=== PATIENT | female | born 2000 | race Caucasian/White ===

== ENCOUNTER 2023-07-17 10:33 | Outpatient (OUT) | payer OTHER, SELFPAY ==
--- NOTE | 2023-07-17 10:34 | US_ITS ---
The [address] [address] Patient Name: SHANTELLE PEREZ MRN: [id number] date: 2000 Sex: F Assigned Patient Location: US Current Patient Location: US Accession/Order Number: [id number] Exam Date: 07/17/2023 11:03 Report Date: 07/17/2023 15:33 At the request of: PASTORA WHITEHEAD Procedure: US OB transvaginal EXAMINATION: US OB transvaginal HISTORY: MISSED MENSES COMPARISON: No relevant comparison available. FINDINGS: GESTATIONAL SAC: Present and normal appearing. YOLK SAC: Present and normal appearing. POLE: Present and normal appearing. CARDIAC: Present. UTERUS: Normal size and appearance. OVARIES: Right: Normal. Left: Normal. CERVIX: 3.9 cm in length and closed. CUL-DE-SAC: Normal. OTHER: None. AGE BY LMP: Unknown LMP CAR BY LMP: AGE BY US CRL: 8 weeks 3 days CAR BY US CRL: 02/23/2024 US/US OB transvaginal IMPRESSION: 1. Single live intrauterine 8 weeks 3 days by today's ultrasound. Electronically authenticated by: RODOLFO REYNOSO Date: 07/17/2023 15:33
== END 2023-07-17 10:34 | disposition home or self-care (01) ==
PROVIDERS: Visit Provider Obstetrics & Gynecology
DX: Z34.91 Encounter for supervision of normal pregnancy, unspecified, first trimester (principal); N92.6 Irregular menstruation, unspecified
CPT/HCPCS: 76817

== ENCOUNTER 2023-08-13 10:57 | Outpatient (OUT) | payer OTHER, SELFPAY ==
[2023-08-13 11:35] LABS: Basophils Percent Auto 0.5 % (0.2-2.0); Eosinophils Absolute Auto 0.1 10^3/uL (0.0-0.7); Eosinophils Percent Auto 1.3 % (0.9-7.0); Hematocrit 37.8 % (36.0-48.0); Hemoglobin 13.2 g/dL (12.0-16.0); Immature Granulocytes Abs Auto 0.03 10^3/uL (0.00-0.03); Immature Granulocytes Pct Auto 0.4 % (0.0-0.5); Lymphocytes Absolute Auto 2.6 10^3/uL (1.2-3.8); Mean Corpuscular HGB Conc 34.9 g/dL (29.9-35.2); Mean Corpuscular Hemoglobin 31.9 pg (26.7-34.0); Mean Corpuscular Volume 91.3 fL (81.0-99.0); Monocytes Absolute Auto 0.5 10^3/uL (0.3-0.8); Monocytes Percent Auto 5.8 % (1.7-12.0); Platelet Count 185 10^3/uL (150-450); Red Blood Count 4.14 10^6/uL (4.20-5.40); Red Cell Distribution Width 12.6 % (11.0-15.0); White Blood Count 8.2 10^3/uL (4.0-11.0)
[2023-08-13 11:42] LABS: BOX Test Sent Out Y
[2023-08-13 12:07] LABS: Estimated Average Glucose 97 mg/dL
[2023-08-13 12:12] LABS: Thyroid Stimulating Hormone 0.569 uIU/mL (0.358-3.740)
[2023-08-14 06:09] LABS: HBsAg Screen Negative (Negative); HCV Ab Non Reactive (Non Reactive)
[2023-08-14 11:12] LABS: Rapid Plasma Reagin, Quant Non Reactive titer (NonRea<1:1)
[2023-08-15 06:09] LABS: Rubella Antibodies, IgG 1.37 index (Immune >0.99)
[2023-08-15 08:10] LABS: HIV Ab/p24 Ag Screen Non Reactive (Non Reactive)
== END 2023-08-13 10:58 | disposition home or self-care (01) ==
LOC: LAB 10:58
PROVIDERS: Visit Provider Obstetrics & Gynecology
DX: Z34.90 Encounter for supervision of normal pregnancy, unspecified, unspecified trimester (principal)
CPT/HCPCS: 36415; 83036; 84443; 85025; 86592; 86762; 86803; 86850; 86900; 86901; 87086; 87340; 87389

== ENCOUNTER 2023-10-03 21:35 | Emergency (ER) | payer OTHER, SELFPAY ==
[2023-10-03 21:39] VITALS: BP 114/64; PULSE 78; RESP 16; TEMP 36.7; O2SAT 100; BMI 20.5
--- NOTE | 2023-10-03 21:46 | PC.NURSE ---
Pt presents to ER for cramping during Pt states she is 19 weeks and has been having on and off cramping over the last week or more, but tonight the cramps have become more severe Pt states the baby has not been moving as much as usual heart tones obtained,153
--- NOTE | 2023-10-03 22:00 | ED.PREGNANC1 ---
HPI - General Chief complaint: OB/Uterine Contractions Stated complaint: issues - 19 weeks Time Seen by Provider: 10/03/23 21:51 Source: patient Mode of arrival: walk-in History of Present Illness HPI Narrative: Patient approx 19wks complains of 2-3 days of intermittent abdominal cramping, occasional headache and occasional dizziness. No fall or injury to the abdomen. No fever, chills, cough, vomiting, diarrhea or other illness. No urinary complaints or vaginal discharge. No vaginal bleeding. Normal bowel habits. Tonight around 7pm the patient developed lower abdominal cramping that persisted for about 2 hours. She took Tylenol and took a bath and the pain/cramping decreased but did not entirely go away. She told me that because of all of the symptoms - which were not present on her first - she was concerned. unknown LMP - US in Jul 2023 puts her at 19wks and 5 days Related Data Home Medications Medication Instructions Recorded Confirmed No Known Home Medications 10/03/23 10/03/23 Allergies Allergy/AdvReac Type Severity Reaction Status Date / Time No Known Drug Allergies Allergy Verified 10/03/23 21:43 Exam Narrative Exam Narrative: Nurses notes and vital signs reviewed and patient is not hypoxic. afebrile General: Well-appearing and in no apparent distress. Skin: Warm, dry, no pallor noted. No rash. Eye: Pupils are equal, round and EOMI. No scleral icterus. Cardiovascular: Regular Rate and Rhythm without murmur, gallop or rub. Respiratory: No accessory muscle use or respiratory distress. Lungs are clear to auscultation, no wheezing, rales or rhonchi Back: No CVA tenderness Musculoskeletal: normal ROM, no calf or popliteal tenderness, no lower extremity edema/swelling GI: Abdomen is soft, non-distended. Normal bowel sounds. Gravid uterus. No tenderness to palpation. No rebound, guarding, or rigidity noted. FHT 154bpm. Neurological: A&O x4. No cranial nerve dysfunction observed. No truncal ataxia. Moves all extremities. Sensation intact. Psychiatric: Cooperative and interactive. Normal mood and affect. Constitutional Vital Signs, click to edit/add: Last Vital Signs Temp 98.1 F 10/03/23 21:39 Pulse 78 10/03/23 21:39 Resp 16 11/25/23 21:39 BP 114/64 10/03/23 21:39 Pulse Ox 100 10/03/23 21:39 O2 Del Method Room Air 10/03/23 21:39 Course Vital Signs Vital signs: Vital Signs Temperature 98.1 F 10/03/23 21:39 Pulse Rate 78 10/03/23 21:39 Respiratory Rate 16 10/03/23 21:39 Blood Pressure 114/64 10/03/23 21:39 Pulse Oximetry 100 10/03/23 21:39 Oxygen Delivery Method Room Air 10/03/23 21:39 Temperature 98.1 F 10/03/23 21:39 Pulse Rate 78 10/03/23 21:39 Respiratory Rate 16 10/03/23 21:39 Blood Pressure 114/64 10/03/23 21:39 Pulse Oximetry 100 10/03/23 21:39 Oxygen Delivery Method Room Air 10/03/23 21:39 MDM - OB/Uterine Contractions MDM Narrative Medical decision making narrative: Unremarkable physican exam. Case discussed with Dr Parks - will give patient reassurance and have her go home with out-patient follow up as needed at the OB office. Discharge Plan Discharge Chief Complaint: OB/Uterine Contractions Clinical Impression: Abdominal pain during Patient Disposition: Home, Self-Care Time of Disposition Decision: 22:09 Prescriptions / Home Meds: No Action No Known Home Medications Instructions: Abdominal Pain in (ED) Stand Alone Forms: Portal Instructions Referrals: Kb Parks, [Physician] - As needed
== END 2023-10-03 22:44 | disposition home or self-care (01) ==
PROVIDERS: Emergency Provider Emergency Medicine
DX: O26.892 Other specified pregnancy related conditions, second trimester (principal); R10.9 Unspecified abdominal pain; Z3A.19 19 weeks gestation of pregnancy
CPT/HCPCS: 99281

== ENCOUNTER 2023-10-15 08:48 | Outpatient (OUT) | payer OTHER, SELFPAY ==
--- NOTE | 2023-10-15 08:49 | US_ITS ---
[address] [address] Patient Name: SHANTELLE PEREZ MRN: [id number] date: 2000 Sex: F Assigned Patient Location: US Current Patient Location: US Accession/Order Number: [id number] Exam Date: 10/15/2023 08:50 Report Date: 10/15/2023 10:28 At the request of: PASTORA WHITEHEAD Procedure: US OB anatomy EXAMINATION: US OB anatomy, US OB cervical length HISTORY: ANATOMY COMPARISON: 07/17/2023 TECHNIQUE: Transabdominal sonographic examination was performed for obstetrical and evaluation. FINDINGS: Number: 1 Heart Rate: 148.0 bpm H.B. /min Amniotic Fluid Volume: Subjectively normal position: Cephalic presentation, longitudinal lie Placental Location: ANTERIOR, the placental edge is 2.5 cm from the internal os. Grade 1 Cervix Length: 3.9 cm, closed Normal anatomy: Lateral ventricles, cerebellum, posterior fossa, nose, lips, orbits, four-chamber heart, RVOT, LVOT, diaphragm, stomach, kidneys, abdominal cord insertion, bladder, umbilical cord arteries, three-vessel cord, spine, extremities BIOMETRY: BPD: 5.4 cm 22 weeks 3 days, 89% HC: 20.0 cm 22 weeks 1 days, 77% AC: 17.4 cm 22 weeks 2 days, 75% FL: 3.8 cm 22 weeks 0 days, 65% EFW: 481.6 grams grams ; 1 lb. 1 oz., 87% FL/AC: 21.6 FL/BPD: 69.2 HC/AC: 1.2 GESTATIONAL AGE: Age by EDC: 21 weeks 2 days CAR by EDC: 02/23/2024 Age by current US: 22 weeks 2 days CAR by current US: 02/16/2024 US/US OB anatomy IMPRESSION: Normal anatomy scan Closed cervix measuring 3.9 cm in length *Reference: [employer] Practice Guideline for the performance of Obstetric Ultrasound Examinations, August 09, 2007. Electronically authenticated by: COMPA WILLIAM Date: 10/15/2023 10:28
--- NOTE | 2023-10-15 08:49 | US_ITS ---
[address] [address] Patient Name: SHANTELLE PEREZ MRN: [id number] date: 2000 Sex: F Assigned Patient Location: US Current Patient Location: US Accession/Order Number: [id number] Exam Date: 10/15/2023 08:50 Report Date: 10/15/2023 10:28 At the request of: PASTORA WHITEHEAD Procedure: US OB cervical length EXAMINATION: US OB anatomy, US OB cervical length HISTORY: ANATOMY COMPARISON: 07/17/2023 TECHNIQUE: Transabdominal sonographic examination was performed for obstetrical and evaluation. FINDINGS: Number: 1 Heart Rate: 148.0 bpm H.B. /min Amniotic Fluid Volume: Subjectively normal position: Cephalic presentation, longitudinal lie Placental Location: ANTERIOR, the placental edge is 2.5 cm from the internal os. Grade 1 Cervix Length: 3.9 cm, closed Normal anatomy: Lateral ventricles, cerebellum, posterior fossa, nose, lips, orbits, four-chamber heart, RVOT, LVOT, diaphragm, stomach, kidneys, abdominal cord insertion, bladder, umbilical cord arteries, three-vessel cord, spine, extremities BIOMETRY: BPD: 5.4 cm 22 weeks 3 days, 89% HC: 20.0 cm 22 weeks 1 days, 77% AC: 17.4 cm 22 weeks 2 days, 75% FL: 3.8 cm 22 weeks 0 days, 65% EFW: 481.6 grams grams ; 1 lb. 1 oz., 87% FL/AC: 21.6 FL/BPD: 69.2 HC/AC: 1.2 GESTATIONAL AGE: Age by EDC: 21 weeks 2 days CAR by EDC: 02/23/2024 Age by current US: 22 weeks 2 days CAR by current US: 02/16/2024 US/US OB cervical length IMPRESSION: Normal anatomy scan Closed cervix measuring 3.9 cm in length *Reference: [employer] Practice Guideline for the performance of Obstetric Ultrasound Examinations, August 09, 2007. Electronically authenticated by: COMPA WILLIAM Date: 10/15/2023 10:28
--- OUTSIDE RECORDS SUMMARY | 2023-10-28 02:47 | XMS_ITS | CCD ---
Author Name Unknown Address [address] [place] [address] Organization [facility] Care Team Providers Care Setter Up Name Role Phone SimonaLori Primary Care Physician [phone] Wendie Jackson Primary Care Physician [phone] VENTURA ., DR GUILLORY Admitting Unavailable VENTURA ., DR GUILLORY Attending Unavailable VENTURA ., DR GUILLORY Consulting Unavailable REQUEST, DR NONE LISTED Primary Care Unavaila ble VENTURA ., DR GUILLORY Attending Unavailable VENTURA ., DR GUILLORY Admitting Unavailable REQUEST, DR NONE LISTED Primary Care Unavaila ble VENTURA ., DR GUILLORY Consulting Unavailable VENTURA ., DR GUILLORY Attending Unavailable VENTURA ., DR GUILLORY Admitting Unavailable REQUEST, NONE LISTED Primary Care Unavaila ble VENTURA ., DR GUILLORY Consulting Unavailable VENTURA ., DR GUILLORY Consulting Unavailable VENTURA ., DR GUILLORY Attending Unavailable VENTURA ., DR GUILLORY Admitting Unavailable REQUEST, DR NONE LISTED Primary Care Unavaila ble VENTURA ., DR GUILLORY Consulting Unavailable VENTURA ., DR GUILLORY Admitting Unavailable VENTURA ., DR GUILLORY Attending Unavailable REQUEST, DR NONE LISTED Primary Care Unavaila ble RODOLFO REYNOSO Consulting Unavailable ANA MUSA Attending Unavailable ANA MUSA Admitting Unavailable ANA MUSA Consulting Unavailable REQUEST, NONE LISTED Primary Care Unavaila ble VENTURA ., DR GUILLORY Consulting Unavailable VENTURA ., DR GUILLORY Attending Unavailable VENTURA ., DR GUILLORY Admitting Unavailable REQUEST, DR NONE LISTED Primary Care Unavaila ble VENTURA ., DR GUILLORY Admitting Unavailable VENTURA ., DR GUILLORY Attending Unavailable VENTURA ., DR GUILLORY Consulting Unavailable REQUEST, DR NONE LISTED Primary Care Unavaila ble VENTURA ., DR GUILLORY Attending Unavailable VENTURA ., DR GUILLORY Admitting Unavailable REQUEST, DR NONE LISTED Primary Care Unavaila ble COMPA WILLIAM Consulting Unavailable VENTURA ., DR GUILLORY Consulting Unavailable VENTURA ., DR GUILLORY Consulting Unavailable VENTURA ., DR GUILLORY Attending Unavailable VENTURA ., DR GUILLORY Admitting Unavailable MISC, DR SIMMONS Primary Care Unavailable MISC, DR SIMMONS Primary Care Unavailable VENTURA ., DR GUILLORY Admitting Unavailable VENTURA ., DR GUILLORY Attending Unavailable MISC, DR SIMMONS Primary Care Unavailable HAY ., DR PEREZ Attending Unavailable HAY ., DR PEREZ Admitting Unavailable HAY ., DR PEREZ Consulting Unavailable RENE, RODOLFO Consulting Unavailable VENTURA ., DR GUILLORY Consulting Unavailable MISC, DR SIMMONS Primary Care Unavailable VENTURA ., DR GUILLORY Attending Unavailable VENTURA ., DR GUILLORY Admitting Unavailable VENTURA ., DR GUILLORY Procedure Practitioner Unavail able VENTURA ., DR GUILLORY Admitting Unavailable REQUEST, DR NONE LISTED Primary Care Unavaila ble VENTURA ., DR GUILLORY Attending Unavailable VENTURA ., DR GUILLORY Attending Unavailable VENTURA ., DR GUILLORY Admitting Unavailable REQUEST, DR NONE LISTED Primary Care Unavaila ble COMPA WILLIAM Consulting Unavailable VENTURA ., DR GUILLORY Consulting Unavailable VENTURA ., DR GUILLORY Consulting Unavailable VENTURA ., DR GUILLORY Attending Unavailable VENTURA ., DR GUILLORY Admitting Unavailable REQUEST, DR NONE LISTED Primary Care Unavaila ble ZIEBER, RODOLFO R Consulting Unavailable VENTURA ., DR GUILLORY Attending Unavailable VENTURA ., DR GUILLORY Admitting Unavailable REQUEST, DR NONE LISTED Primary Care Unavaila ble VENTURA ., DR GUILLORY Consulting Unavailable Higgins, Basem G. Admitting Unavailable Higgins, Basem G. Attending Unavailable Higgins, Basem G. Referring Unavailable Renetta, Wendie C Referring Unavailable Renetta, Wendie C Admitting Unavailable Renetta, Wendie C Attending Unavailable Renetta, Wendie C Admitting Unavailable Renetta, Wendie C Attending Unavailable Higgins, Basem G. Attending Unavailable Renetta, Wendie C Referring Unavailable Renetta, Wendie C Referring Unavailable Renetta, Wendie C Admitting Unavailable Renetta, Wendie C Attending Unavailable LORI HUYNH Attending Unavailable Allergies Allergy Classification Reported Allergen(s) Allergy Type Date of Onset Reaction(s) Facility (8 sources) Bee/Wasp/Ant venom; Translations: [Bee Stings] Allergy to substance Swelling - edema - symptom (finding) [facility] (8 sources) Seafood; Translations: [Seafood] Food allergy diarrhea [facility] (1 source) Shrimp product Drug allergy (disorder) 2 [facility] (1 source) wasp venom Drug allergy (disorder) 2 [facility] Medications Current Medications Medication Drug Class(es) Dates Sig (Normalized) Sig (Original) 168 hr ethinyl estradiol 0.58108 mg/hr / norelgestromin 0.44223 mg/hr transdermal system (7 sources) Progestin, Estrogen Start: 08-16-2020 Xulane 150 mcg-35 mcg/24 hr transdermal film, extended release 1 patch(es), Topical, qWeek, 3 EA, Refill(s) 11, [facility], 165, cm, 08/16/20 15:55:00 EDT, Height/Length Dosing, 66.3, kg, 08/16/20 15:55:00 EDT, Weight Dosing Start Date: 08/16/20 Status: Ordered hydrocortisone 25 mg/ml topical cream (7 sources) Corticosteroid Start: 09-19-2020 hydrocortisone Top 2.5% Crm 1 tahmina, Topical, TID, 20 gram, Refill(s) 0, [facility], 165, cm, 09/19/20 16:02:00 EST, Height/Length Dosing, 69.5, kg, 09/19/20 16:02:00 EST, Weight Dosing Start Date: 09/19/20 Status: Ordered Start: 09-19-2020 hydrocortisone Top 2.5% Crm 1 tahmina, Topical, TID, 20 gram, Refill(s) 0, [facility], 165, cm, 09/19/20 16:02:00 EST, Height/Length Dosing, 69.5, kg, 11/11/20 16:02:00 EST, Weight Dosing Start Date: 09/19/20 Status: Ordered Completed/Discontinued Medications Medication Drug Class(es) Dates Sig (Normalized) Sig (Original) Albuterol (Eqv-ProAir HFA) 90 mcg/inh inhalation aerosol (2 sources) Start: 12-31-2022 End: 06-29-2023 take 1 dose by inhalation every six hours Albuterol (Eqv-ProAir HFA) 90 mcg/inh inhalation aerosol 2 puff(s), Inhalation, q6hr Shortness of breath or wheezing for 30 day(s), 1 EA, Refill(s) 5, [id number], 167, cm, 12/31/22 11:21:00 EST, Height/Length Dosing, 59.1, kg, 12/31/22 11:21:00 EST, Weight Dosing Start Date: 12/31/22 Stop Date: 06/29/23 Status: Ordered Problems Active Problems Problem Classification Problem Date Documented Date Episodic/Chronic Headache; including migraine (7 sources) Migraine 09-29-2019 Chronic Inflammation; infection of eye (except that caused by tuberculosis or sexually transmitteddisease) (1 source) Viral conjunctivitis; Translations: [Viral conjunctivitis, unspecified] Onset: 03-25-2022 Episodic Menstrual disorders (4 sources) Irregular menstruation, unspecified; Translations: [IRREGULAR MENSTRUATION UNSPECIFIED] Onset: 03-24-2022 Chronic Nonspecific chest pain (14 sources) Anterior chest wall pain; Translations: [Chest wall pain] 01-04-2020 Episodic OB-related trauma to perineum and vulva (1 source) Second degree perineal laceration during delivery; Translations: [SECOND DEG PERINEAL LAC DUR DELIV] Onset: 11-17-2022 Episodic Other complications of ; puerperium affecting management of mother (1 source) Other complications of the puerperium, not elsewhere classified; Translations: [OTHER COMPLICATIONS PUERPERIUM NEC] Onset: 11-12-2022 Episodic Other lower respiratory disease (1 source) Dyspnea; Translations: [Shortness of breath] Onset: 12-31-2022 Episodic Other lower respiratory disease (4 sources) Shortness of breath; Translations: [SHORTNESS OF BREATH] Onset: 04-23-2022 Episodic Other lower respiratory disease (1 source) Dyspnea, unspecified; Translations: [DYSPNEA UNSPECIFIED] Onset: 11-12-2022 Episodic Other and delivery including normal (14 sources) Encounter for routine follow-up; Translations: [Encounter for full-term uncomplicated delivery] Onset: 03-28-2022 Episodic Residual codes; unclassified (1 source) 40 weeks gestation of ; Translations: [40 WEEKS GESTATION OF ] Onset: 11-17-2022 Episodic Substance-related disorders (7 sources) Smoker 11-19-2019 Chronic Comment on above: Added secondary to d ocumentation in Social History. Unclassified (1 source) CONTACT W/AND (SUSP) EXPOS COVID-19; Tra nslations: [CONTACT W/AND (SUSP) EXPOS COVID-19] Onset: 11-17-2022 Past or Other Problems Problem Classification Problem Date Documented Date Episodic/Chronic Immunizations and screening for infectious disease (2 sources) Encounter for screening for infections with a predominantly sexual mode of transmission; Translations: [Contact with and (suspected) exposure to infections with a predominantly sexual mode of transmission] Onset: 03-27-2022 Episodic Other complications of (4 sources) Maternal care for other known or suspected poor growth, third trimester, not applicable or unspecified; Translations: [MAT CARE OTH DE FTL GRTH 3RD TM UNS] Onset: 09-25-2022 Episodic Other complications of (4 sources) Decreased movements, third trimester, not applicable or unspecified; Translations: [DECR MOVEMENTS 3RD TRI NA/UNS] Onset: 08-30-2022 Episodic Other complications of (4 sources) Other specified related conditions, third trimester; Translations: [OTH SPEC PREG RELATED COND 3RD TRI] Onset: 08-28-2022 Episodic Other complications of (4 sources) Other specified related conditions, unspecified trimester; Translations: [OTH SPEC PREG RELATED COND UNS TRI] Onset: 04-21-2022 Episodic Other female genital disorders (4 sources) Other specified noninflammatory disorders of vagina; Translations: [OTH SPEC NONINFLAMMATORY D/O VAGINA] Onset: 07-17-2022 Episodic Other screening for suspected conditions (not mental disorders or infectious disease) (14 sources) Encounter for screening for diabetes mellitus; Translations: [Encounter for screening, unspecified] Onset: 03-27-2022 Episodic Residual codes; unclassified (1 source) 34 weeks gestation of ; Translations: [34 WEEKS GESTATION OF ] Onset: 09-27-2022 Episodic Residual codes; unclassified (1 source) 32 weeks gestation of ; Translations: [32 WEEKS GESTATION OF ] Onset: 09-15-2022 Episodic Residual codes; unclassified (1 source) 30 weeks gestation of ; Translations: [30 WEEKS GESTATION OF ] Onset: 09-03-2022 Episodic Residual codes; unclassified (1 source) Unspecified blood type, Rh negative; Translations: [UNSPECIFIED BLOOD TYPE RH NEGATIVE] Onset: 09-02-2022 Episodic Residual codes; unclassified (1 source) 28 weeks gestation of ; Translations: [28 WEEKS GESTATION OF ] Onset: 09-02-2022 Episodic Residual codes; unclassified (1 source) 20 weeks gestation of ; Translations: [20 WEEKS GESTATION OF ] Onset: 06-20-2022 Episodic Unclassified (7 sources) None (qualifier value) 05-14-2011 Results Test Name Value Interpretation Reference Range Facil [facility] Pulmonary Function Studieson 06-24-2023 Pulmonary Function Studies PULMONARY FUNCTION TEST: 06/16/2023 REFERRING PHYSICIAN: Wendie Jackson D.O., Gurpreet Higgins M.D. REASON FOR TESTING: This is a 22-year-old female, never smoked. Pulmonary function test is performed to evaluate for dyspnea. Spirometry shows normal FEV1 at 86% predicted, forced vital capacity is normal at 92% predicted, FEV1/forced vital capacity ratio is normal at 82%. After administration of bronchodilators, there is no response to bronchodilators. Lung volume testing shows normal total lung capacity at 91% predicted, residual volume is high normal at 110% predicted. RV/total lung capacity ratio is normal at 33%. The lung diffusion capacity is normal at 115% predicted. In comparison to prior testing on December 09, 2022, there is significant improvement in FEV1 from 64% predicted to 86% predicted. IMPRESSION: Spirometry is normal. There is no response to bronchodilators. Lung volume testing is normal. The lung diffusion capacity is normal. Spirometry has improved compared to prior testing. READ BY: Portillo Correa M.D. ls Dictated: 06/23/2023 [id number] Transcribed: 06/23/2023 cc:Wendie Jackson D.O. cc:Gurpreet Higgins M.D. Normal [facility] Comment on above: Result Comment: Elec tronically Signed By: Madeline LEE, Portillo Rojas\.br\Date and Time Signed: 06/24/23 13:19 EDT Consent for Treatmenton 08- Consent for Treatment [id number]#1.00CD:[address] [facility] Pulmonary Function Testson 0 06-16-2023 Pulmonary Function Tests [id number]#1.00CD:[address] [facility] Reminderson 06-02-2023 Reminders - From: Tess Guaman To: [facility] - Clinical; Sent: 12/31/2022 14:08:49 EST Show up: 02/28/2023 15:08:00 EDT Subject: 3 month f/u Due Date/Time: 03/30/2023 15:08:00 EDT Reminder/Recall 3 month f/u w/ Dr. Higgins From: Gumaro Currie ([facility] - Clinical) To: [facility] - Clinical; Sent: 06/02/2023 13:48:27 EDT Show up: 06/02/2023 13:48:00 EDT Subject: RE: 3 month f/u Scheduled follow up for 07/01, transferred her to central scheduling for PFT that was never done. Normal [facility] Coding Summary.on 01-13-2023 Coding Summary. [id number] [file] cmRl (more content not included)... Normal [facility] Consent for Treatmenton 12-11 Consent for Treatment [id number]#1.00CD:127 Normal [facility] Heart and Vascular Office/Cl inic Noteon 12-31-2022 Heart and Vascular Office/Clinic Note Chief Complaint New Pt SOB History of Present Illness Here for evaluation for shortness of breath. The patient reports that she been having shortness of breath since she became about a year ago. Her symptoms somewhat improved towards the end of only to come back after she had delivered 2 months ago. She reports that she has shortness of breath with exertion but denies cough, sputum production, wheezing, chest pain, lower extremity edema or significant weight changes. She had underwent a full PFT which was abnormal and hence referred for further evaluation. She had not had prior respiratory issues in the past and had not had history of asthma when she was growing up. Never smoked. No pets at home. Review of Systems PHQ Score Initial Depression Screen Score: 0 Constitutional: no fever, no chills, no sweats, no weakness Skin: no Jaundice, no rash, no lesions, no petechiae ENT: no ear pain, no sore throat, no congestion, no hoarseness Respiratory: as per HPI Cardiovascular: no chest pain, no palpitations, no edema Gastrointestinal: no nausea, no vomiting, no diarrhea, no GI bleeding Genitourinary: no dysuria, no hematuria, no discharge, no pain Musculoskeletal: no back pain, no trauma Neurologic: no headache, no dizziness, no numbness, no weakness Psychiatric: no sleeping problems, no irritability, no mood swings/depression. Heme/Lymph: no bleeding tendency, no bruising tendency, no petechiae, no swollen nodes Allergy/Immunologic: no seasonal allergies, no food allergies, no recurrent infections, no impaired immunity Additional ROS info: Except as noted in the above Review of Systems and in the History of Present Illness all other systems have been reviewed and are negative or noncontributory. Physical Exam Vitals & Measurements HR: 66(Peripheral) BP: 96/62 SpO2: 96% HT: 66 in HT: 167 cm WT: 59.1 kg WT: 130.02 lb BMI: 21.19 General: Awake, alert, in no acute distress Skin: warm, dry Head: no trauma, normocephalic Neck: Trachea midline, no adenopathy, no tenderness Eye: normal conjunctiva, sclera clear ENMT: TM's clear, oral mucosa moist, no pharyngeal erythema or exudate Cardiovascular: regular rate and rhythm, normal peripheral perfusion Respiratory: Good breath sounds to both lung aviles without wheezing or crackles. Gastrointestinal: soft, non distended, no tenderness, no guarding. Back: No tenderness, Normal ROM, Normal alignment. Extremities: no deformity, no trauma Neurological: oriented x 4, LOC appropriate for age, CN II-XII intact, motor strength equal & normal bilaterally, sensation equal & normal bilaterally, speech normal Psychiatric: cooperative, affect appropriate for age, normal judgement, normal psychiatric thoughts. 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 [1] (12/02/2022 13:28 EST CTA Chest) IMPRESSION: NO EVIDENCE OF PULMONARY EMBOLI OR ACTIVE CARDIOPULMONARY DISEASE. [2] Assessment/Plan 1. SOB (shortness of breath) (R06.02: Shortness of breath) With PFTs suggestive, of obstructive and restrictive lung disease pattern with a normal diffusion capacity. Upon reviewing the raw data of her PFTs, it appears that her PFTs are likely unreliable with poor quality flow volume loops. Per instrument repair technician the patient was carrying her baby while performing her PFT. I somewhat doubt underlying obstructive lung disease especially given the lack of significant asthma history and our smoking history. I will give a trial for albuterol to use as needed. Repeat a PFT in 3 months and reevaluate based on the results and her response to bronchodilator therapy. The patient will benefit from an echocardiogram to rule out gestational cardiomyopathy, however she reports that she had had an echocardiogram done at an outside facility and she will bring the report of her echocardiogram for me to review. Ordered: albuterol, 2 puff(s), Inhalation, q6hr Shortness of breath or wheezing for 30 day(s), 1 EA, Refill(s) 5, [id number], 167, cm, 12/31/22 11:21:00 EST, Height/Length Dosing, 59.1, kg, 12/31/22 11:21:00 EST, Weight Dosing Pulmonary Function Testing Follow-up With When Contact Information Ronaldo LEE, Gurpreet Levine, PUL, MIGDALIA Within 3 months [address] [facility] [place] [address]- Additional Instructions: Problem List/Past Medical History Ongoing Costochondral chest pain Left-sided chest wall pain Migraines Smoker Historical None Procedure/Surgical History Implantable subdermal contraceptive insertion done (05/10/2020), None. Medications Albuterol (Eqv-ProAir HFA) 90 mcg/inh inhalation aerosol, 2 puff(s), Inhalation, q6hr, PRN, 5 refills hydrocortisone Top 2.5% Crm, 1 tahmina, Topical, TID, Not taking Xulane 150 mcg-35 mcg/24 hr transdermal film, extended release, 1 patch(es), Topical, qWeek, 11 refills, Not taking Allergie (more content not included)... Normal [facility] Comment on above: Result Comment: Elec tronically Signed By: Ronaldo LEE, Gurpreet Levine\.br\Date and Time Signed: 12/31/22 12:07 EST Physician Orderon 12-31-2022 Physician Order [id number]#1.00CD:127 [facility] Referrals Officeon 3 Referrals Office [id number]#1.00CD:127 [facility] Pulmonary Function Studieson 12-19-2022 Pulmonary Function Studies PULMONARY FUNCTION TEST: 12/09/2022 REQUESTING PHYSICIAN: Wendie Jackson D.O. REASON FOR TESTING: Shortness of breath. Spirometry results are acceptable and reproducible. The FVC was 3.15 liters or 80% of predicted. The FEV1 was 2.2 liters or 64% of predicted with a ratio of 70%. There was no significant change with the administration of bronchodilators. Lung volumes showed a total lung capacity of 85% of predicted, residual volume of 108% of predicted with a ratio of 35%. Diffusion capacity of carbon monoxide was 100% of predicted and when adjusted to alveolar volume at 122% of predicted. 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 READ BY: Gurpreet Higgins M.D. ls Dictated: 12/14/2022 [id number] Transcribed: 12/15/2022 cc:Wendie Jackson D.O. [facility] Comment on above: Result Comment: Elec tronically Signed By: Ronaldo LEE, Gurpreet GSedrick\.br\Date and Time Signed: 12/19/22 09:37 EST Coding Summary.on 12-11-2022 Coding Summary. [id number] [file] cmRl (more content not included)... Normal [facility] Consent for Treatmenton 11-11 Consent for Treatment [id number]:127 [facility] Pulmonary Function Testson 0 12-09-2022 Pulmonary Function Tests [id number]:127 [facility] Physician Orderon 12-08-2022 Physician Order [id number]#1.00CD:127 [facility] Physician Order [id number]:127 [facility] Physician Order [id number]#1.00CD:127 [facility] Coding Summary.on 12-05-2022 Coding Summary. [id number] [file] cmRl (more content not included)... Normal [facility] CTA Cheston 12-02-2022 CTA Chest Exam Date/Time: 12/02/2022 13:28 EST Reason for Exam: R06.02 Report IMPRESSION: NO EVIDENCE OF PULMONARY EMBOLI OR ACTIVE CARDIOPULMONARY DISEASE. EXAM: CTA Chest DATE: 12/02/2022 CLINICAL HISTORY: R06.02. COMPARISON: None available TECHNIQUE: Spiral enhanced images were obtained of the chest after the infusion of approximately 75 mL of Isovue 370 contrast with pulmonary artery CTA protocol. Routine and volume rendered images were performed on a three-dimensional workstation. All CT scans at this facility use dose modulation, iterative reconstruction, and/or weight based dosing when appropriate to reduce radiation dose to as low as reasonably achievable. FINDINGS: No filling defects are identified within the pulmonary arterial vasculature to suggest pulmonary emboli. The thoracic aorta is normal in caliber without significant atherosclerotic plaquing. There is no dissection. The heart is not enlarged. There are no significant pulmonary infiltrates, lymphadenopathy, worrisome nodules, pleural or pericardial effusions. There are no fractures identified. The limited imaging of the included upper abdomen is noncontributory. FINAL REPORT Dictated: 12/02/2022 2:29 pm Noah Montano MD Signed (Electronic Signature): 12/02/2022 2:29 pm Signed by: Noah Montano MD Transcribed by: WOODROW Technologist: ISRAEL Technical Comments GFR (mL/min/1/73m2) . Contrast: Isovue 370 Contrast amount in ml's: [address] [facility] Consent for Treatmenton 11-10 Consent for Treatment [id number]#1.00CD:[address] [facility] Coding Summary.on 11-29-2022 Coding Summary. [id number] [file] cmRl (more content not included)... Normal [facility] Physician Orderon 11-25-2022 Physician Order [id number]#1.00CD:127 Normal [facility] CBC w/Indiceson 01-16-2023 Erythrocyte distribution wid th (RBC) [Ratio] 12.8 % Normal 10.9-14.2 [facility] Comment on above: Performed By: #### 2 [id number], [id number], [id number], [id number] ####[facility] [address] [place] [address] Hematocrit (Bld) [Volume fraction] 40.6 % Normal 34.0-46.0 [facility] Comment on above: Performed By: #### 2 [id number], [id number], [id number], [id number], [id number] ####[facility] [address] [place] [address] Hemoglobin (Bld) [Mass/Vol] 13.3 g/dL Normal 12.0-16. [address] [facility] Comment on above: Performed By: #### 2 [id number], [id number], [id number], [id number], [id number] ####[facility] [address] [place] [address] MCH (RBC) [Entitic mass] 31.1 pg Normal 27.0-34.[address] [facility] Comment on above: Performed By: #### 2 [id number], [id number], [id number], [id number], [id number] ####[facility] [address] [place] [address] MCHC (RBC) [Mass/Vol] 32.7 g/dL Normal 31.4-36.0 [facility] Comment on above: Performed By: #### 2 743764, 4189203, 38113989, 39549336, 7576756 ####[facility] [address] [place] [address] MCV (RBC) [Entitic vol] 94.9 fL Normal 80.0-100.[address] [facility] Comment on above: Performed By: #### 2 072987, 8741719, 85241507, 39796241, 8693154 ####[facility] [address] [place] [address] Platelet mean volume (Bld) [Entitic vol] 9.4 fL Normal 6.4-10.8 [facility] Comment on above: Performed By: #### 2 807606, 3649421, 41464978, 69700979, 0826634 ####[facility] [address] [place] [address] Platelets (Bld) [#/Vol] 255.0 E9/L Normal 150.0-500.[address] [facility] Comment on above: Performed By: #### 2 566037, 5701357, 69022168, 97484054, 4641908 ####[facility] [address] [place] [address] RBC (Bld) [#/Vol] 4.3 E12/L Normal 4.3-5.[address] [facility] Comment on above: Performed By: #### 2 196676, 2517128, 23598499, 75471176, 0401003 ####[facility] [address] [place] [address] WBC corrected for nucl RBC A uto (Bld) [#/Vol] 5.6 E9/L Normal 4.0-11.0 [facility] Comment on above: Performed By: #### 2 217294, 5698307, 70646451, 27196358, 9213941 ####[facility] [address] [place] [address] CHEMISTRYOrdered By: SYSTEM SYSTEM on 11-24-2022 Albumin [Mass/Vol] 3.9 g/dL Normal 3.3 - 5.0 gm/dL [facility] Albumin/Globulin [Mass ratio] 1.1 {ratio} Normal 1.1 - 2.2 [facility] ALP [Catalytic activity/Vol] 94 [iU]/d Normal 21 - 98 Int._Unit/L [facility] ALT No additional P-5'-P [Catalytic activity/Vol] 15 [iU]/d Normal 6 - 46 Int._Unit/L [facility] Anion gap [Moles/Vol] 12 mmol/L Normal 6 - 16 mEq/L [facility] AST [Catalytic activity/Vol] 19 [iU]/d Normal 5 - 43 Int._Unit/L [facility] Bilirubin [Mass/Vol] 0.4 mg/dL Normal 0.0 - 1.1 mg/dL [facility] Calcium [Mass/Vol] 8.9 mg/dL Normal 8.9 - 11.1 mg/dL [facility] Chloride [Moles/Vol] 104 mmol/L Normal 101 - 111 mmol/ L [facility] CO2 [Moles/Vol] 27 mmol/L Normal 21 - 31 mmol/L [facility] Creatinine [Mass/Vol] 0.8 mg/dL Normal 0.5 - 1.3 mg/d L [facility] GFR/1.73 sq M.predicted sohan g blacks MDRD (S/P/Bld) [Vol rate/Area] mL/min/1.73 m2 Normal >=59mL/min/1.73 m2 FT Chem S GFR/1.73 sq M.predicted sohan g non-blacks MDRD (S/P/Bld) [Vol rate/Area] mL/min/1.73 m2 Normal >=59mL/min/1.73 m2 [facility] Chem S Globulin (S) [Mass/Vol] 3.6 g/dL Normal 1.4 - 4.0 gm /dL [facility] Glucose [Mass/Vol] 77 mg/dL Normal 55 - 199 mg/dL [facility] Potassium [Moles/Vol] 3.7 mmol/L Normal 3.5 - 5.3 mmol /L [facility] Protein [Mass/Vol] 7.5 g/dL Normal 6.0 - 7.8 gm/dL [facility] Sodium [Moles/Vol] 139 mmol/L Normal 135 - 145 mmol/L [facility] TSH Qn 0.70 m[IU]/L Normal 0.34 - 5.60 mcIU/mL [facility] C Remisol Urea nitrogen [Mass/Vol] 12 mg/dL Normal 5 - 21 mg/d L [facility] Urea nitrogen/Creatinine [Ma ss ratio] 15 mg/mg Normal 10 - 20 [facility] CMPon 11-24-2022 Albumin [Mass/Vol] 3.9 g/dL Normal 3.3-5.[address] [facility] Comment on above: Performed By: #### 2 303006, 7079202, 51534289, 73821516, 7050687 ####[facility] [address] [place] [address] Albumin/Globulin (S) [Mass conc ratio] 1.1 Normal 1.1-2.[address] [facility] Comment on above: Performed By: #### 2 597714, 2047129, 86656004, 74651798, 7059568 ####[facility] [address] [place] [address] ALP [Catalytic activity/Vol] 94 Int._Unit/L Normal 21- [address] [facility] Comment on above: Performed By: #### 2 011437, 0234985, 77396870, 82171934, 9098321 ####[facility] [address] [place] [address] ALT No additional P-5'-P [Catalytic activity/Vol] 15 Int._Unit/L Normal 6-[address] [facility] Comment on above: Performed By: #### 2 589435, 1009052, 62150738, 50656362, 4058990 ####[facility] [address] [place] [address] Anion gap [Moles/Vol] 12 mmol/L Normal 6-16 [facility] Comment on above: Performed By: #### 2 606570, 9148567, 85343945, 94936203, 8452257 ####[facility] [address] [place] [address] AST [Catalytic activity/Vol] 19 Int._Unit/L Normal 5-[address] [facility] Comment on above: Performed By: #### 2 262573, 0460704, 25786728, 78664414, 6902924 ####[facility] [address] [place] [address] Bilirubin [Mass/Vol] 0.4 mg/dL Normal 0.0-1.1 [facility] Comment on above: Performed By: #### 2 428732, 4596967, 75554145, 46016788, 9725072 ####[facility] [address] [place] [address] Calcium [Mass/Vol] 8.9 mg/dL Normal 8.9-11.[address] [facility] Comment on above: Performed By: #### 2 290079, 9026133, 61735188, 84412141, 6697578 ####[facility] [address] [place] [address] Chloride [Moles/Vol] 104 mmol/L Normal 101-111 [facility] Comment on above: Performed By: #### 2 938604, 0163288, 08769566, 50843820, 4960808 ####[facility] [address] [place] [address] CO2 [Moles/Vol] 27 mmol/L Normal 21-31 [facility] Comment on above: Performed By: #### 2 303941, 1413101, 03426535, 41101219, 0316390 ####[facility] [address] [place] [address] Creatinine [Mass/Vol] 0.8 mg/dL Normal 0.5-1.3 [facility] Comment on above: Performed By: #### 2 664597, 7476602, 69429928, 03712719, 1145708 ####[facility] [address] [place] [address] Globulin (S) [Mass/Vol] 3.6 g/dL Normal 1.4-4.0 [place] Comment on above: Performed By: #### 2 452352, 2578408, 35912031, 08109538, 6789290 ####[facility] [address] [place] [address] Glucose [Mass/Vol] 77 mg/dL Normal 55-[address] [facility] Comment on above: Result Comment: If t his glucose result represents a fasting glucose, interpretation should refer to the following reference range: 55-99 mg/dL Performed By: #### 2 508793, 6323691, 19973744, 07784929, 3880485 ####[facility] [address] [place] [address] Potassium [Moles/Vol] 3.7 mmol/L Normal 3.5-5.3 [facility] Comment on above: Performed By: #### 2 733529, 1364859, 52806483, 75363196, 4496106 ####[facility] [address] [place] [address] Protein [Mass/Vol] 7.5 g/dL Normal 6.0-7.[address] [facility] Comment on above: Performed By: #### 2 218337, 8151230, 26192465, 41459555, 0625362 ####[facility] [address] [place] [address] Sodium [Moles/Vol] 139 mmol/L Normal 135-[address] [facility] Comment on above: Performed By: #### 2 548025, 3281787, 73270280, 36802501, 2982919 ####[facility] [address] [place] [address] Urea nitrogen [Mass/Vol] 12 mg/dL Normal 5-[address] [facility] Comment on above: Performed By: #### 2 481727, 3329964, 35939307, 33770735, 8470097 ####[facility] [address] [place] [address] Urea nitrogen/Creatinine [Ma ss ratio] 15 No Units Normal 10-20 [facility] Comment on above: Performed By: #### 2 881872, 6978054, 19845049, 79448942, 2289926 ####[facility] [address] [place] [address] COAGULATIONOrdered By: Giuseppe Robb on 11-24-2022 Fibrin D-dimer FEU (PPP) [Mass/Vol] 3906 ng/mL FEU Invalid Interpretation Code 215 - 500 ng/mL FEU [facility] Auto Coag Comment on above: Result Comment: Resu lts Called To DR JACKSON By GIUSEPPE ROBB And Read Back For Confirmation On 11/24/2022 16:26:28 EST Results Verified By Repeat Analysis Consent for Treatmenton 11-09 Consent for Treatment [id number]#[id number]:[address] [facility] D-Dimeron 11-24-2022 Fibrin D-dimer FEU (PPP) [Mass/Vol] 3906 [id number] Abnormal 215-[address] [facility] Comment on above: Result Comment: Resu lts Called To DR JACKSON By GIUSEPPE ROBB And Read Back For Confirmation On 11/24/2022 16:26:28 EST Results Verified By Repeat Analysis This assay is intended for use as an aid in the diagnosis of DVT or PE. These conditions cannot be excluded with certainty solely on the basis of a D-dimer concentration being within the reference range This D-Dimer assay may be used in conjunction with a non-high clinical pretest probability assessment to exclude deep-vein thrombosis(DVT). For exclusion of venous thrombosis or pulmonary embolism the analyte D-Dimer should not be used as an aid in patients with: Therapeutic dose anticoagulant therapy for >24 hours Fibrinolytic therapy within previous 7 days Trauma or surgery within previous 4 weeks Disseminated malignacies Aortic aneurysm Sepsis, severe infections, pneumonia, severe skin infections Liver cirrhosis Performed By: #### 2 692422, 8944294, 12487376, 87629054, 5017023 ####[address] [place] [address] HEMATOLOGYOrdered By: Chris Grant on 11-24-2022 Erythrocyte distribution wid th (RBC) [Ratio] 12.8 % Normal 10.9 - 14.2 % [facility] HemeAutoSS Hematocrit (Bld) [Volume fraction] 40.6 % Normal 34.0 - 46.0 % [facility] HemeAutoSS Hemoglobin (Bld) [Mass/Vol] 13.3 g/dL Normal 12.0 - 1 6.0 gm/dL [facility] HemeAutoSS MCH (RBC) [Entitic mass] 31.1 pg Normal 27.0 - 34.0 pg [facility] HemeAutoSS MCHC (RBC) [Mass/Vol] 32.7 g/dL Normal 31.4 - 36.0 gm /dL [facility] HemeAutoSS MCV (RBC) [Entitic vol] 94.9 fL Normal 80.0 - 100.0 fL [facility] HemeAutoSS Platelet mean volume (Bld) [Entitic vol] 9.4 fL Normal 6.4 - 10.8 fL [facility] HemeAutoSS Platelets (Bld) [#/Vol] 255.0 E9/L Normal 150.0 - 500. 0 E9/L [facility] HemeAutoSS RBC (Bld) [#/Vol] 4.3 E12/L Normal 4.3 - 5.9 E12/L [facility] HemeAutoSS WBC corrected for nucl RBC A uto (Bld) [#/Vol] 5.6 E9/L Normal 4.0 - 11.0 E9/L [facility] HemeAutoSS Physician Orderon 11-24-2022 Physician Order [id number]:[address] [facility] TSH With T4fr Reflexon 11-24 TSH Qn 0.70 m[IU]/L Normal 0.34-5.[address] [facility] Comment on above: Performed By: #### 2 733534, 3023097, 97933176, 69960498, 0690882 ####[facility] [address] [place] [address] eGFRon 11-24-2022 GFR/1.73 sq M.predicted sohan g blacks MDRD (S/P/Bld) [Vol rate/Area] mL/min/{1.73_m2} Normal >=59 [facility] Comment on above: Order Comment: Order added by Discern Expert. Result Comment: eGFR is race adjusted. AA=. Performed By: #### 2 947511, 2762189, 08927352, 98754600, 4711077 ####[facility] [address] [place] [address] GFR/1.73 sq M.predicted sohan g non-blacks MDRD (S/P/Bld) [Vol rate/Area] mL/min/{1.73_m2} Normal >=59 [facility] Comment on above: Order Comment: Order added by Discern Expert. Result Comment: Slotter Operator maribel kidney disease could be indicated at eGFR's of less than 60 mL/min/1.73m2. Kidney failure is indicated at less than 15 mL/min/1.73m2. Performed By: #### 2 434572, 6120553, 35989654, 52553858, 7369770 ####[facility] [address] [place] [address] XR CHEST 1 Von 11-11-2022 XR CHEST 1 V EXAM: XR CHEST 1 V HISTORY: SHORTNESS OF BREATH COMPARISON: None. FINDINGS: Single view of the chest was obtained. The cardiomediastinal silhouette is within normal limits. Lungs are clear without focal airspace consolidation. No pneumothorax or pleural effusion. Visualized portions of the upper abdomen are unremarkable. No acute osseous abnormalities. IMPRESSION: No acute cardiopulmonary disease. Electronically authenticated by: RODOLFO LÓPEZ Date: 2022-11-11 15:20 Normal [facility] CBC AUTO DIFFon 11-07-2022 BASO # 0.0 103/ul Normal 0.0-0.1 [facility] Comment on above: Performed By: #### C BC #### [facility] [address] [place] [address] Dr. Dianelys Brown Basophils/100 WBC (Bld) 0.4 % Normal 0.2-2.0 [facility] Comment on above: Performed By: #### C BC #### [facility] [address] [place] [address] Dr. Dianelys Brown EO # 0.1 103/ul Normal 0.0-0.7 [facility] Comment on above: Performed By: #### C BC #### [facility] [address] [place], [place] [address] Dr. Dianelys Brown Eosinophils/100 WBC (Bld) 1.3 % Normal 0.9-7.0 [facility] Comment on above: Performed By: #### C BC #### [facility] [address] [place], [place] [address] Dr. Dianelys Brown Erythrocyte distribution wid th (RBC) [Ratio] 13.2 % Normal 11.0-15.0 [facility] pitla Comment on above: Performed By: #### C BC #### [facility] [address] [place] [address] Dr. iDanelys Brown Hematocrit (Bld) [Volume fraction] 27.1 % Critically low 36.0-48.0 [facility] pitla Comment on above: Performed By: #### C BC #### [facility] [address] [place] [address] Dr. Dianelys Brown Hemoglobin (Bld) [Mass/Vol] 9.0 g/dL Critically low 12.0 -16.0 [facility] Comment on above: Performed By: #### C BC #### [facility] [address] [place] [address] Dr. Dianelys Brown IG # 0.05 10e3/ul Critically high 0.00-0.03 [facility] Comment on above: Performed By: #### C BC #### [facility] [address] [place] [address] Dr. Dianelys Brown IG % 0.5 % Normal 0.0-0.5 [facility] Comment on above: Performed By: #### C BC #### [facility] [address] [place] [address] Dr. Dianelys Brown LYMPH # 2.0 103/ul Normal 1.2-3.8 [facility] Comment on above: Performed By: #### C BC #### [facility] [address] [place] [address] Dr. Dianelys Brown Lymphocytes/100 WBC (Bld) 18.1 % Critically low 20.5-6 0.0 [facility] Comment on above: Performed By: #### C BC #### [facility] [address] [place] [address] Dr. Dianelys Brown MANUAL DIFF REQ NO Normal [facility] Comment on above: Performed By: #### C BC #### [facility] [address] [place] [address] Dr. Dianelys Brown MCH (RBC) [Entitic mass] 31.5 pg Normal 26.7-34.0 [facility] Comment on above: Performed By: #### C BC #### [facility] [address] [place] [address] Dr. Dianelys Brown MCHC (RBC) [Mass/Vol] 33.2 g/dL Normal 29.9-35.2 [facility] Comment on above: Performed By: #### C BC #### [facility] [address] [place] [address] Dr. Dianelys Brown MCV (RBC) [Entitic vol] 94.8 fL Normal 81.0-99.0 [facility] Comment on above: Performed By: #### C BC #### [facility] [address] [place] [address] Dr. Dianelys Brown MONO # 1.0 103/ul Critically high 0.3-0.8 [facility] Comment on above: Performed By: #### C BC #### [facility] [address] [place] [address] Dr. Dianelys Brown Monocytes/100 WBC (Bld) 9.1 % Normal 1.7-12.0 [facility] Comment on above: Performed By: #### C BC #### [facility] [address] [place] [address] Dr. Dianelys Brown NEUT # 7.6 103/ul Critically high 1.4-6.5 [facility] Comment on above: Performed By: #### C BC #### [facility] [address] [place] [address] Dr. Dianelys Brwon Neutrophils/100 WBC (Bld) 70.6 % Normal 43.0-75.0 [facility] Comment on above: Performed By: #### C BC #### [facility] [address] [place] [address] Dr. Dianelys Brown Platelet mean volume (Bld) [ Entitic vol] 11.8 fL Normal 9.5-13.5 [facility] Comment on above: Performed By: #### C BC #### [facility] [address] [place] [address] Dr. Dianelys Brown PLT 133 103/ul Critically low 150-450 [facility] Comment on above: Performed By: #### C BC #### [facility] [address] [place] [address] Dr. Dianelys Brown RBC 2.86 106/ul Critically low 4.20-5.40 [facility] Comment on above: Performed By: #### C BC #### [facility] [address] [place] [address] Dr. Dianelys Brown WBC 10.8 103/ul Normal 4.0-11.0 [facility] Comment on above: Performed By: #### C BC #### [facility] [address] [place] [address] Dr. Dianelys Brown CBC AUTO DIFFon 11-06-2022 BASO # 0.0 103/ul Normal 0.0-0.1 [facility] [place] [facility] Comment on above: Performed By: #### H BSANS #### [facility] [address] [place] [address] Dr. Dianelys Brown Basophils/100 WBC (Bld) 0.4 % Normal 0.2-2.0 [facility] Comment on above: Performed By: #### H BSANS #### [facility] [address] [place] [address] Dr. Dianelys Brown EO # 0.2 103/ul Normal 0.0-0.7 [facility] Comment on above: Performed By: #### H BSANS #### [facility] [address] [place] [address] Dr. Dianelys Brown Eosinophils/100 WBC (Bld) 1.6 % Normal 0.9-7.0 [facility] Comment on above: Performed By: #### H BSANS #### [facility] [address] [place] [address] Dr. Dianelys Brown Erythrocyte distribution wid th (RBC) [Ratio] 13.1 % Normal 11.0-15.0 [facility] Comment on above: Performed By: #### H BSANS #### [facility] [address] [place], [place] [address] Dr. Dianelys Brown Hematocrit (Bld) [Volume fraction] 33.5 % Critically low 36.0-48.0 [facility] Comment on above: Performed By: #### H BSANS #### [facility] [address] [place] [address] Dr. Dianelys Brown Hemoglobin (Bld) [Mass/Vol] 11.5 g/dL Critically low 12.0 -16.0 [facility] Comment on above: Performed By: #### H BSANS #### [facility] [address] [place] [address] Dr. Dianelys Brown IG # 0.05 10e3/ul Critically high 0.00-0.03 [facility] Comment on above: Performed By: #### H BSANS #### [facility] [address] [place] [address] Dr. Dianelys Brown IG % 0.5 % Normal 0.0-0.5 [facility] Comment on above: Performed By: #### H BSANS #### [facility] [address] [place] [address] Dr. Dianelys Brown LYMPH # 2.6 103/ul Normal 1.2-3.8 [facility] Comment on above: Performed By: #### H BSANS #### [facility] [address] [place] [address] Dr. Dianelys Brown Lymphocytes/100 WBC (Bld) 24.0 % Normal 20.5-60.0 [facility] Comment on above: Performed By: #### H BSANS #### [facility] [address] [place] [address] Dr. Dianelys Brown MANUAL DIFF REQ NO Normal [facility] Comment on above: Performed By: #### H BSANS #### [facility] [address] [place] [address] Dr. Dianelys Brown MCH (RBC) [Entitic mass] 32.0 pg Normal 26.7-34.0 [facility] Comment on above: Performed By: #### H BSANS #### [facility] [address] [address] [address] Dianelys Brown MCHC (RBC) [Mass/Vol] 34.3 g/dL Normal 29.9-35.2 [facility] Comment on above: Performed By: #### H BSANS #### [facility] [address] [place] [address] Dr. Dianelys Brown MCV (RBC) [Entitic vol] 93.3 fL Normal 81.0-99.0 [facility] Comment on above: Performed By: #### H BSANS #### [facility] [address] [place] [address] Dr. Dianelys Brown MONO # 0.9 103/ul Critically high 0.3-0.8 [facility] Comment on above: Performed By: #### H BSANS #### [facility] [address] [place] [address] Dr. Dianelys Brown Monocytes/100 WBC (Bld) 8.6 % Normal 1.7-12.0 [facility] Comment on above: Performed By: #### H BSANS #### [facility] [address] [place] [address] Dr. Dianelys Brown NEUT # 6.9 103/ul Critically high 1.4-6.5 [facility] Comment on above: Performed By: #### H BSANS #### [facility] [address] [place] [address] Dr. Dianelys Brown Neutrophils/100 WBC (Bld) 64.9 % Normal 43.0-75.0 [facility] Comment on above: Performed By: #### H BSANS #### [facility] [address] [place] [address] Dr. Dianelys Brown Platelet mean volume (Bld) [ Entitic vol] 12.5 fL Normal 9.5-13.5 [facility] Comment on above: Performed By: #### H BSANS #### [facility] [address] [place] [address] Dr. Dianelys Brown PLT 187 103/ul Normal 150-450 [facility] Comment on above: Performed By: #### H BSANS #### [facility] [address] [place], [place] [address] Dr. Dianelys Brown RBC 3.59 106/ul Critically low 4.20-5.40 [facility] Comment on above: Performed By: #### H BSANS #### [facility] [address] [place], [place] [address] Dr. Dianelys Brown WBC 10.7 103/ul Normal 4.0-11.0 [facility] Comment on above: Performed By: #### H BSANS #### [facility] [address] [address] [address] Dianelys Brown Covid-19 PCR (CVDTBH)on 10-10 SARS-CoV-2 (COVID-19) RNA NAIF+probe Ql (Unsp spec) Not detected Normal NOT DETECTED [facility] Comment on above: Result Comment: When diagnostic testing is negative, the possibility of a false negative should be considered in the context of a patient's recent exposures and the presence of clinical signs and symptoms consistent with SARS-CoV-2. This test is not yet approved or cleared by the [place] FDA. When there are no FDA-approved or cleared tests available, and other criteria are met, FDA can make tests available under an emergency access mechanism called an Emergency Use Authorization (EUA). The EUA for this test is supported by the [place] of Health and Human Service's declaration that circumstances exist to justify the emergency use of in vitro diagnostics for the detection and/or diagnosis of the virus that causes COVID-19. This EUA will remain in effect for the duration of the COVID-19 declaration justifying emergency of IVDs, unless it is terminated or revoked by the FDA (after which the test may no longer be used). Performed By: #### C VDTBH #### [facility] [id number] Dianelys Brown DRUG SCREEN RAPID (URINE)on 11-06-2022 AMP Negative Normal NEGATIVE [facility] Comment on above: Performed By: #### D RUGRPD #### [facility] [address] [address] [address] Dianelys Brown BAR Negative Normal NEGATIVE [facility] Comment on above: Performed By: #### D RUGRPD #### [facility] [address] [place] [address] Dr. Dianelys Brown BUP Negative Normal NEGATIVE [facility] Comment on above: Performed By: #### D RUGRPD #### [facility] [address] [place] [address] Dr. Dianelys Brown BZO Negative Normal NEGATIVE [facility] Comment on above: Performed By: #### D RUGRPD #### [facility] [address] [place] [address] Dr. Dianelys Brown GOGO Negative Normal NEGATIVE [facility] Comment on above: Performed By: #### D RUGRPD #### [facility] [address] [place] [address] Dr. Dianelys Brown CUT-OFFS SEE BELOW Normal [facility] Comment on above: Result Comment: AMP (Amphetamine): 500ng/mL, BAR (Barbituates): 200 ng/mL, BZO (Benzodiazepines): 150 ng/mL, BUP (Buprenorphine): 10 ng/mL, GOGO (Cocaine): 150 ng/mL, mAMP (Methamphetamine): 500 ng/mL, MTD (Methadone): 200 ng/mL, OPI (Opiates): 100 ng/mL, OXY (Oxycodone): 100 ng/mL, PCP (Phencyclidine): 25 ng/mL, PPX (Propoxyphene): 300 ng/mL, THC (Cannabinoids): 50 ng/mL, TCA (Trycyclic Antidepressants): 300 ng/mL Performed By: #### D RUGRPD #### [facility] [address] [place] [address] Dr. Dianelys Brown DRUG CUT HEADER DRUG CLASS TEST SYST EM CUT-OFF CONCENTRATIONS ARE FOLLOWS: Normal [facility] Comment on above: Performed By: #### D RUGRPD #### [facility] [address] [place] [address] Dr. Dianelys Brown mAMP Negative Normal NEGATIVE [facility] Comment on above: Performed By: #### D RUGRPD #### [facility] [address] [place] [address] Dr. Dianelys Brown MTD Negative Normal NEGATIVE [facility] Comment on above: Performed By: #### D RUGRPD #### [facility] [address] [place] [address] Dr. Dianelys Brown OPI Negative Normal NEGATIVE [facility] Comment on above: Performed By: #### D RUGRPD #### [facility] [address] [place] [address] Dr. Dianelys Brown OXY Negative Normal NEGATIVE [facility] Comment on above: Performed By: #### D RUGRPD #### [facility] [address] [place] [address] Dr. Dianelys Brown PCP Negative Normal NEGATIVE [facility] Comment on above: Performed By: #### D RUGRPD #### [facility] [address] [place] [address] Dr. Dianelys Brown PPX Negative Normal NEGATIVE [facility] Comment on above: Performed By: #### D RUGRPD #### [facility] [address] [place] [address] Dr. Dianelys Brown TCA Negative Normal NEGATIVE [facility] Comment on above: Performed By: #### D RUGRPD #### [facility] [address] [place] [address] Dr. Dianelys Brown THC Negative Normal NEGATIVE [facility] Comment on above: Performed By: #### D RUGRPD #### [facility] [address] [place] [address] Dr. Dianelys Brown TYPE AND SCREENon 11-06-2022 TYPE AND SCREEN Negative Normal [facility] Comment on above: Performed By: #### A 1C #### [facility] [address] [place] [address] Dr. Dianelys Brown GROUP B STREP CULTUREon 09-11 S. agalactiae Ag Ql (Unsp spec) Culture Observations: NEGATIVE FOR GROUP B STREPTOCOCCUS. Normal [facility] Comment on above: Performed By: #### G BSCX #### [facility] [address] [place] [address] Dr. Dianelys Brown PREG GROWTHon 09-26-2022 US PREG GROWTH EXAMINATION: US PREG GROWTH HISTORY: Small for gestational age fetus COMPARISON: Ultrasound growth 09/11/2022 FINDINGS: Heart Rate: 144.0 bpm Number: 1.0 Position: cEPHALIC Amniotic Fluid Volume: 15.3 cm Maximum Vertical Pocket: 4.6 cm BIOMETRY: BPD: 9.1 cm cm; 36 weeks 5 days; > 97% HC: 31.9 cmcm; 35 weeks 6 days; 62% AC: 31.2 cm cm; 35 weeks 1 days; 84% FL: 6.7 cm cm; 34 weeks 3 days; 50% EFW: 2609.9 grams; 78% FL/AC: 21.4 FL/BPD: 73.8 HC/AC: 1.0 GESTATIONAL AGE: Age by EDC: 34 weeks 0 days CAR by EDC: 11/06/2022 Age by US: 35 weeks 4 days CAR by US: 10/26/2022 IMPRESSION: 1. Single live intrauterine with growth detailed above. 2. BPD is > 97%. Electronically authenticated by: RODOLFO REYNOSO Date: 2022-09-26 06:[address] [facility] PREG GROWTHon 09-11-2022 US PREG GROWTH EXAMINATION: US PREG GROWTH HISTORY: Small for gestational age fetus COMPARISON: No relevant comparison available. FINDINGS: Heart Rate: 152.0 bpm Amniotic Fluid Volume: 13.5 cm Number: 1.0 Position: CEPHALIC Maximum Vertical Pocket: 4.7 cm cm 3.6 cm cm 2.8 cm cm 2.4 cm cm BIOMETRY: BPD: 8.4 cm cm; 33 weeks 6 days; 88% HC: 30.3 cmcm; 33 weeks 4 days, 56% AC: 28.0 cm cm; 32 weeks 0 days, 49% FL: 6.4 cm cm; 33 weeks 1 days; 68.9 % % EFW: 2022.8 grams, 4 lbs. 7 oz., 61% FL/AC: 23.0 FL/BPD: 76.4 HC/AC: 1.1 GESTATIONAL AGE: Age by EDC: 32 weeks 0 days CAR by EDC: 11/06/2022 Age by US: 33 weeks 1 day CAR by US: 10/29/2022 IMPRESSION: Normal interval growth Electronically authenticated by: COMPA WILLIAM Date: 2022-09-11 17:50 Normal [facility] TYPE AND SCREENon 08-28-2022 TYPE AND SCREEN Negative Normal [facility] Comment on above: Performed By: #### T NS #### [facility] [address] [place] [address] Dr. Dianelys Brown GLUCOSE - 1HRon 07-31-2022 Glucose [Mass/Vol] 124 mg/dL Critically high 74-106 [facility] Comment on above: Performed By: #### H BSANS #### [facility] [address] [place] [address] Dr. Dianelys Bronw HEMOGRAM AND PLATELon 2021 Hematocrit (Bld) [Volume fraction] 32.4 % Critically low 36.0-48.0 [facility] p[facility] Comment on above: Performed By: #### H BSANS #### [facility] [address] [place] [address] Dr. Dianelys Brown Hemoglobin (Bld) [Mass/Vol] 10.7 g/dL Critically low 12.0 -16.0 [facility] Comment on above: Performed By: #### H BSANS #### [facility] [address] [place] [address] Dr. Dianelys Brown MCH (RBC) [Entitic mass] 33.5 pg Normal 26.7-34.0 [facility] Comment on above: Performed By: #### H BSANS #### [facility] [address] [place] [address] Dr. Dianelys Brown MCHC (RBC) [Mass/Vol] 33.0 g/dL Normal 29.9-35.2 [facility] Comment on above: Performed By: #### H BSANS #### [facility] [address] [place] [address] Dr. Dianelys Brown MCV (RBC) [Entitic vol] 101.6 fL Critically high 81.0-99 .0 [facility] Comment on above: Performed By: #### H BSANS #### [facility] [address] [place] [address] Dr. Dianelys Brown PLT 164 103/ul Normal 150-450 [facility] Comment on above: Performed By: #### H BSANS #### [facility] [address] [place] [address] Dr. Dianelys Brown RBC 3.19 106/ul Critically low 4.20-5.40 [facility] Comment on above: Performed By: #### H BSANS #### [facility] [address] [place] [address] Dr. Dianelys Brown WBC 7.5 103/ul Normal 4.0-11.0 [facility] Comment on above: Performed By: #### H BSANS #### [facility] [address] [place] [address] Dr. Dianelys Brown CHLAMYDIA/GONOCOCCUS NAIF (SW AB/URINE/PAPon 07-22-2022 Chlamydia trachomatis, NAIF Negative Normal Negative [facility] Comment on above: Performed By: #### H BSANS #### [facility] [address] [place] [address] Dr. Dianelys Brown Neisseria gonorrhoeae, NAIF Negative Normal Negative [facility] Comment on above: Performed By: #### H BSANS #### [facility] [address] [place] [address] Dr. Dianelys Brown VAGINITIS/VAGINOSIS DNA PROB Bertrand 07-20-2022 Isabel species Negative Normal Negative [facility] Comment on above: Performed By: #### H BSANS #### [facility] [address] [place] [address] Dr. Dianelys Brown Gardnerella vaginalis Negative Normal Negative [facility] Comment on above: Performed By: #### H BSANS #### [facility] [address] [place] [address] Dr. Dianelys Brown Trichomonas vaginalis Negative Normal Negative [facility] Comment on above: Performed By: #### H BSANS #### [facility] [address] [place] [address] Dr. Dianelys Brown AFP MATERNAL FOR SPINA BIFID Aon 06-21-2022 AFP MoM 1.29 Normal [facility] Comment on above: Performed By: #### A 1C #### [facility] [address] [address] [address] Dianelys Brown AFP Value 88.7 ng/mL Normal [facility] Comment on above: Performed By: #### A 1C #### [facility] [address] [address] [address] Dianelys Brown AFP, Serum for Spina Bifida Report Normal [facility] Comment on above: Performed By: #### A 1C #### [facility] [address] [address] [address] Dianelys Brown Comment Comment Normal [facility] Comment on above: Result Comment: Gray Flores, Ph.D., [facility] Director . References: Available Upon Request. . Multiples Of Median Cutoffs For AFP Elevations Wick 2.5 Black 2.8 IDD 2.0 Twins 4.5 Abbreviation Definitions IDD - Insulin Dep Diabetes OSBR - Open Spina Bifida Risk . For further inquiries contact [facility] at [phone]. . This test was developed and its performance characteristics determined by [employer]. It has not been cleared or approved by the Food and Drug Administration. Performed By: #### A 1C #### [facility] [address] [place] [address] Dr. Dianelys Gallo Age Collection Date 20.0 weeks Normal [facility] Comment on above: Performed By: #### A 1C #### [facility] [address] [place] [address] Dr. Dianelys Brown Gestat, Age Based on As provided Normal [facility] Comment on above: Result Comment: Reca lculations are not recommended when gestational dating by LMP and ultrasound are within 10 days. Performed By: #### A 1C #### [facility] [address] [place] [address] Dr. Dianelys Brown Insulin Dep Diabetes No Normal [facility] Comment on above: Performed By: #### A 1C #### [facility] [address] [place] [address] Dr. Dianelys Brown Interpretation Comment Normal [facility] Comment on above: Result Comment: Inte rpretation: Screen Negative . This result is screen negative for OSB. The AFP MoM calculated is based on the gestational age provided. MS-AFP can identify up to 80% of open neural tube defects. Closed neural tube defects and some open defects may not be detected by this test. This test does not screen for Down Syndrome or Trisomy 18. If screening for Down Syndrome or Trisomy 18 is desired, contact [facility] [employer] [facility] to discuss available options. The [employer] recommends amniocentesis be offered to women age 35 and older. Performed By: #### A 1C #### [facility] [address] [place] [address] Dr. Dianelys Brown [age] CAR [age] Normal [facility] Comment on above: Performed By: #### A 1C #### [facility] [address] [place] [address] Dr. Dianelys Brown Multiple Gestation No Normal [facility] Comment on above: Performed By: #### A 1C #### [facility] [address] [place] [address] Dr. Dianelys Brown OSBR Risk 1 [place] 4947 Normal [facility] Comment on above: Performed By: #### A 1C #### [facility] [address] [place] [address] Dr. Dianelys Brown PDF . Normal [facility] Comment on above: Performed By: #### A 1C #### [facility] [address] [place] [address] Dr. Dianelys Brown Race Normal [facility] Comment on above: Performed By: #### A 1C #### [facility] [address] [place] [address] Dr. Dianelys Brown Test Results: Negative Normal [facility] Comment on above: Performed By: #### A 1C #### [facility] [address] [place] [address] Dr. Dianelys Brown US PREG ANATOMY SINGLEon US PREG ANATOMY SINGLE EXAMINATION: US PREG ANATOMY SINGLE HISTORY: anatomy study COMPARISON: No relevant comparison available. TECHNIQUE: Transabdominal sonographic examination was performed for obstetrical and evaluation. FINDINGS: Number: 1 Heart Rate: 161.0 bpm H.B. /min Amniotic Fluid Volume: Placental Location: Anterior, grade 0. Placental edge 5.7 cm from the cervical os Cervix Length: 3.8 cm, closed Normal structures: Cerebellum. Choroid plexus. Cisterna magna. Lateral cerebral ventricles. Orbits. Midline falx. Hard palate. 4-chamber heart. RVOT. LVOT. Stomach. Kidneys. Bladder. Umbilical cord insertion into abdomen. 3 vessel cord. Cervical spine. Thoracic spine. Lumbar spine. Sacral spine. Right upper extremity. Left upper extremity. Right lower extremity. Left lower extremity. Suboptimally seen: None. Abnormalities/Other: None BIOMETRY: BPD: 4.5 cm 19 weeks 5 days , 37% HC: 17.8 cm 20 weeks 2 days, 54% AC: 14.9 cm 20 weeks 1 days, 50% FL: 3.3 cm 20 weeks 2 days, 53% EFW:338.7 grams; 12 ounces, 57% FL/AC: 22.1 FL/BPD: 72.6 HC/AC: 1.2 GESTATIONAL AGE: Age by EDC: 20 weeks 0 days CAR by EDC: 11/06/2022 Age by current US: 20 weeks 1 days CAR by current US: 11/05/2022 IMPRESSION: Normal anatomy scan *Reference: [employer] Practice Guideline for the performance of Obstetric Ultrasound Examinations, August 09, 2007. Electronically authenticated by: COMPA WILLIAM Date: 2022-06-19 16:50 Normal [facility] ECHOCARDIO M/2D COMPLETEon 0 04-21-2022 ECHOCARDIO M/2D COMPLETE Patient: SHANTELLE DELGADO Exam Date: 04/21/2022 : 2000 Gender:F Ordering : DR PASTORA WHITEHEAD . Admission #: [id number] Family : Order #: [id number] CLICK HERE TO VIEW EXAM ECHOCARDIOGRAM REPORT PROCEDURE: CARDIO PULMONARY ECHOCARDIO M/2D COMP INDICATIONS: Shortness of breath COMPARISON: None. DESCRIPTION: COMPLETE ECHOCARDIOGRAM Real-time transthoracic echocardiography with 2D, M-mode, spectral and color flow Doppler performed. QUALITY: Technical quality was good. LEFT VENTRICLE: Normal chamber size. Normal left ventricular wall thickness. Global left ventricular systolic function is normal. LV EF: Calculated left ventricular ejection fraction is 57%. DIASTOLIC: Normal diastolic function. ATRIAL SEPTUM: LEFT ATRIUM: Normal chamber size. RIGHT ATRIUM: Normal chamber size. RIGHT VENTRICLE: Normal chamber size. Normal right ventricular systolic function. TRICUSPID VALVE: Normal mobility and thickness. No stenosis with trivial regurgitation. No evidence of pulmonary hypertension. RVSP 14mmHg MITRAL VALVE: Normal mobility and thickness. No mitral valve prolapse. No evidence of mitral valve stenosis. There is no mitral annular calcification. Trivial mitral regurgitation. AORTIC VALVE: Normal trileaflet appearance. Normal leaflet mobility. No evidence of aortic valve stenosis. No aortic regurgitation. AORTIC ROOT: Normal diameter and appearance. PULMONIC VALVE: Normal thickness and mobility. No stenosis. Trivial regurgitation. PERICARDIUM: No evidence of pericardial effusion. IVC: Collapses with inspirations. Normal size. PLEURA: CONCLUSION: 1. Normal ventricular systolic function. Calculated LVEF is 57%. 2. Normal diastolic function. 3. No significant valvular dysfunction. 4. Normal right-sided pressures. Adult Echocardiography Procedure Report Left Ventricle LVEDD (3.7 - 5.6 cm): 4.11 cm LVESD (2.2 - 4.0 cm): 2.82 cm LVIVS thickness (0.6 - 1.2 cm): 1.01 cm LVPW thickness (0.5 - 1.0 cm): 9.13 mm e': 12.10 cm/s E - e': 4.80 LVOT Area (cm2): 3.46 cm2 LVOT Diameter 2.10 cm Left Ventricular Ejection Fraction: 57 % Left Atrium LA Volume Index (2D A2C): 11.10 ml/m2 Left Atrium Systolic Dimension: 2.30 cm Left Atrium Systolic Area(A2C): 9.52 cm2 Left Atrium Systolic Area(A4C): 10.80 cm2 Left Atrium Systolic Volume(A2C): 88800 mm3 Left Atrium Systolic Volume(A4C): 46721 mm3 Mitral Valve MV E to A Ratio: 1.10 Deceleration [place]: 2650 mm/s2 Mitral Valve A-Wave Peak Velocity: 51.80 cm/s Mitral Valve E-Wave Peak Velocity: 57.80 cm/s Right Ventricle RV Internal Diastolic Dimension: 2.12 cm Aorta AO Root Diam: 2.50 cm Aortic Valve AoV Area (Peak Rodriguez): 3.06 cm2 Aortic Valve Cusp Separation: 1.90 cm Peak Velocity(Antegrade Flow): 84.20 cm/s Peak Gradient(Antegrade Flow): 3 mm[Hg] Tricuspid Valve Peak Velocity (Regurgitant Flow): 162.00 cm/s Pulmonic Valve Peak Velocity: 92.30 cm/s Peak Gradient: 3 mm[Hg] Right Atrium Dictated by: Dimple Henao M.D. on 04/22/2022 at 18:16 Approved by: Dimple Henao M.D. on 04/22/2022 at 18:18 Normal [facility] HEP B SURFACE ANTIGEN SCREEN on 03-27-2022 HBsAg Screen Negative Normal Negative [facility] Comment on above: Performed By: #### H BSANS #### [facility] [address] [place] [address] Dr. Dianelys Brown HEPATITIS C VIRUS AB W/ REFL EX QUANTon 03-27-2022 HCV AB <0.1 Normal 0.0-0.9 [facility] Comment on above: Performed By: #### A 1C #### [facility] [address] [address] [address] Dianelys Brown Interpretation: Comment Normal [facility] Comment on above: Result Comment: Nega tive Not infected with HCV, unless recent infection is suspected or other evidence exists to indicate HCV infection. Performed By: #### A 1C #### [facility] [address] [address] [address] Dianelys Brown HIV 1 AND 2 WITH REFLEXon HIV Screen 4th Generation wRfx Non-Reactive Normal Non Reactive [facility] Comment on above: Result Comment: HIV Negative HIV-1/HIV-2 antibodies and HIV-1 p24 antigen were NOT detected. There is no laboratory evidence of HIV infection. Performed By: #### H BSANS #### [facility] [address] [place] [address] Dr. Dianelys Brown RPR QUANTon 03-27-2022 Rapid Plasma Reagin, Quant Non-Reactive Normal NonRea< 1:1 [facility] Comment on above: Result Comment: Plea se Note: This test does not meet current guidelines for screening and diagnosis of syphilis. This test is intended for following treatment response in patients being treated for syphilis infection. To screen for syphilis infection, a reflex cascade that includes both RPR and a treponema-specific assay should be utilized, such as Treponema pallidum (Syphilis) Screening Dickens (348298) or Rapid Plasma Reagin (RPR) Test With Reflex to Quantitative RPR and Confirmatory Treponema pallidum Antibodies (754512). Performed By: #### R PRQ #### [facility] [address] [place] [address] Dr. Dianelys Brown RUBELLA AB IGGon 03-27-2022 Rubella Antibodies, IgG 1.47 index Normal Immune >0.99 [facility] Comment on above: Result Comment: Non- immune <0.90 Equivocal 0.90 - 0.99 Immune >0.99 Performed By: #### H BSANS #### [facility] [address] [place] [address] Dr. Dianelys Brown CBC AUTO DIFFon 03-26-2022 BASO # 0.1 103/ul Normal 0.0-0.1 [facility] Comment on above: Performed By: #### H BSANS #### [facility] [address] [place] [address] Dr. Dianelys Brown Basophils/100 WBC (Bld) 0.6 % Normal 0.2-2.0 [facility] Comment on above: Performed By: #### H BSANS #### [facility] [address] [place] [address] Dr. Dianelys Brown EO # 0.3 103/ul Normal 0.0-0.7 [facility] Comment on above: Performed By: #### H BSANS #### [facility] [address] [place] [address] Dr. Dianelys Brown Eosinophils/100 WBC (Bld) 2.8 % Normal 0.9-7.0 [facility] Comment on above: Performed By: #### H BSANS #### [facility] [address] [place] [address] Dr. Dianelys Brown Erythrocyte distribution wid th (RBC) [Ratio] 11.9 % Normal 11.0-15.0 [facility] Comment on above: Performed By: #### H BSANS #### [facility] [address] [place] [address] Dr. Dianelys Brown Hematocrit (Bld) [Volume fraction] 38.0 % Normal 3 6.0-48.0 [facility] Comment on above: Performed By: #### H BSANS #### [facility] [address] [place] [address] Dr. Dianelys Brown Hemoglobin (Bld) [Mass/Vol] 13.6 g/dL Normal 12.0-16. 0 [facility] Comment on above: Performed By: #### H BSANS #### [facility] [address] [place] [address] Dr. Dianelys Brown IG # 0.03 10e3/ul Normal 0.00-0.03 [facility] Comment on above: Performed By: #### H BSANS #### [facility] [address] [place] [address] Dr. Dianelys Brown IG % 0.3 % Normal 0.0-0.5 [facility] Comment on above: Performed By: #### H BSANS #### [facility] [address] [place] [address] Dr. Dianelys Brown LYMPH # 2.4 103/ul Normal 1.2-3.8 [facility] Comment on above: Performed By: #### H BSANS #### [facility] [address] [place] [address] Dr. Dianelys Brown Lymphocytes/100 WBC (Bld) 22.1 % Normal 20.5-60.0 [facility] Comment on above: Performed By: #### H BSANS #### [facility] [address] [place] [address] Dr. Dianelys Brown MANUAL DIFF REQ NO Normal [facility] Comment on above: Performed By: #### H BSANS #### [facility] [address] [place] [address] Dr. Dianelys Brown MCH (RBC) [Entitic mass] 32.2 pg Normal 26.7-34.0 [facility] Comment on above: Performed By: #### H BSANS #### [facility] [address] [place] [address] Dr. Dianelys Brown MCHC (RBC) [Mass/Vol] 35.8 g/dL Critically high 29.9-35.2 [facility] Comment on above: Performed By: #### H BSANS #### [facility] [address] [place] [address] Dr. Dianelys Brown MCV (RBC) [Entitic vol] 90.0 fL Normal 81.0-99.0 [facility] Comment on above: Performed By: #### H BSANS #### [facility] [address] [place] [address] Dr. Dianelys Brown MONO # 1.0 103/ul Critically high 0.3-0.8 [facility] Comment on above: Performed By: #### H BSANS #### [facility] [address] [place] [address] Dr. Dianelys Brown Monocytes/100 WBC (Bld) 8.8 % Normal 1.7-12.0 [facility] Comment on above: Performed By: #### H BSANS #### [facility] [address] [place] [address] Dr. Dianelys Brown NEUT # 7.1 103/ul Critically high 1.4-6.5 [facility] Comment on above: Performed By: #### H BSANS #### [facility] [address] [place] [address] Dr. Dianelys Brown Neutrophils/100 WBC (Bld) 65.4 % Normal 43.0-75.0 [facility] Comment on above: Performed By: #### H BSANS #### [facility] [address] [place] [address] Dr. Dianelys Brown Platelet mean volume (Bld) [ Entitic vol] 11.6 fL Normal 9.5-13.5 [facility] Comment on above: Performed By: #### H BSANS #### [facility] [address] [address] [address] Dianelys Brown PLT 171 103/ul Normal 150-450 [facility] Comment on above: Performed By: #### H BSANS #### [facility] [address] [address] [address] Dianelys Brown RBC 4.22 106/ul Normal 4.20-5.40 [facility] Comment on above: Performed By: #### H BSANS #### [facility] [address] [place] [address] Dr. Dianelys Brown WBC 10.9 103/ul Normal 4.0-11.0 [facility] Comment on above: Performed By: #### H BSANS #### [facility] [address] [place] [address] Dr. Dianelys Brown CULTURE URINEon 03-26-2022 CULTURE URINE Isolate 1 Escherichia coli >100,000 cfu/ml of ORGANISM 1 Escherichia coli ANTIBIOTIC M.I.C RX STATUS Ampicillin 16 I F Ampicillin/Sulbactam 4 S F Piperacillin/Tazobactam <=4 S F Cefazolin <=4 S F Ceftazidime <=1 S F Ceftriaxone <=1 S F Ertapenem <=0.5 S F Imipenem <=0.25 S F Amikacin <=2 S F Gentamicin <=1 S F Tobramycin <=1 S F Ciprofloxacin <=0.25 S F Levofloxacin <=0.12 S F Nitrofurantoin <=16 S F Trimethoprim/Sulfamethoxazole <=20 S F Normal [facility] Comment on above: Performed By: #### A 1C #### [facility] [address] [place] [address] Dr. Dianelys Brown FREE T4on 03-26-2022 Free T4 [Mass/Vol] 1.95 ng/dL Critically high 0.78-1.34 [facility] Comment on above: Performed By: #### H BSANS #### [facility] [address] [place] [address] Dr. Dianelys Brown GLYCOHEMOGLOBIN A1Con 2021 ADA RECOMMENDATION SEE BELOW Normal The [facility] Comment on above: Result Comment: ADA RECOMMENDED LIMIT 4.0 - 6.0 ADA THERAPEUTIC TARGET < 7.0 ACTION SUGGESTED > 7.0 Performed By: #### A 1C #### [facility] [address] [place] [address] Dr. Dianelys Brown Glucose [Mass/Vol] 103 mg/dL Normal The [facility] Comment on above: Performed By: #### A 1C #### [facility] [address] [address] [address] Dianelys Brown HbA1c (Bld) [Mass fraction] 5.2 % Normal 4.5-6.2 [facility] Comment on above: Performed By: #### A 1C #### [facility] [address] [place] [address] Dr. Dianelys Brown TSHon 03-26-2022 TSH 1.474 uIU/mL Normal 0.516-4.130 The [facility] Comment on above: Performed By: #### T SH #### [facility] [address] [place] [address] Dr. Dianelys Brown TSH RANGE SEE BELOW Normal The [facility] Comment on above: Result Comment: <0.3 4 UIU/ml HYPERTHYROID 0.34-5.60 UIU/ml EUTHYROID >5.60 UIU/ml HYPOTHYROID Performed By: #### T SH #### [facility] [address] [place] [address] Dr. Dianelys Brown TYPE AND SCREENon 03-26-2022 TYPE AND SCREEN Negative Normal The [facility] Comment on above: Performed By: #### T NS #### [facility] [address] [place] [address] Dr. Dianelys Brown US PREG TVon 03-24-2022 US PREG TV EXAMINATION: US PREG TV HISTORY: Missed period COMPARISON: No relevant comparison available. FINDINGS: GESTATIONAL SAC: Present and normal appearing. POLE: Present and normal appearing. YOLK SAC: Present. CARDIAC: Present. UTERUS: Normal size and appearance. OVARIES: Right: Normal. Left: Normal. CERVIX: 5.6 cm in length and closed. CUL-DE-SAC: Normal. OTHER: None. AGE BY LMP: 9 weeks, 0 days CAR BY LMP: 10/27/2022 AGE BY US CRL: 7 weeks, 4 days CAR BY US CRL: 11/06/2022 IMPRESSION: 1. Single live intrauterine . Electronically authenticated by: RODOLFO REYNOSO Date: 2022-03-24 09:53 Normal The [facility] Vital Signs Date Time Vital Sign Value Performing Clinician Faci lity 12-31-2022 11:19-0500 Blood Pressure Location [facility] Higgins [facility] 12-31-2022 11:19-0500 Diastolic blood pressure 62 mm[Hg] [facility] Higgins [facility] 12-31-2022 11:19-0500 Heart rate 66 /min [facility] Higgins [facility] 12-31-2022 11:19-0500 SaO2% (BldA) [Mass fraction] 96 % [facility] Higgins [facility] 12-31-2022 11:19-0500 Systolic blood pressure 96 mm[Hg] [facility] Higgins [facility] 06-21-2022 03:06-0400 Body weight 55.[address] PASTORA WHITEHEAD . [facility] Comment on above: Performed By: #### A 1C #### [facility] [address] [place] [address] Dr. Dianelys Brown 03-25-2022 10:58-0400 Body temperature 98.24 [degF] Jenelle GONZALEZ [facility] 03-25-2022 10:58-0400 Heart rate 72 /min Jenelle GONZALEZ [facility] 03-25-2022 10:58-0400 SaO2% (BldA) [Mass fraction] 99 % Jenelle GONZALEZ [facility] Encounters Encounter Date Encounter Type Care Provider Facility Start: 10-15-2023 End: 10-15-2023 ambulatory LORI HUYNH Not Available Start: 06-16-2023 End: 06-17-2023 ambulatory Gurpreet Higgins Facility:[facility] Start: 06-16-2023 End: 06-16-2023 Patient encounter procedure Gurpreet Higgins [facility] Start: 12-31-2022 End: 01-01-2023 ambulatory Gurpreet Higgins Facility:[facility] Start: 12-31-2022 End: 12-31-2022 Patient encounter procedure Gurpreet Higgins [facility] Start: 12-09-2022 End: 12-10-2022 ambulatory Wendie C Renetta Facility:[facility] Start: 12-09-2022 End: 12-09-2022 Patient encounter procedure Wendie C Renetta [facility] Start: 12-02-2022 End: 12-03-2022 ambulatory Wendie C Renetta Facility:[facility] Start: 12-02-2022 End: 12-02-2022 Patient encounter procedure Wendie C Renetta [facility] Start: 11-25-2022 End: 12-03-2022 Pre-admission assessment Wendie C Renetta [facility] Start: 11-24-2022 End: 11-25-2022 ambulatory Wendie C Renetta Facility:[facility] Start: 11-24-2022 End: 11-24-2022 Patient encounter procedure Wendie C Renetta [facility] Start: 11-11-2022 End: 11-11-[address] DOCTOR ENGLE Facility:[facility] Start: 11-11-2022 End: 11-11-[address] DOCTOR ENGLE Facility:[facility] Start: 11-06-2022 End: 11-08-2022 Evaluation and management of inpatient DR PASTORA WHITEHEAD . Facility:[facility] Start: 10-08-2022 End: 10-08-[address] PASTORA WHITEHEAD . Facility:[facility] Start: 09-25-2022 End: 09-26-[address] PASTORA WHITEHEAD . Facility:[facility] Start: 09-11-2022 End: 09-12-[address] PASTORA WHITEHEAD . Facility:[facility] Start: 08-30-2022 End: 08-30-2022 ambulatory ANA DIMPLE Facility:[facility] Start: 08-28-2022 End: 08-29-[address] PASTORA WHITEHEAD . Facility:[facility] Start: 07-31-2022 End: 08-01-[address] PASTORA WHITEHEAD . Facility:[facility] Start: 07-17-2022 End: 07-17-[address] PASTORA WHITEHEAD . Facility:[facility] Start: 06-19-2022 End: 06-20-[address] PASTORA WHITEHEAD . Facility:[facility] Start: 06-19-2022 End: 06-20-[address] PASTORA WHITEHEAD . Facility:[facility] Start: 05-23-[address] PASTORA WHITEHEAD . Facili ty:[facility] Start: 04-21-2022 End: 04-22-[address] PASTORA WHITEHEAD . Facility:[facility] Start: 03-26-2022 End: 03-27-[address] PASTORA WHITEHEAD . Facility:[facility] Start: 03-25-2022 End: 03-25-2022 Patient encounter procedure Jenelle GONZALEZ [facility] Start: 03-24-2022 End: 03-25-[address] PASTORA WHITEHEAD . Facility:[facility] Start: 03-24-2022 End: 03-25-[address] PASTORA WHITEHEAD . Facility: Procedures Date Procedure Procedure Detail Performing Clinician Start: 11-06-2022 Delivery of Products of Conception, External Approach DR PASTORA WHITEHEAD . Start: 11-06-2022 Drainage of Amniotic Fluid, Therapeutic from Products of Conception, Via Natural or Artificial Opening DR PASTORA WHITEHEAD . Start: 11-06-2022 Introduction of Othe r Hormone into Peripheral Vein, Percutaneous Approach DR PASTORA WHITEHEAD . Start: 11-06-2022 Repair Perineum Musc le, Open Approach DR PASTORA WHITEHEAD . Start: 05-10-2020 Insertion of subcuta neous contraceptive done Jenelle GONZALEZ None (qualifier value) Jamila GONZALEZ Payers Date Payer Category Payer Private Health Insurance 2002 Unknown [id number] 2.16.84 [id number] 2002 Unknown [id number] 2.16.84 0.1.428789.3.579.2.593 2002 Unknown [id number] 2.16.84 0.1.396182.3.579.2.593 2002 Unknown [id number] 2.16.84 0.1.879670.3.579.2.593 2002 Unknown [id number] 2.16.84 0.1.462663.3.579.2.593 2002 Unknown [id number] 2.16.84 0.1.125194.3.579.2.593 2002 Unknown [id number] 2.16.84 0.1.088503.3.579.2.593 2002 Unknown [id number] 2.16.84 0.1.274078.3.579.2.593 2002 Unknown [id number] 2.16.84 0.1.474691.3.579.2.593 2002 Unknown [id number] 2.16.84 0.1.409261.3.579.2.593 2002 Unknown [id number] 2.16.84 0.1.904987.3.579.2.593 2002 Unknown [id number] 2.16.84 0.1.319022.3.579.2.593 2002 Unknown [id number] 2.16.84 0.1.391221.3.579.2.593 2002 Unknown [id number] 2.16.84 0.1.784583.3.579.2.593 2002 Unknown [id number] 2.16.84 0.1.873424.3.579.2.593 2002 Unknown [id number] 2.16.84 0.1.567455.3.579.2.593 2002 Unknown [id number] 2.16.84 0.1.897516.3.579.2.593 2002 Unknown [id number] 2.16.8 40.1.462904.3.579.2.727 2002 Unknown [id number] 2.16.8 40.1.928462.3.579.2.727 2002 Unknown [id number] 2.16.8 40.1.729207.3.579.2.727 2002 Unknown [id number] 2.16.8 40.1.417385.3.579.2.727 2002 Unknown [id number] 2.16.8 40.1.436001.3.579.2.727 2002 Unknown [id number] 2.16.840 .1.575772.3.579.2.1259 1957 Medicaid [id number] 1957 Private Health Insurance [id number] 1957 Self-pay Social History Date Type Detail Facility Start: 03-25-2022 Tobacco smoking status Never s moked tobacco (finding) [facility] Assigned At Female [facility] Functional Status Date Assessment Result Facility 12-31-2022 Functional Status No [facility] Hospital Discharge instructions 12-23-2022 Note Date & Type Note Facility 12-23-2022 Hospital Discharg e instructions Follow Up Care 12/23/2022 11:03:27 With:Ronaldo LEE, Gurrpeet Levine, PUL, MIGDALIA Address: [address] [place] [address] [place] [address]- When:3 months [facility] Hospital Discharge instructions 03-25-2022 Note Date & Type Note Facility 03-25-2022 Hospital Discharg e instructions Patient Education 03/25/2022 11:42:31 Viral Conjunctivitis, Adult Viral Conjunctivitis, Adult Viral conjunctivitis is an inflammation of the clear membrane that covers the white part of your eye and the inner surface of your eyelid (conjunctiva). The inflammation is caused by a viral infection. The blood vessels in the conjunctiva become inflamed, causing the eye to become red or pink, and often itchy. Viral conjunctivitis can be easily passed from one person to another (is contagious). This condition is often called pink eye. What are the causes? This condition is caused by a virus. A virus is a type of contagious germ. It can be spread by touching objects that have been contaminated with the virus, such as doorknobs or towels. It can also be passed through droplets, such as from coughing or sneezing. What are the signs or symptoms? Symptoms of this condition include: Eye redness. Tearing or watery eyes. Itchy and irritated eyes. Burning feeling in the eyes. Clear drainage from the eye. Swollen eyelids. A gritty feeling in the eye. Light sensitivity. This condition often occurs with other symptoms, such as a fever, nausea, or a rash. How is this diagnosed? This condition is diagnosed with a medical history and physical exam. If you have discharge from your eye, the discharge may be tested to rule out other causes of conjunctivitis. How is this treated? Viral conjunctivitis does not respond to medicines that kill bacteria (antibiotics). Treatment for viral conjunctivitis is directed at stopping a bacterial infection from developing in addition to the viral infection. Treatment also aims to relieve your symptoms, such as itching. This may be done with antihistamine drops or other eye medicines. Rarely, steroid eye drops or antiviral medicines may be prescribed. Follow these instructions at home: Medicines Take or apply ymig-fuq-uagurvb and prescription medicines only as told by your health care provider. Be very careful to avoid touching the edge of the eyelid with the eye drop bottle or ointment tube when applying medicines to the affected eye. Being careful this way will stop you from spreading the infection to the other eye or to other people. Eye care Avoid touching or rubbing your eyes. Apply a warm, wet, clean washcloth to your eye for 10 20 minutes, 3 4 times per day or as told by your health care provider. If you wear contact lenses, do not wear them until the inflammation is gone and your health care provider says it is safe to wear them again. Ask your health care provider how to sterilize or replace your contact lenses before using them again. Wear glasses until you can resume wearing contacts. Avoid wearing eye makeup until the inflammation is gone. Throw away any old eye cosmetics that may be contaminated. Gently wipe away any drainage from your eye with a warm, wet washcloth or a cotton ball. General instructions Change or wash your pillowcase every day or as told by your health care provider. Do not share towels, pillowcases, washcloths, eye makeup, makeup brushes, contact lenses, or glasses. This may spread the infection. Wash your hands often with soap and water. Use paper towels to dry your hands. If soap and water are not available, use hand osteology teacher. Try to avoid contact with other people for one week or as told by your health care provider. Contact a health care provider if: Your symptoms do not improve with treatment or they get worse. You have increased pain. Your vision becomes blurry. You have a fever. You have facial pain, redness, or swelling. You have yellow or green drainage coming from your eye. You have new symptoms. This information is not intended to replace advice given to you by your health care provider. Make sure you discuss any questions you have with your health care provider. Document Released: 01/16/2004 Document Revised: 02/14/2020 Document Reviewed: 05/12/2017 [employer] Patient Education 2020 [employer] Follow Up Care 03/25/2022 10:27:35 With:Lori Jarvis DO Address:Unknown When: Unknown [facility] Evaluation + Plan note Note Date & Type Note Facility Evaluation + Plan note No data available for this section [facility] Evaluation + Plan note Note Date & Type Note Facility Evaluation + Plan note Future Appointments Appointment Date:07/01/2023 11:15:00 AM Scheduled Provider:Gurpreet Higgins MD Location:[facility].Pulmonary Clinic Appointment Type:Pulmonary Follow Up (FT) [facility] Hospital Discharge instructions Note Date & Type Note Facility Hospital Discharge instructions No data available for this section [facility] Progress note Note Date & Type Note Facility Progress note No data available for this section [facility] Summary Purpose Family History No Family History Records FoundNo Family History Records FoundNo Family History Records Found Advance Directives No Advanced Directives Records FoundNo Advanced Directives Records FoundNo Advanced Directives Records Found Additional Source Comments Patient Care team informatio n (unrecognized section and content) Personnel Name: Wendie Jackson DO Address: Address: [address] [place] [address] Personnel Name: Wendie Jackson DO Address: Address: [address] [place] [address] Personnel Name: Wendie Jackson DO Address: Address: [facility] [address] Personnel Name: Wendie Jackson DO Address: Address: [address] [place] [address] Personnel Name: Wendie Jackson DO Address: Address: [address] [place] [address] Personnel Name: Wendie Jackson DO Address: Address: [address] [place], [place] [address] [address]- INFORMATION SOURCE (unrecogn ized section and content) DATE CREATED AUTHOR 01/30/2023 [facility] DATE CREATED AUTHOR AUTHOR'S ORGANIZ ATION 06/26/2023 [facility] DATE CREATED AUTHOR AUTHOR'S ORGANIZ ATION 10/17/2023 [facility] FOR RECORDS PERTAINING TO PATIENTS WHO ARE OR HAVE BEEN ENROLLED IN A CHEMICAL DEPENDENCY/SUBSTANCEABUSE PROGRAM, SOME INFORMATION MAY BE OMITTED. This clinical summary was aggregated from multiple sources. Caution should be exercised in using it in the provision of clinical care. This summary normalizes information from multiple sources, and as a consequence, information in this document may materially change the coding, format and clinical context of patient data. In addition, data may be omitted in some cases. CLINICAL DECISIONS SHOULD BE BASED ON THE PRIMARY CLINICAL RECORDS. [facility]. provides no warranty or guarantee of the accuracy or completeness of information in this document.
== END 2023-10-15 08:49 | disposition home or self-care (01) ==
LOC: US 08:48
PROVIDERS: Visit Provider Obstetrics & Gynecology
DX: Z34.92 Encounter for supervision of normal pregnancy, unspecified, second trimester (principal)
CPT/HCPCS: 36415; 76805; 76817; 82105

== ENCOUNTER 2023-10-15 11:05 | Outpatient (OUT) | payer OTHER, SELFPAY ==
[2023-10-17 01:07] LABS: AFP Value 115.1 ng/mL (.); Gest. Age on Collection Date 21.3 weeks (.); Gestat. Age Based On Ultrasound (.); Insulin Dep Diabetes No (.); Maternal Age At EDD 21.1 yr (.); OSBR Risk 1 IN 2886 (.); Results Report (.)
== END 2023-10-15 11:06 | disposition home or self-care (01) ==
PROVIDERS: Visit Provider Obstetrics & Gynecology
DX: Z34.92 Encounter for supervision of normal pregnancy, unspecified, second trimester (principal)
CPT/HCPCS: 36415; 82105

== ENCOUNTER 2023-11-30 07:30 | Outpatient (RCR) | payer OTHER, SELFPAY ==
[2023-11-30 13:38] VITALS: BP 104/68; PULSE 59; RESP 16; TEMP 36.8; O2SAT 97
[2023-11-30] MEDS: RHO(D) IMMUNE GLOBULIN 1,500 UNIT SYRINGE 1500 UNIT IM (13:40)
--- NOTE | 2023-11-30 13:59 | PC.NURSE ---
Patient is here for [facility], she tolerated injection well and denies any s/s of reaction, vitals are stable, paperwork completed and pt discharged home ambulatory.
== END 2023-12-09 23:59 | disposition home or self-care (01) ==
LOC: INF 07:30
PROVIDERS: Visit Provider Obstetrics & Gynecology
DX: O26.893 Other specified pregnancy related conditions, third trimester (principal); Z67.91 Unspecified blood type, Rh negative; Z3A.00 Weeks of gestation of pregnancy not specified
CPT/HCPCS: 36415; 86850; 86900; 86901; 96372; J2790

== ENCOUNTER 2023-12-08 16:02 | Outpatient (OUT) | payer OTHER, SELFPAY ==
--- NOTE | 2023-12-08 16:07 | US_ITS ---
The [address] [address] Patient Name: SHANTELLE PEREZ MRN: [id number] date: 2000 Sex: F Assigned Patient Location: US Current Patient Location: Accession/Order Number: [id number] Exam Date: 12/08/2023 16:15 Report Date: 12/09/2023 06:30 At the request of: PASTORA WHITEHEAD Procedure: US OB growth EXAMINATION: US OB growth HISTORY: ecessive growth affecting management of COMPARISON: Ultrasound OB anatomy 10/15/2023 FINDINGS: Heart Rate: 147.5 bpm Number: 1.0 Position: CEPHALIC Amniotic Fluid Volume: 19.7 cm Maximum Vertical Pocket: 5.6 cm BIOMETRY: BPD: 8.1 cm cm; 32 weeks 4 days; >97% HC: 29.3 cmcm; 32 weeks 2 days ; 96% AC: 25.7 cm cm; 29 weeks 6 days; 69% FL: 5.5 cm cm; 28 weeks 6 days; 29% EFW: 1482.5 grams; 72% FL/AC: 21.2 FL/BPD: 67.1 HC/AC: 1.1 GESTATIONAL AGE: Age by EDC: 29 weeks 0 days CAR by EDC: 02/23/2024 Age by US: 30 weeks 6 days CAR by US: 02/10/2024 US/US OB growth IMPRESSION: 1. Single live intrauterine with growth detailed above. 2. Biparietal diameter is greater than 97th percentile. Electronically authenticated by: RODOLFO REYNOSO Date: 12/09/2023 06:30
--- OUTSIDE RECORDS SUMMARY | 2023-12-08 16:24 | XMS_ITS | CCD ---
Author Name Unknown Address [address] [facility] [facility] [address] [place] [address] Organization [facility] Care Team Providers Care Compliance Manager Name Role Phone Lori Jarvis Primary Care Physician Wendie Jackson Primary Care Physician [phone] V[address] ., DR GUILLORY Admitting Unavailable VENTURA [...] Unavailable HAY ., DR PEREZ Consulting Unavailable RODOLFO LÓPEZ Consulting Unavailable VENTURA ., DR GUILLORY Consulting [...] Care Unavaila ble RODOLFO REYNOSO Consulting Unavailable VENTURA ., DR GUILLORY Attending [...] Admitting Unavailable Renetta, Wendie C Attending Unavailable Unavailable Primary Care Provider UnavailPASTORA Solitario Referring Unavailable JAD WOODS Attending Unavailable PASTORA WHITEHEAD Referring Unavailable LORI HUYNH Attending Unavailable PASTORA WHITEHEAD Attending Unavailable LORI HUYNH Attending Unavailable Allergies Allergy Classification Reported Allergen(s) Allergy Type Date of Onset Reaction(s) Facility (8 sources) Bee/Wasp/Ant venom; Translations: [Bee Stings] Allergy to substance Swelling - edema - symptom (finding) [facility] (8 sources) Seafood; Translations: [Seafood] Food allergy diarrhea [facility] (1 source) Shrimp product Drug allergy (disorder) 2 [facility] (1 source) wasp venom Drug allergy (disorder) 2 [facility] (2 sources) Polyethylene Glycols; Translations: [POLYETHYLENE GLYCOL] Drug Allergy 3 Anaphylaxis [facility] (2 sources) Shellfish; Translations: [SHELLFISH DERIVED] Propensity to adverse reactions to drug 3 Anaphylaxis [facility] (2 sources) Venom-Wasp; Translations: [VENOM-WASP] Propensity to adverse reactions to drug 3 [facility] Medications Current Medications Medication Drug Class(es) Dates Sig (Normalized) Sig (Original) [id number] 200 actuat albuterol 0.09 mg/actuat metered dose inhaler (1 source) beta2-Adrenergic Agonist take 2 puff(s) by inhalation every six hours as needed for wheezing albuterol (PROVENTIL HFA;VENTOLIN HFA) 90 mcg/actuation inhaler Inhale 2 puffs every 6 (six) hours as needed for wheezing. 0 Active Budesonide / formoterol (1 source) Corticosteroid, beta2-Adrenergic Agonist take 2 puff(s) by inhalation in the morning budesonide-formoter oL (SYMBICORT) 80-4.5 mcg/actuation inhaler Inhale 2 puffs in the morning and 2 puffs before bedtime. 0 Active 168 hr ethinyl estradiol 0.85486 mg/hr / norelgestromin 0.73436 mg/hr transdermal system (7 sources) Progestin, Estrogen [...] Weight Dosing Start Date: 09/19/20 Status: Ordered Magnesium (1 source) magnesium 200 mg tablet Take by mouth. 0 Active no115/iron/folic ac id ( 19 ORAL) (1 source) no115/i eufemia/folic acid ( 19 ORAL) Take by mouth. 0 Active Completed/Discontinued Medications Medication Drug Class(es) Dates Sig (Normalized) Sig (Original) Albuterol (Eqv-ProAir HFA) 90 mcg/inh inhalation aerosol (2 sources) Start: 12-31-2022 End: 06-29-2023 take 1 dose by inhalation every six hours Albuterol (Eqv-ProAir HFA) 90 mcg/inh inhalation aerosol 2 puff(s), Inhalation, q6hr Shortness of breath or wheezing for 30 day(s), 1 EA, Refill(s) 5, [facility], 167, cm, 12/31/22 11:21:00 EST, Height/Length Dosing, 59.1, kg, 12/31/22 11:21:00 EST, Weight Dosing Start Date: 12/31/22 Stop Date: 06/29/23 Status: Ordered Problems Active Problems Problem Classification Problem Date Documented Date Episodic/Chronic Headache; including migraine (7 sources) Migraine 09-29-2019 Chronic Hemorrhage during ; abruptio placenta; placenta previa (2 sources) Low lying placenta; Translations: [Low lying placenta NOS or without hemorrhage, unspecified trimester] Onset: 11-11-2023 Episodic Inflammation; infection of eye (except that caused [...] for full-term uncomplicated delivery] Onset: 03-28-2022 Episodic Other screening for suspected conditions (not mental disorders or infectious disease) (19 sources) Encounter for screening for diabetes mellitus; Translations: [Encounter for screening, unspecified] Onset: 03-27-2022 Episodic Residual codes; unclassified (1 source) 40 weeks gestation of ; Translations: [40 WEEKS GESTATION OF ] Onset: 11-17-2022 Episodic Substance-related disorders (7 sources) Smoker 11-19-2019 Chronic Comment on above: Added secondary to d ocumentation in Social History. Unclassified (1 source) CONTACT W/AND (SUSP) EXPOS COVID-19; Translations: [CONTACT W/AND (SUSP) EXPOS COVID-19] Onset: 11-17-2022 [...] applicable or unspecified; Translations: [MAT CARE OTH W[place] FTL GRTH 3RD TM UNS] Onset: 09-25-2022 [...] SPEC NONINFLAMMATORY D/O VAGINA] Onset: 07-17-2022 Episodic Residual codes; unclassified (1 source) 34 [...] Results Test Name Value Interpretation Reference Range Facility Pulmonary Function Studieson 06-24-2023 Pulmonary Function Studies [...] prior testing. READ BY: Portillo Correa M.D. Dictated: 06/23/2023 [id number] Transcribed: 06/23/2023 cc:Wendie Jackson D.O. cc:Gurpreet Higgins M.D. [facility] Comment on above: Result Comment: Elec tronically Signed By: Madeline LEE, Portillo Rojas\.br\Date and Time Signed: 06/24/23 13:19 EDT Consent for Treatmenton 0 Consent for Treatment [id number]:127 Normal [facility] Pulmonary Function Testson 0 06-16-2023 Pulmonary Function Tests [id number] .00CD:127 Normal [facility] Reminderson 06-02-2023 Reminders - From: Tess Guaman [...] for PFT that was never done. Normal [facility] Coding Summary.on 01-13-2023 Coding Summary. CD:[id number] G h0bWw+PGhlYWQ+SV1MGAE jU55dpHWrnR7TW6aJQZ9L NTYQTEZNTG5ZOI2fmXS4L TcqS3AhvyPs WsjkpDJvBG26TSd2CHY6s EkjFKppzD1qhPHgR0a2Dh JmXR87gQ47FZabHRQbEaT 3LjZpbjsgbWFy Z9ypGxCtjRBlQnf+PHRhY mxlIHdpZHRoPScxMDAlJy NqxExtAW9zQj9wVUZxNYV vbGxhcHNlOiBj q2ljVYBzHItlRS6bkPxxG 5LjoKE3CUXqs4f6Hs65lD I+XCKlVQH2gRtaPQdqf48 6WxYry8qrFFP5 fSHzZIyuVNO5O45td8C9G FYlLSKfCYJ5mRM6kQ9pqX njjklrW7JluVXvJvG0YVC 4zRWucV2aeKqj qxkydJ8cTao+S23YTY7FO RDNBB9ZPhz0B7AqEtxpjZ I+YR47BFYbMI68qOEskNE rt1ofqXz9VvZj PPGdFAG8xFjtRAtig4CmM VXtS09xcUOoo1X3XUHpjB odsCPdQiAlxHO4gJ1yFOi huwhxk4fpiznm Fcfzu1rdbc47kU38S79lY TpgJKYqQRN9WPWcBCEwgQ psgi8cxJ9wXr9+NTlwl0g sw1zlfSb5UdZn KQCxpwIbyGraVSX3c6TuD y57V8NmgVtsd1JdJwz4jl 97yXUzi9Q9qKT5BGjnACD pcF1zZFusIvI4 CNJoFaFzhT99fYWcUAeiN k0dzIfgtKnrJB2qTCCvbg tpVZJybR4oBNYiqUUjbWc jAU8dLAAwfjog i412QsLiCZN9SKEqwGBeU 3UzjI8hJmOxJYXyWJUgB1 BykJUvGQuoN784ERfbRcN 6OVGkyaTjU3Sf SSWtmXrdAoY1j0L2Ob8Yu 3ZauiciRTM5SJadRJStPm N8WuNmKlK0H7UuCtm5WAO dpRccSM7dB9Dz UMKowwmypkrvdBR9UFLmM OVtrE99fFXgOEzjYw9sg3 N1d488XQHrYKSrhV62Gh0 udDogMTBwdCBU hQ6yxpuds5zuqzxlXiYhV RMfFJy9SXk7QAIysZyzPw FjDAG6OzT4YZN2zXZnzW9 etEzytcrxdE9h Oyc+X68ofZ3wNCK9TKU3h hrdCQZffaMcZY40SP42P8 RyPjwvdGFibGU+PGRpdiB rkHquPG2eTtBd u6fmu5NqNOsrU7SlPNSzJ RuzMca3EZPlKUI7tKU4qM 6qKSXuNHisg7O1lLC1W9S gybVicw7om8on PXJmTGdmP41haQYvu5S4I KVbaAY7QLWymBlcSdWmtU 93Oyc+NAUgoKhqd2RbJzq mg5feg4mixZo9 KmSqFDJusbJshKhhSPO0d 1DoYr31B94yFMrgOOLzWB DnSBZbQPWdmKemtf7nvA1 wIi8+PGNvbCB3 dIT0rU1hBGPyVjS0BAylQ 598DsRgeZNmTftnk8uga9 gjlMg2SgXvYDBbkmTohUs gUVK4z8UvXz44 H04hNHasFAFdTDUaHFEaI ZPxiZhqgg4mqI0dEu0+PC 7yf9nody37vJ16oEP+PHR yBCU1rPfiLMxd PYQieR5xQSnhPxA9NWFqX cLvyS78dENaFAybKm1gaC mcmMuhBW3tEAWkurwwq00 5GpKud4neQNJx dMYoSTvyECB4Y99ba2I0Q XQsZTIoNHQ0zMB9jN4rrI lnbjogbGVmdDsgdmVydGl hYIgqRIqlS146 IHRvcDsnPlBhdGllbnQgT kUdLOo8U7CiPwz8HRHfqF agQM6wzNOlBIxsKw9blFy qtGsgLW3nIPAv fmzeg719SgHzi2aeNAWos NVlGCtuXMT1W80cl0Q3BX NhWDCpFSR4wNU9fE3apEx nbjogbGVmdDsg qiWdfVnbJXfoFFndZ568X HRvcDsnPkJpcnRoIERhdG Z8LX81CO41lTCso0G9gQF 9X5VcNMMtpkek qjvphAP2ZQNgEKOtsM95B f5kvLnrAe6yVBJhJJR4EG IvlASyL1MeqP1oGkMtYZA uOPMlV3SqxQLd ZAgtW376EAotOpF5ZOMze zWvP6ZxTPVcfMdhPbH5g6 Q5Tl6CP6I7WT71IO59yIJ bz4L8kIF5C1Ds QXKqrstacsiszBY4HWVsM KLsqV66Jy9nmJepJl3tVT TnYCN4YVIwgGFmK5ZjbH1 yOiAjMDAwMDAw Z1QfsXDlDWjiZ092EKgnP lY0VKKuooXtM0UpBQErqN xyDgC4l4H2Jh9TSPh7ZA6 8VQ56lAFbw1D4 mPD8V0GcVBLzzouyrhxiv CQ2SWGfNUTxoN04Ub9fiH bhQp2uUBUlAFB0ZARljFB vL2PpuO5wMyTl DXWpOQVcH9CdyVDwWBdiI 706VHirEpH8CRKjlcVrM8 QjVAXbzMgrJaA7d6B4Yo7 HSBBrIT07EGH2 mYM5GN16TX04D3WfGndej GFibGU+PHRhYmxlIHdpZH RoPScxMDAlJyBzdHlsZT0 oWu2sQVWtFQWr cBkdxGXnGsIec7eeHWZfB NxpXJ8qvYuwH0CapFI4NS Cxl5d0Is44E71wJ3GslLC +RGFzjDX0rDQ4 vR9vOrHhOrC0BParD647P oJotRJqLgsjv5byh0ehnY w0TrY4GNZnkrYfvYbjBMZ 3w9QdEg81R55r IHdpZHRoPSIxNSUiIHZhb Gvxya3bqB0zOx6+PGNvbC G8oUC6yW5gBeMoGmL0CDc kX403LcIwfZJx Cfesc3cxv9sfoEq6WnPoX RDucgHheCceHHZ9j7SmMa 96H4PamYvzt3EeHkb8ln3 0bQZgi3U9tVH5 M6CcZHOzifzarCNleAraI K6tSHZffwacBGNjrD9vTP QbQ7o0YaZwXxL4XPyuJ3W msyF7VXAogHWu DPiuEXZ1B23gq1G3WEHuM JKvAWU7uDO7fZ8oaFljsa ogbGVmdDsgdmVydGljYWw sFMpoP454GHIa nFgmTWAehD2zGYXktZDyy DkfNU2kJNEvkmsaCunHOR 5GKv7SZzplXvETPPFXVMF SQLTZGXz0D3Vj Qap7LUXxpVknSU1qmZLiO YguUn0cdDyltUvjCT1nDB DqiwywAWRejV5zBHHixLG scXmmNW3oMWPp sdiyi232TyUvPPI3UVNhh WGbW7HnkM3fPsWwLMJmII UjR4OtwKVuGYypI810NSq mGbI7IINzpbGd K6BgWCMwfWlpAnW3n9A7I r4mMs7gNO5qRBNtOF25CF 88yZLgo6Q1bXB3F5RbBMC pbmctcmlnaHQ6 RDUlRCDkuJ82pNDiVNouT l7qg9B0n096GNTrIOFouA 58Kn4rcPbrNZKmbBYVdN2 tdepjb7vhpqbs YwBfPYNhXRc4IDf1SRKlt MvqXxPyOYP4CnR3BPX3fT YbrY8ipUqmposgqU0sQcs +MjAgWWVhcnM8 O4CxTev3OSEqrBsmSP4qa SMwFLjwXr2boFzctGtpGC 5pOQDdakdnTOVfkW3qLWI vpGAzyOwvYU2v XMEcglmys233YlGdSJB3M SXmjDLqS7JkoO1lAuJxJF RrIDQiN7XxuQIbNJzmA05 4RBfpUdV7DLLm rsNgL9LsHCRefOtfPtG7o 9A0Uj8BJN2vqJD0S4NbUi o3KLNxsKjjBA1jlIEwLAk tAt1nrHlwbNhz EA9eXTLgkxsxORCobV0aN WWwuCMqfOuvFZ7fVEKxqf fta585YmDcXSV0SBRsbLZ jJ5CxeN0zAoJk YCLuMWQsL1NdnMCyHPusA 426EWocFgJ4BPOpumNdT3 OlCKQcyJwdFaU1y8V1Yw3 EiTPqBGXoZC23 VN63NG84V2SjKkghnXGfu +PHRhYmxlIHdpZHRoPS mcJWMsTzLycJgcRV0hOd7 yZGVyLWNvbGxh jCRxUjGau2znTHDxQVxiU V0baDqlL6GxhKW0JFAsv0 p2Xo59M65tB5MgsNX+PGN ebKQ6hGE5wO4f FrOwQwV9XFccT867JdTxz KQeBykdt3ujp0siuZq7Nr WtFVBsyhKnfZvbXWZ2s8S iSt55Y09yHGhg ZHRoPSIyMCUiIHZhbGlnb f2tiO4pMc9+PHLzdXS7wS H0fM3kSqAwTzG0SUcsB05 9InRvcCIvPjwv H67mX3GmzOY+EAFvRsj3V KRgkDdmBN7qtMHjLOckKf 6jBVK8IkItHoWfGSvkQ0J hZGRpbmctcmln qZK2IMWwLKCdzI27Yx0or JgjIv6aZUBnNWC2QCLngJ NqK1IvvV1jXpKbAXAiJOD vH4KviDZjVBtr W080MJieVrP3ONDsgyCqD 1BpWHQhdZapSaP3a5B5Af 1LeKudzRJxHO0hNzVrUQm 8F6IiVyo8ZFAj nKxhCJ8nnSEeJEigRh0fa PjfrTorGV7lNVYfnwoax6 39EiYcn3xeJQTqhHHnEBu jNMV2I27kd1K8 PHIfQXDxRPW1rMZ2cH2gg GlnbjogbGVmdDsgdmVydG xiOBmdNXbcS754NOUupGr xDmNCKdm0W1Gk Wzb6PRZizGtdAS7zlWBuK MieBw6gxOinfXbqEX9vTH Astugni769KaGkh9goOYL wcHQgVGltZXM7 K38md5M9XZDnDUFcFTJ0p YM8fT7tbJnocsmpiQHtjN uteiKzaKsvGXsjHYrbA90 4FOFlqIpmVc8A Tqw1V3YdWxt4ZPUfnOfbY U9cnYReCClpFn7twLzebB qzRN9dULGezdpjl820YnE nb7huTNMewIIk HWdxJVO6J94qm8M2DGMkH MUtMKV8fWX3xV1kuUnivz ogbGVmdDsgdmVydGljYWw wMUfcB154XZJv cDsnPlBheWVyOjwvdGQ+P G21rc59F3DjBcxhFwj4EQ MlHWA0nQX6gV5mIOPwVFj an8J2aOK7L1Of cmRl (more content not included)... Normal [facility] Consent for Treatmenton 12-11 Consent for Treatment [id number]:127 Normal [facility]/Cl inic Noteon 12-31-2022 [...] with poor quality flow volume loops. Per fuel cell technician the patient was carrying her baby [...] day(s), 1 EA, Refill(s) 5, [facility], 167, cm, 12/31/22 11:21:00 EST, Height/Length Dosing, 59.1, kg, 12/31/22 11:21:00 EST, Weight Dosing Pulmonary Function Testing Follow-up With When Contact Information Ronaldo LEE, Gurpreet Levine, PUL, MIGDALIA Within [address] [place] [address]- Additional Instructions: Problem List/Past Medical [...] Not taking Allergie (more content not included)... [facility] Comment on above: Result Comment: Elec tronically Signed By: Gurpreet Higgins MD\.br\Date and Time Signed: 12/31/22 12:07 EST Physician Orderon 12-31-2022 Physician Order [id number]:127 [facility] Referrals Officeon Referrals Office [id number] 1.00CD:127 [facility] Pulmonary Function Studieson 12-19-2022 Pulmonary Function Studies [...] with a normal diffusion capacity. READ BY: Law Natarajan Dictated: 12/14/2022 [id number] Transcribed: 12/15/2022 cc:Wendie Jackson D.O. [facility] Comment on above: Result Comment: Elec tronically Signed By: Gurpreet Higgins MD\.br\Date and Time Signed: 12/19/22 09:37 EST Coding Summary.on 12-11-2022 Coding Summary. [id number] G h0bWw+PGhlYWQ+NC4OXLL iA29uiSXlxP9HR6eMNM5H UFMJOXZLFD9WJB9tmQD2C JjwR7IqguSd JljxuCTtHA86AGj5FOO6w MbuZSjchC5krITpK6n2Pl IaBC45jI94JFspIXIdAnZ 3LjZpbjsgbWFy Y4xcLxUeoKXfKcg+PHRhY mxlIHdpZHRoPScxMDAlJy XjtFxqFE4uKn4bYHAsDBN vbGxhcHNlOiBj q7bsXLCqGKebJE7pcHnpR 5YrhQV4RPSqs8c5Cq10oU I+BGHcWKD3mJmlUCcml09 6IvFjk4qjTTQ9 qJTdNOqiTWB4Z01au4D3V XIdPKDiVCR9wSF3mE8iwM seokbzQ2JgpGWnUaH0SBF 4iWAmfZ7swQqj uwejeI7mMmi+X92DML5OK JIWIO3KFok6G8MiQfgomY I+FN34PGYjJR39mAPenRO ht9jahRf5TpWw JWDjMLU4wFfdYKcsp1GnV TTjN81udVPsv1Q8CQVuwC bixKJtQrStsAQ6dI8wJBd gfnqnu0oxcshl Rkftf1lcbr47vP41S43kT IpqRUSqFWU4OQJrFCNgqY hydm9syU4hRg2+ZDlql5b ta9joaKk9GhAx BOFzbfLbeRxvBIT1u7EqZ o42E9VrnSgci3CgQpn6bp 56xSJbb7K4mUQ5EEvcEIA muF1uYTzoDfA7 PWVjLhGzbE38nYHdHLafQ m5zgTchbXdkJF9qKEHfzm ktHACyiM6kMQNftDXdaCj gQO7mRNVvraps x840NtTcBOQ2UGIekJDjZ 6QgsL8qInNjWGNmAFDbA2 GciYKuSQwmE968QEygZfQ 0KLBywkLrG1Oe KPTwrSliXtK3b7S0Ib0Nq 6XsuaimXJC1RVdzUTBpMa XqOaXzOuK2Y6IvDqs2JBU izXmvZM5wW1Bz BIRlowmurowsmWZ8UKNbL RXuvJ19iUKtPZxoTs5bk2 B9w438CVIvPHNplS99Mn9 udDogMTBwdCBU wD0lblgjx5kdqbpoKhHxP SLpFKj8FIx9QSFvvCbjNi VvILO8SrF5FIZ8oYNxrE4 wsErtvmjwiS3w Oyc+I35vmL2oKKH0OCA4q ugxBBBczjNsHZ23II90S2 RyPjwvdGFibGU+PGRpdiB agYisDZ8zAcQc x2bnu1SxKLlgI0QgZQPaD TtiOrj2YLKqVTD4oAK8wO 7wVHXrGUvpb1W0oWQ2E4H hyhYgda2nm7kq DZEeYKiqY90qjIRjr2L1M NCbiIL2VKVmtXtdPmDyhF 93Oyc+BUFytWenr8CgCwl da7puk2cipDe7 JqFaKGCnrbRvdQoaPIG9l 3BaPq14L04tZHjhJZPwYY PpFVHpXEAduMgfnm5beB7 wIi8+PGNvbCB3 gRS7vL8yCESqVsX4PXghH 540LsMqxODoYrzfv7hwz8 enpJo6FzRmRROzdeFxfZi kRPG0c3SaBn40 O67uTPtbWSVtDDInUBGlO GKjnWxvhz9ynY1bQq3+PC 6fq8njfj78rN89dMF+PHR xBPI5bJttPAud HCDmeV1zJZqhMeF8UGOaE rPfcC99lUBhGWbyMm3gcC qhmMiwBO6oWFTblyzit98 1DrSak7rvZQYr gPZxTKymLUB5S32bq2Z6D ZVvZWVhAWS5rLA2oO5hiK lnbjogbGVmdDsgdmVydGl uTByjQVmqP079 IHRvcDsnPlBhdGllbnQgT zAoTSv1D4OeUjp2IIXhxB idPG8jpLNbZYxwUy1ieZc lfAlmKE1hQDCx fthxb600GnBob3mfAJZmj NSuUGxvFZB8I02my9A7HE NfGIDnQSW8bBY6fC6zgXb nbjogbGVmdDsg zhMqoKdfBQbsCAqoG154O HRvcDsnPkJpcnRoIERhdG S0UA88LR20hABpm3T6bBM 6L1CkAIAnpaaj bhbeaZW7GNUkMJGpsS14J y9cnBqhEj6pHQLdHNL9SW RsuWBaO6HoaD1wIfCfNNG pOERzG3PxpUJj KVzoB974RTvwCcE6GMKnr bQyA0WkCQYxdRxrKrU9l4 I8Wp2ZU9N3QT57CQ74mBW mr2U5tII5Q4Xa PEWbhqpfyjpwpNH9ISVkT QQjaC98Vq6tmTaoTh5aMP EbIHK7MMNfiBDdE4EfwQ1 yOiAjMDAwMDAw Q8QssZPuHPcpS803XCcgI yC0ELZkisUlF3VtVDCnaO cgXyQ5a4O2Qo8VIMg7AE3 3HR03lUQfp2R1 oZA0O7NxBETkhmhnytcdi PX5LRLbQWTglI41Xb4qdT voFh9vJAEgXGG7OICoyXT iC1GqgD2yIfEm NERhCIIfF4QfgAXqNDqjP 526YOmoRkO6RHYyvpYjO6 MwHQYwkTwyWiB0l7K4Rr5 HXTGxIJ00HGC7 uFZ7ZK26HI83Q1HkDmzbk GFibGU+PHRhYmxlIHdpZH RoPScxMDAlJyBzdHlsZT0 dKv7vYOGlLXHz zQvouDSmReEch6isKWVeZ EvmEB9ebLkiR6AeeHA5RU Okq3d4Ny83A98fE1NvfFX +JWJarYJ3wGD3 yS5qYuVfWvB4ACtoZ774T rVqcJLiFinxy2waq9cuvC k9QsG1DTYozoFmqRprQTX 4y6ZoRu76K45c IHdpZHRoPSIxNSUiIHZhb Pwcai4roX9oZd3+PGNvbC R2bAH5gZ8xDqAzHvD0ULp jZ394FhWvqCXx Yhmyp9seg1iicOi5QiAcK SGucsVvdKaoUMD0u0HkDn 98Q0HlePgsa0MfSjr1xj8 5kEFgo4K6lER6 F2UkFSEdhptgtRWqgPswL E1bETEqsegdICYmfM4aEQ QhN6u5IzFfXrT9BGmlT2B zqdK1HEYigSCk JHmcITE3K58oy1J1ZKVcR STuMSY1tOT4hG0jpWajbh ogbGVmdDsgdmVydGljYWw pAWcnZ748FVFd dRwzXWRqfK6eBWRorXHoi FhmLG4bIUKaemzhBkyJSE 8DNw4DCwfkPzBWOYSYNFR KUZBRHFm8O0Nq Pck2AFEadBueBM6xmANjH XmnWl5paTzvpYbgAO3zIT OufrffKEAwbC1zSIPvfFX ypWdjRF3uTVDo cbely611YfYsSRF7HKJsj JSoN3MoyX0tYjReJMFmMW JpS5OcsDTgASpzO123HOq sHuX6LEYxklNx J9RfVCAjaWyoKyR2s9M3L i9nRj1wSM7tWXScAU89DG 36mUPgr6X5pUZ3D0GeWTQ pbmctcmlnaHQ6 BPXhGJZlaY11uTFyLZqdL y7qm5Q7y319BELoBDHwwC 96Qf4gvWoaMTWekQINkL9 jbskse8zgithy HhYoUZGfFHo9FTc7BQAvf EcyMcIsDUC6GhD2XUK5pZ FcpG1auZjuofxmiR6uZyt +MTkgWWVhcnM8 S4OeJgl1IGSrmPmfCW8gp LUxVCdhYe5fxAbkkXejEZ 1sUYBxpxywBKRppQ0mXAU erDGibNqaZU9y JCHytooos895CzBgRIG3B CLxkHKaX9NmqD5kVtVgNN MdXEDsN6QuaSJkXNkyG19 8WVhoKzE8JNKg ovIkB8FrEHGjsSqaFnA9f 4J0Rl8IWK2baAE9A6OjVb l5KSEfhKfhDU5soUJdFSg jJc1cyIkwiNjc VA8jRVBsjxfcNFAdnA3uO TDgiENegHlkFP5sHUBrvu qje044FaRyLDY2XODtpGU gO3QvuW9eNrYu YYXuYYRvY8JppEVgVUajU 309XJaeUnR3UOMdjlTeL9 SrQMSnnTprMsO3e9M3Vw1 TvJAkFLJnBK33 GH70FD79P7WtMczdwXUep +PHRhYmxlIHdpZHRoPS ynDCNlWbCkhNabMF9tFl6 yZGVyLWNvbGxh iQMgFeUiz8mfZCZjDEdkL X4ofLrcD1FjjSB8XJHjt3 h9Po46M24rS2StqPU+PGN pjNC4wKM5nT2g LoGiFfN9CFgwO239DfPov HIoOhufc5muo5cvrJe2De KzANBynrQwtKceLQP8g6S cSx39L20mEQsu ZHRoPSIyMCUiIHZhbGlnb i8acX0hEl2+PWGfjZD9rT I9uI5vMvQzIbC2GCxeZ31 9InRvcCIvPjwv F65uU6HzmDA+YSBsTjb5I SPmeFtkCF7hnJGmWFfmGb 9gEFB3BeInPaOtTTniB9J hZGRpbmctcmln qSW5GKAmKLGhxD53Ew8jz RxlDr8zQMXcUWD7TZYsnJ XbD0JyzU2rJyZmYOBmWAK iE2TeeTLgBFxe V353TEfdBkT1KIAyapNnE 4ZbYSFkyVbeOzX2e0G0Ym 4PdKizcAQfYH9dXfJnFPy 7Q3VmEdr3FWXr tVcmXO8olGYlRLawXv4in PszePcjBS1pDNSjvuprd6 03LyGbx3leJOLbbUGcIEl tOQO9N61cr3M1 AVQxZEPaEMN7jXW5qN2ow GlnbjogbGVmdDsgdmVydG nfVNkvYQwpS993AMIulPb qOcHJAsw8B0Gc Vhg9SMSbxQmtHI0ftVBnN HliOh8vpOpwnDotAJ3rRG Ybfjskb696IhAst7jdXJL wcHQgVGltZXM7 G37fg1P5REErZLJkUZN9b JB3wX3hnKpnddxdvYSmnA nztfZhkHamYBkhZBsnV89 5ZSBfsQehCf1P Elh7Q9EzAoz3XITrmAxlL B4bpWQmTBilSd1xyEtkiD kyOH1uDHInscbdk510NiI ah4npQBMvpUGg ZQfvGZX2Z52kf2N8CHGdQ MXsXUB6sMV0wS4icPblzv ogbGVmdDsgdmVydGljYWw mMSpcI122OCAe cDsnPlBheWVyOjwvdGQ+P O91fd98K7IhPdhcTrf1GD AiXOI9iEZ2rF9mVQExQVr yk6B5gVL7R9Qm cmRl (more content not included)... [facility] Consent for Treatmenton 11-11 Consent for Treatment [id number]#1 .00CD:127 [facility] Pulmonary Function Testson 0 12-09-2022 Pulmonary Function Tests [id number]# 1.00CD:127 [facility] Physician Orderon 12-08-2022 Physician Order [id number] 0 [id number]# 1.00CD:127 [facility] Physician Order [id number] 0 [id number]#1 .00CD:127 [facility] Physician Order [id number] 0 [id number]#1 .00CD:127 [facility] Coding Summary.on 12-05-2022 Coding Summary. CD:[id number] G h0bWw+PGhlYWQ+HZ4PDAE dQ91zpXOilI9AL2oPRS4T MOEKALGEWN4MCK8wnUT0P TlhY1TcwcCn VkayvBWtIM34TWn2OUF8q QwgQDvtwM5rxGZxY6e1Er KtRM99vA64OYjiLNPkRiS 3LjZpbjsgbWFy E5moDeBomIMnKfq+PHRhY mxlIHdpZHRoPScxMDAlJy DsgYklMI1qBi3rAUBvEPO vbGxhcHNlOiBj y2mgXXHoKWzbDJ6snTmxU 7ErxWS4NMGcn9d4Re68lS I+OLWcRMD1gBzxKFpvi86 1OxAbk0xbZSY6 qRPdCGokAYQ1D50eb0E5Z OAnXDApCHD8gVG8pR9muS jmpqyrA0KddEVbMlK7YOW 3pVByyA5itVaz ffkoyR3hYve+O76ZMN2YZ OUZVB4WYcr8G6ZgKkmavJ I+RL50BAJkER81vMCazMJ ap6lboSj1SfNv MVJuQYF4aAqpTDlri2FvJ ANeP44trSAvc4C8YVByhL aedBGnMlOcyZN4bD6jJHr jkgwsf9jtlmip Imzmi7ikyl62dT60N18hI MtzEHEcLFF6HVKlCGIzjL dhoi0fdB5iOu1+MUpbo3t xy0rzbEg7FkHb DUFdvgHbyIcwDWX5v9BcW j39H8VnvIccw7BfWiw8pf 90lYSdl3J2gJP4IMheHXL dzA3yTTjiMzO3 BMUfNwCwtS56oAKmIQvgY v2uzDhqqUugYK8jLHZkiv rqHHYxvG0tSOGoyOFwbOu uMC6rUYInbuoe l959BnQsQWK4JHSviXZpQ 8MtsJ9lVaVvBWOjCIEnA6 FtyBBlEIdnJ082LEjzAtH 9VDMuuzSlL5Aw NHMnmAroFlD5z7O2De5Jy 0QnhwmlPFW2XYggUZNzOl W9AmCjIjR6M6MbZwj3PMM hiNabBC0mQ1Qn CQQoeminoendhEK8USSuH NKxxX10kRVhXMefMh0mn2 M4k586WXGyUWRdbK48Yn2 udDogMTBwdCBU zB3bjztwa8uxcrknWwUnU RDoJQx9UTy7XSXrpAviYt TsOVP2KxO2RDB7eEByhE0 byJbddcjwqP8b Oyc+G13xzA8bTAG7TLS2m dbdQQAythJnZH98JV52F7 RyPjwvdGFibGU+PGRpdiB gqPkfOF3oRwTt o3scb9OmWXxbJ4ZiKIHxJ ZgyEos3HXEoXII3tSV0vL 4lIZEcIHmes2N9cTB8F3E tbhIpik3rt0ke UQPeFVlhL88hmAVkc6H9S UHcrUK9NLMjdOywYuAxkO 93Oyc+XWLlcJkif4GlUmi yp4dce9uxlEb1 BmHnUCRxxvDatCvzPIE8g 6VaIp80L42mKEgnHWHwZT OzXPAcACYerGhaku1huX1 wIi8+PGNvbCB3 dCD1lM5cWLOzGxU5HEqkF 197NwPupNWeHcndp3nqo7 wotSt9MzSzDVAmicZkjZa oNFI1p2KyTo06 X73iRGuiIDEkGIXxHEAgG GRmxFpvfm2rbT7lGe6+PC 8xm6afqt92vM24gPA+PHR pUWX0rZjwRNel KNRxvN5uHVptPmI3PDZxO hTypS87yDBnUAmgMa9lsK jidCqmEW4bWANoazhyf23 8DwLta6qeLBNs aTBcDMpnKWH6P56is3T6G XKlFEBqKDU6fSK9mY3oqK lnbjogbGVmdDsgdmVydGl xSKgmIAxjO374 IHRvcDsnPlBhdGllbnQgT gCtUPf8Z3RfNaa0EDXepU onZY7cxNMaDEtyVp1emIg nrAkjAW4qIWMg lizsg600UdWpv9tpEVKac PLeDApvSEX8D64sw0H2KE LiYSBbJUP0vPV1cI1jdNo nbjogbGVmdDsg qxSqiGoxBImvVVmcW097B HRvcDsnPkJpcnRoIERhdG B3DX64OC89nBUgx3C8xIF 1E5FrXUSogdju tpmntDO4TKBpYUJdcW26I v2adShcYr6cGDVzWNN1PU RzoNChF2TgdV7iYcIrQBJ zEEWeY2WtxWIg QMjuB918MPopVnS2CIHej bXwC8NmJOSdyNjtRhK1u1 A6Vb1OA8X2VP45NJ56gLB et6H4hRX5U8Tm FEOaonxbmoomsPY6ITVsW XUrcD28Sg7qyQyxAj4fKI EgHPV2XNUvzZCuI2BbbA8 yOiAjMDAwMDAw Z9FfhWKzFSdgL960EUzkS dT4UCIoctBgH0YdVHButW gfEmW0g4H7Pb1JXIk1GZ7 1WU61yYEad8L6 kRT5E7KmADMdzibsqenax XF8SZHgMMDttV99Gu3foV hwQv0xLUWvTRK5UAThcIQ tE5SzuA8bIcTt OPMaCYSjC5AttJQpYWujT 535UOwbXwU7UDGdgmTmR6 XbCCHefQkhZcG6g5L1Iz3 HMMCcIN59FUA1 tLV7UJ55EI62R4XhCnvfw GFibGU+PHRhYmxlIHdpZH RoPScxMDAlJyBzdHlsZT0 aLe6aJWKaOIIk dRqgpEUqXuRav6zyMHUgT EosMH1vlZwaR1JmyZC1JP Rtb1l7Hu13I97gS0FvzDH +SBIsmFR4sIL6 xS1oAmXwWwX6HIuwF180C qIzmTOfRldik2yxm2eqlL j1BfJ3NWVdguXnlGymIYB 6f3HzTe35R20w IHdpZHRoPSIxNSUiIHZhb Hhims0ouP5mEp4+PGNvbC V2fNW5cX2sJdVoInB0WAh yJ699HtUqzLOm Uzdoz1wkg7trvSu0SvAhU IPfxvVlyJcxPZP8v3QwCh 31A6EcoUzve0WxOnj5pm9 8gYPld8Q6yQP1 O8HwTMAmgcvvnHVboDqrM C5sDSIomvjuBMMcuH9nKT GzV6j9ZsAxKcI7BXnoC2L jcfC1ZNLktBBp RHevXRW7X14bl1I9GDUzF IJfQEP1wOZ5bN5upCdhby ogbGVmdDsgdmVydGljYWw hTNovF454XTYc hYozDHPvrO0fIKRldESyx JbxRV6rCZKoidhvQnqARU 7NOn3MDdbdLrAHSWGCYPF OINSMAOg0H0Cu Vvx2COLplLaaTM8yqMRsO NghSm1axCcbfIqrEP8yVO BgpfgbRPKfpL2wUKZxsCM maTipDU4wAERw bljir398GhMgWDY6YSReg YAtK6GyrE1lKgYgADFrEK EqD1LckWGzPEtcG638UJe aIdR2ZTBiqeXt U1SeRIVxqJsyRfI3r2X6P c3sKy8pDR9fORPdGU85WE 41cJVru2A1rYV9Z6EdVCY pbmctcmlnaHQ6 TLWmJBBxaA33ySRdUYnkF v5gg4K6s155CBAxDCRvtR 55Ng4gwXyhAHSkmIZMrK6 agkrat2pxjujm RrXrGARbXUu4QPo0VLQkj AnzCfVcWVF2GhC8DTL0cT UliF4foYcmjyhamD9uMwn +MTkgWWVhcnM8 E2MvHgi0BRRalRaxXQ8lj VDyJDdkWz4ttYlqlZzkFF 7oJTOhsvaxBTOvjA7lITO xjTDiwYcqPS8z CWBrucbjm399FaWoXFT9K EFgvRFoV3RimF5tXvNjHX CrIZBpA0DbqTKtFOwkP92 5LUsuCvK2PBYu svSnP2ZxTPUzzPmnSnF4y 0W0Cu1IXS1mdSB2L7JxLn g2YEAaaVqjKR5mxYIdNKx kZx8kqTcczWpg LC9eGVLfsiehDLHzvW6yV UMnwZJxwQisIT6iEIXwbr qmd519GfLsUXF1UBIrjFE rQ3YymG5iXlHo CXGcLPJwE6PsmQSkVSiyR 775RKwvFcJ8TOVjowPsG3 EpDIPezPhsLqD4v5Z9Dl4 WjJTdFUTwGF85 ZQ23TH33L7DpCgloxGWdf +PHRhYmxlIHdpZHRoPS erTDRyTkDunFpqPM8iFj9 yZGVyLWNvbGxh qOZcLpKze7qkFREsTOhvA P8xaXbxE0SnaBP9MZJkq1 a1Ro35I98qV4UknSM+PGN aeGB6vHY6yL5f CsMrPvH6GCtiW806CwQvs PVfEgfbf9jjx7spdMl0Eg GkEVDrhwRbdGkeXUE1c9I rZi10G91xBPsv ZHRoPSIyMCUiIHZhbGlnb n1acF5lLj7+NDBvxEO8iW H1zT9oZvZrXmA4OFbvG29 9InRvcCIvPjwv N85eC9NyaSA+SGAaHzz6E NOouFfzFD3yoPQxNEclId 4iGYP7OaNfQrHvYAblX9S hZGRpbmctcmln cZQ6FLAxGDLcaI93Qr3av KrwUd8qRYFcGDS8ULEzvK CnS1JmlL4nEkMgCJGxXPR oK0RpcWVcMZer Y824ZHjsPfF2VTXhdpUqJ 0WtOPTehOvgFnN8s3C3Ir 4VeJqhoIZiRT6rSgKmPLw 7B9EnTek4WNDl rStxSV5juOXrMAykGj1yo JqeuLvqWL0yJFZtyfxhg6 03IuHzk7ncXDXujHAkPXe eCUQ4B83ir8K7 BQHcMJKiBZW7wJL1zS3zn GlnbjogbGVmdDsgdmVydG yyEHtxEAvwQ828WYKagBu fWgNMUhx4J6Ww Ceb7VFRecCuwTC6dfKXkW CcnRe1keYwvjNlvXW0yJO Okaiuqf732QcTrd7tvMRA wcHQgVGltZXM7 M66ir0F6IZUwUSWkSDU8u KA0mP7rpDuucdphhWSooK etkrVkeFxmENjeKOhuH16 5MRDfuHpfRx3N Jsx8U2LjSmh7HWWdfUabG N3inBJbOVhlKo3miZlcfI xxIE5dVNYlkrqqq223YeY zq6pzFNUnsOMo RVbyVFN1K92fd9P3LUAiH OTlTYC4dBP6oR7ckSigpn ogbGVmdDsgdmVydGljYWw dAAhrU056BDFe cDsnPlBheWVyOjwvdGQ+P G60gp68S4MfPukgRfx7ZP DjUTL0qMR8rI3lZPGnFWb ve2U3mPV8V4Bm cmRl (more content not included)... Normal [facility] CTA Cheston 12-02-2022 CTA Chest Exam Date/Time: [...] 370 Contrast amount in ml's: 75 Normal [facility] Consent for Treatmenton 11-10 Consent for Treatment [id number] 301 [id number]#1 .00CD:127 Normal [facility] Coding Summary.on 11-29-2022 Coding Summary. CD:201911KG:[id number] G h0bWw+PGhlYWQ+FZ6YFEJ qL18baBUsjY7DC8gNIY6A BABGLGVJAB7HYY3olZM2Q ArbS0CfobIi JtmpaZGaVD11EJb4ZXX3x FkjNCfjuR4otVKbH8h2Rw JfDT12kR84OMtoYHPvBcU 3LjZpbjsgbWFy N0onYaLcsOLrFex+PHRhY mxlIHdpZHRoPScxMDAlJy SoiTkjRI7xTp6cYEApPFA vbGxhcHNlOiBj r8teVQPeDPhkEM4grXjqH 0BgyPU4CXTni2x4Ye98zG I+TJBbXDH9lGjrIGjox63 2LkBjp7fjQWX7 jOTmZEtfGLF5S14dz7E0U PXpGQDoDHT5dOH3tC0eeO alrlcmA5QhbUJfInD1GNU 3wDRboI7uaUsx odyerY7yAqi+D00RZJ0JJ NZDUU8CBai9L4NkNiukzZ I+YQ96VBGkSU14dXBvdDW pb5btrTe9YzAk KXOaWPG5oPhpHGbbn8LdM HQmV45bkSQhh5E7KKUgrA jtdMWtCvUeeBY7iB8cKFr gskppw1vwtcwm Ipuif5rstp30lL69J94iY SffLTQmJVL7RMWyIUZaoP dfkj2ydL3gQt3+FPnew3c sp4xvzKx1KpXa DEHqshEikTftNAV1t0GgY b25S0MckHovr5RsSqx1nb 99fRSan9A2aBZ3OUurRDM czN7sAVruBnD6 YJPuJfTkgN05cKRyYFsjF k2zpEgjvXihLN4fRZKyqb kbUTPwzF2qTQMeaXOedQe sIC8yDOPdgcoq v564FqOmICT4ISWexTDjL 9XouG5xVwZuNXIgHDPuW4 GqhLHfUEocR198IKdtMvO 1XHBskdGmC7Hu BIUnkRyrXzP1b9Z9Hp7Hh 8VpikvgWZX5KXasTYJdQl LpZdFkUoP7I1OyTya4DTQ xfLlaEG0wJ3Hs YZEcexhhvohdlJG6JTSvI TBiiS81cOAtALrmZv2fw5 C0x605ZTVcSRCkdM22Uv1 udDogMTBwdCBU gG2awegrn5dmkaljAkOsJ ULwECr6BLe2MRZkqFwyHx RcWOY0DfA5HUP0lXYzhI3 jvXnflnqxkR8g Oyc+A58biL3pEGP1EKR2z lkyURZvfzRqHK60RR63G7 RyPjwvdGFibGU+PGRpdiB drKptER2pGpTl k6quh0SdVTjcY3DbGMPtS BesXtb8HNWoQYL9rBL7oI 5aWTIcEOfav4O7bDS0L3M dsuYqth8bh9ye QUOlHAdsQ14cxKVep9P8T FRujPN1YSRehAmlTiDwtH 93Oyc+IPEttXhzb1GaBgi xz4agm1dwkTi4 ThCpFJOwltWwnBapMQW3y 3GqZo17U72oIZylKVRyJV QqUUZaLJMuwVpncp2dcP2 wIi8+PGNvbCB3 dXW3pB9jWSYmGrA8IPcwY 784LtOcsDMyUwxuf8zvm7 vccNi8WaKvTXKcogSvlIu gDFV0h6IxVx31 Q15jWYfpDVCnAXTpFOGlP RIxuRbxlz6ffK3zNs2+PC 3iu9vkpd49aF94fYX+PHR bNAY3jJbuXKtz JSDjkZ5kNImfVbE5JLWeK bYgkK29jVPaHMfwBb2inG cstGrvBS1lLRSwecojs62 4IpKvb3heQRSm pHYhMJtdZWD9N56rb2E7Y IXeUFBmSGX7gSE3gT6qtE lnbjogbGVmdDsgdmVydGl hQLtpXFdqP166 IHRvcDsnPlBhdGllbnQgT hCdJMi5J3XiPwz2LGCixG piGP7owRBqJXukFn8weUp ngDhgKS7aTDPo somqa019JqBoh4ufWASyb PNrWZbuQZZ6F16by9B5TJ YwCNJmZKD1pDB8oZ1sqJx nbjogbGVmdDsg iuFgsRwpMVojBKlwI763T HRvcDsnPkJpcnRoIERhdG C3IK39SQ52qJDzl9M9rQK 3I2SsYTDmccto zfgrpUB6PCQxDMDddM06D e4tsPfhXz0tIVRjSVW6UK IxsCVwH6ZflR7oXaLlXAE oLLKgM4VntVGr FGigT562UQmhRoQ9CUHdi vHtJ3LwFMXnfOldGiE5d2 L1Uu3CP5A9HK36GL32oUZ ji3U9aUN4V5Hu HLQsowjkidbevHF6WEHcV AHnaH72Fg5puVpxNz4rST GgMKM4TCHirOEzB3RvpD9 yOiAjMDAwMDAw Y0CbdCIgWSajK613NEygH kP4VUHfnyCiQ3WjWOAsxR oyNfI4q3F7Go3KJYs1CL3 8TY71tODhj7R9 yOY9V2CkTAZmyvejlnuvd AQ0EVUsQMUcnR10Qh6pnQ ipOg0oMQJmZMC7GUBqvKR yR3PrfQ9gScPb TDPrAJCfU8IgpPXqZIpzK 383MLkjPlI0YBByqrLxD4 GpARHbqLyfAgP9l0E2Xs6 UXJLpBN32JMW8 cKW4DG61QI69E8SgSberc GFibGU+PHRhYmxlIHdpZH RoPScxMDAlJyBzdHlsZT0 nWx1mCAWxCBLp pImqnHOyUdJtg9xuHFVbA JcdMT6wxPnjF5KfcBM3BY Lmr1p7Fi19X70oC9YtgOL +JFPzgDV8xYM2 vY3cFvOyHdA4GVrkQ861C yByrQVzZdycp0xaw6yyxA v8XiI2FHQmsvRxaPfdCMU 2v7VjBv69H89q IHdpZHRoPSIxNSUiIHZhb Iouev3ntY8tRp7+PGNvbC F7gHW5cU4rZuAjXxH2KDm nH196LlZaoJMs Qecsj7riz0qmiCd4AsAtG VAptvZuqOflTKA3e6SjCp 61H7SkeRrsv1PdKln1hu9 4bNLki6H9rLX1 W2RfNEYwvkgynBKlsOnuO U6gHMKaoewmESQuuJ0uRD YsB6b5LrAoCmY9DRtaM4O jpjC8JFHfbATn IHnhCZP2K16ww4M9XVXvS SHkXHQ9lQI5dU4asHesar ogbGVmdDsgdmVydGljYWw rUBrbO928WEZy cYzoPBHrjA7oWIEhqLHvf BuwQD2gYGDcoslkHerPFX 2PKl5KBjwvAyLKJGOSJOC NOFWWGIz3L4Ah Rox7SVYqmVdgOS1iaOOdN McgSu2euDbnnGxuYT2gJT WddpqrJHJlzH0vYLLeeRJ tuEkfTD4zEABi rqdzm292NgMdQKS0QWCoz GJiQ8UjqG4yJfAkCHPbEN CcQ6NqbCKiYKkuB889YMc fTcO9XOZgeiIw Q2BdQEThoTghTkS2x9C8O r0sIu4eST0lSTYeUB69AV 36iKJsj8V2rOW3Y9UaRLO pbmctcmlnaHQ6 NEQdVRLciR54wSWrSSjdQ m6kh9W7k808KEDmYHPkkG 31Lk9pfWlhLXYawQTTwQ0 kacmkn6jugqaa SsYrTQQrCNu5SEe7ZBJuz JlgWjIfSBC5UvK7OBK2gJ JrlA6xeOhmmslehT0gDfv +MTkgWWVhcnM8 D9YkXtj6LXMomNpiDY5bh LWxGOpbQw9npMljzZejTK 6aVYBgglsgYTAicH4tOBZ ixZUnpAciEL7z PLCjaznra503XvCdSSE3F VZwvQHyM3AmyD4sIaNfWX RsGBHeA9ZifLXvWBzvA95 4QGuwZmY7ESRt szZxO7DnFZQwtTnfEhN1b 8L7Gj6HXY0kpWN6K4BnWg i8BVDxhQvxDQ0jrCWnUWq eMw1kdZxnqRhw FO1sDJWqltyyKKIosY5nM LHpcTCslNwlMX1hUNGjvx mnx833DuEoCXR0GHZfiLD cC5SkmG1aWlWl JOXrXKRaD5DkcXUmNGntY 498FFpuZlU7YBLythZvK8 VnCVYeoLqqJmO7y1O4Vl2 CbSUvMSPuSW43 WY93XR72W7BdMalzfPIxo +PHRhYmxlIHdpZHRoPS vkNWIvXfObuXosRF4uBd1 yZGVyLWNvbGxh uTVwQfXqh5ccCCVbZXsfM C3neVfeH4KnhDZ6LLVrp5 l9Qz75X84fB1HxvAI+PGN lhGT6oCL1uW0f GbWjFzA1EXugT255ApXnx NTnOtmrb7ogo9uhfUf7Rq PaVGFmfiUaoMnwJJA4g2Q hWx83P78yMHuc ZHRoPSIyMCUiIHZhbGlnb k0qfW2iEo7+RUWqwPT0qD I6nT2bBoLuViY0LShlZ62 9InRvcCIvPjwv A66oS7BpaNG+YQWyFpn1R ORlpRtmVC2soDEwZFpwQw 4pDKV4WeLuXuGaLLnnZ9P hZGRpbmctcmln sZE4BCMaQQWfzV33Te1kl GxxDu3qONFaSMY0JYFuuX IpW4KvjP9dZjOvRXZoBFX hC3TsaGGbZVsq H907DKdyQyD9FGVdrrToS 7MzXUDieRkuAeD5h4H1Jn 9FdYlemHQwIH5fCjGmSKi 2O3RqEns0XMYu uKyeCN1hcAVeBGixRh1ee CaryJozKD8dHTXkxyyfz5 60YxRsm2kgBMGyuXFhJSz sJGB5L72ty2J0 JEHfZNHrZAZ5kGU2rQ2hz GlnbjogbGVmdDsgdmVydG ygTMjqUYwhP558MKEmfHq jFvOIZcq7R1Cp Gnw9DOKbrNctLM0jxOPmH ZkxGr7jnKmrxJpkCD3mFO Sixjjsq903VgMcn1jwSTX wcHQgVGltZXM7 Y03zx9Q5MHTtWIQqEFN1n JI4mN9yeIjdpsdsoRRtgG pbjfRncUrcDDioJHdbZ31 0PDTnrOrwLx4T Iyz8J8PgPwo9VCLubQgeS M4akNAmZUhuUx2asSdxcH mrKM1nJVHpahojd419KsO nm2bfBFFabCUe XEzlMWT0T39vi3D2ZWJlR JJhGSQ9gDG9pN7xdXzpvg ogbGVmdDsgdmVydGljYWw wJExwW977BIMr cDsnPlBheWVyOjwvdGQ+P M09ut68H8MgWlvfXps6RM CeGNV6gPB8rD7tMGXbBCz zt9V7gEJ2Z8Iu cmRl (more content not included)... Normal [facility] Physician Orderon 11-25-2022 Physician Order [id number]#1 .00CD:127 Normal [facility] CBC w/Indiceson 11-24-2022 Erythrocyte distribution width (RBC) [Ratio] 12.8 % Normal 10.9-14.2 [facility] Comment on above: Performed By: #### 2 567589, 8166755, 11392998, 90043468, 6995957 ####[facility] [address] [address] Hematocrit (Bld) [Volume fraction] 40.6 % Normal 34.0-46.0 [facility] Comment on above: Performed By: #### 2 194486, 9707156, 57222582, 61659617, 8307107 ####[address] [address] Hemoglobin (Bld) [Mass/Vol] 13.3 g/dL Normal 12.0-16.0 [facility] Comment on above: Performed By: #### 2 356444, 5102817, 13768975, 74164432, 1292656 ####[address] [address] MCH (RBC) [Entitic mass] 31.1 pg Normal 27.0-34.0 [facility] Comment on above: Performed By: #### 2 627561, 3767381, 00578834, 63159745, 3701776 ####[place] [address]057 MCHC (RBC) [Mass/Vol] 32.7 g/dL Normal 31.4-36.0 [facility] Comment on above: Performed By: #### 2 921642, 8292159, 80948583, 34824948, 2964086 ####[address] [address] MCV (RBC) [Entitic vol] 94.9 fL Normal 80.0-100.0 [facility] Comment on above: Performed By: #### 2 934506, 9466883, 00529768, 90042585, 3971120 ####[address] [address] Platelet mean volume (Bld) [Entitic vol] 9.4 fL Normal 6.4-10.8 [facility] Comment on above: Performed By: #### 2 670463, 1931602, 89311071, 50684114, 9731587 ####[address] [address] Platelets (Bld) [#/Vol] 255.0 E9/L Normal 150.0-500.0 [facility] Comment on above: Performed By: #### 2 568925, 4835593, 07199455, 53749520, 8543924 ####[facility] [address] [place] [address] RBC (Bld) [#/Vol] 4.3 E12/L Normal 4.3-5.9 [facility] Comment on above: Performed By: #### 2 185043, 2051424, 99829310, 34845106, 1248503 ####[facility] [address] [place] [address] WBC corrected for nucl RBC Auto (Bld) [#/Vol] 5.6 E9/L Normal 4.0-11.0 [place] Comment on above: Performed By: #### 2 047028, 2397900, 58738350, 01304397, 4502105 ####[facility] [address] [place] [address] CHEMISTRYOrdered By: SYSTEM SYSTEM on 11-24-2022 Albumin [Mass/Vol] 3.9 g/dL Normal 3.3 - 5.0 gm/dL [facility] Albumin/Globulin [Mass ratio] 1.1 {ratio} Normal [...] Bilirubin [Mass/Vol] 0.4 mg/dL Normal 0.0 - 1 .1 mg/dL [facility] Calcium [Mass/Vol] 8.9 mg/dL Normal 8.9 - 11. 1 mg/dL [facility] Chloride [Moles/Vol] 104 mmol/L Normal 101 - 1 11 mmol/L [facility] CO2 [Moles/Vol] 27 mmol/L Normal 21 - 31 mmol/L [facility] Creatinine [Mass/Vol] 0.8 mg/dL Normal 0.5 - 1.3 mg/dL [facility] GFR/1.73 sq M.predicted among blacks MDRD (S/P/Bld) [Vol rate/Area] mL/min/1.73 m2 Normal >=59mL/min/1 .73 m2 [facility] Chem S GFR/1.73 sq M.predicted among non-blacks MDRD (S/P/Bld) [Vol rate/Area] mL/min/1.73 m2 Normal >=59mL/min/1 .73 m2 [facility] S Globulin (S) [Mass/Vol] 3.6 g/dL Normal 1.4 - 4.0 gm/dL [facility] Glucose [Mass/Vol] 77 mg/dL Normal 55 - 199 mg/dL [facility] Potassium [Moles/Vol] 3.7 mmol/L Normal 3.5 - 5.3 mmol/L [facility] Protein [Mass/Vol] 7.5 g/dL Normal 6.0 - 7.8 gm/dL [facility] Sodium [Moles/Vol] 139 mmol/L Normal 135 - 145 mmol/L [facility] TSH Qn 0.70 m[IU]/L Normal 0.34 - 5.60 mcIU/mL [facility] Urea nitrogen [Mass/Vol] 12 mg/dL Normal 5 - 21 mg/dL [facility] Urea nitrogen/Creatinine [Mass ratio] 15 mg/mg Normal 10 - 20 [facility] CMPon 11-24-2022 Albumin [Mass/Vol] 3.9 g/dL Normal 3.3-5.0 [facility] Comment on above: Performed By: #### 2 581250, 2045019, 97920725, 78378019, 7970037 ####[facility] [address] [place] [address] Albumin/Globulin (S) [Mass conc ratio] 1.1 Normal 1.1-2.2 [facility] Comment on above: Performed By: #### 2 546015, 3623224, 35990683, 89013022, 7501773 ####[facility] [address] [place] [address] ALP [Catalytic activity/Vol] 94 Int._Unit/L Normal 21-98 [facility] Comment on above: Performed By: #### 2 275589, 2489210, 36954264, 67925492, 0108697 ####[facility] [address] [place] [address] ALT No additional P-5'-P [Catalytic activity/Vol] 15 Int._Unit/L Normal 6-46 [facility] Comment on above: Performed By: #### 2 312314, 5928328, 41176979, 02142724, 2945420 ####[facility] [address] [place] [address] Anion gap [Moles/Vol] 12 mmol/L Normal 6-16 [facility] Comment on above: Performed By: #### 2 646753, 3175953, 60619482, 01000455, 3316903 ####[facility] [address] [place] [address] AST [Catalytic activity/Vol] 19 Int._Unit/L Normal 5-43 [facility] Comment on above: Performed By: #### 2 643051, 1207700, 65256407, 70720482, 9147687 ####[facility] [address] [place] [address] Bilirubin [Mass/Vol] 0.4 mg/dL Normal 0.0-1.[address] [facility] Comment on above: Performed By: #### 2 496502, 4470189, 99994653, 60517415, 8371261 ####[facility] [address] [place] [address] Calcium [Mass/Vol] 8.9 mg/dL Normal 8.9-11.1 [facility] Comment on above: Performed By: #### 2 804947, 5902143, 04124984, 06353631, 9246732 ####[facility] [address] [place] [address] Chloride [Moles/Vol] 104 mmol/L Normal 101-111 [facility] Comment on above: Performed By: #### 2 146612, 3693251, 37437455, 32408976, 3181288 ####[facility] [address] [place] [address] CO2 [Moles/Vol] 27 mmol/L Normal 21-31 [place] Comment on above: Performed By: #### 2 914611, 3928863, 43459670, 79483556, 7103759 ####[facility] [address] [place] [address] Creatinine [Mass/Vol] 0.8 mg/dL Normal 0.5-1.3 [facility] Comment on above: Performed By: #### 2 150815, 1758752, 60519848, 83127580, 3689964 ####[facility] [address] [place] [address] Globulin (S) [Mass/Vol] 3.6 g/dL Normal 1.4-4.0 [facility] Comment on above: Performed By: #### 2 296953, 9598820, 79448049, 81832209, 7593420 ####[facility] [address] [place] [address] Glucose [Mass/Vol] 77 mg/dL Normal 55-199 [facility] Comment on above: Result Comment: If t his glucose result represents a fasting glucose, interpretation should refer to the following reference range: 55-99 mg/dL Performed By: #### 2 887222, 1121558, 76728430, 12103711, 0928981 ####[facility] [address] [place] [address] Potassium [Moles/Vol] 3.7 mmol/L Normal 3.5-5.3 [facility] Comment on above: Performed By: #### 2 173144, 6533450, 92852566, 91047139, 3636886 ####[facility] [address] [place] [address] Protein [Mass/Vol] 7.5 g/dL Normal 6.0-7.8 [facility] Comment on above: Performed By: #### 2 480492, 6995126, 97296175, 44031851, 8908770 ####[facility] [address] [place] [address] Sodium [Moles/Vol] 139 mmol/L Normal 135-145 [facility] Comment on above: Performed By: #### 2 374752, 3804310, 02635274, 13242418, 5736399 ####[facility] [address] [place] [address] Urea nitrogen [Mass/Vol] 12 mg/dL Normal 5-21 [facility] Comment on above: Performed By: #### 2 331125, 2154426, 95640117, 61857043, 6652682 ####[facility] [address] [place] [address] Urea nitrogen/Creatinine [Mass ratio] 15 No Units Normal 10-20 [facility] Comment on above: Performed By: #### 2 758476, 0845398, 21533692, 25761013, 0572542 ####[facility] [address] [place] [address] COAGULATIONOrdered By: Giuseppe Robb on 11-24-2022 Fibrin D-dimer FEU (PPP) [Mass/Vol] 3906 ng/mL FEU Invalid Interpretation Code 215 - 500 ng/mL FEU [facility] Comment on above: Result Comment: Resu lts Called To DR JACKSON By GIUSEPPE ROBB And Read Back For Confirmation On 11/24/2022 16:26:28 EST Results Verified By Repeat Analysis Consent for Treatmenton 11-09 Consent for Treatment [id number]#1 .00CD:127 Normal [facility] D-Dimeron 11-24-2022 Fibrin D-dimer FEU (PPP) [Mass/Vol] 3906 CD:[id number] Abnormal 215-500 [facility] Comment on above: Result Comment: Resu lts [...] infections Liver cirrhosis Performed By: #### 2 592579, 3589901, 60121129, 67529261, 1768615 ####[facility] [address] [place] [address] HEMATOLOGYOrdered By: Chris Grant on 11-24-2022 Erythrocyte distribution width (RBC) [Ratio] 12.8 % Normal 10.9 - 14.2 % [facility] HemeAutoSS Hematocrit (Bld) [Volume fraction] 40.6 % Normal 34.0 - 46.0 % [facility] HemeAutoSS Hemoglobin (Bld) [Mass/Vol] 13.3 g/dL Normal 12.0 - 16.0 gm/dL [facility] HemeAutoSS MCH (RBC) [Entitic mass] 31.1 pg Normal 27.0 - 34.0 pg [facility] HemeAutoSS MCHC (RBC) [Mass/Vol] 32.7 g/dL Normal 31.4 - 36.0 gm/dL [facility] HemeAutoSS MCV (RBC) [Entitic vol] 94.9 fL Normal 80.0 - 100.0 fL [facility] HemeAutoSS Platelet mean volume (Bld) [Entitic vol] 9.4 fL Normal 6.4 - 10.8 fL [facility] HemeAutoSS Platelets (Bld) [#/Vol] 255.0 E9/L Normal 150.0 - 500.0 E9/L [facility] HemeAutoSS RBC (Bld) [#/Vol] 4.3 E12/L Normal 4.3 - 5.9 E12/L [facility] WBC corrected for nucl RBC Auto (Bld) [#/Vol] 5.6 E9/L Normal 4.0 - 11.0 E9/L [facility] Physician Orderon 11-24-2022 Physician Order [id number]# 1.00CD:127 Normal [facility] TSH With T4fr Reflexon 11-24 TSH Qn 0.70 m[IU]/L Normal 0.34-5.60 [facility] Comment on above: Performed By: #### 2 782330, 9906454, 99145655, 57006652, 9836747 ####[facility] [address] [place] [address] eGFRon 11-24-2022 GFR/1.73 sq M.predicted among blacks MDRD (S/P/Bld) [Vol rate/Area] mL/min/{1.73_m2} Normal >=59 [facility] Comment on above: Order Comment: Order added by Discern Expert. Result Comment: eGFR is race adjusted. AA=. Performed By: #### 2 919067, 1383408, 76373758, 11226905, 5561491 ####[facility] [address] [place] [address] GFR/1.73 sq M.predicted among non-blacks MDRD (S/P/Bld) [Vol rate/Area] mL/min/{1.73_m2} Normal >=59 [facility] Comment on above: Order Comment: Order added by Discern Expert. Result Comment: [employer] maribel kidney disease could be indicated at eGFR's of less than 60 mL/min/1.73m2. Kidney failure is indicated at less than 15 mL/min/1.73m2. Performed By: #### 2 384175, 8568691, 71247464, 27769517, 4916823 ####[facility] [address] [place] [address] XR CHEST 1 Von 11-11-2022 XR CHEST [...] RODOLFO LÓPEZ Date: 2022-11-11 15:20 Normal [facility] CBC AUTO DIFFon 11-07-2022 BASO # 0.0 103/ul Normal 0.0-0.1 [facility] Comment on above: Performed By: #### C BC #### [facility] [address] [place] [address] Dr. Dianelys Brown Basophils/100 WBC (Bld) 0.4 % Normal 0.2-2.0 [facility] Comment on above: Performed By: #### C BC #### [facility] [address] [place] [address] Dr. Dianelys Brown EO # 0.1 103/ul Normal 0.0-0.7 [facility] Comment on above: Performed By: #### C BC #### [facility] [address] [place] [address] Dr. Dianelys Brown Eosinophils/100 WBC (Bld) 1.3 % Normal 0.9-7.0 [facility] Comment on above: Performed By: #### C BC #### [facility] [address] [place] [address] Dr. Dianelys Brown Erythrocyte distribution width (RBC) [Ratio] 13.2 % Normal 11.0-15.0 [facility] Comment on above: Performed By: #### C BC #### [facility] [address] [place] [address] Dr. Dianelys Brown Hematocrit (Bld) [Volume fraction] 27.1 % Critically low 36.0-48.0 [facility] Comment on above: Performed By: #### C BC #### [facility] [address] [place] [address] Dr. Dianelys Brown Hemoglobin (Bld) [Mass/Vol] 9.0 g/dL Critically low 12.0-16.0 [facility] Comment on above: Performed By: #### C BC #### [facility] [address] [place] [address] Dr. Dianelys Brown IG # 0.05 10e3/ul Critically high 0.00-0.03 [facility] Comment on above: Performed By: #### C BC #### [facility] [address] [place] [address] Dr. Dianelys Brown IG % 0.5 % Normal 0.0-0.5 [facility] Comment on above: Performed By: #### C BC #### [facility] [address] [place] [address] Dr. Dianelys Brown LYMPH # 2.0 103/ul Normal 1.2-3.8 [facility] Comment on above: Performed By: #### C BC #### [facility] [address] [place] [address] Dr. Dianelys Brown Lymphocytes/100 WBC (Bld) 18.1 % Critically low 20.5-60.0 [facility] Comment on above: Performed By: #### C BC #### [facility] [address] [place] [address] Dr. Dianelys Brown MANUAL DIFF REQ NO Normal [facility] Comment on above: Performed By: #### C BC #### [facility] [address] [place] [address] Dr. Dianelys Brown MCH (RBC) [Entitic mass] 31.5 pg Normal 26.7-34.0 [facility] Comment on above: Performed By: #### C BC #### [facility] [address] [place] [address] Dr. Dianelys Brown MCHC (RBC) [Mass/Vol] 33.2 g/dL Normal 29.9-35.2 [facility] Comment on above: Performed By: #### C BC #### [facility] [address] [place] [address] Dr. Dianelys Brown MCV (RBC) [Entitic vol] 94.8 fL Normal 81.0-99.0 [facility] Comment on above: Performed By: #### C BC #### [facility] [address] [place] [address] Dr. Dianelys Brown MONO # 1.0 103/ul Critically high 0.3-0.8 [facility] Comment on above: Performed By: #### C BC #### [facility] [address] [place] [address] Dr. Dianelys Brown Monocytes/100 WBC (Bld) 9.1 % Normal 1.7-12.0 [facility] Comment on above: Performed By: #### C BC #### [facility] [address] [place] [address] Dr. Dianelys Brown NEUT # 7.6 103/ul Critically high 1.4-6.5 [facility] Comment on above: Performed By: #### C BC #### [facility] [address] [place] [address] Dr. Dianelys Brown Neutrophils/100 WBC (Bld) 70.6 % Normal 43.0-75.0 [facility] Comment on above: Performed By: #### C BC #### [facility] [address] [place] [address] Dr. Dianelys Brown Platelet mean volume (Bld) [Entitic vol] 11.8 fL Normal 9.5-13.5 [facility] Comment on above: Performed By: #### C BC #### [facility] [address] [place] [address] Dr. Dianelys Brown PLT 133 103/ul Critically low 150-450 [facility] Comment on above: Performed By: #### C BC #### [facility] [address] [place], [place] [id number] Dr. Dianelys Brown RBC 2.86 106/ul Critically low 4.20-5.40 [facility] Comment on above: Performed By: #### C BC #### [facility] [address] [place] [address] Dr. Dianelys Brown WBC 10.8 103/ul Normal 4.0-11.0 [facility] Comment on above: Performed By: #### C BC #### [facility] [address] [place] [address] Dr. Dianelys Brown CBC AUTO DIFFon 11-06-2022 BASO # 0.0 103/ul Normal 0.0-0.1 [facility] Comment on above: Performed By: #### H BSANS #### [facility] [address] [place] [address] Dr. Dianelys Brown Basophils/100 WBC (Bld) 0.4 % Normal 0.2-2.0 [facility] Comment on above: Performed By: #### H BSANS #### [facility] [address] [place] [address] Dr. Dianelys Brown EO # 0.2 103/ul Normal 0.0-0.7 [facility] Comment on above: Performed By: #### H BSANS #### [facility] [address] [place] [address] Dr. Dianelys Brown Eosinophils/100 WBC (Bld) 1.6 % Normal 0.9-7.0 [facility] Comment on above: Performed By: #### H BSANS #### [facility] [address] [place] [address] Dr. Dianelys Brown Erythrocyte distribution width (RBC) [Ratio] 13.1 % Normal 11.0-15.0 [facility] Comment on above: Performed By: #### H BSANS #### [facility] [address] [place] [address] Dr. Dianelys Brown Hematocrit (Bld) [Volume fraction] 33.5 % Critically low 36.0-48.0 [facility] Comment on above: Performed By: #### H BSANS #### [facility] [address] [place] [address] Dr. Dianelys Brown Hemoglobin (Bld) [Mass/Vol] 11.5 g/dL Critically low 12.0-16.0 [facility] Comment on above: Performed By: #### H BSANS #### [facility] [address] [place] [address] Dr. Dianelys Brown IG # 0.05 10e3/ul Critically high 0.00-0.03 [facility] Comment on above: Performed By: #### H BSANS #### [facility] [address] [place] [address] Dr. Dianelys Brown IG % 0.5 % Normal 0.0-0.5 [facility] Comment on above: Performed By: #### H BSANS #### [facility] [address] [place] [address] Dr. Dianelys Brown LYMPH # 2.6 103/ul Normal 1.2-3.8 [facility] Comment on above: Performed By: #### H BSANS #### [facility] [address] [place] [address] Dr. Dianelys Brown Lymphocytes/100 WBC (Bld) 24.0 % Normal 20.5-60.0 [facility] Comment on above: Performed By: #### H BSANS #### [facility] [address] [place] [address] Dr. Dianelys Brown MANUAL DIFF REQ NO Normal [facility] Comment on above: Performed By: #### H BSANS #### [facility] [address] [place] [address] Dr. Dianelys Brown MCH (RBC) [Entitic mass] 32.0 pg Normal 26.7-34.0 [facility] Comment on above: Performed By: #### H BSANS #### [facility] [address] [place] [address] Dr. Dianelys Brown MCHC (RBC) [Mass/Vol] 34.3 g/dL Normal 29.9-35.2 [facility] Comment on above: Performed By: #### H BSANS #### [facility] [address] [place] [address] Dr. Dianelys Brown MCV (RBC) [Entitic vol] 93.3 fL Normal 81.0-99.0 [facility] Comment on above: Performed By: #### H BSANS #### [facility] [address] [place] [address] Dr. Dianelys Brown MONO # 0.9 103/ul Critically high 0.3-0.8 [facility] Comment on above: Performed By: #### H BSANS #### [facility] [address] [address] [address] Dianelys Brown Monocytes/100 WBC (Bld) 8.6 % Normal 1.7-12.0 [facility] Comment on above: Performed By: #### H BSANS #### [facility] [address] [address] [address] Dianelys Brown NEUT # 6.9 103/ul Critically high 1.4-6.5 [facility] Comment on above: Performed By: #### H BSANS #### [facility] [address] [place] [address] Dr. Dianelys Brown Neutrophils/100 WBC (Bld) 64.9 % Normal 43.0-75.0 [facility] Comment on above: Performed By: #### H BSANS #### [facility] [address] [place] [address] Dr. Dianelys Brown Platelet mean volume (Bld) [Entitic vol] 12.5 fL Normal 9.5-13.5 [facility] Comment on above: Performed By: #### H BSANS #### [facility] [address] [place] [address] Dr. Dianelys Brown PLT 187 103/ul Normal 150-450 [facility] Comment on above: Performed By: #### H BSANS #### [facility] [address] [address] [address] Dianelys Brown RBC 3.59 106/ul Critically low 4.20-5.40 [facility] Comment on above: Performed By: #### H BSANS #### [facility] [address] [place] [address] Dr. Dianelys Brown WBC 10.7 103/ul Normal 4.0-11.0 [facility] Comment on above: Performed By: #### H BSANS #### [facility] [address] [place] [address] Dr. Dianelys Brown Covid-19 PCR (CVDTBH)on 10-10 SARS-CoV-2 (COVID-19) RNA NAIF+probe Ql (Unsp spec) Not detected Normal NOT DETECTED [facility] Comment on above: Result Comment: When diagnostic [...] for this test is supported by the [place] of Health and Human Service's declaration that [...] used). Performed By: #### C VDTBH #### [facility] [address] [place] [address] Dr. Dianelys Brown DRUG SCREEN RAPID (URINE)on 11-06-2022 AMP Negative Normal NEGATIVE [facility] Comment on above: Performed By: #### D RUGRPD #### [facility] [address] [place] [address] Dr. Dianelys Brown BAR Negative Normal NEGATIVE [facility] Comment on above: Performed By: #### D RUGRPD #### [facility] [address] [place] [address] Dr. Dianelys Brown BUP Negative Normal NEGATIVE [facility] Comment on above: Performed By: #### D RUGRPD #### [facility] [address] [place] [address] Dr. Dianelys Brown BZO Negative Normal NEGATIVE [facility] Comment on above: Performed By: #### D RUGRPD #### [facility] [address] [place] [address] Dr. Dianelys Brown GOGO Negative Normal NEGATIVE [facility] Comment on above: Performed By: #### D RUGRPD #### [facility] [address] [place] [address] Dr. Dianelys Brown CUT-OFFS SEE BELOW Normal [facility] Comment on above: Result Comment: AMP (Amphetamine): 500ng/mL, BAR (Barbituates): 200 ng/mL, BZO (Benzodiazepines): 150 ng/mL, BUP (Buprenorphine): 10 ng/mL, GOGO (Cocaine): 150 ng/mL, mAMP (Methamphetamine): 500 ng/mL, MTD (Methadone): 200 ng/mL, OPI (Opiates): 100 ng/mL, OXY (Oxycodone): 100 ng/mL, PCP (Phencyclidine): 25 ng/mL, PPX (Propoxyphene): 300 ng/mL, THC (Cannabinoids): 50 ng/mL, TCA (Trycyclic Antidepressants): 300 ng/mL Performed By: #### D RUGRPD #### [facility] [address] [place] [address] Dr. Dianelys Brown DRUG CUT HEADER DRUG CLASS TEST SYSTEM CUT-OFF CONCENTRATIONS ARE FOLLOWS: Normal [facility] Comment on above: Performed By: #### D RUGRPD #### [facility] [address] [place] [address] Dr. Dianelys Brown mAMP Negative Normal NEGATIVE [facility] Comment on above: Performed By: #### D RUGRPD #### [facility] [address] [place] [address] Dr. Dianelys Brown MTD Negative Normal NEGATIVE [facility] Comment on above: Performed By: #### D RUGRPD #### [facility] [address] [place] [address] Dr. Dianelys Brown OPI Negative Normal NEGATIVE [facility] Comment on above: Performed By: #### D RUGRPD #### [facility] [address] [place] [address] Dr. Dianelys Brown OXY Negative Normal NEGATIVE [facility] Comment on above: Performed By: #### D RUGRPD #### [facility] [address] [place] [address] Dr. Dianelys Brown PCP Negative Normal NEGATIVE [facility] Comment on above: Performed By: #### D RUGRPD #### [facility] [address] [address] [address] Dianelys Brown PPX Negative Normal NEGATIVE [facility] Comment on above: Performed By: #### D RUGRPD #### [facility] [address] [address] [address] Dianelys Brown TCA Negative Normal NEGATIVE [facility] Comment on above: Performed By: #### D RUGRPD #### [facility] [address] [place] [address] Dr. Dianelys Brown THC Negative Normal NEGATIVE [facility] Comment on above: Performed By: #### D RUGRPD #### [facility] [address] [place] [address] Dr. Dianelys Brown TYPE AND SCREENon 11-06-2022 TYPE AND SCREEN Negative Normal [facility] Comment on above: Performed By: #### A 1C #### [facility] [address] [place] [address] Dr. Dianelys Brown GROUP B STREP CULTUREon 09-11 S. agalactiae Ag Ql (Unsp spec) Culture Observations: NEGATIVE FOR GROUP B STREPTOCOCCUS. Normal [facility] Comment on above: Performed By: #### G BSCX #### [facility] [address] [place] [address] Dr. Dianelys Brown US PREG GROWTHon 09-26-2022 US PREG GROWTH EXAMINATION: [...] by: RODOLFO REYNOSO Date: 2022-09-26 06:11 Normal [facility] US PREG GROWTHon 09-11-2022 US PREG GROWTH EXAMINATION: [...] weeks 1 days; 68.9 % % EFW: 2.8 grams, 4 lbs. 7 oz., 61% FL/AC: 23.0 FL/BPD: 76.4 HC/AC: 1.1 GESTATIONAL AGE: Age by EDC: 32 weeks 0 days CAR by EDC: 11/06/2022 Age by US: 33 weeks 1 day CAR by US: 10/29/2022 IMPRESSION: Normal interval growth Electronically authenticated by: COMPA WILLIAM Date: 2022-09-11 17:50 Normal [facility] TYPE AND SCREENon 08-28-2022 TYPE AND SCREEN Negative Normal [facility] Comment on above: Performed By: #### T NS #### [facility] [address] [address] [address] Dianelys Brown GLUCOSE - 1HRon 07-31-2022 Glucose [Mass/Vol] 124 mg/dL Critically high 74-106 [facility] Comment on above: Performed By: #### H BSANS #### [facility] [address] [address] [address] Dianelys Brown HEMOGRAM AND PLATELon 2021 Hematocrit (Bld) [Volume fraction] 32.4 % Critically low 36.0-48.0 [facility] Comment on above: Performed By: #### H BSANS #### [facility] [address] [place] [address] Dr. Dianelys Brown Hemoglobin (Bld) [Mass/Vol] 10.7 g/dL Critically low 12.0-16.0 [facility] Comment on above: Performed By: #### H BSANS #### [facility] [address] [place] [address] Dr. Dianelys Brown MCH (RBC) [Entitic mass] 33.5 pg Normal 26.7-34.0 [facility] Comment on above: Performed By: #### H BSANS #### [facility] [address] [place] [address] Dr. Dianelys Brown MCHC (RBC) [Mass/Vol] 33.0 g/dL Normal 29.9-35.2 [facility] Comment on above: Performed By: #### H BSANS #### [facility] [address] [place] [address] Dr. Dianelys Brown MCV (RBC) [Entitic vol] 101.6 fL Critically high 81.0-99.0 [facility] Comment on above: Performed By: #### H BSANS #### [facility] [address] [place] [address] Dr. Dianelys Brown PLT 164 103/ul Normal 150-450 [facility] Comment on above: Performed By: #### H BSANS #### [facility] [address] [place] [address] Dr. Dianelys Brown RBC 3.19 106/ul Critically low 4.20-5.40 [facility] Comment on above: Performed By: #### H BSANS #### [facility] [address] [place] [address] Dr. Dianelys Brown WBC 7.5 103/ul Normal 4.0-11.0 [facility] Comment on above: Performed By: #### H BSANS #### [facility] [address] [place] [address] Dr. Dianelys Brown CHLAMYDIA/GONOCOCCUS NAIF (SW AB/URINE/PAPon 07-22-2022 Chlamydia trachomatis, NAIF Negative Normal Negative [facility] Comment on above: Performed By: #### H BSANS #### [facility] [address] [address] [address] Dianelys Brown Neisseria gonorrhoeae, NAIF Negative Normal Negative [facility] Comment on above: Performed By: #### H BSANS #### [facility] [address] [address] [address] Diaenlys Brown VAGINITIS/VAGINOSIS DNA PROB Bertrand 07-20-2022 Isabel species Negative Normal Negative [facility] Comment on above: Performed By: #### H BSANS #### [facility] [address] [place] [address] Dr. Dianelys Brown Gardnerella vaginalis Negative Normal Negative [facility] Comment on above: Performed By: #### H BSANS #### [facility] [address] [place] [address] Dr. Dianelys Brown Trichomonas vaginalis Negative Normal Negative [facility] Comment on above: Performed By: #### H BSANS #### [facility] [address] [address] [address] Dianelys Brown AFP MATERNAL FOR SPINA BIFID Aon 06-21-2022 AFP MoM 1.29 Normal [facility] Comment on above: Performed By: #### A 1C #### [facility] [address] [address] [address] Dianelys Brown AFP Value 88.7 ng/mL Normal [facility] Comment on above: Performed By: #### A 1C #### [facility] [address] [address] [address] Dianelys Brown AFP, Serum for Spina Bifida Report Normal [facility] Comment on above: Performed By: #### A 1C #### [facility] [address] [place] [address] Dr. Dianelys Brown Comment Comment Normal [facility] Comment on above: Result Comment: Gray Flores, Ph.D., [facility] Director . References: Available Upon Request. . Multiples Of Median Cutoffs For AFP Elevations Wick 2.5 Black 2.8 IDD 2.0 Twins 4.5 Abbreviation Definitions IDD - Insulin Dep Diabetes OSBR - Open Spina Bifida Risk . For further inquiries contact [employer] [facility] at [phone]. . This test was developed and its performance characteristics determined by [employer]. It has not been cleared or approved by the Food and Drug Administration. Performed By: #### A 1C #### [facility] [address] [place] [address] Dr. Dianelys Gallo Age Collection Date 20.0 weeks Normal [facility] Comment on above: Performed By: #### A 1C #### [facility] [address] [place] [address] Dr. Dianelys Brown Gestat, Age Based on As provided Normal [facility] Comment on above: Result Comment: Reca lculations are not recommended when gestational dating by LMP and ultrasound are within 10 days. Performed By: #### A 1C #### [facility] [address] [place] [address] Dr. Dianelys Brown Insulin Dep Diabetes No Normal [facility] Comment on above: Performed By: #### A 1C #### [facility] [address] [place] [address] Dr. Dianelys Brown Interpretation Comment Normal [facility] Comment on above: Result Comment: Inte rpretation: [...] Customer Services to discuss available options. The [employer] recommends amniocentesis be offered to women age 35 and older. Performed By: #### A 1C #### [facility] [address] [place] [address] Dr. Dianelys Brown [age] CAR [age] Normal [facility] Comment on above: Performed By: #### A 1C #### [facility] [address] [address] [address] Dianelys Brown Multiple Gestation No Normal [facility] Comment on above: Performed By: #### A 1C #### [facility] [address] [address] [address] Dianelys Brown OSBR Risk 1 IN 4947 Normal [facility] Comment on above: Performed By: #### A 1C #### [facility] [address] [address] [address] Dianelys Brown PDF . Normal [facility] Comment on above: Performed By: #### A 1C #### [facility] [address] [address] [address] Dianelys Brown Race Normal [facility] Comment on above: Performed By: #### A 1C #### [facility] [address] [place] [address] Dr. Dianelys Brown Test Results: Negative [facility] Comment on above: Performed By: #### A 1C #### [facility] [address] [place] [address] Dr. Dianelys Brown US PREG ANATOMY SINGLEon US PREG ANATOMY SINGLE EXAMINATION: US P REG ANATOMY SINGLE HISTORY: anatomy study COMPARISON: No [...] by: COMPA WILLIAM Date: 2022-06-19 16:50 Normal [facility] ECHOCARDIO M/2D COMPLETEon 0 04-21-2022 ECHOCARDIO M/2D COMPLETE Patient: STACEY ANG Exam Date: 04/21/2022 : 2000 Gender:F Ordering : DR PASTORA WHITEHEAD . Admission #: [id number] Family : Order #: [id number] CLICK HERE TO VIEW EXAM ECHOCARDIOGRAM REPORT [...] Area(A4C): 10.80 cm2 Left Atrium Systolic Volume(A2C): 41026 mm3 Left Atrium Systolic Volume(A4C): 43650 mm3 Mitral Valve MV E to A Ratio: 1.10 Deceleration [place]: 2650 mm/s2 Mitral Valve A-Wave Peak Velocity: [...] Gradient: 3 mm[Hg] Right Atrium Dictated by: Shaq Henao M.D. on 04/22/2022 at 18:16 Approved by: Shaq Henao M.D. on 04/22/2022 at 18:18 Normal [facility] HEP B SURFACE ANTIGEN SCREEN on 03-27-2022 HBsAg Screen Negative Normal Negative [facility] Comment on above: Performed By: #### H BSA #### [facility] [address] [place] [address] Dr. Dianelys Brown HEPATITIS C VIRUS AB W/ REFL EX QUANTon 03-27-2022 HCV AB <0.1 Normal 0.0-0.9 [facility] Comment on above: Performed By: #### A 1C #### [facility] [address] [place] [address] Dr. Dianelys Brown Interpretation: Comment Normal [facility] Comment on above: Result Comment: Nega tive Not infected with HCV, unless recent infection is suspected or other evidence exists to indicate HCV infection. Performed By: #### A 1C #### [facility] [address] [place] [address] Dr. Dianelys Brown HIV 1 AND 2 WITH REFLEXon HIV Screen 4th Generation wRfx Non-Reactive Normal Non Reactive [facility] Comment on above: Result Comment: HIV Negative HIV-1/HIV-2 antibodies and HIV-1 p24 antigen were NOT detected. There is no laboratory evidence of HIV infection. Performed By: #### H BSANS #### [facility] [address] [place] [address] Dr. Dianelys Brown RPR QUANTon 03-27-2022 Rapid Plasma Reagin, Quant Non-Reactive Normal NonRea<1:1 [facility] Comment on above: Result Comment: Plea se Note: This test does not meet current guidelines for screening and diagnosis of syphilis. This test is intended for following treatment response in patients being treated for syphilis infection. To screen for syphilis infection, a reflex cascade that includes both RPR and a treponema-specific assay should be utilized, such as Treponema pallidum (Syphilis) Screening [place] (109653) or Rapid Plasma Reagin (RPR) Test With Reflex to Quantitative RPR and Confirmatory Treponema pallidum Antibodies (803294). Performed By: #### R PRQ #### [facility] [address] [place] [address] Dr. Dianelys Brown RUBELLA AB IGGon 03-27-2022 Rubella Antibodies, IgG 1.47 index Normal Immune >0.99 [facility] Comment on above: Result Comment: Non- immune <0.90 Equivocal 0.90 - 0.99 Immune >0.99 Performed By: #### H BSANS #### [facility] [address] [place] [address] Dr. Dianelys Brown CBC AUTO DIFFon 03-26-2022 BASO # 0.1 103/ul Normal 0.0-0.1 [facility] Comment on above: Performed By: #### H BSANS #### [facility] [address] [address] [address] Dianelys Brown Basophils/100 WBC (Bld) 0.6 % Normal 0.2-2.0 [facility] Comment on above: Performed By: #### H BSANS #### [facility] [address] [address] [address] Dianelys Brown EO # 0.3 103/ul Normal 0.0-0.7 [facility] Comment on above: Performed By: #### H BSANS #### [facility] [address] [place] [address] Dr. Dianelys Brown Eosinophils/100 WBC (Bld) 2.8 % Normal 0.9-7.0 [facility] Comment on above: Performed By: #### H BSANS #### [facility] [address] [place] [address] Dr. Dianelys Brown Erythrocyte distribution width (RBC) [Ratio] 11.9 % Normal 11.0-15.0 [facility] Comment on above: Performed By: #### H BSANS #### [facility] [address] [place] [address] Dr. Dianelys Brown Hematocrit (Bld) [Volume fraction] 38.0 % Normal 36.0-48.0 [facility] Comment on above: Performed By: #### H BSANS #### [facility] [address] [address] [address] Dianelys Brown Hemoglobin (Bld) [Mass/Vol] 13.6 g/dL Normal 12.0-16.0 [facility] Comment on above: Performed By: #### H BSANS #### [facility] [address] [address] [address] Dianelys Brown IG # 0.03 10e3/ul Normal 0.00-0.03 [facility] Comment on above: Performed By: #### H BSANS #### [facility] [address] [address] [address] Dianelys Brown IG % 0.3 % Normal 0.0-0.5 [facility] Comment on above: Performed By: #### H BSANS #### [facility] [address] [address] [address] Dianelys Brown LYMPH # 2.4 103/ul Normal 1.2-3.8 [facility] Comment on above: Performed By: #### H BSANS #### [facility] [address] [place] [address] Dr. Dianelys Brown Lymphocytes/100 WBC (Bld) 22.1 % Normal 20.5-60.0 [facility] Comment on above: Performed By: #### H BSANS #### [facility] [address] [place] [address] Dr. Dianelys Brown MANUAL DIFF REQ NO Normal [facility] Comment on above: Performed By: #### H BSANS #### [facility] [address] [place] [address] Dr. Dianelys Brown MCH (RBC) [Entitic mass] 32.2 pg Normal 26.7-34.0 [facility] Comment on above: Performed By: #### H BSANS #### [facility] [address] [place] [address] Dr. Dianelys Brown MCHC (RBC) [Mass/Vol] 35.8 g/dL Critically high 29.9-35.2 [facility] Comment on above: Performed By: #### H BSANS #### [facility] [address] [place] [address] Dr. Dianelys Brown MCV (RBC) [Entitic vol] 90.0 fL Normal 81.0-99.0 [facility] Comment on above: Performed By: #### H BSANS #### [facility] [address] [place] [address] Dr. Dianelys Brown MONO # 1.0 103/ul Critically high 0.3-0.8 [facility] Comment on above: Performed By: #### H BSANS #### [facility] [address] [address] [address] Dianelys Brown Monocytes/100 WBC (Bld) 8.8 % Normal 1.7-12.0 [facility] Comment on above: Performed By: #### H BSANS #### [facility] [address] [address] [address] Dianelys Brown NEUT # 7.1 103/ul Critically high 1.4-6.5 [facility] Comment on above: Performed By: #### H BSANS #### [facility] [address] [address] [address] Dianelys Brown Neutrophils/100 WBC (Bld) 65.4 % Normal 43.0-75.0 [facility] Comment on above: Performed By: #### H BSANS #### [facility] [address] [place] [address] Dr. Dianelys Brown Platelet mean volume (Bld) [Entitic vol] 11.6 fL Normal 9.5-13.5 [facility] Comment on above: Performed By: #### H BSANS #### [facility] [address] [address] [address] Dianelys Brown PLT 171 103/ul Normal 150-450 [facility] Comment on above: Performed By: #### H BSANS #### [facility] [address] [place] [address] Dr. Dianelys Brown RBC 4.22 106/ul Normal 4.20-5.40 [facility] Comment on above: Performed By: #### H BSANS #### [facility] [address] [place] [address] Dr. Dianelys Brown WBC 10.9 103/ul Normal 4.0-11.0 [facility] Comment on above: Performed By: #### H BSANS #### [facility] [address] [place] [address] Dr. Dianelys Brown CULTURE URINEon 03-26-2022 CULTURE URINE Isolate 1 Escherichia coli >100,000 cfu/ml of ORGANISM 1 Escherichia coli ANTIBIOTIC M.I.C RX STATUS Ampicillin 16 I F Ampicillin/Sulbactam 4 S F Piperacillin/Tazobact am <=4 S F Cefazolin <=4 S F Ceftazidime <=1 S F Ceftriaxone <=1 S F Ertapenem <=0.5 S F Imipenem <=0.25 S F Amikacin <=2 S F Gentamicin <=1 S F Tobramycin <=1 S F Ciprofloxacin <=0.25 S F Levofloxacin <=0.12 S F Nitrofurantoin <=16 S F Trimethoprim/Sulfamet hoxazole <=20 S F Normal [facility] Comment on above: Performed By: #### A 1C #### [facility] [address] [place] [address] Dr. Dianelys Brown FREE T4on 03-26-2022 Free T4 [Mass/Vol] 1.95 ng/dL Critically high 0.78-1.34 [facility] Comment on above: Performed By: #### H BSANS #### [facility] [address] [place] [address] Dr. Dianelys Brown GLYCOHEMOGLOBIN A1Con 2021 ADA RECOMMENDATION SEE BELOW Normal [facility] Comment on above: Result Comment: ADA RECOMMENDED LIMIT 4.0 - 6.0 ADA THERAPEUTIC TARGET < 7.0 ACTION SUGGESTED > 7.0 Performed By: #### A 1C #### [facility] [address] [place] [address] Dr. Dianelys Brown Glucose [Mass/Vol] 103 mg/dL Normal [facility] Comment on above: Performed By: #### A 1C #### [facility] [address] [place] [address] Dr. Dianelys Brown HbA1c (Bld) [Mass fraction] 5.2 % Normal 4.5-6.2 [facility] Comment on above: Performed By: #### A 1C #### [facility] [address] [place] [address] Dr. Dianelys Brown TSHon 03-26-2022 TSH 1.474 uIU/mL Normal 0.516-4.130 [facility] Comment on above: Performed By: #### T SH #### [facility] [address] [place] [address] Dr. Dianelys Brown TSH RANGE SEE BELOW Normal [facility] Comment on above: Result Comment: <0.3 4 UIU/ml HYPERTHYROID 0.34-5.60 UIU/ml EUTHYROID >5.60 UIU/ml HYPOTHYROID Performed By: #### T SH #### [facility] [address] [address] [address] Dianelys Brown TYPE AND SCREENon 03-26-2022 TYPE AND SCREEN Negative Normal [facility] Comment on above: Performed By: #### T NS #### [facility] [address] [address] [address] Dianelys Brown US PREG TVon 03-24-2022 [...] RODOLFO REYNOSO Date: 2022-03-24 09:53 Normal [facility] Vital Signs Date Time Vital Sign Value Performing Clinician Facility 11-11-2023 08:13-0500 Body weight 65.41 kg Jad Woods MD Work Phone: [facility] 11-11-2023 08:13-0500 Diastolic blood pressure 62 mm[Hg] Jad Woods MD Work Phone: [facility] 11-11-2023 08:13-0500 Heart rate 90 /min Jad Woods MD Work Phone: [facility] 11-11-2023 08:13-0500 Systolic blood pressure 97 mm[Hg] Jad Woods MD Work Phone: [phone] [place] [address] 12-31-2022 11:19-0500 Blood Pressure Location Gurpreet Higgins [facility] 12-31-2022 11:19-0500 Diastolic blood pressure 62 mm[Hg] Gurpreet Higgins [facility] 12-31-2022 11:19-0500 [facility] 66 [facility] 12-31-2022 11:19-0500 SaO2% (BldA) [Mass fraction] 96 % [facility] 12-31-2022 11:19-0500 Systolic blood pressure 96 mm[Hg] [facility] 06-21-2022 03:06-0400 Body weight 55.[address] PASTORA WHITEHEAD . [facility] Comment on above: Performed By: #### A1C #### [facility] [address] [place] [address] Dr. Dianelys Brown 03-25-2022 10:58-0400 Body temperature 98.24 [degF] Jenelle GONZALEZ [facility] 03-25-2022 10:58-0400 Heart rate 72 /min Jenelle GONZALEZ [facility] 03-25-2022 10:58-0400 SaO2% (BldA) [Mass fraction] 99 % Jenelle GONZALEZ [facility] Encounters Encounter Date Encounter Type Care Provider Facility Start: 11-30-2023 End: 11-30-2023 ambulatory PASTORA WHITEHEAD Not Available Start: 11-12-2023 End: 11-12-2023 ambulatory LORI HUYNH Not Available Start: 11-11-2023 End: 11-12-2023 ambulatory PASTORA WHITEHEAD [facility] Start: 11-11-2023 End: 11-11-2023 Office outpatient new 45 minutes Jad Woods MD Work Phone: [facility] Comment on above: Encounter for suspec niyah anomaly ruled out (Primary Dx) Start: 10-15-2023 End: 10-15-2023 ambulatory LORI HUYNH Not Available Start: 06-16-2023 End: 06-17-2023 ambulatory Gurpreet Higgins [facility] Start: 06-16-2023 End: 06-16-2023 Patient encounter procedure Gurpreet Castillod [facility] Start: 12-31-2022 End: 01-01-2023 ambulatory Gurpreet Castillod Facility[facility] Start: 12-31-2022 End: 12-31-2022 Patient encounter procedure Gurpreet Higgins [facility] Start: 12-09-2022 End: 12-10-2022 ambulatory Wendie C Renetta Facility:[facility] Start: 12-09-2022 End: 12-09-2022 Patient encounter procedure Wendie C Renetta [facility] Start: 12-02-2022 End: 12-03-2022 ambulatory Wendie C Renetta Facility[facility] Start: 12-02-2022 End: 12-02-2022 Patient encounter procedure Wendie C Renetta [facility] Start: 11-25-2022 End: 12-03-2022 Pre-admission assessment Wendie C Renetta [facility] Start: 11-24-2022 End: 11-25-2022 ambulatory Wendie Jackson Facility:[facility] Start: 11-24-2022 End: 11-24-2022 Patient encounter procedure Wendie Jackson [facility] Start: 11-11-2022 End: 11-11-[address] DOCTOR RUIZ Facility:[facility] Start: 11-11-2022 End: 11-11-[address] DOCTOR ENGLE Facility:[facility] Start: 11-06-2022 End: 11-08-2022 Evaluation and management of inpatient DR PASTORA WHITEHEAD . Facility:[facility] Start: 10-08-2022 End: 10-08-[address] PASTORA WHITEHEAD . Facility:[facility] Start: 09-25-2022 End: 09-26-[address] PASTORA WHITEHEAD . Facility:[facility] Start: 09-11-2022 End: 09-12-[address] PASTORA WHITEHEAD . Facility:[facility] Start: 08-30-2022 End: 08-30-2022 ambulatory ANA MUSA Facility:[facility] Start: 08-28-2022 End: 08-29-[address] [...] End: 03-25-2022 Patient encounter procedure Jenelle GONZALEZ [facility] Start: 03-24-2022 End: 03-25-[address] PASTORA WHITEHEAD . Facility: Start: 03-24-2022 End: 03-25-[address] PASTORA [...] Jenelle GONZALEZ None (qualifier value) Jamila GONZALEZ Plan of Treatment Date Care Activity Detail Author Start: 11-08-2032 DTaP,Tdap and Td Vaccines (8 - Td or Tdap) DTaP,Tdap and Td Vaccines (8 - Td or Tdap) [facility] Start: 07-10-2023 Influenza vaccination Influenza Vacc ine [facility] Start: 2020 Adult BMI Screening Adult BMI Screen ing [facility] Start: 2014 Depression Screening Depression Scre ening [facility] Start: 2014 Tobacco Screening Tobacco Screening [facility] Start: 2002 Screening for Chlamy dony trachomatis Chlamydia Screening [facility] Payers Date Payer Category Payer Medicaid [employer] HMO [id number] 2023-Present [phone] [address] [place] [address] [id number] 2019 Private Health Insurance 2002 Unknown [id number] 2.16.840.1.285957.3.579.2. 593 2002 Unknown [id number] 2.16.840.1.709114.3.579.2. 593 2002 Unknown [id number] 2.16.840.1.483808.3.579.2. 593 2002 Unknown [id number] 2.16.840.1.948352.3.579.2. 593 2002 Unknown [id number] 2.16.840.1.102696.3.579.2. 593 2002 Unknown [id number] 2.16.840.1.198194.3.579.2. 593 2002 Unknown [id number] 2.16.840.1.766633.3.579.2. 593 2002 Unknown [id number] 2.840.1.739170.3.579.2. 593 2002 Unknown [id number] 2.16840.1.147512.3.579.2. 593 2002 Unknown [id number] 2.16840.1.106240.3.579.2. 593 2002 Unknown [id number] 2.16840.1.003899.3.579.2. 593 2002 Unknown [id number] 2.840.1.412043.3.579.2. 593 2002 Unknown [id number] 2.16.840.1.544696.3.579.2. 593 2002 Unknown [id number] 2.16.840.1.252860.3.579.2. 593 2002 Unknown [id number] 2.16.840.1.509600.3.579.2. 593 2002 Unknown [id number] 2.16840.1.536017.3.579.2. 593 2002 Unknown [id number] 2.16.840.1.384754.3.579.2. 593 2002 Unknown [id number] 2.16.840.1.677351.3.579.2. 727 2002 Unknown [id number] 2.16.840.1.079165.3.579.2. 727 2002 Unknown [id number] 2.16.840.1.927409.3.579.2. 727 2002 Unknown [id number] 2.16.840.1.808970.3.579.2. 727 2002 Unknown [id number] 2.16.840.1.473448.3.579.2. 727 2002 Unknown [id number] 2.16.840.1.864928.3.579.2. 1286 2002 Unknown [id number] 2.16.840.1.102284.3.579.2. 1286 2002 Unknown [id number] 2.16.840.1.513206.3.579.2. 1259 2002 Unknown [id number] 2.16.840.1.992895.3.579.2. 1259 2002 Unknown [id number] 2.16.840.1.654780.3.579.2. 1259 1959 Medicaid [id number] 1959 Private Health Insurance [id number] 1959 Self-pay Social History Date Type Detail Facility Start: 03-25-2022 End: 10-28-2023 Tobacco smoking status Never smoked tobacco (finding) [facility] Tobacco smoking status Never [facility] Start: 11-11-2023 Sex Assigned At Female F [facility] Start: 10-28-2023 Tobacco use and exposure Smokeless tobacco non-user [facility] Start: 11-11-2023 Alcohol intake Lifetime non-d kaila (finding) [facility] Start: 11-11-2023 [facility] Start: 06-02-2023 [facility] Start: 2002 Sex Assigned At [facility] file [facility] Functional Status Date Assessment Result Facility 12-31-2022 Functional Status No [facility] History of Present illness Narrative 11-11-2023 Gricelda Gaspar RN - 11/11/2023 9:00 AM Julian Woods MD - 11/11/2023 9:00 AM EST Note Date & Type Note Facility 11-11-2023 History of Present illness Narrative Headache/epigastric pain/blurry vision/swelling? No Cramping/contractions? No Abnormal vaginal discharge? No Spotting/vaginal bleeding? No Loss of fluid like your water may have broken? No Cats in the home? No Do you change the litter box? No Flu vaccine? No Genetic testing done this here or other office? Yes Have you been seen here at [facility] in a previous ? No Recent ER visits or hospitalizations? Patient reports she presented to [facility] approx. two weeks ago for cramping Bring blood sugar log or meter with you today? (Please bring them with you for every visit at [facility]) N/A Traveled outside the country in the past 6 month No Any concerns that you would like me to mention to the provider today? No REASON FOR CONSULTATION: Low-lying placenta resolved. HISTORY OF PRESENT ILLNESS: Stacey Ang is a pleasant 22 y.o. G 2 P1 001. at 25w1d due on Estimated Date of Delivery: 02/23/24 . Patient was seen today due to the following 1. Suspected low-lying placenta resolved. Anterior placenta seen away from the internal os. No evidence of low-lying placenta. Normal targeted anatomy was seen on today's ultrasound. Currently the patient has no complaints. The patient denies nausea, vomiting, abdominal pain, vaginal bleeding, SOB or chest pain. Patient's PMH/PSH,SH,PSYCH Hx, MEDs, ALLERGIES, and ROS were all reviewed and updated in the appropriate sections. Patient Active Problem List Diagnosis Encounter for suspected anomaly ruled out Past Medical History: Diagnosis Date Heart palpitations PAST OBSTETRICAL HISTORY: OB History 2 Para 1 Term 1 AB Living 1 SAB IAB Ectopic Multiple Live Births 1 SURGICAL HISTORY: No past surgical history on file. ALLERGIES: Allergies Allergen Reactions Polyethylene Glycol Anaphylaxis Shellfish Derived Anaphylaxis Venomil Wasp Venom [Venom-Wasp] CURRENT MEDICATIONS: Current Outpatient Medications: magnesium 200 mg tablet, Take by mouth., Disp: , Rfl: no115/iron/folic acid ( 19 ORAL), Take by mouth., Disp: , Rfl: albuterol (PROVENTIL HFA;VENTOLIN HFA) 90 mcg/actuation inhaler, Inhale 2 puffs every 6 (six) hours as needed for wheezing. (Patient not taking: Reported on 11/11/2023), Disp: , Rfl: budesonide-formoteroL (SYMBICORT) 80-4.5 mcg/actuation inhaler, Inhale 2 puffs in the morning and 2 puffs before bedtime. (Patient not taking: Reported on 11/11/2023), Disp: , Rfl: FAMILY/GENETIC HISTORY: No family history of VTE, cardiac defects and mental retardation . SOCIAL HISTORY:Patient denies tobacco use, alcohol use, or drug use. RECENT HOSPITALIZATION: none I did review all the labs results available in addition to labs which were ordered by the primary care physician, and the other consultants, we search on [employer] and all the available care everywhere epic I did review all the imaging studies of the patient available on EMR, ordered by the primary care physician and the other nursing education consultant HABITS: Patient activity no restrictions, diet no restrictions REVIEW OF SYSTEM: Head and Neck: Negative for any dizziness and headaches. Cardiovascular and Respiratory System: Denies any chest pain, shortness of breath, and coughing. Abdominal and System: Denies any abdominal pain, nausea, vomiting, vaginal bleeding, and vaginal discharge Social Determinants of Health Financial Resource Strain: n Food Insecurity: n Transportation Needs: n Physical Activity: y Social Connections: y Intimate Partner Violence: n Housing Stability: y PHYSICAL EXAMINATION: BP 97/62 Pulse 90 Wt 65.4 kg (144 lb 3.2 oz) LMP (LMP Unknown) . Gravid abdomen, Respirations not labored. Well oriented time place person, normal gait RECOMMENDATION: 1. Anterior placenta seen away from the cervix. No evidence of low-lying placenta. 2. Normal targeted anatomy was seen on today's ultrasound. 3. Follow-up growth ultrasound in the late 3rd trimester at her OB office. 4. Term spontaneous vaginal delivery at her local hospital is anticipated with C section reserve for routine obstetrical indications. DISPOSITION: At this point the patient is in complete care of her grade and center marker. Patient does not have any future appointment scheduled with us Thank you for allowing me to participate in Stacey Ang . If there any questions please do not hesitate to contact us. Sincerely, JAD WOODS MD documented in this encounter [facility] Hospital Discharge instructions 12-23-2022 Note Date & Type Note Facility 12-23-2022 Hospital Discharg e instructions Follow Up Care 12/23/2022 11:03:27 With:Ronaldo LEE, Gurpreet Levine, PUL, MIGDALIA Address: [address] [place] [address] [place] [address]- When:3 months [facility] Hospital Discharge instructions 03-25-2022 Note Date & [...] instructions at home: Medicines Take or apply [id number] and prescription medicines only as told by [...] and water are not available, use hand assisted living administrator. Try to avoid contact with other people [...] 01/16/2004 Document Revised: 02/14/2020 Document Reviewed: 05/12/2017 [employer] Patient Education 2020 Tri[employer] In. Follow Up Care 03/25/2022 10:27:35 With:Lori Jarvis DO Address:Unknown When: Unknown [facility] Evaluation + Plan note Note Date & Type Note Facility Evaluation + Plan note No data available for this section [facility] Evaluation + Plan note Note Date & Type Note Facility Evaluation + Plan note Future Appointments Appointment Date:07/01/2023 11:15:00 AM Scheduled Provider:Ronaldo LEE, Gurpreet Levine Location:[facility] Appointment Type:Pulmonary Follow Up ([facility]) [facility] Evaluation note Note Date & Type Note Facility Evaluation note Diagnosis Encounter for suspected anomaly ruled out- Primary documented in this encounter [facility] Hospital Discharge instructions Note Date & Type Note Facility Hospital Discharge instructions No data available for this section [facility] Instructions Note Date & Type Note Facility Instructions Not on filedocumented in this en counter [facility] Progress note Note Date & Type Note Facility Progress note No data available for this section [facility] Summary Purpose Family History No Family History Records FoundNo Family History Records FoundNo Family History Records FoundNo Family History Records Found Advance Directives No Advanced Directives Records FoundNo Advanced Directives Records FoundNo Advanced Directives Records FoundNo Advanced Directives Records Found Additional Source Comments Patient Care team informatio n (unrecognized section and content) Personnel Name: Wendie Jackson DO Address: Address: [address] [place] [address], [address] [address] Personnel Name: Wendie Jackson DO Address: Address: [place] Painter, [address] Personnel Name: Wendie Jackson DO Address: Address: [place] [address]ter, [address] Personnel Name: Wendie Jackson DO Address: Address: [place] [address]ter, [address] Personnel Name: Wendie Jackson DO Address: Address: [place] Painter, [address] Personnel Name: Wendie Jackson DO Address: Address: [place] Painter, [address] INFORMATION SOURCE (unrecogn ized section and content) DATE CREATED AUTHOR 01/30/2023 [facility] DATE CREATED AUTHOR AUTHOR'S ORGANIZ ATION 06/26/2023 [facility] DATE CREATED AUTHOR AUTHOR'S ORGANIZ ATION 11/15/2023 [facility] DATE CREATED AUTHOR AUTHOR'S ORGANIZ ATION 12/01/2023 [facility] EPIC Reason for Visit (unrecogniz ed section and content) Reason Comments Low Lying Placenta FOR RECORDS PERTAINING TO PATIENTS WHO ARE [...] BE BASED ON THE PRIMARY CLINICAL RECORDS. [facility]. provides no warranty or guarantee of the accuracy or completeness of information in this document.
== END 2023-12-08 16:03 | disposition home or self-care (01) ==
LOC: US 16:03
PROVIDERS: Visit Provider Obstetrics & Gynecology
DX: O36.63X1 Maternal care for excessive fetal growth, third trimester, fetus 1 (principal); Z3A.29 29 weeks gestation of pregnancy
CPT/HCPCS: 76816

== ENCOUNTER 2023-12-12 09:05 | Outpatient (OUT) | payer OTHER, SELFPAY ==
--- OUTSIDE RECORDS SUMMARY | 2023-12-12 09:06 | XMS_ITS | CCD ---
Author Name Unknown Address [address] [place] [address] Organization [facility] Care Team Providers Care Director Of Video Analytics Name Role Phone Lori Jarvis Primary Care Physician Wendie Jackson Primary Care Physician VENTURA ., DR GUILLORY Admitting Unavailable VENTURA [...] substance Swelling - edema - symptom (finding) [facility] (8 sources) Seafood; Translations: [Seafood] Food allergy diarrhea [facility] (1 source) Shrimp product Drug allergy (disorder) 2 [facility] (1 source) wasp venom Drug allergy (disorder) 2 [facility] (2 sources) Polyethylene Glycols; Translations: [POLYETHYLENE GLYCOL] Drug Allergy 3 Anaphylaxis [facility] (2 sources) Shellfish; Translations: [SHELLFISH DERIVED] Propensity to adverse reactions to drug 3 Anaphylaxis [facility] (2 sources) Venom-Wasp; Translations: [VENOM-WASP] Propensity to adverse reactions to drug 3 [facility] Medications Current Medications Medication Drug Class(es) Dates Sig (Normalized) Sig (Original) [id number] 200 actuat albuterol 0.09 mg/actuat metered dose [...] bedtime. 0 Active 168 hr ethinyl estradiol 0.59985 mg/hr / norelgestromin 0.37236 mg/hr transdermal system (7 sources) Progestin, Estrogen [...] day(s), 1 EA, Refill(s) 5, [facility], 167, cm, 12/31/22 11:21:00 EST, Height/Length Dosing, [...] applicable or unspecified; Translations: [MAT CARE OTH [place] FTL GRTH 3RD TM UNS] Onset: 09-25-2022 [...] READ BY: Portillo Correa M.D. Dictated: 06/23/2023 [id number] Transcribed: 06/23/2023 cc:Wendie Jackson D.O. cc:Gurpreet Higgins M.D. [facility] Comment on above: Result Comment: Elec tronically Signed By: Madeline LEE, Portillo Rojas\.br\Date and Time Signed: 06/24/23 13:19 EDT Consent for Treatmenton 0 Consent for Treatment [id number] .00CD:127 Normal [facility] Pulmonary Function Testson 0 06-16-2023 Pulmonary Function Tests [id number]:127 Normal [facility] Reminderson 06-02-2023 Reminders - From: Tess Guaman [...] for PFT that was never done. Normal [facility] Coding Summary.on 01-13-2023 Coding Summary. CD:[id number] G h0bWw+PGhlYWQ+DD5MSDF rZ52jrAGlvQ7FL1pZNF2M XJXCAQKNVV0DOH5jtGB5Q OqbE0JldnGv MlyumRDmTX33QGx7TRL9i ZgoOXqbqF5cxGUbE0t9Wt CdFL40tK69ZWydNIXfClJ 3LjZpbjsgbWFy N3ntBiSpiQDzFlt+PHRhY mxlIHdpZHRoPScxMDAlJy VxzElzGR1pPo2cBRJjBMI vbGxhcHNlOiBj f2tgBNJlNGtdBQ3rcJcsE 1OiuZN4QHMai3e4Ry61jB I+XAPbBVQ6gOuvRBgha12 8XeWiv4htDRZ7 sMHhOPimQIN2T94sa6N9Y ULeEPScPMD1sEB4sB7asC vatizbN0JqbMToFkQ4ZGP 3dZGxrM8lrIrg hksoqJ1uMix+M62LFG6SM GCQCM1MSxy1V9FdHjmzgY I+ME02KROmMS38jNRyvHH ep8lsdZw2XuGg RHJxIHX2xCreTHzir2VxJ WApD96ibZYfd4C4FEYdoM fviHRmZwCzmZY6yW5xTZh vhypsg9gwreow Bynvn2rrfi03iW49D38vM ZbvCGVtWBT1OOHfDEUzpV xeqi4tiS1aFe4+PXypx4s gv2sxzSb7OdKy KBZyywLgcHzuTZP3s4YiJ e91Y0VgkVzcq4GrWlv0ln 67iTRfn9S7aZC8CFnxIHY ydO8lNCeyEjQ9 XOCkIoJuxI62cXXzUEegY o3ffHflnMxsRH4qNKOeyp jmZEFffE5hFHRmpSWyuKy lII2hPZSpaenw b628TzJoJSS8FFMfnLRbK 0CjzV0yDsFeZHScVJCeK5 JtdQQsFEgkJ666PIuzOmN 3RMErhhKsK2Tp MWLflQxjRaC5f6L1Lp4Oq 6SnvxfuURU6CJzsYMUsNp V8DjUdFzZ3A8DuFvs3HIY uoChbUJ6xL4Lh WZJwhftwpfurkRH1XUHiU OKvxB92yOUxDMwcOm6rq2 J8e426MREbUCPzuL09Jn8 udDogMTBwdCBU yC5qdltvk2bzlujgZfFvB MBsVCz9ADn8MRCcgOiqUh OzBFR5XkZ2QIB7jXMjvV8 oyQzvvhdubA6h Oyc+U87rgX6bCJR8XAL0m eicJQKlxmJrQY33OY80C2 RyPjwvdGFibGU+PGRpdiB ezIuuHM5nBuDg y4rvd5UqZHqeM6AaQENyO JznUrn3LUThFZD5mNC0dY 6aGQLaJGqiz2X7iWR5W4X sdtGqdw2zy8nb RUVuGGdhG84cgWBeu1D8Q ZWklUK9LQDotAowTnFpzS 93Oyc+QPTvbVhhn0QhNgc zq8guu4zicHn9 LlPhLOUvaxZrqXaqSBA9b 4WdBe76C09wQJiqKXSyOG EySTPxRSQqrMvdqd5jzN8 wIi8+PGNvbCB3 lOF7hT4lMDBmQjF0AOcfP 987IjVemQHyJdfih6byd3 zqoIb0IxGfWSRtypAoeUl pQNM4o4SyRb11 K88fYJceSIIzJTVxXNTcZ GHrhLewtl7kvT0gIn4+PC 0te0pffi24dL73jGM+PHR iOWL0yAquYZdq ZBPmsS3mNOdjVuC3NSSgV rPasV25iXKkYYtaKb7kgF sxoWyaSE4hVLCzhthrv59 6KvWhf3awBSLc nOWaIBctILH6M47nb2A0B VFnBVKsZST6vSZ2tZ3sxD lnbjogbGVmdDsgdmVydGl vSBcnVNkhY576 IHRvcDsnPlBhdGllbnQgT eAmKTj8G3WxBfy0BMZcrA rwGX1lgNOnTTwqCe8hxCz uwMflPJ9jPDPm vkcof553GvGpg3ooLFWiy HKbYVhyCRE5F17zc9S0CG NbRIKuKMW0wVU8zD0beBe nbjogbGVmdDsg vaZnpIjlMFpmWOebI343G HRvcDsnPkJpcnRoIERhdG Z6BZ04KE94jAFgn2L0lQV 0U0BpXGQnzurh wejdsCZ1XQOeLWNeyC38C e3seWwsJr7jUGGcBYL5VO MicBMgU4NscX9pNnWcURD sJRHpS8PexUDo ZQhlR867EYzjBeO0FYUrq wQwK4RtTPAxcBstPmI3k7 F5Gg6US0C2TI07UW87mFC sd2O7mYP3J5Cf XNUmktwgcbjbiXC4GQSpL DEfnV18Sz3wvLpdSh5wXW IjBAH7WLCwpGTeW9IlhS2 yOiAjMDAwMDAw R1TylERbBNiiB839OVqjN yN9TATmcfMsI3UzAQVrrU enKeS6s2P6Ss9FORj2XR1 8KI93pALnp7P1 vRW3Q0OfPDRuzwggjmdcn AE9MHKuMRNzqP94Ju5pnH yiMd0nLOPeWEN8VPRalKD fT3KmiS6nMpIj IWZuWMCfV3ZapMPdSIssF 947CYikBfV7YKNcocYuP7 KaOYCmwPjqYeB9u5Z2Lk0 KLWTbYI14ABL4 zRA5JN63YJ56T2ZeXskdp GFibGU+PHRhYmxlIHdpZH RoPScxMDAlJyBzdHlsZT0 cEy7uTEXlGNXd qGsbjDUuCmDcw4yvBIUiI ThoQY9koFmoL5StoZR3ZX Hzi9v1Kj95R00yN7ZggBS +ORUneBC7yCD5 uL0xDxAyRaY3TOgzG559E eFkxLOaIubzs7xgt3xgnA x9NzJ9NWApnaIpjDxqDFI 9y0ZiYl41I27r IHdpZHRoPSIxNSUiIHZhb Uwjkg9dkO5eNx9+PGNvbC R8qAO1wE6vEkRwCpP1QZb lB805ZmMukDHf Rygqy2lgu5etvHe7OgYrL XRutyFayFhfIKX7v7EmDx 15N4TjvEfzm8OpRgi6fk0 0fJYbe9Z6bTM0 Y5TkBBMgqetrrBQfdIthZ I0aOXMvqlfkCFQojY0lOU BjD5t7HtBtHzN6QBrmI4W tblK1AFZlvDVa XIlfEPY5L21xw1K2DILfV QPoDFV5qOS2vR9xtJcrmr ogbGVmdDsgdmVydGljYWw aYHfqE895KXNn aOgkLVKhhQ4zSTLirWRhe AtgPQ1lTJSxcshoMtcHUA 2GPw6BZlhbReSGYHENWEB IVLZWAZh9S4Gj Ytu2CTMvmBouPA1jmZYnT DliGj3cgFbhnZvzWZ5eZC EyzhvbJGHcqO5yDXYdbNW cnAyfJW8wLIHi bvcfk990VsSaYZD2KFIoc QLmE6JovA4dXfMoUBXeDL HwS1FadNEyRPvoU464DYe eBhF6SGBvrqAh U0FgSGExlRxjNxA7q3M2M e0mIy8iHC3fVIAuUD71HU 44qHAow6I0qVE8G1RsJRG pbmctcmlnaHQ6 XHFbQONkhI64fIMjCNyjT p4qs2L5y390JHObHBEjlC 35Kw8ceIxqHETivUGEoI9 jrfikw6cqkotl ZxMyRYAnHCj7WKz0YMFom JvzQpMbLZQ8KxI3OYO4gJ FclL8weEkxskrvaD1wCji +MjAgWWVhcnM8 Q4LgEhj9TAMkbRuaOW3en YMtPZulCy7gkLmwuLxwSJ 8xRFZazasbSURknB0sVPJ qsQNhaWqjND1t LHQixwsmr285XaYsXVC6D PEfgFCqR5ZmxA4wHrKwAM PjEOPcF2WqsXHcLZyqA57 8DVhnUkB0RYGw lkIyZ5MnNZWkbCctYsO1f 4P0Jh3QQQ3mvLP4M9VrZq v2JLTfnDvoJE4zqRGpPVb fQx9duTkxwSgc WT1bJMLspodhHVDvyK8vK BNatTKqfEdfZK3rOXWxen bgf463CbVlFWL0AHFndXO nL4MrpH3aBrYc IWOcAKNfM1OvnOOnLDruP 797RBvvKlX0JIVhhuGeS4 CoSDZgrChpEvL4a0M6Va7 TmVOeSMNcET78 JW53CS03C8HiDrnlyGBct +PHRhYmxlIHdpZHRoPS bqAPIdPxXopKuyXU2tEc0 yZGVyLWNvbGxh dZTgJyRfs8gdVBFtWYguD O5utOgoA3OqoVK7MNEde1 j8Kj62P22nL9YxpOL+PGN qbTB2nCJ3vB2d EvHyEzL8FChnO167QxTnq EWdOygqe4yuv3cecLu5Je KeEATfteDmaFekIQK7k0G aBf43F07uIEjq ZHRoPSIyMCUiIHZhbGlnb m0vxA0zPf8+ZFEkmWE6iK I4vX4yUyFvOdH4TFbxP69 9InRvcCIvPjwv N84vU6PabGY+KPQlLuo8M ASupYhtCW7eyRAbOWzfKm 3bRMS2ArPxOsZtKLrwG6I hZGRpbmctcmln xJQ3AXZuDAJgyJ35Wy6oy OscWa6gRCTeWMN4TYKleH LtI9FlbI9oKzDwIYPpGGY bB1BpjYHcXUhd G694OGjvQhP4KJFkscWhG 1DjVYBflQsfDvP2t9Y6Qw 8NpBbbiHQiIX1aTbMqAUb 9R2XtUne3YUVq pPinCG6dgKGwAAqpWc9eb LpxfAwyKJ3kCQNmipjly3 14DsLnn9mnQUGrgEElJHl bSDL7L32uz9K8 OLLnBSEeLEI4oLQ4zC9hd GlnbjogbGVmdDsgdmVydG hpDZwdELeeD355FLSiiPt eBeYIGcg6E7Iq Eoh3QHSmjXthZD5nyCQsG NliMz8usXevxGwrVL1gIE Dvedbmx433JmKmb2heOQD wcHQgVGltZXM7 E02rs9G9STFiRRUhOLE7c PR5dW2jjWendcerePUqkJ pxmnXtfWtwQLrnPTfaC49 9QOOdbTgpCb2Y Tpu5B9GrZwb0IPJwmZvkY G2xpDIzCCrkWb5adYaocQ bdRH3iIZKngvvjo350PtL uk1fgZEPsnKLm UIfpWKN4Z17pd1J0BCZjO NNyWDS4kSA2bU1rsIpoci ogbGVmdDsgdmVydGljYWw fDLamU908SFYg cDsnPlBheWVyOjwvdGQ+P A31po96I2TbGxyaFzf1WB BdAMD3oRD5yT8gGKRjUNz xh1Y1sEE6I1Jv cmRl (more content not included)... Normal [facility] Consent for Treatmenton 12-11 Consent for Treatment [id number] .00CD:127 Normal [facility] Heart and Vascular Office/Cl inic Noteon 12-31-2022 [...] with poor quality flow volume loops. Per video surveillance technician the patient was carrying her baby [...] day(s), 1 EA, Refill(s) 5, [facility], 167, cm, 12/31/22 11:21:00 EST, Height/Length Dosing, 59.1, kg, 12/31/22 11:21:00 EST, Weight Dosing Pulmonary Function Testing Follow-up With When Contact Information Ronaldo LEE, Gurpreet Levine, PUL, MIGDALIA Within [address] [place] [address]- Additional Instructions: Problem List/Past Medical [...] Not taking Allergie (more content not included)... [facility] Comment on above: Result Comment: Elec tronically Signed By: Gurpreet Higgins MD\.br\Date and Time Signed: 12/31/22 12:07 EST Physician Orderon 12-31-2022 Physician Order [id number] .00CD:127 [facility] Referrals Officeon Referrals Office [id number] 1.00CD:127 [facility] Pulmonary Function Studieson 12-19-2022 Pulmonary Function Studies [...] capacity. READ BY: Law Natarajan Dictated: 12/14/2022 [id number] Transcribed: 12/15/2022 cc:Wendie Jackson D.O. [facility] Comment on above: Result Comment: Elec tronically Signed By: Gurpreet Higgins MD\.br\Date and Time Signed: 12/19/22 09:37 EST Coding Summary.on 12-11-2022 Coding Summary. CD:[id number] G h0bWw+PGhlYWQ+CM2WJNY oN16ngBWrtE7SN7lQGY6E ZDDSYZSFQV4TMF8xsXU1P KepR9ItfvDi ZbxpmTOoJT51CSh0LVK5k WwxEPgcfT7deWVcP8l6Vk BkFF45lF68CKfrICXqDhQ 3LjZpbjsgbWFy A7wsHqVlaMTdFpy+PHRhY mxlIHdpZHRoPScxMDAlJy VonWthQX2mVn1zNAYpTCF vbGxhcHNlOiBj t2hfJNHmXDvlHZ1juLzdC 3RilNW8BQUpg1k6Qv18pT I+SSCoSFG2aFwwGRzfi73 3MmJja2bjNOI4 tFRvFNjoWDW0V16mh3U9F BVvKCSgHKB8uCV0yF1ncM upcrwmW9PcpHNlXmO8ZOC 5sRFiiF0sqVik dpnqtB6qAxo+R15YDA4NC XVHTA5ZVst2T5XcGpkorT I+JH96CXXlVD93jMGtzTE rv8yuiXt0KrWy LBMpVOL2qKtkBRcxd5ZmJ AExA31jxYUhr7O4FHKnvN ydrBWdLfOsyHL0gT9kCYm oyltta3fonzts Hmtqi7pmeg31oX31I83yN LlsGGJxJHH4YAFfMIOzwM tolu6abB8rGw4+CGweq7l ci9vpaTw9YlEg HIWyxfMviKxmJPA4y9VlX e82M6NmmKzxg7ThTdw7mo 42cBJkq5E3eZB9VClsLVF orE4pGPxpLyI5 HLQtZxReiE37sQYuYGjrR h5qcUtncDtjUJ5sMLXesb cfRIQlvZ0wGFKfjZQjbUt hXC0dXSIdhokg l430VsAdBEP2EUGrnMLxR 9WteE6gTbOxJCKpJSIvS0 EaqSQeNIfqQ057KVqwEqC 6DKKehmWtZ3Zh BLVpcBmjXrQ5g7O8Yf8Ty 9QpnpykJJT8KNkrRUXgRx RxFbVxJzH5G0MyXvf9IPH hvYkoNE4jH8Kf YWMrilijovrohVY5LTEmR IQgkL36pWPbVXvvOa7lj0 S5r535FJUfKNSniQ28Db3 udDogMTBwdCBU oH9rzfocf4dcvmfyPjSxI DJsRUb7APz3YUHucDyqZu PdOCX1SiY1ZAQ4vHKvbP5 vjMcsgfswlP2y Oyc+O79svN9fPGS8QYQ6z upoBXXebdGfDV30MW10W6 RyPjwvdGFibGU+PGRpdiB vhKbsGH3dXpEi o3lze2JtPBhsK0RqVGZvE IqbBim4FCMfTMP0wUE3qO 1cYIYmGRacp3T3pOA1J3M llnEplf9lb4mi MOHvJQxgT32sgZMbi0Q5Z BRthOZ3AAOzvNbeXgAacA 93Oyc+PTKddOwbo5FjMxq nl4ago7yjrXx3 XyQjRPQsdbAqkGerBQD2d 0WrIo43J16lOApjLCUuTU AqSFCcAWYiaQywhv7moA5 wIi8+PGNvbCB3 aAL4vB6hPYDnKxW2EIpcI 740KhPquKSeZmeki5oiy1 ulsAt2LzNqSNBecxLmoFi dPHN5x9MwLt03 Z87jGQlbSDItXFLhYRUrN AXqnHdxof2zyB3cBo5+PC 9yf8aqze65xA93vUU+PHR dVAY8sBvqFOlr MWDfmR6rREzqNtS5OOGlS tTnfI44iKCbQQvpTt4iwB zhwDmnWY0hBODjwlfme00 7NnGqg7vjNUDl aLWcEVxeFAG1E46ns5O5M FGyTSEvKEI3lCY0tT1dbE lnbjogbGVmdDsgdmVydGl yQYurDUgsY937 IHRvcDsnPlBhdGllbnQgT hTxDZa0S2IeRao3EBJyrM hrIQ3xwTRvNCkjZc3skHu onWkvTC5pGYPp jipwz820HeXag9rfXWVfa UHpLNotNOK1K45he6I3ZA YjAKBtSAX7dTN6zA7ccMh nbjogbGVmdDsg exGucVhoSLvoXZivU415P HRvcDsnPkJpcnRoIERhdG Q5KF90EH72cUFoq4S4cBC 0J8QlKHVpevkh eurybYG6YNEkFIWmcR40R h2lfOzpEx5wPHDoBZV3DD PtbEOoS9LeiS5sJrSuOQF cDPLhL7EqfISf OCcrR597HHdmWsC2OVAyo yDwB8NvIUElsGffBvO1e6 G7Qd7AX0Y7XQ99EH74hWM bx6X7fXF3W0Jn TXQcxwfkhpjeeCR3OKSxI MBjgQ19Fz1phThiIq8oEE ZrQBH7TAPmcZHiF9VfqP7 yOiAjMDAwMDAw V6RqhDXbDCwtA879YKtpU kS5YMNgkhDbC5FeMRVweR jeYaB9b9P3Tc6LUMd9ML1 4QW52rVGwj8K4 sFE0W4JvVVFgyieaxtmzs LX0ZRAtNERfeI99Fh3bzK zhVg5wBWSyMRR4OMVmoBB pK2AzoF0xLhZg RDFgIFChA6NsnEWfCFjkC 984FYwaEmV5GDIittYbM9 GeULCeiQzoVwT5f7X7Wa6 HKUIqNY11VQL8 gDV2ZA41FI56X7KmPsxpj GFibGU+PHRhYmxlIHdpZH RoPScxMDAlJyBzdHlsZT0 zPv6eTIUyAGDn vWfyxBEtYzFsb4tvCEMuB MazFE2wzOtaI5UhzWB1AA Mqf7a8Pm27R14nC2BrjRR +IZHrtWJ9kMP3 bL7uHdHnEyK4FCggV039D gNtyPPlUrjlb3gst1hbeC n6LcT9IMRmbqOhoRibMOA 1k2OwLu37W03u IHdpZHRoPSIxNSUiIHZhb Oecpj4shQ4fKu7+PGNvbC N2uSO2qG5wAdXtCyZ1MTb cX235OuVhyGQx Iobqc1zax9tpzCl1IlNzB NIitjAxxPvuAFZ0q6EmZo 78N3KohAqib6TgRhk8td6 7tWMeq1Y5zLM9 C4FbHGPkdkuujERbhMcmU A7yRRUxelwqSCNolT1yLO HdA7c1AhOuJyF0KZiyH2Y puxX2NBGsrGDz MLviHGY1C51tm7W0ZZGhK FRxTZZ4gJZ3iW9leMnjlb ogbGVmdDsgdmVydGljYWw aRYilC189BBOa tKtgQGNiwF0yWPWwgUGhf LrvWM9wOISvcwlcDmyADI 3NPh8BJqonWlJURVFIOOQ KBZXDXAd8S3Kv Bwc8OQXvtLcfIC4rzCMgG VgyHb7jdAkxkEtkDN3rCK PkjfzqLOCwpI8rAQNgxYI bnBfzMV9zZXMp tqrjt971PvBvECH8SJXmd EFhV3AokZ9hMuQeKZYcRL TqV0PzwXDkIXqkF971LPx vWhC4XCTbwjWo N2HvQFCwoDylBlU6p0E2T o7jDt5sWM0fRUVeEU16DG 60vUOfc8T0iII3F2FxUYI pbmctcmlnaHQ6 CZHnILUyrV59uVTqHHeaF i1os1Y5u415XRCcBWIhcI 64Io6ntMrzTTCmvNBWzK6 qgxycl2lbfxde WiTkXWSlLLe2EEt9JEHvi TnwZxRgPPZ6OiT3CLE6xI XcmB3kvGucpmfrpQ8dNun +MTkgWWVhcnM8 Z5MbQzb5HHRlqHfcQR2ov DXaDSciPv3buUvstYghMP 2cSUVffkfbDZFjvB0kLPA naOUmsIkjQR2u HYKxcxioy479XgBsEKM4I CZhiYKzX4LelY1kDvHrAO XxUQBsS5IrcXAbXGbyT61 8RFlwEwT0CBMo euEuC0BwQPBewJxtQvC0k 4L7Yv1WFX3ciBI2X5XmBm p3BOZgoTbgKC9jpVNxXCf dZr2ivOjekXdt BH5bQOXiinkoKDJyrZ6mR KZahYBgdMycCC0iGNZllc xsm036PaIyAWS6EINgxMI kJ6NmvK6rLeUq JACnVNGjH5RgsABhHSacN 805HUoyZyZ5AWBvfpVmY0 UjZJFeoCkuLxM7p5M7Vw3 RpXIyHFKxDK60 NQ19XC72C6ZvGqtmrGPsk +PHRhYmxlIHdpZHRoPS jdPACuSsBujMimQK5gWk3 yZGVyLWNvbGxh cAMmMjPuq9ayIIAjMLhbO V8itNuiX2ZctVA1JOIco8 t7Uw20E23iQ0UjvSN+PGN nfBX5fFT2aO2l YaGiPhP9YMglF957WpAvc SGoHotds3ace2ypuSw4Ju ScVQXpqoZcmHokWTD3d1G pMz68S62pFYig ZHRoPSIyMCUiIHZhbGlnb m1rcT4kYp5+KNJvvGZ7hU K5sI5gDyTzMiZ2XJhuU45 9InRvcCIvPjwv V89iI9DkxSI+AYZkXlg7D ODfjLftPR6pnPUjISxfRo 5bSAF7QdDnKtCkKDfpL2Z hZGRpbmctcmln vNV1SPQhPIGgnT53Vp8bz VtyDq5aVRXtBYH7XAAnsP YsM5MouN7eBxBmUEXaGZS nA8BkpLRvPKrq W402HWifMzD2LUZousJvP 8IxIYPupUwlWkU2o4X4Sa 3QrQusdUVeIM0jXqJhGJd 8O0CtJmy7OPWj uDqsPG0ggJUjHSrvFx4cl VydwIkbAC9wFBSzhhlpi1 20EdIjp0owHXExxZEyGEt mVHC9U94ji5F5 DOSdMVAnDHZ2uOV0pR4ww GlnbjogbGVmdDsgdmVydG zzALwvMMhdR722LSFzvBx zDiZFNkv3A0Bo Lje9SSBmtNnsIP8kaUBsQ TgaOk8etCymjUvmZA8cVB Mbgmvnt053JhTtc6vvWSA wcHQgVGltZXM7 V96fj9W9SJCoQOOcTSE0o DR7hK9toZthbcyvsODkhZ igefObmDnrJUnlRIleA36 2SCPmjWudRg0H Bcq5H1XjCpq0DQWspUwyX S1geJNkSLqnJq5hqNcioB agOD1fYPTbmytpx931VrE hj4hbVYLwxGYn STknOKZ8V97qb2D5OOXlJ VMiNIK1xCS7xB3jwCepcr ogbGVmdDsgdmVydGljYWw iBRrvH719HFIg cDsnPlBheWVyOjwvdGQ+P K22cq46Z5KeXmupNkg6UJ LnROG9uBH0uK0gTPEcJPp xh5K0sSH4S7Ho cmRl (more content not included)... [facility] Consent for Treatmenton 11-11 Consent for Treatment [id number]#1 .00CD:127 [facility] Pulmonary Function Testson 0 12-09-2022 Pulmonary Function Tests [id number]# 1.00CD:127 [facility] Physician Orderon 12-08-2022 Physician Order [id number]# 1.00CD:127 [facility] Physician Order [id number]#1 .00CD:127 [facility] Physician Order [id number]#1 .00CD:127 [facility] Coding Summary.on 12-05-2022 Coding Summary. CD:[id number]:[id number] G h0bWw+PGhlYWQ+QS0MKEX tG37iqWTtjP2KB4jDWW2I RGKJQCBFGV6QSA7rcWR5H EwrE6KuuySz GegebJYiFH29GCt7QZB6r VsmUXjxkY1ovSWoI6j2Sk WmFL85qY79BYiiJUDyUlR 3LjZpbjsgbWFy Z8zzRuGwiAAjYvf+PHRhY mxlIHdpZHRoPScxMDAlJy RllHxvUL8gBh8vHAYmCRB vbGxhcHNlOiBj n8meLVIlJHxqBO5gqOmzI 7DwmVR9UMAqz8g0Ns41aA I+JURdJXT1pBawMHwyj22 8MsTfu3tvXHX6 dPJoDFtvSIT3E41hx2F7H MTkUJPqRZB7yLU0kX3nuS tmfuveX9IdtZAfNxN6KXY 5hDThaJ7oeIdd ohbmwQ6jIjj+I81RGB7UB IVMRQ3NYnz4J2JyNbjnfA I+MR48NJZrRH84mKSppUB hr4abiCw5LbSj ZWAbLJI3iRavJVvcd3MqJ TYkF05ljEHwf8S4GFUviM zplMPlTmQjdFI3fM4rNRa qptnza5qhcrez Qkemq3dptb22pL13R82zI OspGAXzMWR5OIRcQSQsfC ktqu1tlS2yCu0+RBkhh9l ti1osyZi1OcJm DURoazCwfHsxEUY5p9FqZ c44Z5SqmUite6AwDbf4vy 85uERtw3S5dXC1MQbkKVA xtA3uOKupSmY1 KJEoVaOvtC32kNCuDYleF c2bhUcfmEulJD5oLOLthn nzPDYxhG5zQIYcbREohSc yHT2iJUBqxiny j884KlIeBBX7SZYudSLfF 6IttD4cImUbJYJeZEAvM3 AgsKGnCUiiI014UPqgOcK 5XVNwafElD5Xy GSPptRplTrB3v4D3Am2Vr 7NfdbgnYXL4IJwjQAYnRv Z8DrRwNoE1O8FjAoj4UFF nrLxfPU2nN8Ao MRQltjdzkpxysMT7IRKyP IQgwW86vXOnOZbuKt5sv4 O3x488OZHyRWItaP16Rz2 udDogMTBwdCBU qT9pxjbyn7klmrfoSaOoP BGkAVx0GZc2BACopHnoOa ZuISH7PyR6RAK9lIVlcE1 qcEzibttdaU3n Oyc+H32bmU1tHYS6FRQ2d oohCPYqvnVmGP52CH68F8 RyPjwvdGFibGU+PGRpdiB dsSdaRE8eByIa e7ook2PsBXzvT2GiVYYoX QqtXxn3RYIkKLI4xIL7sD 8pNHFyFJcwy3E1lMW5H5D xicVjzn1mg7yd XHApYBebV93dpEEdg6S6L ZPemFN3FXZrfYkaBvFqxA 93Oyc+VJJkrZxjr3LlXpa ed7haw3nnmUb6 BkJfUSWbleCgbCurDSZ1d 7XcAq24F93zOLpaFBUdUM DsXAFjTPOnaLdcad3ejA7 wIi8+PGNvbCB3 gZA9kC6mREKcBfV4WLiiS 525QfZvsFVnSyvpz8brp5 tgcIt2LgNmGBVrpsRwrKo yNMG9n1CaEy87 D72cIGjaLNNgHQXuBHRzG DVweCumud0qxF5kYi9+PC 4si8yenv68lL27bHK+PHR qFBH0hPubNPjy CHOhbT2xHCrkUvJ0XSUzZ sSjkD50jPTiDToqLb4cfT vthSkpDB2iLCKiibwal20 0EvZqg4oyVLWi zEVyFNoaOAI3S28zi7P9J DAeNNNxHSI7oPU4bE4avT lnbjogbGVmdDsgdmVydGl iRFuoUFkyL622 IHRvcDsnPlBhdGllbnQgT eMkOCl7F6ZwNxu0ZIPpaG pqXI3voDSiNIocEc5cvTa onOktXQ3mMAFf cgnnm557NmZqn3djWLUej PRuJAmhUXZ6F91yk2I5EX YqGRYlGAZ4rJW2zC9svOi nbjogbGVmdDsg nuHutCsqBXomLHyoB015K HRvcDsnPkJpcnRoIERhdG A9OV76YU95bBIdc5R2oIG 3P0ZlGWRnjvut zffktJJ7DBMkESCefI42I u9vsOalNk9xLNYrVMC2DB WxmUThX0VviO5rPiRxVNN oLGHqP2ZgiXFh MWbiO316VYlsPxU3NEIoo pSoH5ZyDVHslKzjJyN9t3 D4Um2WG4K0PC77DJ35wZF yw7W2jCK1S0Me OWZoaaeabmansVU6FBGbS XEyrU92Ek4rtSfkUx7aGS LaIWJ0LCNuzAIiV3BbsP4 yOiAjMDAwMDAw A5NdoUFrECrdI907EUplH fV3RKDfzvCsK5YiREDhyJ riKbL0i2T4Nq1IYMo9QK8 4TG04yALqz3I3 gIE4Y0VuYOYgothanqied VT6UUObPFEnqY96Sf6bhS iwBu6xGACbXSU7RURpfVZ bW4GifQ0aSiAz XKLgGWUvT9ZpsDWsDVqkN 148LWkoZoF0EFUeekEeB1 AiGHOtxKwyPbM8k8Y2Hy5 QWCTkFW16SSS8 bXO7YS88QD42A7RfMfqsk GFibGU+PHRhYmxlIHdpZH RoPScxMDAlJyBzdHlsZT0 jUu1cUJIjKOWw tBimrYIbEjWvp0phYQKrT TltHS2yfRcbT7FmqPU3YR Jjn3n3Bj00V86iF1UteES +AACqxYO1oAG6 yC3yBcAqRoF7TJcuS262G pSrgXVrPisul8haj0jyiI m9JqY0PLScncBsjDprJLM 8f9JuAy64Y76n IHdpZHRoPSIxNSUiIHZhb Edjsr9xwV4mJe6+PGNvbC E7gBO5vD0eIvCyUiS1KSe fC938VlYhuBTw Bhbjk8bcu4btuIh0YbEfU FUtfiSlnVseWBC4i3LpJh 76E6AspUzaz8KuKde6ks0 0eGVfn0Z6pKD1 U8CbWRObhevxkNAxaWhtR I5pCTAjamsyUCExrI5lLP LoL7x8CqVmIzI8FHeiU1U lcuU6GHVfdBPe XUyfJBO7Y91yg3B3PROwY CTjKQU0aTH4yE3jlTkbdj ogbGVmdDsgdmVydGljYWw tXLlbI257AGZe xRsoBYKlyQ6zTBBzgRFpf FysJY1vOQYcktslDbxZGA 5PDh1CDvhjHwLYKIPBIJA DHKXBZXg9L7Vt Uyb6AEEjyUmxHG9cnOJjG YapQj9uhIvuvBebNF9hNR OsccnrYEUssS2jOCLmkGR eeVblHX1zQKEt rgvld717IiCaYRP8SPPkz YBrH3SnjZ1cOmJkSLEvBN FyA4LnyVCyTEacF228ZGy iCtR1ZWPjvrBy P0MrCEDyeGecKfC6b3W8D v4rWb3gKQ6tBGAzLI99SO 39cXKcp7P1lMW4P8SuMRK pbmctcmlnaHQ6 IHFiBAUnrW25cNZyYWrvN x0yy9P8g770UZRkYRAoaB 54Fk1izJnlEWFvnMCWoH9 uwccix2pembar FpUdYORaRQm9WKn0WLJvs IjbChAxPWL8YcK9VUY1cS YwvZ4vvUddryxisO8aTsv +MTkgWWVhcnM8 I1BcChe1EBZddXsfAZ2kq QZeQGazEg3xlDgwcAajVO 1kSQIzuswwTDJfeN3bMOT kpLHoeXtiDZ1s GKForyvwz626DeOfNJY9M GTotPToY5VbdS4iVgMqFJ XtFTZlF6KgwGYpABlqM30 0MEdgLhG0XIKb trKlX0QbRMWcpRxeQbM3i 5N8Ha8RNO0baZE9U1EpJw r5MORcxVcaER3ypEBzTGl eHb4duFrvyQly YJ4zMRSjaqbhGTIyuV4fG OResRCdcEgaRV4gUGSvkk kcv835PmFvTZT1QXTztEY mJ1UkkX1kKxRm ROHhSNTdZ7WquSBoNNnyB 870LQufXkZ3XYGlqfOfC8 WbKUZkvJjhNiO0l1R6Ji1 EjPIcXCBgRR17 HN46CZ49I3FwVkbptODai +PHRhYmxlIHdpZHRoPS ziZMPzMiHdzVvxKS9oQr1 yZGVyLWNvbGxh pQJqIpHju7dqQVWbNEvjJ S7srSkyH2XaeAQ8WDFuf0 z0Du96D38pU1EjrLP+PGN xuSE6vLK2cK5l WtWuBkY3IEouJ678AqXeb TExNilfh7ade0junQk8Ww FkPXFefmMszHnyGKR7l6Y qPj05A17iPWdx ZHRoPSIyMCUiIHZhbGlnb b9ttS7yRp5+KHMlfUL2gX E6bZ4wQxIwEeJ9XRpfR22 9InRvcCIvPjwv H78hP0EyjCD+WIIdZpc0P XZstMkmNO5qdQVjJKyxGe 0ePYG5RzFiTtMjJDszE4R hZGRpbmctcmln nKA0LJJqXFQpbO10Mh0fy EzgNx3ySMHqAKL1SARxrC QjU9ZkqY5xNgToSUGlGDC fK9RseVZfUFyk F473TAscNsD5CZJxpeTcH 4TbOHBdqEdaSeS0v6P6Vc 5MrAftyGVsGA9dLeVpUEw 7T8WgHol3ROWs tGbvWL3srNRrIQhpQh2yx ZdpaYqfPJ8zZRJfazrwb5 30ZoGnr5esJDBihMYdJIh tHOK5G52lk1L9 EZNjLZScIDH4aFX1vG9at GlnbjogbGVmdDsgdmVydG whMTnfIWtmJ328PTPhtCs cXcCTBby6R5Zr Wmh8OWKunUwvPT6dvLVxI IceHy3qyAyrtSxmUQ5vIZ Ijvkvqs211ZiUyv1yuJYO wcHQgVGltZXM7 G35bx4N2TCPuOOSxWWV7j NA7tZ3coNzimdeulYUxzK uupzZgaQtqDMbvTEgnI53 1RVQdcNgmPr3U Cdk3X2NzNne8SOIznKyiD J1fsJHjTIkvYb7oyJynbB klJP7lQXFiuevtj851JzN pr8ngRAQvdRRl YTytTLF6Y61hp3Z4RTQcN PHcBPM9rHX4tD1khPlliq ogbGVmdDsgdmVydGljYWw zKLniC036HXAp cDsnPlBheWVyOjwvdGQ+P N38bd67E5TgVqsgWox7JV MgKEV6wHG3wH4bCJGpALh xf8N1rSU6Y6Hw cmRl (more content not included)... Normal [facility] CTA Cheston 12-02-2022 CTA Chest Exam Date/Time: [...] 370 Contrast amount in ml's: 75 Normal [facility] Consent for Treatmenton 11-10 Consent for Treatment [id number] 301 [id number]#1 .00CD:127 Normal [facility] Coding Summary.on 11-29-2022 Coding Summary. CD:[id number]:[id number] G h0bWw+PGhlYWQ+FT6OTNP lQ88erXWecJ2WX5nYCE7V NGWMDLVNKR7VIX8rsJL9J XluQ5EeywDh GehalSHtHL70ZJs9RAB4w TojGYuzmJ2vrWFmV7e1Uq XnZN11nS58FJmeTMFdFhB 3LjZpbjsgbWFy P9hiQcYdpJSwOem+PHRhY mxlIHdpZHRoPScxMDAlJy KtxCxgOI7eJb4nIWShBPO vbGxhcHNlOiBj w3osYHXnFUgoEH1qeBgmY 5IouIH8XTLqh2g1Xc36bM I+EHBcRJD4zUcnRGjpw47 3TjXtt8rhXBA6 gTYwLDigKYW1Z35sg1Z9I JZeCHJrPBA6fBW3wC8tdX rwvjdaV9PraAGoHjN2GPB 2yHPwfY6bmDla ikvxwY6nKjm+A63OJV5QB QPOVS8OMmt8B0PiXtfzeS I+HL44TMUiAU00jRGelBG rk5vfzCs2PsCb ZBDjNNY1tVpdKZlqz8MnW NYzG37dvHZwr0Z8HQHzwA fhiDSdUiUcqUI9dX9dVGn yexdel7mvamiq Eqzat1zyvu81kN98C99tG MyrOUVrQIL6VJGaXJLvmZ cauf7xiX8bTh7+BAixy6g lp1jwaHz4JqNi KMAwisSjiZepSHL6z2ZzB u26Y6QnrDtpn4BeBtb9qg 24pBXen2N2aPD5BJifGDL ncA9aUGyaTvV7 ZVEjGuLmmY65jMItEJjsM k9reAgjkCfqFC8qLNXtqv giROIoiM2qXKHkuBSnaEm tBQ4lPUFldpit o006KiOtIMF0FFWwcQTvO 2ZslF8lGpHyJYKtPYLrO2 HvgKAcGXkgI376KTreAlT 8EKWljtTcJ4Hi ZOPjkLxgBuR9n7M7Fb5Lg 2KowqvnPZS4SMhbBCSvIa RpPuFyMkW0V2ToVhq4ECE mrPzuBR7jQ8Xj CYUlpogksmlmmHS4DYOfA QHzoO22hAIsXJveJk1oc0 K4o267EOZlBSTmjJ86Um3 udDogMTBwdCBU pC0mtroer4dgoiinYaOnE ONvAVy3MJh9YODvsNsqZe OpYUD3XlR3LXY6zZCzuO2 hlDfrkrsvsX7q Oyc+N12ooO3hOTJ5TQX5e dhtYVOnrnPsQI69JN27T2 RyPjwvdGFibGU+PGRpdiB waCqtMF6eSfVy x3lqz0OqIYafB6AwPHJpM QvzTtq5MOKxUSB8jIV1dB 8yTMYjUOujr0K3zFC5W6G xyvRzwk4vs1pm JQFwMRvnN18wqDHhk9Q4S NYmrKQ7ZPOznDkcGaWdxZ 93Oyc+BJIsaZqcl5QtWwv nj9gnj3dsgQz2 KqUaHXTxhrSkwRwqKNJ3c 0RvVo28P43tQCazQPOkBF KhQUJlRSTvlWbpve8mjA7 wIi8+PGNvbCB3 rQG3wY6nPDPrJtJ3PWumG 116JhXtiBLrKhdox3qrq8 cywZh5UaYqKIGgakIvzGf sXZG9t6RtUs56 B91qLZnbWFFpMDGuTVIlB PJhuKdflw2okM2mGn4+PC 4ek1ncbo70rA05rDX+PHR cIQA5cRqiSVpo IKArmQ4dDUojHvW0BIZqM sJpsF08mDHmNUvdPy5rkH noeBamXX1iJGAfwwtcf42 5JbFkq8cgAKYg bKTsSEdoFAR3Q12bx0A6N CWeZQDoCLL2eXW6uR3dcQ lnbjogbGVmdDsgdmVydGl uFQsiNOnxB903 IHRvcDsnPlBhdGllbnQgT xHnYNx6G1YwLsa1NDOoiV tjVV2grRVjVGokAk3zgOh zlKpoFY2kFTOw vgoum396TfUfl5yyQXWch ZPgWWnhKRU2O22lf8U6RM UhUIVwTYD2tBB6mM1nyWz nbjogbGVmdDsg rbHxbJzwOQcmVJdrO492I HRvcDsnPkJpcnRoIERhdG S9VB31US05mVHgj8N1fBE 2J0KqXXTizhxp ijncvIC5VVWuDJGleV27E v3tvLynWk9sNMDuJEB9WK LrpTKlU8EgvX0sEfMsZEQ cENReG8QgpFBd RJucJ885VDcaDyS9RJZll lWhI4YyVEPgoFzbYoN9h2 R1Gz4EX8T1XW14LG11xAP ia2I8lYD1U9Ic LGNdlpklvdgehJC0VVEtA QJkaL88Ie3vdHzbDs4zFF YzJHJ4WDYttNIcA4GqwC9 yOiAjMDAwMDAw Q2UsaEYiCXwwG210KZkwQ qM0DAEbifQpN0EgZEQimT hpQiB1o3J4Nj2JWLe0KZ1 1YN15nVYqv0Y4 uHU9O6SuYCUogikvxgmcd ZG4AKSvVTPnyB28Dk1haT fcDc0xMJIgNZY9MADuvPS mA0SqlB4mZbUp XWCrILKlD1WvlLPwFWmkI 196HXqgGnY2DQIuuiOrB8 ZnKVCtbXlkFgN1i6M8Nl3 FGRIxPL46ZIN5 hGI9SM17DE37J9JfSejig GFibGU+PHRhYmxlIHdpZH RoPScxMDAlJyBzdHlsZT0 jZo5lWUYcPRMe vNzetLDuCnUeh2unJQKyE PjmLU0vdMvyV2NhuBW9BS Xpw8r3Nw13F23cG8OywVB +ZGFkeNU2cJM2 nW8kHbCgWyR8XPgdU512S yXxpOVpIoeyh5ync9oetL b5NvJ8DJWrghEvgQorBCI 5f2BgKo75F14i IHdpZHRoPSIxNSUiIHZhb Vzfxp9ebT3aTv3+PGNvbC G2gUT9sC9wFgTvRqN5RRu uK814YiHnjZJx Dfodr3awd5fbtSa1KtKcV JYhulLruSvcNCM7t2VbFp 97B2WjpPidn7TzErx0wz1 5zOYzu6K9yIP1 M2FnUGFqqicsqKAwtObiO U6oDJMcendaJISryV9cLX HnP9w6DqThEqB3AEvaH8M zlnO6LASmdISm QOagEDX4W81gu3H9LEQnN YPmXYS2gJZ9iC1rgUdglj ogbGVmdDsgdmVydGljYWw fWEpoN351IJPz dTwmKWGxcV2uKCExiUAix YicUV9gMRIrhbpsPyqRVL 5ELx7NSgphNoRJGIBBXFL JXUBPEHf9D1Go Yrd3LGXabTniLW4pxCDsE QryAm0jqAtjpSinGX5tIY LdmuoxPRZgmT2pEWBrgZO vsGpwNC3yTOPw oyurs749EyIeHDU2BRPzr GOdY9McaS8fOrBsPFZmCO GbB9RzrJSsJBhlE330PMa yQwG9GJLhwuTx M5CoIMAyvCklZqC8f0H8R y6kHt9xYC7iYTQnYI59CG 31gZPln0N9pFA0I8FzABS pbmctcmlnaHQ6 DBLaXSFlsE60oNIjPQnyA j7cr2I2z459MVWjHKNplY 51Hp5otYmoNOGksGOGoG9 lofeqi9havpqp HrAjJQYlGAd2AQy2QOIue HlfOtCqTRF9DeM1PVZ3vH YavH7znRnutvavdA6kJah +MTkgWWVhcnM8 R0BzSja7QOQqzGuoJJ1cn CRgSIqeBj2wqPifnFpnSQ 2bGBUwbnfyGLTeeU9mKYV xaYBpgUusXW2t CSNrgdjty777CqOhHGR4V RLywMPaE3KklI2wWwDuQG SdNOIgK8PlkDZeHVauP57 0HNajTjR8YNZl rzWcI8HiKQOugHtzGwS3e 9M0No4OYG6wcTC5M3OhYy o1UWQeqNkkYA0zjSNbYRr zKa2nvGgicFwh OK9fCMPuepynBQRsoW7cY GEndBZkhYtgUI8kUXNmrn hge668VpAsJTB7VZRpvYX sK9YlxN9uHaTi FIQjURMrO2NhxDOxXJbkJ 542LDwuGoE7FJLdgqBcE5 QlVSEiaWseDhE5y7T6So7 TlDTgMPPkIZ49 BR43ZL35L6TiKedfhIIcf +PHRhYmxlIHdpZHRoPS kpQPOuXuGexAcvGZ6zBh2 yZGVyLWNvbGxh kOYyVgVxt5syGHKyOQxtI R8uaPqaC2WrvPX7IRYbn7 f0Gb85G78lB7HfhLC+PGN xeQV5rVM7kX1s XkTfTmG3DNjsK539OtIqd ORaPqlgo7uhg6fkbHg2Ja XjTKYkfrPqmBpmPVN7q5M cTz32P02kXYkw ZHRoPSIyMCUiIHZhbGlnb v4giD3oSe2+VJTuoOH0rH V0dN3bStGpGxU4TEpqI37 9InRvcCIvPjwv J88qV0VueIS+WFViLhx1C SXqkPpuAA6cuWIcMGpyRf 3eOSD6PxHxKmDuBRxeC6Q hZGRpbmctcmln pUQ0JFHjWYZuqX88Qc3fw QgmFi4wZXViINM7RTBfsH FmA9WgvL2zNhClJJCpXOI dW6OkaDTfHJsh B947LRpaBoF5AKTivyMxX 2KrCXMamExhTyU1j3B0Hu 7OgGzdnNTzCT5nSdQdUHu 5E4PuLbt7ZBBe oBvxXL1uvYOcFMxhNx9gp YfttFddET1wOYKzjykgl0 12FeFtv4luAKXckNZkPNs rOAK0I19rb9X9 QOGkWWMaWSM3zVI7mY9sj GlnbjogbGVmdDsgdmVydG xpJFwwXLazH270BSJmiJl fXgTAIeg7L9Gt Ibw2JBIimWojWW2vzBSgT DrmVn0rwLfbyVndSX6uDX Ihoskjf116EjHtq8qnDCZ wcHQgVGltZXM7 I42hz9I7TXVcSVAcBZI9q YR0rQ8jqBslqfyydLBoqJ rtazFjuTbeLUkrWWeeH14 6JTGocHvyWw6M Dob8A9LqGju3RTZneLvgW M8ifZFlKBxqXw1shPnbrE khSS8pEGZibcqqa379QsA wn7nrCQLtuMFq OFgcRZO9S00lu1F4TCGiL QYhVMA5uCX3pS2kwUzkye ogbGVmdDsgdmVydGljYWw aPLkmJ409PUXr cDsnPlBheWVyOjwvdGQ+P N85vs51V6KlGzlpCbl1IA OjSEW5rCJ9gJ4zDWNlSCw hc9C3aLA1D9Os cmRl (more content not included)... Normal [facility] Physician Orderon 11-25-2022 Physician Order [id number]#1 .00CD:127 Normal [facility] CBC w/Indiceson 11-24-2022 Erythrocyte distribution width (RBC) [Ratio] 12.8 % Normal 10.9-14.2 [facility] Comment on above: Performed By: #### 2 067631, 1605985, 39323754, 30205585, 6357894 ####[facility] [address] [address] Hematocrit (Bld) [Volume fraction] 40.6 % Normal 34.0-46.0 [facility] Comment on above: Performed By: #### 2 443412, 9703480, 77567606, 56807190, 9509369 ####[address] [address] Hemoglobin (Bld) [Mass/Vol] 13.3 g/dL Normal 12.0-16.0 [facility] Comment on above: Performed By: #### 2 904005, 3769178, 08276627, 43879001, 2465609 ####[address] [address] MCH (RBC) [Entitic mass] 31.1 pg Normal 27.0-34.0 [facility] Comment on above: Performed By: #### 2 294785, 3115379, 38541099, 73916911, 3850244 ####[place] [address] MCHC (RBC) [Mass/Vol] 32.7 g/dL Normal 31.4-36.0 [facility] Comment on above: Performed By: #### 2 669648, 5841769, 29310729, 20321022, 0927090 ####[address] [address] MCV (RBC) [Entitic vol] 94.9 fL Normal 80.0-100.0 [facility] Comment on above: Performed By: #### 2 543951, 5248510, 96991847, 29882104, 8637817 ####[address] [address] Platelet mean volume (Bld) [Entitic vol] 9.4 fL Normal 6.4-10.8 [facility] Comment on above: Performed By: #### 2 354242, 1191772, 91272315, 65846122, 1978276 ####[address] [address] Platelets (Bld) [#/Vol] 255.0 E9/L Normal 150.0-500.0 [facility] Comment on above: Performed By: #### 2 942543, 6318837, 40591297, 86032128, 7792043 ####[facility] [address] [place] [address] RBC (Bld) [#/Vol] 4.3 E12/L Normal 4.3-5.9 [facility] Comment on above: Performed By: #### 2 486452, 9009922, 54080786, 64285994, 4069183 ####[facility] [address] [place] [address] WBC corrected for nucl RBC Auto (Bld) [#/Vol] 5.6 E9/L Normal 4.0-11.0 [facility] Comment on above: Performed By: #### 2 793778, 6094914, 22003596, 03370874, 0190460 ####[facility] [address] [place] [address] CHEMISTRYOrdered By: SYSTEM SYSTEM on 11-24-2022 Albumin [...] 11-24-2022 Albumin [Mass/Vol] 3.9 g/dL Normal 3.3-5.0 [facility] Comment on above: Performed By: #### 2 600371, 4786493, 75963896, 75472519, 9284580 ####[facility] [address] [place] [address] Albumin/Globulin (S) [Mass conc ratio] 1.1 Normal 1.1-2.2 [facility] Comment on above: Performed By: #### 2 619491, 8099800, 58168485, 59946282, 7103430 ####[facility] [address] [place] [address] ALP [Catalytic activity/Vol] 94 Int._Unit/L Normal 21-98 [facility] Comment on above: Performed By: #### 2 734556, 2861305, 49344334, 25692994, 1464965 ####[facility] [address] [place] [address] ALT No additional P-5'-P [Catalytic activity/Vol] 15 Int._Unit/L Normal 6-46 [facility] Comment on above: Performed By: #### 2 663437, 5699218, 71814863, 19081899, 1613288 ####[facility] [address] [place] [address] Anion gap [Moles/Vol] 12 mmol/L Normal 6-16 [facility] Comment on above: Performed By: #### 2 147239, 9259537, 59179761, 17230329, 7336982 ####[facility] [address] [place] [address] AST [Catalytic activity/Vol] 19 Int._Unit/L Normal 5-43 [facility] Comment on above: Performed By: #### 2 423785, 8639370, 43171442, 43019580, 2605311 ####[facility] [address] [place] [address] Bilirubin [Mass/Vol] 0.4 mg/dL Normal 0.0-1.1 [facility] Comment on above: Performed By: #### 2 595522, 3466929, 92554823, 65182527, 8579050 ####[facility] [address] [place] [address] Calcium [Mass/Vol] 8.9 mg/dL Normal 8.9-11.1 [facility] Comment on above: Performed By: #### 2 861369, 5329585, 57749793, 09387859, 5489131 ####[facility] [address] [place] [address] Chloride [Moles/Vol] 104 mmol/L Normal 101-111 [facility] Comment on above: Performed By: #### 2 726844, 2488137, 48387064, 80811632, 7180588 ####[facility] [address] [place] [address] CO2 [Moles/Vol] 27 mmol/L Normal 21-31 [facility] Comment on above: Performed By: #### 2 740397, 0838760, 74689535, 31370259, 7693060 ####[facility] [address] [place] [address] Creatinine [Mass/Vol] 0.8 mg/dL Normal 0.5-1.3 [facility] Comment on above: Performed By: #### 2 654201, 1580858, 66573539, 75500745, 1191692 ####[facility] [address] [place] [address] Globulin (S) [Mass/Vol] 3.6 g/dL Normal 1.4-4.0 [facility] Comment on above: Performed By: #### 2 312708, 4148426, 09415924, 73896767, 7081582 ####[facility] [address] [place] [address] Glucose [Mass/Vol] 77 mg/dL Normal 55-199 [facility] Comment on above: Result Comment: If t his glucose result represents a fasting glucose, interpretation should refer to the following reference range: 55-99 mg/dL Performed By: #### 2 548465, 4808746, 71820974, 86674380, 9521075 ####[facility] [address] [place] [address] Potassium [Moles/Vol] 3.7 mmol/L Normal 3.5-5.3 [facility] Comment on above: Performed By: #### 2 899034, 9501243, 49515515, 80613841, 1223351 ####[facility] [address] [place] [address] Protein [Mass/Vol] 7.5 g/dL Normal 6.0-7.8 [facility] Comment on above: Performed By: #### 2 492515, 7936780, 55806888, 44929015, 9734437 ####[facility] [address] [place] [address] Sodium [Moles/Vol] 139 mmol/L Normal 135-145 [facility] Comment on above: Performed By: #### 2 509381, 6687291, 46027366, 43175590, 6684016 ####[facility] [address] [place] [address] Urea nitrogen [Mass/Vol] 12 mg/dL Normal 5-21 [facility] Comment on above: Performed By: #### 2 174645, 6658648, 71489648, 90412769, 8533246 ####[facility] [address] [place] [address] Urea nitrogen/Creatinine [Mass ratio] 15 No Units Normal 10-20 [facility] Comment on above: Performed By: #### 2 348388, 4804272, 78458346, 11510653, 2139527 ####[facility] [address] [place] [address] COAGULATIONOrdered By: Giuseppe Robb on 11-24-2022 Fibrin D-dimer FEU (PPP) [Mass/Vol] 3906 ng/mL FEU Invalid Interpretation Code 215 - 500 ng/mL FEU [facility] Comment on above: Result Comment: Resu lts Called To DR JACKSON By GIUSEPPE ROBB And Read Back For Confirmation On 11/24/2022 16:26:28 EST Results Verified By Repeat Analysis Consent for Treatmenton 11-09 Consent for Treatment [id number] .00CD:127 Normal [facility] D-Dimeron 11-24-2022 Fibrin D-dimer FEU (PPP) [Mass/Vol] 3906 [id number] Abnormal 215-500 [facility] Comment on above: Result Comment: Resu lts [...] infections Liver cirrhosis Performed By: #### 2 418812, 1182829, 53594201, 79734458, 1340144 ####[facility] [address] [place] [address] HEMATOLOGYOrdered By: Chris Grant on 11-24-2022 Erythrocyte [...] Normal 4.3 - 5.9 E12/L [facility] HemeAutoSS WBC corrected for nucl RBC Auto (Bld) [#/Vol] 5.6 E9/L Normal 4.0 - 11.0 E9/L [facility] HemeAutoSS Physician Orderon 11-24-2022 Physician Order [id number] 1.00CD:127 Normal [facility] TSH With T4fr Reflexon 11-24 TSH Qn 0.70 m[IU]/L Normal 0.34-5.60 [facility] Comment on above: Performed By: #### 2 653382, 1100694, 62571914, 80921267, 1851529 ####[facility] [address] [place] [address] eGFRon 11-24-2022 GFR/1.73 sq M.predicted among blacks MDRD (S/P/Bld) [Vol rate/Area] mL/min/{1.73_m2} Normal >=59 [facility] Comment on above: Order Comment: Order added by Discern Expert. Result Comment: eGFR is race adjusted. AA=. Performed By: #### 2 583155, 9960497, 55519184, 05252258, 2776747 ####[facility] [address] [place] [address] GFR/1.73 sq M.predicted among non-blacks MDRD (S/P/Bld) [Vol rate/Area] mL/min/{1.73_m2} Normal >=59 [facility] Comment on above: Order Comment: Order added by Discern Expert. Result Comment: Tub Puller maribel kidney disease could be indicated at eGFR's of less than 60 mL/min/1.73m2. Kidney failure is indicated at less than 15 mL/min/1.73m2. Performed By: #### 2 136009, 3304288, 81456094, 06111799, 8302640 ####[facility] [address] [place] [address] XR CHEST 1 Von 11-11-2022 XR CHEST [...] RODOLFO LÓPEZ Date: 2022-11-11 15:20 Normal [facility] CBC AUTO DIFFon 11-07-2022 BASO # 0.0 103/ul Normal 0.0-0.1 [facility] Comment on above: Performed By: #### C BC #### [facility] [address] [place] [address] Dr. Dianelys Brown Basophils/100 WBC (Bld) 0.4 % Normal 0.2-2.0 [facility] Comment on above: Performed By: #### C BC #### [facility] [address] [place] [address] Dr. Dianelys Brown EO # 0.1 103/ul Normal 0.0-0.7 [facility] Comment on above: Performed By: #### C BC #### [facility] [address] [place] [address] Dr. Dianelys Brown Eosinophils/100 WBC (Bld) 1.3 % Normal 0.9-7.0 [facility] Comment on above: Performed By: #### C BC #### [facility] [address] [place] [address] Dr. Dianelys Brown Erythrocyte distribution width (RBC) [Ratio] 13.2 % Normal 11.0-15.0 [facility] Comment on above: Performed By: #### C BC #### [facility] [address] [place] [address] Dr. Dianelys Brown Hematocrit (Bld) [Volume fraction] 27.1 % Critically low 36.0-48.0 [facility] Comment on above: Performed By: #### C BC #### [facility] [address] [place] [address] Dr. Dianelys Brown Hemoglobin (Bld) [Mass/Vol] 9.0 g/dL Critically low 12.0-16.0 [facility] Comment on above: Performed By: #### C BC #### [facility] [address] [place] [address] Dr. Dianelys Brown IG # 0.05 10e3/ul Critically high 0.00-0.03 [facility] Comment on above: Performed By: #### C BC #### [facility] [address] [place] [address] Dr. Dianelys Brown IG % 0.5 % Normal 0.0-0.5 [facility] Comment on above: Performed By: #### C BC #### [facility] [address] [place] [address] Dr. Dianelys Brown LYMPH # 2.0 103/ul Normal 1.2-3.8 [facility] Comment on above: Performed By: #### C BC #### [facility] [address] [place] [address] Dr. Dianelys Brown Lymphocytes/100 WBC (Bld) 18.1 % Critically low 20.5-60.0 [facility] Comment on above: Performed By: #### C BC #### [facility] [address] [place] [address] Dr. Dianelys Brown MANUAL DIFF REQ NO Normal [facility] Comment on above: Performed By: #### C BC #### [facility] [address] [place] [address] Dr. Dianelys Brown MCH (RBC) [Entitic mass] 31.5 pg Normal 26.7-34.0 [facility] Comment on above: Performed By: #### C BC #### [facility] [address] [place] [address] Dr. Dianelys Brown MCHC (RBC) [Mass/Vol] 33.2 g/dL Normal 29.9-35.2 [facility] Comment on above: Performed By: #### C BC #### [facility] [address] [place] [address] Dr. Dianelys Brown MCV (RBC) [Entitic vol] 94.8 fL Normal 81.0-99.0 [facility] Comment on above: Performed By: #### C BC #### [facility] [address] [place] [address] Dr. Dianelys Brown MONO # 1.0 103/ul Critically high 0.3-0.8 [facility] Comment on above: Performed By: #### C BC #### [facility] [address] [place] [address] Dr. Dianelys Brown Monocytes/100 WBC (Bld) 9.1 % Normal 1.7-12.0 [facility] Comment on above: Performed By: #### C BC #### [facility] [address] [place] [address] Dr. Dianelys Brown NEUT # 7.6 103/ul Critically high 1.4-6.5 [facility] Comment on above: Performed By: #### C BC #### [facility] [address] [place] [address] Dr. Dianelys Brown Neutrophils/100 WBC (Bld) 70.6 % Normal 43.0-75.0 [facility] Comment on above: Performed By: #### C BC #### [facility] [address] [place] [address] Dr. Dianelys Brown Platelet mean volume (Bld) [Entitic vol] 11.8 fL Normal 9.5-13.5 [facility] Comment on above: Performed By: #### C BC #### [facility] [address] [place] [address] Dr. Dianelys Brown PLT 133 103/ul Critically low 150-450 [facility] Comment on above: Performed By: #### C BC #### [facility] [address] [place], [place] [address] Dr. Dianelys Brown RBC 2.86 106/ul Critically low 4.20-5.40 [facility] Comment on above: Performed By: #### C BC #### [facility] [address] [place] [address] Dr. Dianelys Brown WBC 10.8 103/ul Normal 4.0-11.0 [facility] Comment on above: Performed By: #### C BC #### [facility] [address] [place] [address] Dr. Dianelys Brown CBC AUTO DIFFon 11-06-2022 BASO # 0.0 103/ul Normal 0.0-0.1 [facility] Comment on above: Performed By: #### H BSANS #### [facility] [address] [place] [address] Dr. Dianelys Brown Basophils/100 WBC (Bld) 0.4 % Normal 0.2-2.0 [facility] Comment on above: Performed By: #### H BSANS #### [facility] [address] [place] [address] Dr. Dianelys Brown EO # 0.2 103/ul Normal 0.0-0.7 [facility] Comment on above: Performed By: #### H BSANS #### [facility] [address] [place] [address] Dr. Dianelys Brown Eosinophils/100 WBC (Bld) 1.6 % Normal 0.9-7.0 [facility] Comment on above: Performed By: #### H BSANS #### [facility] [address] [place] [address] Dr. Dianelys Brown Erythrocyte distribution width (RBC) [Ratio] 13.1 % Normal 11.0-15.0 [facility] Comment on above: Performed By: #### H BSANS #### [facility] [address] [place] [address] Dr. Dianelys Brown Hematocrit (Bld) [Volume fraction] 33.5 % Critically low 36.0-48.0 [facility] Comment on above: Performed By: #### H BSANS #### [facility] [address] [place] [address] Dr. Dianelys Brown Hemoglobin (Bld) [Mass/Vol] 11.5 g/dL Critically low 12.0-16.0 [facility] Comment on above: Performed By: #### H BSANS #### [facility] [address] [place] [address] Dr. Dianelys Brown IG # 0.05 10e3/ul Critically high 0.00-0.03 [facility] Comment on above: Performed By: #### H BSANS #### [facility] [address] [place] [address] Dr. Dianelys Brown IG % 0.5 % Normal 0.0-0.5 [facility] Comment on above: Performed By: #### H BSANS #### [facility] [address] [place] [address] Dr. Dianelys Brown LYMPH # 2.6 103/ul Normal 1.2-3.8 [facility] Comment on above: Performed By: #### H BSANS #### [facility] [address] [place] [address] Dr. Dianelys Brown Lymphocytes/100 WBC (Bld) 24.0 % Normal 20.5-60.0 [facility] Comment on above: Performed By: #### H BSANS #### [facility] [address] [place] [address] Dr. Dianelys Brown MANUAL DIFF REQ NO Normal [facility] Comment on above: Performed By: #### H BSANS #### [facility] [address] [place] [address] Dr. Dianelys Brown MCH (RBC) [Entitic mass] 32.0 pg Normal 26.7-34.0 [facility] Comment on above: Performed By: #### H BSANS #### [facility] [address] [place] [address] Dr. Dianelys Brown MCHC (RBC) [Mass/Vol] 34.3 g/dL Normal 29.9-35.2 [facility] Comment on above: Performed By: #### H BSANS #### [facility] [address] [place] [address] Dr. Dianelys Brown MCV (RBC) [Entitic vol] 93.3 fL Normal 81.0-99.0 [facility] Comment on above: Performed By: #### H BSANS #### [facility] [address] [place] [address] Dr. Dianelys Brown MONO # 0.9 103/ul Critically high 0.3-0.8 [facility] Comment on above: Performed By: #### H BSANS #### [facility] [address] [address] [address] Dianelys Brown Monocytes/100 WBC (Bld) 8.6 % Normal 1.7-12.0 [facility] Comment on above: Performed By: #### H BSANS #### [facility] [address] [address] [address] Dianelys Brown NEUT # 6.9 103/ul Critically high 1.4-6.5 [facility] Comment on above: Performed By: #### H BSANS #### [facility] [address] [place] [address] Dr. Dianelys Brown Neutrophils/100 WBC (Bld) 64.9 % Normal 43.0-75.0 [facility] Comment on above: Performed By: #### H BSANS #### [facility] [address] [place] [address] Dr. Dianelys Brown Platelet mean volume (Bld) [Entitic vol] 12.5 fL Normal 9.5-13.5 [facility] Comment on above: Performed By: #### H BSANS #### [facility] [address] [place] [address] Dr. Dianelys Brown PLT 187 103/ul Normal 150-450 [facility] Comment on above: Performed By: #### H BSANS #### [facility] [address] [address] [address] Dianelys Brown RBC 3.59 106/ul Critically low 4.20-5.40 [facility] Comment on above: Performed By: #### H BSANS #### [facility] [address] [place] [address] Dr. Dianelys Brown WBC 10.7 103/ul Normal 4.0-11.0 [facility] Comment on above: Performed By: #### H BSANS #### [facility] [address] [place] [address] Dr. Dianelys Brown Covid-19 PCR (CVDTBH)on 10-10 SARS-CoV-2 (COVID-19) RNA NAIF+probe Ql (Unsp spec) Not detected Normal NOT DETECTED [facility] Comment on above: Result Comment: When diagnostic [...] for this test is supported by the [place] of Health and Human Service's declaration that [...] used). Performed By: #### C VDTBH #### [facility] [address] [place] [address] Dr. Dianelys Brown DRUG SCREEN RAPID (URINE)on 11-06-2022 AMP Negative Normal NEGATIVE [facility] Comment on above: Performed By: #### D RUGRPD #### [facility] [address] [place] [address] Dr. Dianeyls Brown BAR Negative Normal NEGATIVE [facility] Comment on above: Performed By: #### D RUGRPD #### [facility] [address] [place] [address] Dr. Dianelys Brown BUP Negative Normal NEGATIVE [facility] Comment on above: Performed By: #### D RUGRPD #### [facility] [address] [place] [address] Dr. Dianelys Brown BZO Negative Normal NEGATIVE [facility] Comment on above: Performed By: #### D RUGRPD #### [facility] [address] [place] [address] Dr. Dianelys Brown GOGO Negative Normal NEGATIVE [facility] Comment on above: Performed By: #### D RUGRPD #### [facility] [address] [place] [address] Dr. Dianelys Brown CUT-OFFS SEE BELOW Normal [facility] Comment on above: Result Comment: AMP (Amphetamine): 500ng/mL, BAR (Barbituates): 200 ng/mL, BZO (Benzodiazepines): 150 ng/mL, BUP (Buprenorphine): 10 ng/mL, GOGO (Cocaine): 150 ng/mL, mAMP (Methamphetamine): 500 ng/mL, MTD (Methadone): 200 ng/mL, OPI (Opiates): 100 ng/mL, OXY (Oxycodone): 100 ng/mL, PCP (Phencyclidine): 25 ng/mL, PPX (Propoxyphene): 300 ng/mL, THC (Cannabinoids): 50 ng/mL, TCA (Trycyclic Antidepressants): 300 ng/mL Performed By: #### D RUGRPD #### [facility] [address] [place] [address] Dr. Dianelys Brown DRUG CUT HEADER DRUG CLASS TEST SYSTEM CUT-OFF CONCENTRATIONS ARE FOLLOWS: Normal [facility] Comment on above: Performed By: #### D RUGRPD #### [facility] [address] [place] [address] Dr. Dianelys Brown mAMP Negative Normal NEGATIVE [facility] Comment on above: Performed By: #### D RUGRPD #### [facility] [address] [place] [address] Dr. Dianelys Brown MTD Negative Normal NEGATIVE [facility] Comment on above: Performed By: #### D RUGRPD #### [facility] [address] [place] [address] Dr. Dianelys Brown OPI Negative Normal NEGATIVE [facility] Comment on above: Performed By: #### D RUGRPD #### [facility] [address] [place] [address] Dr. Dianelys Brown OXY Negative Normal NEGATIVE [facility] Comment on above: Performed By: #### D RUGRPD #### [facility] [address] [place] [address] Dr. Dianelys Brown PCP Negative Normal NEGATIVE [facility] Comment on above: Performed By: #### D RUGRPD #### [facility] [address] [address] [address] Dianelys Brown PPX Negative Normal NEGATIVE [facility] Comment on above: Performed By: #### D RUGRPD #### [facility] [address] [address] [address] Dianelys Brown TCA Negative Normal NEGATIVE [facility] Comment on above: Performed By: #### D RUGRPD #### [facility] [address] [place] [address] Dr. Dianelys Brown THC Negative Normal NEGATIVE [facility] Comment on above: Performed By: #### D RUGRPD #### [facility] [address] [place] [address] Dr. Dianelys Brown TYPE AND SCREENon 11-06-2022 TYPE AND SCREEN Negative Normal [facility] Comment on above: Performed By: #### A 1C #### [facility] [address] [place] [address] Dr. Dianelys Brown GROUP B STREP CULTUREon 09-11 S. agalactiae Ag Ql (Unsp spec) Culture Observations: NEGATIVE FOR GROUP B STREPTOCOCCUS. Normal [facility] Comment on above: Performed By: #### G BSCX #### [facility] [address] [place] [address] Dr. Dianelys Brown US PREG GROWTHon 09-26-2022 [...] RODOLFO REYNOSO Date: 2022-09-26 06:11 Normal [facility] US PREG GROWTHon 09-11-2022 US PREG GROWTH [...] COMPA WILLIAM Date: 2022-09-11 17:50 Normal [facility] TYPE AND SCREENon 08-28-2022 TYPE AND SCREEN Negative Normal [facility] Comment on above: Performed By: #### T NS #### [facility] [address] [address] [address] Dianelys Brown GLUCOSE - 1HRon 07-31-2022 Glucose [Mass/Vol] 124 mg/dL Critically high 74-106 T [facility] Comment on above: Performed By: #### H BSANS #### [facility] [address] [address] [address] Dianelys Brown HEMOGRAM AND PLATELon 2021 Hematocrit (Bld) [Volume fraction] 32.4 % Critically low 36.0-48.0 [facility] Comment on above: Performed By: #### H BSANS #### [facility] [address] [place] [address] Dr. Dianelys Brown Hemoglobin (Bld) [Mass/Vol] 10.7 g/dL Critically low 12.0-16.0 [facility] Comment on above: Performed By: #### H BSANS #### [facility] [address] [place] [address] Dr. Dianelys Brown MCH (RBC) [Entitic mass] 33.5 pg Normal 26.7-34.0 [facility] Comment on above: Performed By: #### H BSANS #### [facility] [address] [place] [address] Dr. Dianelys Brown MCHC (RBC) [Mass/Vol] 33.0 g/dL Normal 29.9-35.2 [facility] Comment on above: Performed By: #### H BSANS #### [facility] [address] [place] [address] Dr. Dianelys Brown MCV (RBC) [Entitic vol] 101.6 fL Critically high 81.0-99.0 [facility] Comment on above: Performed By: #### H BSANS #### [facility] [address] [place] [address] Dr. Dianelys Brown PLT 164 103/ul Normal 150-450 [facility] Comment on above: Performed By: #### H BSANS #### [facility] [address] [place] [address] Dr. Dianelys Brown RBC 3.19 106/ul Critically low 4.20-5.40 [facility] Comment on above: Performed By: #### H BSANS #### [facility] [address] [place] [address] Dr. Dianelys Brown WBC 7.5 103/ul Normal 4.0-11.0 [facility] Comment on above: Performed By: #### H BSANS #### [facility] [address] [place] [address] Dr. Dianelys Brown CHLAMYDIA/GONOCOCCUS NAIF (SW AB/URINE/PAPon 07-22-2022 Chlamydia trachomatis, NAIF Negative Normal Negative [facility] Comment on above: Performed By: #### H BSANS #### [facility] [address] [address] [address] Dianelys Brown Neisseria gonorrhoeae, NAIF Negative Normal Negative [facility] Comment on above: Performed By: #### H BSANS #### [facility] [address] [address] [address] Dianelys Brown VAGINITIS/VAGINOSIS DNA PROB Bertrand 07-20-2022 Isabel species Negative Normal Negative [facility] Comment on above: Performed By: #### H BSANS #### [facility] [address] [place] [address] Dr. Dianelys Brown Gardnerella vaginalis Negative Normal Negative [facility] Comment on above: Performed By: #### H BSANS #### [facility] [address] [place] [address] Dr. Dianelys Brown Trichomonas vaginalis Negative Normal Negative [facility] Comment on above: Performed By: #### H BSANS #### [facility] [address] [address] [address] Dianelys Brown AFP MATERNAL FOR SPINA BIFID Aon 06-21-2022 AFP MoM 1.29 Normal [facility] Comment on above: Performed By: #### A 1C #### [facility] [address] [address] [address] Dianelys Brown AFP Value 88.7 ng/mL Normal [facility] Comment on above: Performed By: #### A 1C #### [facility] [address] [address] [address] Dianelys Brown AFP, Serum for Spina Bifida Report Normal [facility] Comment on above: Performed By: #### A 1C #### [facility] [address] [place] [address] Dr. Dianelys Brown Comment Comment Normal [facility] Comment on above: Result Comment: Gray Flores, Ph.D., [facility] Director . References: Available Upon Request. . Multiples Of Median Cutoffs For AFP Elevations Wick 2.5 Black 2.8 IDD 2.0 Twins 4.5 Abbreviation Definitions IDD - Insulin Dep Diabetes OSBR - Open Spina Bifida Risk . For further inquiries contact [facility] at [phone]. . This test was developed and its performance characteristics determined by [employer]. It has not been cleared or approved by the Food and Drug Administration. Performed By: #### A 1C #### [facility] [address] [place] [address] Dr. Dianelys Gallo Age Collection Date 20.0 weeks Normal [facility] Comment on above: Performed By: #### A 1C #### [facility] [address] [place] [address] Dr. Dianelys Brown Gestat, Age Based on As provided Normal [facility] Comment on above: Result Comment: Reca lculations are not recommended when gestational dating by LMP and ultrasound are within 10 days. Performed By: #### A 1C #### [facility] [address] [place] [address] Dr. Dianelys Brown Insulin Dep Diabetes No Normal [facility] Comment on above: Performed By: #### A 1C #### [facility] [address] [place] [address] Dr. Dianelys Brown Interpretation Comment Normal [facility] Comment on above: Result Comment: Inte rpretation: [...] Customer Services to discuss available options. The [employer] recommends amniocentesis be offered to women age 35 and older. Performed By: #### A 1C #### [facility] [address] [place] [address] Dr. Dianelys Brown [age] Normal [facility] Comment on above: Performed By: #### A 1C #### [facility] [address] [address] [address] Dianelys Brown Multiple Gestation No Normal [facility] Comment on above: Performed By: #### A 1C #### [facility] [address] [address] [address] Dianelys Brown OSBR Risk 1 [place] 4947 Normal [facility] Comment on above: Performed By: #### A 1C #### [facility] [address] [address] [address] Dianelys Brown PDF . Normal [facility] Comment on above: Performed By: #### A 1C #### [facility] [address] [address] [address] Dianelys Brown Race Normal [facility] Comment on above: Performed By: #### A 1C #### [facility] [address] [place] [address] Dr. Dianelys Brown Test Results: Negative [facility] Comment on above: Performed By: #### A 1C #### [facility] [address] [place] [address] Dr. Dianelys Brown US PREG ANATOMY SINGLEon [...] by: COMPA WILLIAM Date: 2022-06-19 16:50 Normal [facility] ECHOCARDIO M/2D COMPLETEon 0 04-21-2022 ECHOCARDIO M/2D COMPLETE Patient: STACEY ANG Exam Date: 04/21/2022 : 2000 Gender:F Ordering : DR PASTORA WHITEHEAD . Admission #: [id number] Family : Order #: [id number] CLICK HERE TO VIEW EXAM ECHOCARDIOGRAM REPORT [...] Area(A4C): 10.80 cm2 Left Atrium Systolic Volume(A2C): 98465 mm3 Left Atrium Systolic Volume(A4C): 20318 mm3 Mitral Valve MV E to A Ratio: 1.10 Deceleration [place]: 2650 mm/s2 Mitral Valve A-Wave Peak Velocity: [...] M.D. on 04/22/2022 at 18:18 Normal [facility] HEP B SURFACE ANTIGEN SCREEN on 03-27-2022 HBsAg Screen Negative Normal Negative [facility] Comment on above: Performed By: #### H BSA #### [facility] [address] [place] [address] Dr. Dianelys Brown HEPATITIS C VIRUS AB W/ REFL EX QUANTon 03-27-2022 HCV AB <0.1 Normal 0.0-0.9 [facility] Comment on above: Performed By: #### A 1C #### [facility] [address] [place] [address] Dr. Dianelys Brown Interpretation: Comment Normal [facility] Comment on above: Result Comment: Nega tive Not infected with HCV, unless recent infection is suspected or other evidence exists to indicate HCV infection. Performed By: #### A 1C #### [facility] [address] [place] [address] Dr. Dianelys Brown HIV 1 AND 2 WITH REFLEXon HIV Screen 4th Generation wRfx Non-Reactive Normal Non Reactive [facility] Comment on above: Result Comment: HIV Negative HIV-1/HIV-2 antibodies and HIV-1 p24 antigen were NOT detected. There is no laboratory evidence of HIV infection. Performed By: #### H BSANS #### [facility] [address] [place] [address] Dr. Dianelys Brown RPR QUANTon 03-27-2022 Rapid Plasma Reagin, Quant Non-Reactive Normal NonRea<1:1 [facility] Comment on above: Result Comment: Plea se Note: This test does not meet current guidelines for screening and diagnosis of syphilis. This test is intended for following treatment response in patients being treated for syphilis infection. To screen for syphilis infection, a reflex cascade that includes both RPR and a treponema-specific assay should be utilized, such as Treponema pallidum (Syphilis) Screening [place] (018885) or Rapid Plasma Reagin (RPR) Test With Reflex to Quantitative RPR and Confirmatory Treponema pallidum Antibodies (490257). Performed By: #### R PRQ #### [facility] [address] [place] [address] Dr. Dianelys Brown RUBELLA AB IGGon 03-27-2022 Rubella Antibodies, IgG 1.47 index Normal Immune >0.99 [facility] Comment on above: Result Comment: Non- immune <0.90 Equivocal 0.90 - 0.99 Immune >0.99 Performed By: #### H BSANS #### [facility] [address] [place] [address] Dr. Dianelys Brown CBC AUTO DIFFon 03-26-2022 BASO # 0.1 103/ul Normal 0.0-0.1 [facility] Comment on above: Performed By: #### H BSANS #### [facility] [address] [address] [address] Dianelys Brown Basophils/100 WBC (Bld) 0.6 % Normal 0.2-2.0 [facility] Comment on above: Performed By: #### H BSANS #### [facility] [address] [address] [address] Dianelys Brown EO # 0.3 103/ul Normal 0.0-0.7 [facility] Comment on above: Performed By: #### H BSANS #### [facility] [address] [place] [address] Dr. Dianelys Brown Eosinophils/100 WBC (Bld) 2.8 % Normal 0.9-7.0 [facility] Comment on above: Performed By: #### H BSANS #### [facility] [address] [place] [address] Dr. Dianelys Brown Erythrocyte distribution width (RBC) [Ratio] 11.9 % Normal 11.0-15.0 [facility] Comment on above: Performed By: #### H BSANS #### [facility] [address] [place] [address] Dr. Dianelys Brown Hematocrit (Bld) [Volume fraction] 38.0 % Normal 36.0-48.0 [facility] Comment on above: Performed By: #### H BSANS #### [facility] [address] [address] [address] Dianelys Brown Hemoglobin (Bld) [Mass/Vol] 13.6 g/dL Normal 12.0-16.0 [facility] Comment on above: Performed By: #### H BSANS #### [facility] [address] [address] [address] Dianelys Brown IG # 0.03 10e3/ul Normal 0.00-0.03 [facility] Comment on above: Performed By: #### H BSANS #### [facility] [address] [address] [address] Dianelys Brown IG % 0.3 % Normal 0.0-0.5 [facility] Comment on above: Performed By: #### H BSANS #### [facility] [address] [address] [address] Dianelys Brown LYMPH # 2.4 103/ul Normal 1.2-3.8 [facility] Comment on above: Performed By: #### H BSANS #### [facility] [address] [place] [address] Dr. Dianelys Brown Lymphocytes/100 WBC (Bld) 22.1 % Normal 20.5-60.0 [facility] Comment on above: Performed By: #### H BSANS #### [facility] [address] [place] [address] Dr. Dianelys Brown MANUAL DIFF REQ NO Normal [facility] Comment on above: Performed By: #### H BSANS #### [facility] [address] [place] [address] Dr. Dianelys Brown MCH (RBC) [Entitic mass] 32.2 pg Normal 26.7-34.0 [facility] Comment on above: Performed By: #### H BSANS #### [facility] [address] [place] [address] Dr. Dianelys Brown MCHC (RBC) [Mass/Vol] 35.8 g/dL Critically high 29.9-35.2 [facility] Comment on above: Performed By: #### H BSANS #### [facility] [address] [place] [address] Dr. Dianelys Brown MCV (RBC) [Entitic vol] 90.0 fL Normal 81.0-99.0 [facility] Comment on above: Performed By: #### H BSANS #### [facility] [address] [place] [address] Dr. Dianelys Brown MONO # 1.0 103/ul Critically high 0.3-0.8 [facility] Comment on above: Performed By: #### H BSANS #### [facility] [address] [address] [address] Dianelys Brown Monocytes/100 WBC (Bld) 8.8 % Normal 1.7-12.0 [facility] Comment on above: Performed By: #### H BSANS #### [facility] [address] [address] [address] Dianelys Brown NEUT # 7.1 103/ul Critically high 1.4-6.5 [facility] Comment on above: Performed By: #### H BSANS #### [facility] [address] [address] [address] Dianelys Brown Neutrophils/100 WBC (Bld) 65.4 % Normal 43.0-75.0 [facility] Comment on above: Performed By: #### H BSANS #### [facility] [address] [place] [address] Dr. Dianelys Brown Platelet mean volume (Bld) [Entitic vol] 11.6 fL Normal 9.5-13.5 [facility] Comment on above: Performed By: #### H BSANS #### [facility] [address] [address] [address] Dianelys Brown PLT 171 103/ul Normal 150-450 [facility] Comment on above: Performed By: #### H BSANS #### [facility] [address] [place] [address] Dr. Dianelys Brown RBC 4.22 106/ul Normal 4.20-5.40 [facility] Comment on above: Performed By: #### H BSANS #### [facility] [address] [place] [address] Dr. Dianelys Brown WBC 10.9 103/ul Normal 4.0-11.0 [facility] Comment on above: Performed By: #### H BSANS #### [facility] [address] [place] [address] Dr. Dianelys Brown CULTURE URINEon 03-26-2022 CULTURE [...] F Trimethoprim/Sulfamet hoxazole <=20 S F Normal [facility] Comment on above: Performed By: #### A 1C #### [facility] [address] [place] [address] Dr. Dianelys Brown FREE T4on 03-26-2022 Free T4 [Mass/Vol] 1.95 ng/dL Critically high 0.78-1.34 [facility] Comment on above: Performed By: #### H BSANS #### [facility] [address] [place] [address] Dr. Dianelys Brown GLYCOHEMOGLOBIN A1Con 2021 ADA RECOMMENDATION SEE BELOW Normal [facility] Comment on above: Result Comment: ADA RECOMMENDED LIMIT 4.0 - 6.0 ADA THERAPEUTIC TARGET < 7.0 ACTION SUGGESTED > 7.0 Performed By: #### A 1C #### [facility] [address] [place] [address] Dr. Dianelys Brown Glucose [Mass/Vol] 103 mg/dL Normal [facility] Comment on above: Performed By: #### A 1C #### [facility] [address] [place] [address] Dr. Dianelys Brown HbA1c (Bld) [Mass fraction] 5.2 % Normal 4.5-6.2 [facility] Comment on above: Performed By: #### A 1C #### [facility] [address] [place] [address] Dr. Dianelys Brown TSHon 03-26-2022 TSH 1.474 uIU/mL Normal 0.516-4.[address] [facility] Comment on above: Performed By: #### T SH #### [facility] [address] [place] [address] Dr. Dianelys Brown TSH RANGE SEE BELOW Normal [facility] Comment on above: Result Comment: <0.3 4 UIU/ml HYPERTHYROID 0.34-5.60 UIU/ml EUTHYROID >5.60 UIU/ml HYPOTHYROID Performed By: #### T SH #### [facility] [address] [address] [address] Dianelys Brown TYPE AND SCREENon 03-26-2022 TYPE AND SCREEN Negative Normal [facility] Comment on above: Performed By: #### T NS #### [facility] [address] [address] [address] Dianelys Brown US PREG TVon 03-24-2022 [...] RODOLFO REYNOSO Date: 2022-03-24 09:53 Normal [facility] Vital Signs Date Time Vital Sign Value Performing Clinician Facility 11-11-2023 08:13-0500 Body weight 65.41 kg Jad Woods MD Work Phone: [facility] 11-11-2023 08:13-0500 Diastolic blood pressure 62 mm[Hg] Jad Woods MD Work Phone: [facility] 11-11-2023 08:13-0500 Heart rate 90 /min Jad Woods MD Work Phone: [facility] 11-11-2023 08:13-0500 Systolic blood pressure 97 mm[Hg] Jad Woods MD Work Phone: [phone] [place] [address] 12-31-2022 11:19-0500 Blood Pressure Location Gurpreet Higgins [facility] 12-31-2022 11:19-0500 Diastolic blood pressure 62 mm[Hg] Gurpreet Higgins [facility] 12-31-2022 11:19-0500 Heart rate 66 /[facility] 12-31-2022 11:19-0500 SaO2% (BldA) [Mass fraction] 96 % [facility] 12-31-2022 11:19-0500 Systolic blood pressure 96 mm[Hg] [facility] 06-21-2022 03:06-0400 Body weight 55.[address] PASTORA WHITEHEAD . [facility] Comment on above: Performed By: #### A1C #### [facility] [address] [place] [address] Dr. Dianelys Brown 03-25-2022 10:58-0400 Body temperature 98.24 [degF] Jenelle GONZALEZ [facility] 03-25-2022 10:58-0400 Heart rate 72 /min Jenelle GONZALEZ [facility] 03-25-2022 10:58-0400 SaO2% (BldA) [Mass fraction] 99 % Jenelle GONZALEZ [facility] Encounters Encounter Date Encounter Type Care Provider Facility Start: 11-30-2023 End: 11-30-2023 ambulatory PASTORA WHITEHEAD Not Available Start: 11-12-2023 End: 11-12-2023 ambulatory LORI HUYNH Not Available Start: 11-11-2023 End: 11-12-2023 ambulatory PASTORA WHITEHEAD [facility] Start: 11-11-2023 End: 11-11-2023 Office outpatient new 45 minutes Jad Woods MD Work Phone: [facility] Comment on above: Encounter for suspec niyah anomaly ruled out (Primary Dx) Start: 10-15-2023 End: 10-15-2023 ambulatory LORI HUYNH Not Available Start: 06-16-2023 End: 06-17-2023 ambulatory Gurpreet Higgins [place] [place]: 06-16-2023 End: 06-16-2023 Patient encounter procedure Gurpreet Castillod [facility] Start: 12-31-2022 End: 01-01-2023 ambulatory Gurpreet Castillod [place] Start: 12-31-2022 End: 12-31-2022 Patient encounter procedure Gurpreet Higgins [facility] Start: 12-09-2022 End: 12-10-2022 ambulatory Wendie C Renetta [place] Start: 12-09-2022 End: 12-09-2022 Patient encounter procedure Wendie C Renetta [facility] Start: 12-02-2022 End: 12-03-2022 ambulatory Wendie C Renetta [place] Start: 12-02-2022 End: 12-02-2022 Patient encounter procedure Wendie C Renetta [facility] Start: 11-25-2022 End: 12-03-2022 Pre-admission assessment Wendie C Renetta [facility] Start: 11-24-2022 End: 11-25-2022 ambulatory Wendie Jackson [place] Start: 11-24-2022 End: 11-24-2022 Patient encounter procedure Wendie Jackson [facility] Start: 11-11-2022 End: 11-11-[address] [...] End: 03-25-2022 Patient encounter procedure Jenelle GONZALEZ [facility] Start: 03-24-2022 End: [...] Td Vaccines (8 - Td or Tdap) [facility] Start: 07-10-2023 Influenza vaccination Influenza Vacc ine [facility] Start: 2020 Adult BMI Screening Adult BMI Screen ing [facility] Start: 2014 Depression Screening Depression Scre ening [facility] Start: 2014 Tobacco Screening Tobacco Screening [facility] Start: 2002 Screening for Chlamy dony trachomatis Chlamydia Screening [facility] Payers Date Payer Category Payer Medicaid [employer] HMO [id number] 2023-Present [phone] [address] [place] [address] [id number] 2019 Private Health Insurance 2002 Unknown [id number] 2.16.840.1.594435.3.579.2. 593 2002 Unknown [id number] 2.16.840.1.910115.3.579.2. 593 2002 Unknown [id number] 2.16.840.1.436254.3.579.2. 593 2002 Unknown [id number] 2.16.840.1.348401.3.579.2. 593 2002 Unknown [id number] 2.16.840.1.930014.3.579.2. 593 2002 Unknown [id number] 2.16.840.1.216942.3.579.2. 593 2002 Unknown [id number] 2.16.840.1.915574.3.579.2. 593 2002 Unknown [id number] 2.840.1.029583.3.579.2. 593 2002 Unknown [id number] 2.16840.1.617095.3.579.2. 593 2002 Unknown [id number] 2.16840.1.424704.3.579.2. 593 2002 Unknown [id number] 2.16840.1.131885.3.579.2. 593 2002 Unknown [id number] 2.840.1.635127.3.579.2. 593 2002 Unknown [id number] 2.16.840.1.621350.3.579.2. 593 2002 Unknown [id number] 2.16.840.1.408816.3.579.2. 593 2002 Unknown [id number] 2.16.840.1.522336.3.579.2. 593 2002 Unknown [id number] 2.16840.1.719486.3.579.2. 593 2002 Unknown [id number] 2.16.840.1.090906.3.579.2. 593 2002 Unknown [id number] 2.16.840.1.383678.3.579.2. 727 2002 Unknown [id number] 2.16.840.1.615512.3.579.2. 727 2002 Unknown [id number] 2.16.840.1.885208.3.579.2. 727 2002 Unknown [id number] 2.16.840.1.873774.3.579.2. 727 2002 Unknown [id number] 2.16.840.1.457021.3.579.2. 727 2002 Unknown [id number] 2.16.840.1.032926.3.579.2. 1286 2002 Unknown [id number] 2.16.840.1.415765.3.579.2. 1286 2002 Unknown [id number] 2.16.840.1.932792.3.579.2. 1259 2002 Unknown [id number] 2.16.840.1.404307.3.579.2. 1259 2002 Unknown [id number] 2.16.840.1.044101.3.579.2. 1259 1959 Medicaid [id number] 1957 Private Health Insurance [id number] 1957 Self-pay Social History Date Type Detail Facility Start: 03-25-2022 End: 10-28-2023 Tobacco smoking status Never smoked tobacco (finding) [facility] Tobacco smoking status Never Tamara [facility] Start: 11-11-2023 Sex Assigned At Female F [facility] Start: 10-28-2023 Tobacco use and exposure Smokeless tobacco non-user [facility] Start: 11-11-2023 Alcohol intake Lifetime non-d kaila (finding) [facility] Start: 11-11-2023 [facility] of [facility] Start: 06-02-2023 [facility] Start: 2000 Sex Assigned At [facility] Functional Status Date Assessment Result Facility 12-31-2022 Functional Status No [facility] History of Present illness Narrative 11-11-2023 Gricelda [...] Yes Have you been seen here at [facility] in a previous ? No Recent ER visits or hospitalizations? Patient reports she presented to [facility] approx. two weeks ago for cramping Bring blood sugar log or meter with you today? (Please bring them with you for every visit at [facility]) N/A Traveled outside the country in [...] and the other consultants, we search on [employer] and all the available care everywhere epic I did review all the imaging studies of the patient available on EMR, ordered by the primary care physician and the other polymer materials consultant HABITS: Patient activity no restrictions, diet [...] patient is in complete care of her exchange specialist. Patient does not have any future appointment scheduled with us Thank you for allowing me to participate in [facility] . If there any questions please do not hesitate to contact us. Sincerely, JAD WOODS MD documented in this encounter [facility] Hospital Discharge instructions 12-23-2022 Note Date & Type Note Facility 12-23-2022 Hospital Discharg e instructions Follow Up Care 12/23/2022 11:03:27 With:Ronaldo LEE, Gurpreet Levine, PUL, MIGDALIA Address: [address] [place] [address] [place] [address]- When:3 months [facility] Hospital Discharge instructions 03-25-2022 Note Date [...] instructions at home: Medicines Take or apply [id number] and prescription medicines only as told by [...] and water are not available, use hand acid loader. Try to avoid contact with other people [...] 01/16/2004 Document Revised: 02/14/2020 Document Reviewed: 05/12/2017 [employer] Patient Education 2020 [employer]. Follow Up Care 03/25/2022 10:27:35 With:Lori Jarvis DO Address:Unknown When: Unknown [facility] Evaluation + Plan note Note Date & Type Note Facility Evaluation + Plan note No data available for this section [facility] Evaluation + Plan note Note Date & Type Note Facility Evaluation + Plan note Future Appointments Appointment Date:07/01/2023 11:15:00 AM Scheduled Provider:Ronaldo LEE, Gurpreet Levine [facility] Appointment Type:Pulmonary Follow Up ([place]) [facility] Evaluation note Note Date & Type Note Facility Evaluation note Diagnosis Encounter for suspected anomaly ruled out- Primary documented in this encounter [facility] Hospital Discharge instructions Note Date & Type Note Facility Hospital Discharge instructions No data available for this section [facility] Instructions Note Date & Type Note Facility Instructions Not on filedocumented in this en counter [facility] Progress note Note Date & Type Note Facility Progress note No data available for this section [facility] Summary Purpose Family History No Family History Records FoundNo Family History Records FoundNo Family History Records FoundNo Family History Records Found Advance Directives No Advanced Directives Records FoundNo Advanced Directives Records FoundNo Advanced Directives Records FoundNo Advanced Directives Records Found Additional Source Comments Patient Care team informatio n (unrecognized section and content) Personnel Name: Wendie Jackson DO Address: Address: [address] [place] [address], [address] [id number] Personnel Name: Wendie Jackson DO Address: Address: S[place] Painter, [address] Personnel Name: Wendie Jackson DO Address: Address: Sergio Painter, [address] Personnel Name: Wendie Jackson DO Address: Address: [place] Painter, [address] Personnel Name: Wendie Jackson DO Address: Address: [place]ergio Painter, [address] Personnel Name: Wendie Jackson DO Address: Address: [place] Painter, [address] INFORMATION SOURCE (unrecogn ized section and content) DATE CREATED AUTHOR 01/30/2023 [facility] DATE CREATED AUTHOR AUTHOR'S ORGANIZ ATION 06/26/2023 [facility] DATE CREATED AUTHOR AUTHOR'S ORGANIZ ATION 11/15/2023 [facility] DATE CREATED AUTHOR AUTHOR'S ORGANIZ ATION 12/01/2023 [facility] EPIC Reason for Visit (unrecogniz [...] BE BASED ON THE PRIMARY CLINICAL RECORDS. [employer] [facility]. provides no warranty or guarantee of the accuracy or completeness of information in this document.
[2023-12-12 10:13] LABS: Basophils Percent Auto 0.5 % (0.2-2.0); Eosinophils Absolute Auto 0.2 10^3/uL (0.0-0.7); Eosinophils Percent Auto 2.1 % (0.9-7.0); Hematocrit 34.8 % (36.0-48.0); Hemoglobin 11.6 g/dL (12.0-16.0); Immature Granulocytes Abs Auto 0.04 10^3/uL (0.00-0.03); Immature Granulocytes Pct Auto 0.5 % (0.0-0.5); Lymphocytes Absolute Auto 1.3 10^3/uL (1.2-3.8); Lymphocytes Percent Auto 16.1 % (20.5-60.0); Mean Corpuscular HGB Conc 33.3 g/dL (29.9-35.2); Mean Corpuscular Hemoglobin 33.1 pg (26.7-34.0); Mean Corpuscular Volume 99.4 fL (81.0-99.0); Mean Platelet Volume 11.3 fL (9.5-13.5); Monocytes Absolute Auto 0.6 10^3/uL (0.3-0.8); Monocytes Percent Auto 7.4 % (1.7-12.0); Neutrophils Absolute Auto 5.9 10^3/uL (1.4-6.5); Neutrophils Percent Auto 73.4 % (43.0-75.0); Platelet Count 151 10^3/uL (150-450); Red Cell Distribution Width 12.6 % (11.0-15.0)
[2023-12-12 10:43] LABS: Glucose 1 Hour 128 mg/dL
== END 2023-12-12 09:06 | disposition home or self-care (01) ==
LOC: LAB 09:05
PROVIDERS: Visit Provider Obstetrics & Gynecology
DX: Z13.1 Encounter for screening for diabetes mellitus (principal)
CPT/HCPCS: 36415; 82950; 85025

== ENCOUNTER 2024-01-26 20:56 | Outpatient (REF) | payer OTHER, SELFPAY ==
--- OUTSIDE RECORDS SUMMARY | 2024-01-26 20:59 | XMS_ITS | CCD ---
Author Organization [facility] Care Team Providers Care [place] Senator Name Role Phone JarvisLori Primary Care Physician [phone] Wendie Jackson Primary Care Physician [phone] CHARLY ., DR GUILLORY Admitting Unavailable CHARLY ., DR GUILLORY Attending Unavailable CHARLY ., DR GUILLORY Consulting Unavailable REQUEST, DR NONE LISTED Primary Care Unavaila ble CHARLY ., DR GUILLORY Attending Unavailable CHARLY ., DR GUILLORY Admitting Unavailable REQUEST, DR NONE LISTED Primary Care Unavaila ble CHARLY ., DR GUILLORY Consulting Unavailable CHARLY ., DR GUILLORY Attending Unavailable CHARLY ., DR GUILLORY Admitting Unavailable REQUEST, NONE LISTED Primary Care Unavaila ble CHARLY ., DR GUILLORY Consulting Unavailable CHARLY ., DR GUILLORY Consulting Unavailable CHARLY ., DR GUILLORY Attending Unavailable CHARLY ., DR GUILLORY Admitting Unavailable REQUEST, DR NONE LISTED Primary Care Unavaila ble CHARLY ., DR GUILLORY Consulting Unavailable CHARLY ., DR GUILLORY Admitting Unavailable CHARLY ., DR GUILLORY Attending Unavailable REQUEST, DR NONE LISTED Primary Care Unavaila ble RODOLFO REYNOSO Consulting Unavailable ANA MUSA Attending Unavailable ANA MUSA Admitting Unavailable ANA MUSA Consulting Unavailable REQUEST, NONE LISTED Primary Care Unavaila ble CHARLY ., DR GUILLORY Consulting Unavailable CHARLY ., DR GUILLORY Attending Unavailable CHARLY ., DR GUILLORY Admitting Unavailable REQUEST, DR NONE LISTED Primary Care Unavaila ble CHARLY ., DR GUILLORY Admitting Unavailable CHARLY ., DR GUILLORY Attending Unavailable CHARLY ., DR GUILLORY Consulting Unavailable REQUEST, DR NONE LISTED Primary Care Unavaila ble CHARLY ., DR GUILLORY Attending Unavailable CHARLY ., DR GUILLORY Admitting Unavailable REQUEST, DR NONE LISTED Primary Care Unavaila ble WEST, COMPA Consulting Unavailable CHARLY ., DR GUILLORY Consulting Unavailable CHARLY ., DR GUILLORY Consulting Unavailable CHARLY ., DR GUILLORY Attending Unavailable CHARLY ., DR GUILLORY Admitting Unavailable MISC, DR SIMMONS Primary Care Unavailable MISC, DR SIMMONS Primary Care Unavailable CHARLY ., DR GUILLORY Admitting Unavailable CHARLY ., DR GUILLORY Attending Unavailable MISC, DR SIMMONS Primary Care Unavailable HAY ., DR PEREZ Attending Unavailable HAY ., DR PEREZ Admitting Unavailable HAY ., DR PEREZ Consulting Unavailable RODOLOF LÓPEZ Consulting Unavailable CHARLY ., DR GUILLORY Consulting Unavailable MISC, DR SIMMONS Primary Care Unavailable CHARLY ., DR GUILLORY Attending Unavailable CHARLY ., DR GUILLORY Admitting Unavailable CHARLY ., DR GUILLORY Procedure Practitioner Unavail able CHARLY ., DR GUILLORY Admitting Unavailable REQUEST, DR NONE LISTED Primary Care Unavaila ble CHARLY ., DR GUILLORY Attending Unavailable CHARLY ., DR GUILLORY Attending Unavailable CHARLY ., DR GUILLORY Admitting Unavailable REQUEST, DR NONE LISTED Primary Care Unavaila ble WEST, COMPA Consulting Unavailable CHARLY ., DR GUILLORY Consulting Unavailable CHARLY ., DR GUILLORY Consulting Unavailable CHARLY ., DR GUILLORY Attending Unavailable CHARLY ., DR GUILLORY Admitting Unavailable REQUEST, DR NONE LISTED Primary Care Unavaila ble DEBOEBRODOLFO COOK R Consulting Unavailable CHARLY ., DR GUILLORY Attending Unavailable CHARLY ., DR GUILLORY Admitting Unavailable REQUEST, DR NONE LISTED Primary Care Unavaila ble CHARLY ., DR GUILLORY Consulting Unavailable Higgins, Basem [...] C Attending Unavailable Unavailable Primary Care Provider Unavailabl e PASTORA PARKS R Referring Unavailable CHUCK, JAD Attending Unavailable PASTORA PARKS Referring Unavailable Chapincito Jackson MDyse Primary Care Provider [phone] LORI HUYNH Attending Unavailable PASTORA PARKS Attending Unavailable LORI HUYNH Attending Unavailable PASTORA PARKS Attending Unavailable LORI HUYNH Attending Unavailable Allergies Allergy Classification Reported Allergen(s) Allergy Type Date of Onset Reaction(s) Facility (8 sources) Bee/Wasp/Ant venom; Translations: [Bee Stings] Allergy to substance Swelling - edema - symptom (finding) [facility] (8 sources) Seafood; Translations: [Seafood] Food allergy diarrhea [facility] (1 source) Shrimp product Drug allergy (disorder) 2 [facility] (2 sources) wasp venom Drug allergy (disorder) 2 Unknown [facility] (2 sources) Polyethylene Glycols; Translations: [POLYETHYLENE GLYCOL] Drug Allergy 3 Anaphylaxis [facility] (2 sources) Shellfish; Translations: [SHELLFISH DERIVED] Propensity to adverse reactions to drug 3 Anaphylaxis [facility] (2 sources) Venom-Wasp; Translations: [VENOM-WASP] Propensity to adverse reactions to drug 3 [facility] (1 source) polyethylene glycol 300 Drug Allergy 3 Anaphylaxis [facility] (1 source) Shellfish Propensity to adverse reactions 3 Anaphylaxis [facility] Work Phone: (1 source) wasp venom Propensity to adverse reactions 3 [facility] (1 source) Shellfish-Derive d Products Propensity to adverse reactions 3 Anaphylaxis [facility] Medications Current Medications Medication Drug Class(es) Dates Sig (Normalized) Sig (Original) [id number] 200 actuat albuterol 0.09 mg/actuat metered dose inhaler (2 sources) beta2-Adrenergic Agonist Start: 12-31-2022 take 2 puff(s) by mouth every six hours Ventolin HFA 108 (90 Base) MCG/ACT inhaler inhale 2 puffs by mouth and INTO THE LUNGS every 6 hours if neede... (REFER TO PRESCRIPTION NOTES). 0 12/31/2022 Active take 2 puff(s) by in halation every six hours as needed for wheezing albuterol (PROVENTIL HFA;VENTOLIN HFA) 9 0 mcg/actuation inhaler Inhale 2 puffs every 6 (six) hours as needed for wheezing. 0 Active 60 actuat budesonide 0.08 mg/actuat / formoterol fumarate 0.0045 mg/actuat metered dose inhaler (2 sources) Corticosteroid, beta2-Adrenergic Agonist Start: 12-23-2022 take 1 puff(s) by mouth twice daily Symbicort 80-4.5 MCG/ACT inhaler inhale 1 puff by mouth twice a day Rinse mouth after use 0 12/23/2022 Active take 2 puff(s) by in halation in the morning budesonide-formoteroL (SYMBICORT) 80-4.5 mcg/actuation inhaler Inhale 2 puffs in the morning and 2 puffs before bedtime. 0 Active 168 hr ethinyl estradiol 0.03146 mg/hr / norelgestromin 0.18149 mg/hr transdermal system (7 sources) Progestin, Estrogen [...] TID, 20 gram, Refill(s) 0, [facility], 165, cm, 09/19/20 16:02:00 EST, Height/Length Dosing, 69.5, kg, 09/19/20 16:02:00 EST, Weight Dosing Start Date: 09/19/20 Status: Ordered Magnesium (2 sources) Start: 10-15-2023 End: 12-14-2023 take 2 tablets by mouth once in the morning magnesium 200 MG tablet Indications: Second trimester , headache in second trimester Take 2 tablets (400 mg) by mouth in the morning. 60 tablet 1 10/15/2023 12/14/2023 Active magnesium 200 mg tablet Take by mouth. 0 Active Kowdvbsj-Pjo-Hh-FA (, w/Iron & FA,) 27-0.8 MG tablet (1 source) Multivi t-Min-Fe-FA (, w/Iron & FA,) 27-0.8 MG tablet 1 (one) time each day at the same time. 0 Active no115/iron/folic ac id ( 19 [...] day(s), 1 EA, Refill(s) 5, [id number], 167, cm, 12/31/22 11:21:00 EST, Height/Length Dosing, [...] applicable or unspecified; Translations: [MAT CARE OTH KS FTL GRTH 3RD TM UNS] Onset: 09-25-2022 [...] Test Name Value Interpretation Reference Range Facility ALL CBC WITH AUTO DIFFon BASOPHILS ABSOLUTE AUTO 0.0 [facility] Basophils/100 WBC (Bld) 0.5 % 0.2 - 2.0 % [facility] Eosinophils/100 WBC (Bld) 2.1 % 0.9 - 7.0 % [facility] Erythrocyte distribution width (RBC) [Ratio] 12.6 % 11.0 - 15.0 % [facility] Hematocrit (Bld) [Volume fraction] 34.8 % Low 36.0 - 48.0 % [facility] Hemoglobin (Bld) [Mass/Vol] 11.6 g/dL Low 12.0 - 16.0 g/dL [facility] IMMATURE GRANULOCYTES ABS AUTO 0.04 High [facility] Immature granulocytes/100 WBC (Bld) 0.5 % 0.0 - 0.5 % [facility] Interpretation and review of laboratory results Abnormal [facility] LYMPHOCYTES ABSOLUTE AUTO 1.3 [facility] Lymphocytes/100 WBC (Bld) 16.1 % Low 20.5 - 60.0 % [facility] MCH (RBC) [Entitic mass] 33.1 pg 26.7 - 34.0 pg [facility] MCHC (RBC) [Mass/Vol] 33.3 g/dL 29.9 - 35.2 g/dL [facility] MCV (RBC) [Entitic vol] 99.4 fL High 81.0 - 99.0 fL [facility] MONOCYTES ABSOLUTE AUTO 0.6 [facility] Monocytes/100 WBC (Bld) 7.4 % 1.7 - 12.0 % [facility] NEUTROPHILS ABSOLUTE AUTO 5.9 [facility] Neutrophils/100 WBC (Bld) 73.4 % 43.0 - 75.0 % [facility] Platelet mean volume (Bld) [Entitic vol] 11.3 fL 9.5 - 13.5 fL [facility] TBH EO # 0.2 [facility]H PLT 151 [facility] TB RBC 3.50 Low [facility] TB WBC 8.0 [facility] Pulmonary Function Studieson 06-24-2023 Pulmonary Function Studies [...] READ BY: Portillo Correa M.D. Dictated: 06/23/2023 [id number] Transcribed: 06/23/2023 cc:Wendie Jackson D.O. cc:Gurpreet Higgins M.D. [facility] Comment on above: Result Comment: Elec tronically Signed By: Madeline LEE, Portillo X\.br\Date and Time Signed: 06/24/23 13:19 EDT Consent for Treatmenton Consent for Treatment [id number]#1 .00CD:127 Normal [facility] Pulmonary Function Testson 0 06-16-2023 Pulmonary Function Tests [id number]#1 .00CD:127 [facility] Reminderson 06-02-2023 Reminders - From: Tess Guaman To: - Clinical; Sent: 12/31/2022 14:08:49 EST Show [...] for PFT that was never done. Normal [facility] Coding Summary.on 01-13-2023 Coding Summary. [id number] G h0bWw+PGhlYWQ+RH7YTZQ bQ90xbFSfjM6DI7rODL3K XCAFRIZGRS9TYZ6heJJ1K LukW5OfqxPx EjyytFTpLA65XEh2PYG0d ElaFDyqbD1eyARyP0a8Yl ErHJ55gZ26WGawTJJvOgZ 3LjZpbjsgbWFy Z7ilWfHonNKuQla+PHRhY mxlIHdpZHRoPScxMDAlJy YtaIugRB9nNy4oSWUfRWI vbGxhcHNlOiBj n9afJLCnMXnfUB2wkUitS 0OviDA7DIEkl0a0Kf84rG I+PHIpJVO8qJseEAmux44 1EoQpu2qsDRJ7 nOUtABlhWQM3X30ks1W2C DCyOWOvRND7xHF7mI8qrD zzpjqrT2RbdLDsVsB7CUL 2aHOwfG9heZgp zhjjlL8dDna+U99RVO3UJ QKIJQ9BJop4W7AwRawenN I+WE33JTZiMA64oDNpiDT um3jdoVg4LcZs FNMfMII6vVnuEGdjk1LwV WSoT53euVPoa4U7WYUusR garUFrOxJqgYY6iO7nUMw hpkilj4kjsquw Yutrq1hqky46zJ93D61wK BkwFRZfVNZ2QNPqXVIwyT iagq3lhK7vDu6+KGjfm5l cp3hyePb5XqMc FKOvevWegYzgYXB3i4WnQ j75Q8JqoErnn2MhKgn0yn 02wMKtl1D1sXX8WBxvTYE fuB4aXXukPnQ8 KZQeBnBmhM84yERcJEolK g1fbLvetNgvRA3rHAKosa ezVYVevW6iNXVqvIQmqZh jNW8kDGBarowy q289FkRmQBI5KFIsmOJoD 4NnnY5vFuOyMIBkEPJeJ1 AewVVbPNtuY457KMssVjU 9CWAsoqHnP1Hi HZGlyZdqIvH2z6N0Xu6Wl 5CsxmlfKKC5VKniADZfIj G9KnTnQoN3W5DtYzs5GMT bsOvwIJ6rH6Tp MVGkwpmjdefzvCS9RYTgK VHvpD60kTXyJDucBh9wm0 F8p537APUxUEWfrR03Fr1 udDogMTBwdCBU pU9cvhjsj2xqsvgtKdQgM BBaFMx2PXo8MZXdyCmhZs SwTGW1MxZ3ITZ1bFOnbG4 jsMeocyuinS3l Oyc+O00daP8lSSG2PFJ5v ywiEQAwkrUuDR34ML40F9 RyPjwvdGFibGU+PGRpdiB ubMxdPF7iRhPl w6tvs0FxEAalQ7AiQIGxX BtaYad8PJCuEXV0kXU2dP 9fHNWyFSjzx3P5pJQ1D9W ilqYavj2pw6tm NUNqTZhaO56iqYGfr4N9Q GCtjAS4ZXXcdZfqPrPrcN 93Oyc+KMZyqMyyn0AkIic vf3dfh7pvrUe0 XvSuRADpcpAczEriEOC0r 0QnAr01V26rGZihAUKzVI KvXFMeUXWbrSfzsw1yqS4 wIi8+PGNvbCB3 zBA4jR7pXUWvEtG2CUtyE 275UwUxhZPvFzeav1hdj3 axcZu6ZzKvZOZnxhBjvBj gTOW0a2PnEt54 Q80dKOgzKAQjBGHmBAJiJ WUofViukp2hdO1hMj7+PC 8ad3kqsn68aI74uKP+PHR pXFN6rZixCSmz UZRsfW3qZVtdLzD5WNNsH tXnjD12fSUkLCtkZq5hpJ zrpXuwUZ6mUQCuxkqyj64 5TfAgz6muLFXy hWPpGBafLGX7C72nd5Y5B PApFMGgXVU4cCI6bV7njY lnbjogbGVmdDsgdmVydGl bFMgfPHlxK374 IHRvcDsnPlBhdGllbnQgT kVlSPm2H3JjVkt2SNCfpY teYA5ceCGqQIzyRm7cyLv kkJtjTU5lEXTt nwrhf039CzDqe5hoXFQvj DLdUOcfKIH5W80db1D8XQ OzPIHfUFJ8eKL1hR4maOq nbjogbGVmdDsg hwOnqEzlDPvrBFncL911V HRvcDsnPkJpcnRoIERhdG O4NZ61BQ41lOZxm5I0cCR 7I7BjVZYcfaew yobnpNZ9BNJiPDGasO38C z1kdDxsRa6eDRMwLYN4JM QnxBZmX5MfoC9tAdOnZTM uNZKoS0AruHPa HAwtI878ZXcnKsA0OGRcm bFoM9LgSRKayJmeKbF3k9 X8Zq7RD0A7CW75QY70fDB fg8I0xTI9S3Jk ZQHdcfezbvsjhSD4HFNjA YVbhG78Vk5hbKshTd9xNU NkJXA3MSZyrDAgC6OlhK4 yOiAjMDAwMDAw R5JepLQySGirN053AJjrV cW5RNBwdsZjQ4QlDCQuaZ xwBsJ7x7O5Zz3WQNx7MY2 3UF18mKQgt1B3 vVG0J7FzILTounqboolyp QR6PUMfNBGzlP17Mt9egV uwJi3lSGCaGUN4IMMhsDU bN4VmpG7yPtGg BOUnBQHcS7GdzLJoVZcpV 679HHonAlO2GKOxjzWuJ6 UgCHKpyLuwEkQ1t1H2Bb8 KBWPgQE24DMT4 uOH4SK85AS12T6KwAdwmz GFibGU+PHRhYmxlIHdpZH RoPScxMDAlJyBzdHlsZT0 xUo1hNKJtVDRx kKqasNKcApTuc8jmRTErX LckJQ2umEfuR8FhjVE9HF Ccx0l3Sn21M64gP6DvoRK +JBYazDT1rXM2 vW9iIfSrIkE4QJkmM532W uZqeULzZcfdo6dza9cxoC f0TxF1VCTxzgDqbRltUDB 7p4MtCs99N62h IHdpZHRoPSIxNSUiIHZhb Obais9pcB6nTv0+PGNvbC L5iLS0mD7oWhIvWjX6EIn lG827WlItvXLr Dbfih5nea4hhuPv9RtOeG FGldwVorMidBIY6o2WaBt 64Y0LkePpwo0IwQug4rq3 1lRFod0C3iFY0 L3TeOUFlwrairENgmIykO N9kYQGmlotcBTGhsX7pVV GxT9t0KvWtAuM0DLscA5P svbK0GTFjuESt MYdxSID2O32ib7F3KKAaH IHiVTJ1oOT1dJ1suZwlvn ogbGVmdDsgdmVydGljYWw dULajV276UXCs yAxrTFCkwR4tXTKpuXWag DdbCQ8yMXHhdrftOdwGKL 7ACc7FAqzfUfRFSANGXIK UFUOYTCp3Q6Ho Zvu0YHIacEqvXQ7sgMVuU HqoTf2tsNcrcPqoMC3rWW DyrjhcBKOcqO9pNPDegKZ nqPnwJD6zKXZu wvhqd798ZgGwPDR1YTTby IBkZ7AlsH5mPfAdKQJeHD PdX3RtrPKdYSidU269QXj uOpM7KWXztfLm Z3MnGEDvdKlvAoX5q5T2O m6mHy4mKD0nEQRbGG03JA 39qCEhq3Y8uIL3D9OnPIW pbmctcmlnaHQ6 CEUpLZQlbD54iGUyNDenX v4wg9Q0f315GJSySKWoaI 43Fq7cmXvyKGBewCKCzB8 jzkile1rsxcju IjLdVOAbIAc2EJe3GDXaq KmkXsLhZXF3JzW3SOP0dO SevN5xbOhydygqtC7cSyo +MjAgWWVhcnM8 N4VvBff0ADMgcCtvMA5iz QNrGDxfUi0zrKyprWseKB 1wGOWgnzhoBXHzrB1fTRX rvWMwmXthSQ5j JRXdrkliu466BtOlDFY1F AGllYBcN6DemW5xIfDcGZ SyBBNuL3ZuzYQkDVlpS41 3XNezItG7ZMKp ybQxR4KfJEJayAjvLvQ3j 9R4Xw5SFL3zvSY6P3XjNw t4NMKhzCefNS6ayLXgDBi qTa6yaHxogXkp EQ6uNIXhbyxoZLBgqX7jZ TAlfWKacDkzUJ0kCPGlod pke352JyNsNNT3NSJgbMO xO2XqtV1xJcQt SUJaHGNfG2CyfAOfFLjuU 400TPzoNwK5BEZdvuUpH4 QiVOSmwEakTkB4h1R9Px3 HcMOhSKLvAC15 KW25SW07D9KmHbadaLLul +PHRhYmxlIHdpZHRoPS ueIJDwLnWnqHlqTD8eHy6 yZGVyLWNvbGxh qAHeScOrc1wpZCVgOEyeL D0vcFamY5XksBQ8LQNfl7 w4Fa49S01nY9ZxyXK+PGN sqMT9sXE0qP4y FwKwSlD7LZeeN012NaGhu NAeHkyky2mws4sluGm6Dt PfRBZobaMtrTnpHPI1o3H qAz96B62jEIeq ZHRoPSIyMCUiIHZhbGlnb j5ekJ8eHc8+ITZicMS7xB U5mF6mHjCjIqX0MRzeX93 9InRvcCIvPjwv M17sB8CtjLC+ERVpZjy8S FObcKunTM9zhRZpUAsyMo 5uIFQ6KaLjYmBxRFjrC0M hZGRpbmctcmln oRX2IQChLTGdxU06Is1eb TbwXm8rWOWgQQO5TCKfaE VvK7ZigC9oMtBdULWoOYV vR2SmuNNaDVte M924MLxhGsX8IBCbveFfZ 4LwQJDeyPaoZzM2x3K5Fx 0OoKrqqKOyMM8tQpKgKUt 4V8CgVsz8RZHw eHplNB7fsBZeKTrlHs6vb ApauYciEC8aJTQmzcohp3 87LhVtn1pvKIWsbAMbQDj kUFP5Y51af7J9 ZKLdRJVwEKG3bVD1jH3gx GlnbjogbGVmdDsgdmVydG rtZJvtOBacI209DTVslCa dVxHZViy2S0Kz Knr3EVFkoNqbRO6nwEFeL LrwMa3mnLizeTlfSL1qJG Afocbpm075UfCkr0awCQO wcHQgVGltZXM7 F53tx6A7VSQiBCCjUGL9g QV1tB5ebPoeijvhxHXkhA izpgEuuMfdYZboWKkfH76 5KTGamEhzDx6G Gku4O6HwHrj1XFBzwVpoH P7zxZPgIDfxTm0otVrlcR jhEF1cKGKsycedc870TxD cl1adOYXfoUEl FYdvPEC9S49to3R9EPLsT RPgFOI0wFZ8rH6jjIdtuo ogbGVmdDsgdmVydGljYWw nZNroI326VIUx cDsnPlBheWVyOjwvdGQ+P E46yq13Z1WlFdwaFoe1YR PxXDU3dLJ4cH0iPGUnCOv cq2S3tEU1O2Vx cmRl (more content not included)... Normal [facility] Consent for Treatmenton 12-11 Consent for Treatment [id number]#1 .00CD:127 Normal [facility] Heart and Vascular Office/Cl inic Noteon 12-31-2022 [...] with poor quality flow volume loops. Per facilities maintenance technician the patient was carrying her baby [...] day(s), 1 EA, Refill(s) 5, [id number], 167, cm, 12/31/22 11:21:00 EST, Height/Length Dosing, 59.1, kg, 12/31/22 11:21:00 EST, Weight Dosing Pulmonary Function Testing Follow-up With When Contact Information Ronaldo LEE, Gurpreet Levine, PUL, MIGDALIA Within [address] [place] [address]- Additional Instructions: Problem List/Past Medical [...] taking Allergie (more content not included)... Normal [facility] Comment on above: Result Comment: Elec tronically Signed By: Gurpreet Higgins MD\.br\Date and Time Signed: 12/31/22 12:07 EST Physician Orderon 12-31-2022 Physician Order [id number]#1 .00CD:127 Normal [facility] Referrals Officeon 3 Referrals Office [id number]# 1.00CD:127 Normal [facility] Pulmonary Function Studieson 12-19-2022 Pulmonary Function [...] diffusion capacity. READ BY: Gurpreet Higgins M.D. Dictated: 12/14/2022 [id number] Transcribed: 12/15/2022 cc:Wendie Jackson D.O. Normal [facility] Comment on above: Result Comment: Elec tronically Signed By: Ronaldo LEE, Gurpreet Levine\.br\Date and Time Signed: 12/19/22 09:37 EST Coding Summary.on 12-11-2022 Coding Summary. [id number] G h0bWw+PGhlYWQ+KA3DMVM iG31bvFSfmM0BW1hDDT7J QTUCDNZDLF8ZHY3ymGT9Z DmlU9BdgvOi QibovANyHS04DHd6YDS7u HjbKIpbwT3nzNIsO8g5Ae WxZA52jG61NMvvTRNeCcA 3LjZpbjsgbWFy X7kqVqJopYOpPad+PHRhY mxlIHdpZHRoPScxMDAlJy TtrKceIV0xXl4jFRTwDQM vbGxhcHNlOiBj d8dqGXLrRWulAJ3ziTlnR 5ZmuNW1CNJot9d7Rv32qZ I+TGWkKVC9dGbbQAata61 8BjTpn6gxIJV7 kDMgGNsoNHO1Z77bs0B7G QXlBGFaGXN9jWQ2hN8xtW tpggycI7EttHVeAhL5MRA 7eDBfhJ5vvWcr vhhoiZ3lByk+G99JJG5KV KGNIK6FErl8Y6HfGtjsxQ I+ZH31CCJtLR35uIDotXJ mc0apnTi1PpUw XUOaQBN0qPdnCEahq6GnB QClZ79fvEXam6P6RETagN wwiGSuKwStcCC4zO6xGIa ptpwry3bpocfx Xfteg2mvnm97aL61P41nX VcnROCkXBX3HHRjNCYbrJ ukqz6zaT3zZe3+BZyuy1t hn5rkgLj7HmFo DZMqisLrkRjqTIG5q5SqD i16G6KhsKjwa6HyOyx4el 44fHSth0H2cEG1LDcxNRK uxM1wTIktBnJ0 AMPuPhAvpY19qBGsGOjxK q6uhMhafXayNU5nGKRili ypRZJlnM2dQIWnpXSjnYw iQU2lAUYeugjf p407EiFnHNP5LZFfnMWnT 1MxgX3bDuYaPBPyEVDwF9 GqeWDaAYfdX246TDfqFnQ 0NCWycaPpJ2Hy HUTjuImcGoI3p2Q3Ax8At 0LxytkyMQT6KWjlWPPbAy WePlPoJsE0V1NlUft7KHI cdPwrST8fZ8Rs OQUouvcecqpnxBY3QDNhT YXnwL70dUBxVZwxZt2xb8 P2y127WJTtBVJviJ98Le4 udDogMTBwdCBU wW8ybyedd3wihczbWmDlJ CPiSLr2QNh3ABOnwGdfDb EvSDD6HgE6MFS2oABraB5 jrVeyyuksxM4j Oyc+V18tsX6tZZJ5CWD1l vazXTKsmrGeIT74LC92U7 RyPjwvdGFibGU+PGRpdiB xxNbdOI9mRbOy t6gdy5XoQKfzX2FaPZXvF FhxMij1JIWpYMJ7gXK5wH 0oNTPsHIkji1G6rZI1W5H ggwXnbd3cu1oc YBAsALcxO87asBAyl4M3D SWvjEX8RRQjnOzqKqVyjQ 93Oyc+GBXiaIpqm5EoTyv my8axp2cvpBb1 YhRwLFKravGnqEurOQJ1l 6GvWs61D33rCHfhFARpBT QhGRLtDVKvnHzjus3kfX0 wIi8+PGNvbCB3 dPI6rZ8xPFMdViG3OZgnA 900ObSzmXZuCszle1viy4 dmnPa8IvEdOWYdazWjwVm iOMU6i9CiFi14 I01iUPwvCMMmFPYjXIWiI BQiwCtefi2yhL2sAq0+PC 6nj8glcs13zQ45cGB+PHR fCAL6jTlgLXnn FOOzqJ4tENoiSgB9DJAkO oMsjR32bKBtTKzdSo0eyE avmCbkNG5tTMAlifamf73 5IrOnw3zhPVMi mETpIZtdDDA8D93ql4V0C YNoTUOePDY6kTE7iM7lhZ lnbjogbGVmdDsgdmVydGl uENeeVMxlF703 IHRvcDsnPlBhdGllbnQgT xPhAYq1Y9KoTvy7QWGwnZ dkVC0dfMLoQRiyNr4niCc iaNkoRR2iDKLy dgqfk453XxOdn1snYZZtx FGvWZabBHJ6T38yf7O8XQ TsRNEaEWW5zJZ8qS4urSq nbjogbGVmdDsg vmNgnWxsIVprINgxN937C HRvcDsnPkJpcnRoIERhdG N8CJ65EN76dQTqj8W8iRM 7L6QcVWOwnlit hobupJN8ENBjZPNefC76W b0eyIbjIq9tJOJhZAY0GU BnbPUsE2OedR6fIsWhARV qLFLoD6NidVXq CNfrL461LNwqBfL6DWIdo jSzA1VhRPNufQvnYmW5n8 N9Vh8LR0K4TT07WX48gOF je8L8zOG1Q1Hd VDMbqrsjhyeyhBB8BAWyD XCfuI46Nu6ixZdnXf7hYB ZyCBY6RPMqaIJrL1OyzQ3 yOiAjMDAwMDAw U7CqbDChNExnQ187KYoyX yB8JDKludRwG5QnTGHmhE piStU0t4H1Tv1EYRu6QU6 8VC12gAChn2A3 qYB9V0VcZASsifqiakfce TT4UWBhHVPauR70Du7bhK wiXx2iGTRrNHA4LDCboXI cF2UgpT9iSiOn OKHwBPJlI2UeaVSrTAqeM 745DBsjGqX0ZMDqxsLyW2 AeUTPdqIcjYmV1g0W8Ev1 XBBMdUI58OXR3 wDA9HD22KB22T5AcGepcb GFibGU+PHRhYmxlIHdpZH RoPScxMDAlJyBzdHlsZT0 cAq8jTUCnNZLh nUrwdPXnNbRsu7wvHPFbQ XnoVV6tcVslT4SycDH6TM Wqd7m7Yh30Q14tW5CbsDY +YZWznVV5bIV5 zO1jTjIiMtJ8AQuyI054V mPvrBVnBugsa1eqr3ajaX x1YeP5ZCYmndNsrBknLKT 5w9VyFl90V93u IHdpZHRoPSIxNSUiIHZhb Eebub3wfW9zPw4+PGNvbC R5oDK2sG0nFbQmCyV4DLf xT728JtTqmIPk Kyfdn9nez4ebrUc3ZbReE OUtyeDwgEjsLYA6l4MeLd 57X4QynUhtg0HaZnq6mz0 3xPYny9H9uGJ3 N2ZbCEAembeyvJKhhHewK O2eYRTeoaugLIBpvQ2lKV IpJ9v3PzKtNfM2TSwiZ2H juaH9IYDtoVEi SEtpOGQ1G25cw8S9WNNqV EYlBPW1pTE4bD2yfOamfy ogbGVmdDsgdmVydGljYWw vVKfnI913MJEd nPcjFIMopN3iIMWqaGWje GqlEQ1yUQRtngcsPxvLUD 4BWs3VEslqDnZQQJFDKNG IKLUHAFr2N0Bu Oyc0TXLbqIrbWD1opVSxY FomJq1lbRngqRrcLW2cJG NxbaogMXZrtS1eBCOhnRM dsNmbXX7eFHNg ochyz001HbJfMOE7VERvc VBoB7IwfL7fFbQeNRJwGB ZvG6VuoKWkSQjoF289DSk zRqO8PHVycqXb K8HmETYxxZxnGcV5g7J6A l5iJb2lGD3yKYOzGW97DW 64sZWyu5I6wSK9C8BwWYT pbmctcmlnaHQ6 XQStEUMarR22hRVbDCsfO x1ro9Y1q402CSGvGKCvcM 45Jx0xsKpcENBlaBKMrT0 jcetbl9gxphtn VxYiJRPdPEh0RNw8TDYis AqaUvPdFBK4OcQ6VVY2oJ JxdF3zmVkjzwsszP3lWta +MTkgWWVhcnM8 F8YcWxv7VNQcsWwuUT0tm NGpNHtrEw4puYzmbNblMK 9vPNOqtoojBFWkcW7hRBJ qoOUiiGfsAV9s GPGwndfcg323ZwScVXG4J CDnfSBjX8UppN3uRkObEG RwVIZcD3VpiMJjLMpoR17 4VAemExH6LLUu nlJyY4LsSMFwqLnnIfJ4n 8U6Cg5FCS0jjZJ4D3MaYn q2KWJsoFooPY2qyOFrZNt xCb9ikVnyaIts FC3aGJBfnjsxVFNkrV2mV JAzbUHmmLvqJR8uGDEsya lln494HcKcROE1IBRdoWG lJ1PiuZ4wPyBu FSHxOVJzU9SfpEXeDSsyI 498XExlPxJ5DQJeaeBqZ9 WrAJUufHinCaP3q1A2Jf0 PuCIrLGSnKT89 FS25EX09U2HmFimoyKZhv +PHRhYmxlIHdpZHRoPS abLKPlXtIadDjyTZ0vVn5 yZGVyLWNvbGxh gWYsFgWce8xfVLIoRHrjE T2ifIgoT4OyfXT6FSDrk9 z6Vc92D24oZ2HtpTQ+PGN bfRX4eAC7zN5f ZwMiDcL8UJwbP644BzCft RHyAvhbl5uqz8fldAj2Ct InVKTbewCtiSrhUBW6a3Z jAz34Q26qVDhm ZHRoPSIyMCUiIHZhbGlnb v4clT8mEi5+IIDnxJK1yC U5pA2hVzDtQgQ8WWepS30 9InRvcCIvPjwv E95pQ2TmfVS+DLHnHsq7B UAucLdwXZ8wpDYkGNfoAd 2aEWP6SuKbDyMpIQfaG4N hZGRpbmctcmln pLT6XKQnXDPsqW24Wp3uz UuiJv7nFDMwNKE7ZRRvjP PsS6JyrD8cIxKaLJWtZXO dV1PswFKnNKgg F249GJibNsY2KUDrblUrA 4PfXVQsuDhmGlU2c2I4Wx 1NgJekjDJmIA9xRmZgQDi 7O9SoYfm5MANv jGwpMY6dvSZfFWetPr4gp FakxGggYW6zKFYzzjapu0 51DtTuk0bcCGZoyCUhAEt rKRA5K82tq7D9 LSWbQHXcGOU1bUS7gS5nw GlnbjogbGVmdDsgdmVydG icNNilSEcqI719STXwwKc eExLJYyl5E6Cq Vvp5WWZavQnvRF9xnOKyP RpkDd3wcLzjgCxjUK7dOO Vleoihd082HmUhb1nwUVI wcHQgVGltZXM7 T17sm1X5EDCnBRUgDPD1e NN8tG3dvDfqhrznjQZkqA goyfEneEnbOSbpNYjiF77 3DRBadObuVa2Q Qna8B8WyQmx7PPGouLleI T0dqFHuPSjhHv9ihGbrpO mcCK3iIUSqzupbu389WkK lg4opDANcwODe CEgoJTZ5J50ji4F4IIPyS BSlUEN2mIU3nN9ggSianu ogbGVmdDsgdmVydGljYWw wVGecS420BJNv cDsnPlBheWVyOjwvdGQ+P F65dn50L8LaLybdLay4XX XkOVQ5kPW2pV0xCFGmDJm ed0K8zTK5O6Av cmRl (more content not included)... Normal [facility] Consent for Treatmenton 11-11 Consent for Treatment [id number]#1 .00CD:127 Normal [facility] Pulmonary Function Testson 0 12-09-2022 Pulmonary Function Tests [id number]# 1.00CD:127 Normal [facility] Physician Orderon 12-08-2022 Physician Order [id number] 0 [id number]# 1.00CD:127 Normal [facility] Physician Order [id number] 0 [id number]#1 .00CD:127 Normal [facility] Physician Order [id number] 0 [id number]#1 .00CD:127 Normal [facility] Coding Summary.on 12-05-2022 Coding Summary. CD:[id number] G h0bWw+PGhlYWQ+IT5HUHH vR86ztKNjrI1ZV5jUXR8K NWPOLAIXTU7ART2zgOG7V CvpB7OwjmHp UiuhpUAgMP05TYk0LFD0y VmbLQbmoP4boDSkY3d5Du WaZU41nI41GKxoSSAsOhM 3LjZpbjsgbWFy D6tzWoFgzRAePlw+PHRhY mxlIHdpZHRoPScxMDAlJy MuoLwaVK9pHu9bBRYzYEF vbGxhcHNlOiBj u1lhFXDuCHeaKK9afQamL 7WiuBG1EVSnu8y9Rn03eQ I+AKPiRYD6wQplEUrts23 1SrNjl8vkLRJ6 wNXhUJbuBMY1A01lq9L7T DGrVYDhAIK7aSQ6wT3foH skxmpkK9CeeSVtRwU9AYE 8oPIcxM7ctIii bhpxoK0tOcs+J62JMH8XL UOJHA6XCsv7N5NpVsgtxM I+JG17UMBhTP49cQLluEF ia2qokLh6OoAo NKFbMBE7hEevXAwoa5MuP MNcX51zvBSjz8H9FVFuhA jgwTDxRqEhzEK2nZ9bGOn rsqqzb7tituae Iwwaq5luhq32aF00Y82yY PmcBCJcDTG7DRBvKNWnvV njyp0olW3qQk8+UWyan7a ot3dusUh3ZmPe PBJstvPokRatETQ8y1YyK w33Q7VhiAdrq1VhUod0vw 69pCCld5P7hGE0FJfsJWG bzQ8bORqcDkK3 CVJtRnKuaV42vZPjDZyxN q5uaLoyhTtzLZ4xPNMruj rrWIQfuZ7tZDBntCPqcNm nJN2vYMOuizas o159JhYrEYP0UNKlaEBcK 0YgiR3iXgLjCLXrUVSrL2 EvyISqASotV059ETgnSuE 3CJMpovYaG7Nc UUMflUulSnY0j5J7Dn6Qk 2JsspdgMPI2AAcrFYSqUv I2WsAcFdZ0C6KdPln7JTV vnGfdKP1xO8Dj CGIcstmczalgtRG4YDNbS AShmF58pKOyAYykMd7nt2 O3t955QHXsCUJfnM94Yi1 udDogMTBwdCBU iH2dxvrpc2mslvgjTqIwI XYkOAc7MCv8CMNvuIliZy WlNQK8XyK1ZAM3vHGddX6 baCwdyyburL8g Oyc+V60kxX3iKGL5WTX6z ttdUSHaczJcQV77IM97P6 RyPjwvdGFibGU+PGRpdiB ayPjhWL1oRfUd r6ors2CrIAjoX0EvTBXcK MazLob3UZDsVNI5xVN6yT 0wRYGrTOoxi6V8jGI4I2Z lneMiei4ru9iv AVZnTRpaV89wkTZvg3Y8A MCmpGI1GNPoqXvaWqTiuC 93Oyc+IHOxsLajw8ZtFhi on0tse6rvvJa4 AwDoZJUqyhAamNjxUPQ5m 1LmNv43P81tBAkmPCGmAC NqDUNgBTBcxMatgo0lmD8 wIi8+PGNvbCB3 nEK3nF8gPEVqVnT6JUgeI 246UmRakKNsViezp8rzs8 oljKs3KcImZJKspzGvgNy wFKI7z4BoWn66 T67pFFbwNSXnOUPcUHOsR XLznWmlvi5mpP1sIa4+PC 6xg8exbv72rA50aSI+PHR bBBO2eTuiHBfd BCXepQ7rERhcNtU9LNXyC sNarS70jPArVPpsJd1ajL qttYqmVM7qCXUjacjas58 0OtRcr4kxJAHf nMKiMGgfDGF3V04lv4U1P OKtALCzFPP6vJI4vS1swF lnbjogbGVmdDsgdmVydGl yHTplUHjmG643 IHRvcDsnPlBhdGllbnQgT fAmAKo0J1BlMhl5XXYzcQ klAD5deKEfIXhmOt6ozQp gdSefGS1iHCGe qymsd799MsNzp8snQUNmy LIjLGovESD0G83wb4G4MN SaUNNqYNQ4qBS1dP2euHm nbjogbGVmdDsg ddAawBtvDVowBUqrE268R HRvcDsnPkJpcnRoIERhdG O9YJ87BF21jCGlf0E9dUQ 6W0HoWPLdnoqs cnmbvWF7LOAdOUAlmZ01F f8juUviNu3eSOUtRDV3BB UrtDEnT7JqbI7jEzStUMJ eNJSyH5WjnDCc DLfpQ675CItlHcS0CGNwu rUxS7DrZFXpsTyfIqQ8h6 H9Hr7OM2K2MU81DU72kYA ns2N9qYM7E6Ly WGXqwbxxnxevuPE7OLVdD WBprA74Eq5rtSznYa8dZA HoFFW0EGHigPGdW4HjqS9 yOiAjMDAwMDAw F0CffCTfIJkrC956PWiiY bY8KUJxysKmG0ThUURwtL ytZgU5c5G4Cs1OEHr3YM2 7HV98pEXff5W4 qGU1S0LfTLEbuhantkhqi RE0GOYmRMYkfY35Xf2rrP pyUe3aTOAiNYU0BOTleKB bH2BmgR3rDhWp SQYrUJLhP1SwvQBbKAqeN 083GLyjPdP2UIXydqYmL3 ZyUMAinHrsHfI3f4Z9At3 IOOCzAX60NOU8 zGF5NV78OH15L7FkIsuet GFibGU+PHRhYmxlIHdpZH RoPScxMDAlJyBzdHlsZT0 eMu7vXSVhIXMn cUtteBHuYkNms3xeRJVpF ZvbPK9xwFpdJ0JxrJI5FW Bjo9u6Tm70S48rH3PkoPM +XMBhqEN9wUO9 mP2fIeLsVdP5MNoaM501T jLeuKMdOshul1elx0ogcV t6SlW6XFHjpyEdwIfqAJQ 8i1EmNy16X82n IHdpZHRoPSIxNSUiIHZhb Mqgpb5quR8zTv7+PGNvbC O7uOL9gA7cHwViNgI5RSp nZ816CsGchXEp Xoacy5quv4lzbHy2XhGmF CSvpeQpcGguTGE1k6PwJa 88J4VpfDndm0ToBip6bp8 4aGPxb3S9sGB9 A8CmNKCsqcqcfJBksNstL L7lUURrhxodZRVrrC4nFB FbZ8d8KgGkVvY5JRofD6M pxiW8TRFhcJGd BHztWDH4N72bk0A9AEOxG ZQnHSF4gXX5hU3lmCblqn ogbGVmdDsgdmVydGljYWw xSUvcJ125HHNt uWnsJCKivV8yZZKfyQEne KuuWT4qBRWjhpljLiwKZG 0YKv9RMvywUdAKVLPLZHB UMHEKAAz8L3Lt Lai4DNPprAolYO7vlMWmJ HfuDn5sjHzpaQcvET6hTP EahproDHJbaG1xHETjpNN rrOwqKH0kOHUe qbzbq244AeIyWSF9AORxa VUoM5DosU0kCcLvMOLrUS RzQ6NkuHQkTEnvF782YQh dPbN8CNOskvTd Y7NdIVYoxEmmObH6l2K3L q7iNj1kBN9sCRAnBU72TA 54aYOoq6V7aWY7B7IgNZP pbmctcmlnaHQ6 FTZmBPOxeL54pKZnAAuqQ z8id3V5y794UYIpLCYwfY 97Mn2bvXcjWAKmaZKWzU7 iyjrde5mlkmfl XoAlECIqWUq9JTn2XHFtj ShsYdBbSMH3EtO5YYO3wO YlfY8eaGhdrrwotW8cMge +MTkgWWVhcnM8 S2QcBqj3ARNsrKuuFB8nb XZjGBxnWa0hkHujqMrnAV 7fQXVwdyinFFVppL9mJCG hjVQiuAuhWA9z PKLkmxipi469EzVsXZI7L CRdxSTbG6ExpB6dVeDtFY NjWVFaK2GpoAKnEWngD80 1DUjfPgG5QSBv xzLxG2LgKCWvmXsiMaY5f 1G6Iy4FWT4maTV3C1MaIh q8GTGnqOkcIK1foRVfHPy qOi1anEmkiLvx AN4eGPFnelggJBYtwG3lV TUlfEGjlHulCX7oPOViam hno060RnSbLOQ6ZJKwuSX jH5BrzV6dQdBu WGHrZOKxK9BuzHRePXamY 050SHnjLhI4RBDateCaF8 AxBFVyvQbyVsL9r6S0Ux1 ZcFOtFCWgBJ44 MS43VR17V4CtRuuycEHpo +PHRhYmxlIHdpZHRoPS sxRIUoKkLakBxbFX6qEq5 yZGVyLWNvbGxh eVAnMwGct9laUOGzWRrbX B1ukNzvN7JdqIW8XPShh5 n9Dt15U82yL2UzjVB+PGN pxRI8tPY9bK4c FqTnVyS8XBilO538WeKok IUhFlisq2zeb0wlwAt0Me LaYPRjcuTmsLcqVHA8e4E hKu89T37sDJic ZHRoPSIyMCUiIHZhbGlnb p4lgR2sLz4+GBYxzLZ4aS O8qT6jOcRnIrU3FAwhJ76 9InRvcCIvPjwv R85tZ5FptDK+WGAkPfv8P XCivSglWR1dkNOqITauOn 5oNOF6JsCsXmPsOAtoQ4Z hZGRpbmctcmln mPL4ZDWmEMNiwI99Wy9ne YvhTi5tFWEpXSC8ZGSgxF PsK2MngA2yAhErDPMsXSR jL6KvxLSqCGnd V538TMllPbN3HOHmglXaO 3MaWXEzeVlwBpF8v0W1Ca 6ZsTfacTAvVM1oNjZlNFn 7P1UfFyc9ITYc qDyzIA7alPQgXGbbAg6ks UdzkBwjBA9sNPPeetezo8 14VtQfe8obPGQyrFHcAQj zGTX4V68zs4A4 CGFwNKMiMAG1nNQ0nF3kv GlnbjogbGVmdDsgdmVydG ceEXthHMbwB476SZJbeRh fApZVYke1I8Zh Ijz0DUFrbQthCY3jgJRgZ CrxUu3wpZkkyYuvGJ3zGE Hdfbugk332HvXhy4jbJOS wcHQgVGltZXM7 A00pd5I5PEGiRFPcBAM6b NG7eR0wkGipbtqtyQIbeR xhndSfuBozPSjuNEawC53 9KLVpxGvkVv7F Jjy2M0WoDlp0BKStpOkvM I4npYZuZBizGo4zhUhmyM xcPD8nZFXuhrmye070IiJ qs3dpUZTreHPr TAzmHDB9E43sw8K9VYOaM TJoSBG2mTC1rW8huBrnth ogbGVmdDsgdmVydGljYWw sHMfaC705BNPx cDsnPlBheWVyOjwvdGQ+P E52lq17W1NxVqtbZjg3FW OzMHN1hUS8uW3rOJEiGZs rp7F3iJW4Y2Nt cmRl (more content not included)... Normal [facility] CTA Cheston 12-02-2022 CTA Chest Exam Date/Time: [...] 370 Contrast amount in ml's: 75 Normal [facility] Consent for Treatmenton 11-10 Consent for Treatment [id number]:127 Normal [facility] Coding Summary.on 11-29-2022 Coding Summary. CD:[id number]:[id number] G h0bWw+PGhlYWQ+CY4CBKU eS29xiKBdhQ8RI6kABG0C JAQTAABAOV4BLK6peST4J EteO4DtqbKo UtrgpCNoUZ12HLb9RDG4y VtwBFdjgE1zoIUqM8f0Yb MbIU98qA57SLcyOVWyXrW 3LjZpbjsgbWFy F4rcMeObtWLfSyc+PHRhY mxlIHdpZHRoPScxMDAlJy VzcHagII3kAr2hRTNfVNY vbGxhcHNlOiBj e0anEARvMYjrVV2moRszA 9CugJO6AQVfl0k8Vf76dY I+DDYkNOE3dQgrVJnqu11 3ZpAbz4awUMU2 lEHjAQkxDDZ7M63cw0J9K ZNtHIAcBPV0nJM3tA9hlX nwzjslQ8NbbLZxWkY8KWT 5jDBfqB4vvQph izuydZ1zFap+A70NLO5YU ZAZCA8ACyf9C8BtEpxheJ I+YT35GYGkRZ91cVXjoEZ sk8ncaSt7TkEk QPQiQJJ3fQkmVIzcn5TeX NLtD58jxMTgp5K7UMUlbO ehqCSwWmGhtUP0nP6oTIr shpgax9sewahd Ozuna5zmsr02jW11E02tQ ZviYHXcEHZ7RYTvURHnlF kxms6xjQ0lVg8+KDnzw1v za3uzaRb7SaBq TGIdfuHcfNwmNRA0n1DcE b39X7BjzOult2VbCfd5qq 76gZHgm6E4gCH3ZNmdFJZ rkK3vNAukEdS5 BTCkDcTluI81mNZgSCwvH y8pfIlgiMyrQK3pIBNrin ezGJJdyY9oLPZheVXedRd kHS6cSNYxuotx k517SmDvHXR5JXRmsEUrY 4BgpR3rQdKyUCBnSMQwH9 ZqwHPpWRbbM896DFwyYtW 7FFEzvxSbD2Fj EKHtyAxbJrH5h0Q7Rk8Vz 6XnwkdjGQM5JCziTTRwZq YbOzWlIpA7F9WvPaj1MRU nmNydPK0vQ0Pt WJXnytlctsxgrZR8PXYaO BHhgK99zSYxVPjrZr5ax2 O2s978WTAjYMWfxS67Wu3 udDogMTBwdCBU oJ8uedult5rhhcibNnQuP CEmWWp3QTn9FLTebCpjFb BjNWS4MgG5NXJ5aRHgjR5 riIrlxugkuN3i Oyc+L55woA8iSXQ5HHY2o lmqHPLdybPpWF87LE73E1 RyPjwvdGFibGU+PGRpdiB bvQkdLG6fXiIj q3qju6HtSYblP3JhCUXiO AkeBly7HNPeEZZ4vZW6fW 8uGDKyWQive0S2tQR9H6Z zssVikj5of9mg OYNlVNusS65ntTHba1Q4K XJqoMM8MUYsvXfqHpYwgM 93Oyc+IBLqeCgil6AzSev sn2uvs6coyCf2 WaXlASKimlHzaNesRMG5r 0ClOn38Q30bSWlcURCeRN LoYOOlVOAnqXjabi1wcM7 wIi8+PGNvbCB3 qOH1qE6oICXcSaQ3WVqhZ 870WfKaxCQpKxnrk8bcz7 izhNy5YkGmRLNljaLteQe yTGX6o9YzKx49 K02eCSpdZOWmWBAiBJNoA SCmfHtvhy1hkW0uKi9+PC 8vg6sstv69nB30sEA+PHR gPQU8oHakIOou IOZpoF3vYBlzEtS1GCQyL cQbzL97cZUpWMaqRj2cyD zycYikWU5dOQUqqhehc35 5VbOes2coYHGw xATuHIomKHH6J31av0A0I WUrHJOeWYF8cSH5fG8suA lnbjogbGVmdDsgdmVydGl aVShgGGtmW383 IHRvcDsnPlBhdGllbnQgT pViFHd4K0LwMkb4ZZLylJ swLJ1nqIVeMHpvYq4eqYl arZkqKR5aTGVt fhxot065QrHaj1zzXUVox DUlDNfoXSP4B28lr8D5DC KbZGNvYAC5bXT4sX1osHq nbjogbGVmdDsg bvCiyWqgSPukOSzaS548M HRvcDsnPkJpcnRoIERhdG Y0GQ16KG49eXPwi8H3sIK 0M6YeGRXyycrc tjphbER5UNDxDVBcuH44X o9pvFjxKk2kFKFzVSU3XO EiuZZjI6IqsF7hPjQjCKV tOUBhR3XjyITl UNycR259QRgxRsY0LITvd rTnL2LhNLAcfOjnFdY0a3 O5Jv0JY2B3OV85TF89uMU rk4Y6fTO3M5Cq AZSgnxstdokgxVL3GTUuM DDwmM55Fk5hnRbfCs1uXX AxQVB6ASGapBUlX4FagA5 yOiAjMDAwMDAw D5PlcYFiYWozP780LQkiX lT2KTKybiJtX3DgEEGhaN xvOmV8g5B1Se7VSMx8YQ3 3CC14mHXaz6A1 iSZ0W4RiEUHfunqsqhqhx VZ4VWWkCFWkcI02He6qoX qnUs4qDTTeAVK0NUDafIA iO4RjfJ5cDjZc DWPcVRUrM3SezJPbYKcdI 435BObhFvD8QGOdgbJxF5 OaWWHbcPxsPuX1a1K4Qq9 QLGXpFJ51JGE1 kYQ4XM17QE81U5BjGjzng GFibGU+PHRhYmxlIHdpZH RoPScxMDAlJyBzdHlsZT0 nCf9vBAOwQNSp sVdyvYIdJmTgt3wtBKVzB JrlEG1ppMplJ1BysMX2XD Pww3o8Oz65E13eM3UmoWO +MSHmnUX1fPQ3 oQ9sQhIxEoK0TIbxY124P zQjxDPxAwssq8pfs5oosA e3FiB5YRSxjiPjoYrsQRX 7a9XuDt70M26o IHdpZHRoPSIxNSUiIHZhb Jrccp9ulE5oRl5+PGNvbC M9lBH1yR4xApBvPqV9MRz iJ419UuAbsGOe Hqexa8apt1yfsOf9VlNiJ NArztFysBhwIUB8c2ToRh 27S6JgjWwib5LvFqb2jm6 3oEBwi7V5yNW5 N7GzAZVybdanuDGwhObeX Q9cGJUnednfQCInvD4oWC FcV6d4UfTtHjI2GNziB6I qhtU8DRRdgPSk VEwhAIE7L49yb1I2YIAsD LNbPTO7vNJ4jE4ikOrgyz ogbGVmdDsgdmVydGljYWw uUNtoX690DCJu jPvyGXSihL0yWQOcoCVbo RknJG3gMRRnguumEtrJZO 9ZTh6LFvgvDfOEEKZKJAV JWIDYQLq0B6Zi Wyh7YOUldPagZU4mvIEpP OilNt3rfYqyhYtjJI4qZW EuuiiuFPLfyQ6xIRAupPC eaZbdCW8oCMLu xoyvd701PiGxDKW3HXWwo TRmR3UfrM2aIpKoMWVqBK KeS4CggNRoDZmaM139RLa bAeS4GXDmkhEq Y7XjMYHsjNxoKlD9c8O0I b3rBr6mDL4vVBMlYQ64SW 54yESvk4B6cGG2Q9ZlYAN pbmctcmlnaHQ6 MQSaDWZbbY85dENkDWjdS s7qm7K3v122CXVfEQQvmR 97Qi1nhJubPGOqfHUItW9 hkefks0larxqx YhSlLXCbJGq2TZo8SIYld FoeWiPyBBA2DqO6OJU5eC JfbL3dfWabnyibkH3eBkp +MTkgWWVhcnM8 N2MuXbj0UTQomFogMK4di RNuBXhwXt4ygDqltJqtCT 7fHYRvhpwkDLJatH7qOAF kpCVyyTidYU6z XVSzqvwhm051JoQwEKQ0C CZkzXXiD4NukY8wOrYuZB JgKSTsZ8KjqJJkSGfaP31 0TQjtHwM0WFWz lyOpD6GyDCNcsEczGhP3k 6C0Bt5HBP2boGJ5C2EnOu c4DFMotIqyKS0yeOLmCQq uOp2eaIvibAwm IH7bPFCrkddmSNMwjL2pD UEojSZgdWojBQ9zRIBfce kct683BqLaGVO6DWBgvUB fC5MuoN6oKuMy LBBvCUZzA6WyeBWoRKwnA 652XLciUhA6DGLbhwYeL3 YdYJNuwQjnNrR9x9G9Kv3 WaQUvICQcQM80 SU85KZ48L1HaZxruuRWkb +PHRhYmxlIHdpZHRoPS taZJIlAvRhwHekNP0sUh6 yZGVyLWNvbGxh hUEoFuDpl0zvVCEmMEsdR R3ddZjjK8XcxPZ7DALqv4 i1Vd87L16oG8QduGR+PGN dgCS5pST2eV9t AaHuDsJ9EFoeD530SuFyq RPpDumst3ijo0siyIz4Dh ZzVKXehtDwxAvjGHE5n7Y vYf04K44iYRjz ZHRoPSIyMCUiIHZhbGlnb b2jvG7vWf8+ELJbfFZ5dN Z1aJ8fBuNkLoF3OJpaX47 9InRvcCIvPjwv M64bZ7EprTK+EGYgWms0A RCujHwdLN2kaPXxPUpxRb 5oPWT9IrWcXhKsOKqqW1T hZGRpbmctcmln lBG2JTWaHOPuxL17Qx7dy QviFc4xOYTdUZN7YYIbkF GzP7QegE9yFxEnUZWpQRT iK9QwoQIfQCkf H304GHkxNlY3IYOtonBqN 6NzSWVvrSmtHpE4i2Q5Kh 4HzFzrcDWlWS7yUnXhADv 1R7CuBua6MXTf fVmuLC1snINrWXfsEb3fz AesoWnmHZ6fCZQftfqdb7 23ZsVme4kxYGCkxHZlAYe eZMB4A86uy6N7 JEHwCFBzEYP2sRV0yW1yi GlnbjogbGVmdDsgdmVydG ipCLkfSOdeY069HZDbhGi pCrUCDsy0R4Ui Wyu2DVEyeSqwMP9jeMDtL UmkKi6gyHdcgVidAE2lSY Qrwmwxb137QmDym6qaVTK wcHQgVGltZXM7 R24yh0E6ZULuFOCqJTZ1e HK1dC5kiQecajxjkNVadT ylrpJelEwvVVdzXQwbW11 3MMVxbYhaTu0O Aws4M2DlLya9ZYYxlXiyS R5bjCWmEZwcVi9slPcreD lnNH4cWPNocrtbi476MaZ pm6hiXQZwgQMc DVccHAG2T86xa3E6LJLoX VGyXGH1rXJ9iH6rpVvmxm ogbGVmdDsgdmVydGljYWw vDIdjL585LLZi cDsnPlBheWVyOjwvdGQ+P K21tg70N4JyYzmnMic0BS EiPVY8zXR5kV9xGHPyOIf vz5J1pXJ7T4Vu cmRl (more content not included)... Normal [facility] Physician Orderon 11-25-2022 Physician Order [id number] Normal [facility] CBC w/Indiceson 11-24-2022 Erythrocyte distribution width (RBC) [Ratio] 12.8 % Normal 10.9-14.2 [facility] Comment on above: Performed By: #### 2 548816, 8584637, 50879479, 00547365, 0271299 ####[address] [place] [address] Hematocrit (Bld) [Volume fraction] 40.6 % Normal 34.0-46.0 [facility] Comment on above: Performed By: #### 2 311431, 8116569, 72684180, 31152895, 8677759 ####[address] [place] [address] Hemoglobin (Bld) [Mass/Vol] 13.3 g/dL Normal 12.0-16.0 [facility] Comment on above: Performed By: #### 2 967231, 9324495, 87918429, 02361533, 7896220 ####[facility] [address] [place] [address] MCH (RBC) [Entitic mass] 31.1 pg Normal 27.0-34.0 [facility] Comment on above: Performed By: #### 2 491524, 4223744, 40971591, 03709584, 6973508 ####[facility] [address] [place] [address] MCHC (RBC) [Mass/Vol] 32.7 g/dL Normal 31.4-36.0 [facility] Comment on above: Performed By: #### 2 576579, 4336416, 17995783, 09545128, 5869287 ####[address] MCV (RBC) [Entitic vol] 94.9 fL Normal 80.0-100.0 [facility] Comment on above: Performed By: #### 2 960003, 7714767, 50825989, 02157397, 5958234 ####[address] Platelet mean volume (Bld) [Entitic vol] 9.4 fL Normal 6.4-10.8 [facility] Comment on above: Performed By: #### 2 894872, 8786633, 94216965, 17091330, 4477654 ####[address] Platelets (Bld) [#/Vol] 255.0 E9/L Normal 150.0-500.0 [facility] Comment on above: Performed By: #### 2 188115, 3783257, 27634692, 60263914, 3872570 ####[address] RBC (Bld) [#/Vol] 4.3 E12/L Normal 4.3-5.9 [facility] Comment on above: Performed By: #### 2 759524, 7457326, 20379333, 75533085, 7869946 ####[address] [place] [address] WBC corrected for nucl RBC Auto (Bld) [#/Vol] 5.6 E9/L Normal 4.0-11.0 [facility] Comment on above: Performed By: #### 2 696225, 1992674, 17272281, 80225007, 8772179 ####[facility] [address] [place] [address] CHEMISTRYOrdered By: SYSTEM SYSTEM on 11-24-2022 Albumin [Mass/Vol] 3.9 g/dL Normal 3.3 - 5.0 gm/dL [facility] Remisol Albumin/Globulin [Mass ratio] 1.1 {ratio} Normal [...] Normal >=59mL/min/1 .73 m2 [facility] Chem S Globulin (S) [Mass/Vol] 3.6 g/dL [...] 11-24-2022 Albumin [Mass/Vol] 3.9 g/dL Normal 3.3-5.0 [facility] Comment on above: Performed By: #### 2 224638, 8308257, 27684852, 36436747, 1516093 ####[facility] [address] [place] [address] Albumin/Globulin (S) [Mass conc ratio] 1.1 Normal 1.1-2.2 [facility] Comment on above: Performed By: #### 2 977684, 8788480, 82179074, 29210600, 3365720 ####[facility] [address] [place] [address] ALP [Catalytic activity/Vol] 94 Int._Unit/L Normal 21-98 [facility] Comment on above: Performed By: #### 2 178611, 8301143, 42119564, 04779712, 7460426 ####[facility] [address] [place] [address] ALT No additional P-5'-P [Catalytic activity/Vol] 15 Int._Unit/L Normal 6-46 [facility] Comment on above: Performed By: #### 2 302169, 0364806, 57245814, 71310108, 0064864 ####[facility] [address] [place] [address] Anion gap [Moles/Vol] 12 mmol/L Normal 6-16 [facility] Comment on above: Performed By: #### 2 434115, 0543066, 75742752, 19443012, 0328412 ####[facility] [address] [place] [address] AST [Catalytic activity/Vol] 19 Int._Unit/L Normal 5-43 [facility] Comment on above: Performed By: #### 2 982584, 3668998, 72366924, 13854478, 7618446 ####[facility] [address] [place] [address] Bilirubin [Mass/Vol] 0.4 mg/dL Normal 0.0-1.1 [facility] Comment on above: Performed By: #### 2 305129, 8437774, 41656751, 66619607, 7738183 ####[facility] [address] [place] [address] Calcium [Mass/Vol] 8.9 mg/dL Normal 8.9-11.1 [facility] Comment on above: Performed By: #### 2 611606, 7010254, 12842370, 93018547, 5222992 ####[facility] [address] [place] [address] Chloride [Moles/Vol] 104 mmol/L Normal 101-111 [facility] Comment on above: Performed By: #### 2 418647, 5870287, 95973534, 76574447, 8249515 ####[facility] [address] [place] [address] CO2 [Moles/Vol] 27 mmol/L Normal 21-31 [facility] Comment on above: Performed By: #### 2 458455, 5233088, 74847350, 16253497, 7827790 ####[facility] [address] [place] [address] Creatinine [Mass/Vol] 0.8 mg/dL Normal 0.5-1.3 [facility] Comment on above: Performed By: #### 2 928152, 4207100, 72077546, 56874015, 6040746 ####[facility] [address] [place] [address] Globulin (S) [Mass/Vol] 3.6 g/dL Normal 1.4-4.0 [facility] Comment on above: Performed By: #### 2 816426, 8483727, 28712208, 78655336, 4997841 ####[facility] [address] [place] [address] Glucose [Mass/Vol] 77 mg/dL Normal 55-199 [facility] Comment on above: Result Comment: If t his glucose result represents a fasting glucose, interpretation should refer to the following reference range: 55-99 mg/dL Performed By: #### 2 142514, 3158771, 89356488, 00631426, 8632690 ####[facility] [address] [place] [address] Potassium [Moles/Vol] 3.7 mmol/L Normal 3.5-5.3 [facility] Comment on above: Performed By: #### 2 252634, 1560198, 33527495, 71862281, 3971544 ####[facility] [address] [place] [address] Protein [Mass/Vol] 7.5 g/dL Normal 6.0-7.8 [facility] Comment on above: Performed By: #### 2 048530, 2176793, 04181818, 43038746, 1108228 ####[facility] [address] [place] [address] Sodium [Moles/Vol] 139 mmol/L Normal 135-145 [facility] Comment on above: Performed By: #### 2 311384, 8523048, 21475609, 76689491, 6378397 ####[facility] [address] [place] [address] Urea nitrogen [Mass/Vol] 12 mg/dL Normal 5-21 [facility] Comment on above: Performed By: #### 2 477440, 3437858, 90213025, 81997244, 8453833 ####[facility] [address] [place] [address] Urea nitrogen/Creatinine [Mass ratio] 15 No Units Normal 10-20 [facility] Comment on above: Performed By: #### 2 129148, [id number], [id number], [id number], [id number] ####[facility] [address] [place] [address] COAGULATIONOrdered By: Giuseppe Robb on 11-24-2022 Fibrin D-dimer FEU (PPP) [Mass/Vol] 3906 ng/mL FEU Invalid Interpretation Code 215 - 500 ng/mL FEU [facility] Comment on above: Result Comment: Resu lts Called To DR JACKSON By GIUSEPPE ROBB And Read Back For Confirmation On 11/24/2022 16:26:28 EST Results Verified By Repeat Analysis Consent for Treatmenton 11-09 Consent for Treatment [id number]#1 .00CD:127 Normal [facility] D-Dimeron 11-24-2022 Fibrin D-dimer FEU (PPP) [Mass/Vol] 3906 [id number] Abnormal 215-500 [facility] Comment on above: Result Comment: Resu [...] infections Liver cirrhosis Performed By: #### 2 [id number], 3258714, [id number], [id number], [id number] ####[facility] [address] [place] [address] HEMATOLOGYOrdered By: Chris Grant on 11-24-2022 Erythrocyte [...] 4.3 E12/L Normal 4.3 - 5.9 E12/L [facility] HemeAutoSS WBC corrected for nucl RBC Auto (Bld) [#/Vol] 5.6 E9/L Normal 4.0 - 11.0 E9/L [facility] HemeAutoSS Physician Orderon 11-24-2022 Physician Order [id number]# 1.00CD:127 Normal [facility] TSH With T4fr Reflexon 11-24 TSH Qn 0.70 m[IU]/L Normal 0.34-5.60 [facility] Comment on above: Performed By: #### 2 305762, 4050569, [id number], [id number], [id number] ####[facility] [address] [place] [address] eGFRon 11-24-2022 GFR/1.73 sq M.predicted among blacks MDRD (S/P/Bld) [Vol rate/Area] mL/min/{1.73_m2} Normal >=59 [facility] Comment on above: Order Comment: Order added by Discern Expert. Result Comment: eGFR is race adjusted. AA=. Performed By: #### 2 367273, 7948157, [id number], [id number], [id number] ####[facility] [address] [place] [address] GFR/1.73 sq M.predicted among non-blacks MDRD (S/P/Bld) [Vol rate/Area] mL/min/{1.73_m2} Normal >=59 [facility] Comment on above: Order Comment: Order added by Discern Expert. Result Comment: Community Case Manager maribel kidney disease could be indicated at eGFR's of less than 60 mL/min/1.73m2. Kidney failure is indicated at less than 15 mL/min/1.73m2. Performed By: #### 2 [id number], [id number], [id number], [id number], [id number] ####[facility] [address] [place] [address] XR CHEST 1 Von 11-11-2022 XR CHEST [...] RODOLFO LÓPEZ Date: 2022-11-11 15:20 Normal [facility] CBC AUTO DIFFon 11-07-2022 BASO # 0.0 103/ul Normal 0.0-0.1 [facility] Comment on above: Performed By: #### C BC #### [facility] [address] [address] [address] Dianelys Brown Basophils/100 WBC (Bld) 0.4 % Normal 0.2-2.0 [facility] Comment on above: Performed By: #### C BC #### [facility] [address] [address] [address] Dianelys Brown EO # 0.1 103/ul Normal 0.0-0.7 [facility] Comment on above: Performed By: #### C BC #### [facility] [address] [place] [address] Dr. Dianelys Brown Eosinophils/100 WBC (Bld) 1.3 % Normal 0.9-7.0 [facility] Comment on above: Performed By: #### C BC #### [facility] [address] [place] [address] Dr. Dianelys Brown Erythrocyte distribution width (RBC) [Ratio] 13.2 % Normal 11.0-15.0 [facility] Comment on above: Performed By: #### C BC #### [facility] [address] [place] [address] Dr. Dianelys Brown Hematocrit (Bld) [Volume fraction] 27.1 % Critically low 36.0-48.0 [facility] Comment on above: Performed By: #### C BC #### [facility] [address] [place] [address] Dr. Dianelys Brown Hemoglobin (Bld) [Mass/Vol] 9.0 g/dL Critically low 12.0-16.0 [facility] Comment on above: Performed By: #### C BC #### [facility] [address] [place] [address] Dr. Dianelys Brown IG # 0.05 10e3/ul Critically high 0.00-0.03 [facility] Comment on above: Performed By: #### C BC #### [facility] [address] [place] [address] Dr. Dianelys Brown IG % 0.5 % Normal 0.0-0.5 [facility] Comment on above: Performed By: #### C BC #### [facility] [address] [address] [address] Dianelys Brown LYMPH # 2.0 103/ul Normal 1.2-3.8 [facility] Comment on above: Performed By: #### C BC #### [facility] [address] [place] [address] Dr. Dianelys Brown Lymphocytes/100 WBC (Bld) 18.1 % Critically low 20.5-60.0 [facility] Comment on above: Performed By: #### C BC #### [facility] [address] [place] [address] Dr. Dianelys Brown MANUAL DIFF REQ NO Normal [facility] Comment on above: Performed By: #### C BC #### [facility] [address] [place] [address] Dr. Dianelys Brown MCH (RBC) [Entitic mass] 31.5 pg Normal 26.7-34.0 [facility] Comment on above: Performed By: #### C BC #### [facility] [address] [place] [address] Dr. Dianelys Brown MCHC (RBC) [Mass/Vol] 33.2 g/dL Normal 29.9-35.2 [facility] Comment on above: Performed By: #### C BC #### [facility] [address] [place] [address] Dr. Dianelys Brown MCV (RBC) [Entitic vol] 94.8 fL Normal 81.0-99.0 [facility] Comment on above: Performed By: #### C BC #### [facility] [address] [place] [address] Dr. Dianelys Brown MONO # 1.0 103/ul Critically high 0.3-0.8 [facility] Comment on above: Performed By: #### C BC #### [facility] [address] [place] [address] Dr. Dianelys Brown Monocytes/100 WBC (Bld) 9.1 % Normal 1.7-12.0 [facility] Comment on above: Performed By: #### C BC #### [facility] [address] [place], [place] [id number] Dr. Dianelys Brown NEUT # 7.6 103/ul Critically high 1.4-6.5 [facility] Comment on above: Performed By: #### C BC #### [facility] [address] [place] [address] Dr. Dianelys Brown Neutrophils/100 WBC (Bld) 70.6 % Normal 43.0-75.0 [facility] Comment on above: Performed By: #### C BC #### [facility] [address] [place] [address] Dr. Dianelys Brown Platelet mean volume (Bld) [Entitic vol] 11.8 fL Normal 9.5-13.5 [facility] Comment on above: Performed By: #### C BC #### [facility] [address] [place] [address] Dr. Dianelys Brown PLT 133 103/ul Critically low 150-450 [facility] Comment on above: Performed By: #### C BC #### [facility] [address] [place] [address] Dr. Dianelys Brown RBC 2.86 106/ul Critically low 4.20-5.40 [facility] Comment on above: Performed By: #### C BC #### [facility] [address] [place] [address] Dr. Dianelys Brown WBC 10.8 103/ul Normal 4.0-11.0 [facility] Comment on above: Performed By: #### C BC #### [facility] [address] [place] [address] Dr. Dianelys Brown CBC AUTO DIFFon 11-06-2022 BASO # 0.0 103/ul Normal 0.0-0.1 [facility] Comment on above: Performed By: #### H BSANS #### [facility] [address] [place] [address] Dr. Dianelys Brown Basophils/100 WBC (Bld) 0.4 % Normal 0.2-2.0 [facility] Comment on above: Performed By: #### H BSANS #### [facility] [address] [place] [address] Dr. Dianelys Brown EO # 0.2 103/ul Normal 0.0-0.7 [facility] Comment on above: Performed By: #### H BSANS #### [facility] [address] [address] [address] Dianelys Brown Eosinophils/100 WBC (Bld) 1.6 % Normal 0.9-7.0 [facility] Comment on above: Performed By: #### H BSANS #### [facility] [address] [place] [address] Dr. Dianelys Brown Erythrocyte distribution width (RBC) [Ratio] 13.1 % Normal 11.0-15.0 [facility] Comment on above: Performed By: #### H BSANS #### [facility] [address] [place] [address] Dr. Dianelys Brown Hematocrit (Bld) [Volume fraction] 33.5 % Critically low 36.0-48.0 [facility] Comment on above: Performed By: #### H BSANS #### [facility] [address] [place] [address] Dr. Dianelys Brown Hemoglobin (Bld) [Mass/Vol] 11.5 g/dL Critically low 12.0-16.0 [facility] Comment on above: Performed By: #### H BSANS #### [facility] [address] [place] [address] Dr. Dianelys Brown IG # 0.05 10e3/ul Critically high 0.00-0.03 [facility] Comment on above: Performed By: #### H BSANS #### [facility] [address] [place] [address] Dr. Dianelys Brown IG % 0.5 % Normal 0.0-0.5 [facility] Comment on above: Performed By: #### H BSANS #### [facility] [address] [place] [address] Dr. Dianelys Brown LYMPH # 2.6 103/ul Normal 1.2-3.8 [facility] Comment on above: Performed By: #### H BSANS #### [facility] [address] [place] [address] Dr. Dianelys Brown Lymphocytes/100 WBC (Bld) 24.0 % Normal 20.5-60.0 [facility] Comment on above: Performed By: #### H BSANS #### [facility] [address] [place] [address] Dr. Dianelys Brown MANUAL DIFF REQ NO Normal [facility] Comment on above: Performed By: #### H BSANS #### [facility] [address] [place] [address] Dr. Dianelys Brown MCH (RBC) [Entitic mass] 32.0 pg Normal 26.7-34.0 [facility] Comment on above: Performed By: #### H BSANS #### [facility] [address] [place] [address] Dr. Dianelys Brown MCHC (RBC) [Mass/Vol] 34.3 g/dL Normal 29.9-35.2 [facility] Comment on above: Performed By: #### H BSANS #### [facility] [address] [place] [address] Dr. Dianelys Brown MCV (RBC) [Entitic vol] 93.3 fL Normal 81.0-99.0 [facility] Comment on above: Performed By: #### H BSANS #### [facility] [address] [place] [address] Dr. Dianelys Brown MONO # 0.9 103/ul Critically high 0.3-0.8 [facility] Comment on above: Performed By: #### H BSANS #### [facility] [address] [place] [address] Dr. Dianelys Brown Monocytes/100 WBC (Bld) 8.6 % Normal 1.7-12.0 [facility] Comment on above: Performed By: #### H BSANS #### [facility] [address] [place] [address] Dr. Dianelys Brown NEUT # 6.9 103/ul Critically high 1.4-6.5 [facility] Comment on above: Performed By: #### H BSANS #### [facility] [address] [address] [address] Dianelys Brown Neutrophils/100 WBC (Bld) 64.9 % Normal 43.0-75.0 [facility] Comment on above: Performed By: #### H BSANS #### [facility] [address] [place] [address] Dr. Dianelys Brown Platelet mean volume (Bld) [Entitic vol] 12.5 fL Normal 9.5-13.5 [facility] Comment on above: Performed By: #### H BSANS #### [facility] [address] [address] [address] Dianelys Brown PLT 187 103/ul Normal 150-450 [facility] Comment on above: Performed By: #### H BSANS #### [facility] [address] [place] [address] Dr. Dianelys Brown RBC 3.59 106/ul Critically low 4.20-5.40 [facility] Comment on above: Performed By: #### H BSANS #### [facility] [address] [place] [address] Dr. Dianelys Brown WBC 10.7 103/ul Normal 4.0-11.0 [facility] Comment on above: Performed By: #### H BSANS #### [facility] [address] [place] [address] Dr. Dianelys Brown [facility] SARS-CoV-2 (COVID-19) RNA NAIF+probe Ql (Unsp spec) Not detected Normal NOT DETECTED [facility] Comment on above: Result Comment: When [...] for this test is supported by the [employer] Instructor of Health and Human Service's declaration that [...] used). Performed By: #### C VDTBH #### [facility] [address] [place] [address] Dr. Dianelys Brown DRUG SCREEN RAPID (URINE)on 11-06-2022 AMP Negative Normal NEGATIVE [facility] Comment on above: Performed By: #### D RUGRPD #### [facility] [address] [place] [address] Dr. Dianelys Brown BAR Negative Normal NEGATIVE [facility] Comment on above: Performed By: #### D RUGRPD #### [facility] [address] [place] [address] Dr. Dianelys Brown BUP Negative Normal NEGATIVE [facility] Comment on above: Performed By: #### D RUGRPD #### [facility] [address] [place] [address] Dr. Dianelys Brown BZO Negative Normal NEGATIVE [facility] Comment on above: Performed By: #### D RUGRPD #### [facility] [address] [place] [address] Dr. Dianelys Brown GOGO Negative Normal NEGATIVE [facility] Comment on above: Performed By: #### D RUGRPD #### [facility] [address] [place] [address] Dr. Dianelys Brown CUT-OFFS SEE BELOW Normal [facility] Comment on above: Result Comment: AMP (Amphetamine): 500ng/mL, BAR (Barbituates): 200 ng/mL, BZO (Benzodiazepines): 150 ng/mL, BUP (Buprenorphine): 10 ng/mL, GOGO (Cocaine): 150 ng/mL, mAMP (Methamphetamine): 500 ng/mL, MTD (Methadone): 200 ng/mL, OPI (Opiates): 100 ng/mL, OXY (Oxycodone): 100 ng/mL, PCP (Phencyclidine): 25 ng/mL, PPX (Propoxyphene): 300 ng/mL, THC (Cannabinoids): 50 ng/mL, TCA (Trycyclic Antidepressants): 300 ng/mL Performed By: #### D RUGRPD #### [facility] [address] [place] [address] Dr. Dianelys Brown DRUG CUT HEADER DRUG CLASS TEST SYSTEM CUT-OFF CONCENTRATIONS ARE FOLLOWS: Normal [facility] Comment on above: Performed By: #### D RUGRPD #### [facility] [address] [place] [address] Dr. Dianelys Brown mAMP Negative Normal NEGATIVE [facility] Comment on above: Performed By: #### D RUGRPD #### [facility] [address] [place] [address] Dr. Dianelys Brown MTD Negative Normal NEGATIVE [facility] Comment on above: Performed By: #### D RUGRPD #### [facility] [address] [place] [address] Dr. Dianelys Brown OPI Negative Normal NEGATIVE [facility] Comment on above: Performed By: #### D RUGRPD #### [facility] [address] [place] [address] Dr. Dianelys Brown OXY Negative Normal NEGATIVE [facility] Comment on above: Performed By: #### D RUGRPD #### [facility] [address] [place] [address] Dr. Dianelys Brown PCP Negative Normal NEGATIVE [facility] Comment on above: Performed By: #### D RUGRPD #### [facility] [address] [place] [address] Dr. Dianelys Brown PPX Negative Normal NEGATIVE [facility] Comment on above: Performed By: #### D RUGRPD #### [facility] [address] [place] [address] Dr. Dianelys Brown TCA Negative Normal NEGATIVE [facility] Comment on above: Performed By: #### D RUGRPD #### [facility] [address] [place] [address] Dr. Dianelys Brown THC Negative Normal NEGATIVE [facility] Comment on above: Performed By: #### D RUGRPD #### [facility] [address] [address] [address] Dianelys Brown TYPE AND SCREENon 11-06-2022 TYPE AND SCREEN Negative Normal [facility] Comment on above: Performed By: #### A 1C #### [facility] [address] [address] [address] Dianelys Brown GROUP B STREP CULTUREon 09-11 S. agalactiae Ag Ql (Unsp spec) Culture Observations: NEGATIVE FOR GROUP B STREPTOCOCCUS. Normal [facility] Comment on above: Performed By: #### G BSCX #### [facility] [address] [address] [address] Dianelys Brown US PREG GROWTHon 09-26-2022 [...] RODOLFO REYNOSO Date: 2022-09-26 06:11 Normal [facility] US PREG GROWTHon 09-11-2022 US PREG [...] weeks 1 days; 68.9 % % EFW: 2021.8 grams, 4 lbs. 7 oz., 61% FL/AC: 23.0 FL/BPD: 76.4 HC/AC: 1.1 GESTATIONAL AGE: Age by EDC: 32 weeks 0 days CAR by EDC: 11/06/2022 Age by US: 33 weeks 1 day CAR by US: 10/29/2022 IMPRESSION: Normal interval growth Electronically authenticated by: COMPA WILLIAM Date: 2022-09-11 17:50 Normal [facility] TYPE AND SCREENon 08-28-2022 TYPE AND SCREEN Negative Normal [facility] Comment on above: Performed By: #### T NS #### [facility] [address] [place] [address] Dr. Dianelys Brown GLUCOSE - 1HRon 07-31-2022 Glucose [Mass/Vol] 124 mg/dL Critically high 74-106 [facility] Comment on above: Performed By: #### H BSANS #### [facility] [address] [place] [address] Dr. Dianelys Brown HEMOGRAM AND PLATELon 2021 Hematocrit (Bld) [Volume fraction] 32.4 % Critically low 36.0-48.0 [facility] Comment on above: Performed By: #### H BSANS #### [facility] [address] [place] [address] Dr. Dianelys Brown Hemoglobin (Bld) [Mass/Vol] 10.7 g/dL Critically low 12.0-16.0 [facility] Comment on above: Performed By: #### H BSANS #### [facility] [address] [place] [address] Dr. Dianelys Brown MCH (RBC) [Entitic mass] 33.5 pg Normal 26.7-34.0 [facility] Comment on above: Performed By: #### H BSANS #### [facility] [address] [address] [address] Dianelys Brown MCHC (RBC) [Mass/Vol] 33.0 g/dL Normal 29.9-35.2 [facility] Comment on above: Performed By: #### H BSANS #### [facility] [address] [address] [address] Dianelys Brown MCV (RBC) [Entitic vol] 101.6 fL Critically high 81.0-99.0 [facility] Comment on above: Performed By: #### H BSANS #### [facility] [address] [address] [address] Dianelys Brown PLT 164 103/ul Normal 150-450 [facility] Comment on above: Performed By: #### H BSANS #### [facility] [address] [place] [address] Dr. Dianelys Brown RBC 3.19 106/ul Critically low 4.20-5.40 [facility] Comment on above: Performed By: #### H BSANS #### [facility] [address] [place] [address] Dr. Dianelys Brown WBC 7.5 103/ul Normal 4.0-11.0 [facility] Comment on above: Performed By: #### H BSANS #### [facility] [address] [place] [address] Dr. Dianelys Brown CHLAMYDIA/GONOCOCCUS NAIF ( AB/URINE/PAPon 07-22-2022 Chlamydia trachomatis, NAIF Negative Normal Negative [facility] Comment on above: Performed By: #### H BSANS #### [facility] [address] [place] [address] Dr. Dianelys Brown Neisseria gonorrhoeae, NAIF Negative Normal Negative [facility] Comment on above: Performed By: #### H BSANS #### [facility] [address] [place] [address] Dr. Dianelys Brown VAGINITIS/VAGINOSIS DNA PROB Bertrand 07-20-2022 Isabel species Negative Normal Negative [facility] Comment on above: Performed By: #### H BSANS #### [facility] [address] [address] [address] Dianelys Brown Gardnerella vaginalis Negative Normal Negative [facility] Comment on above: Performed By: #### H BSANS #### [facility] [address] [address] [address] Dianelys Brown Trichomonas vaginalis Negative Normal Negative [facility] Comment on above: Performed By: #### H BSANS #### [facility] [address] [address] [address] Dianelys Brown AFP MATERNAL FOR SPINA BIFID Aon 06-21-2022 AFP MoM 1.29 Normal [facility] Comment on above: Performed By: #### A 1C #### [facility] [address] [address] [address] Dianelys Brown AFP Value 88.7 ng/mL Normal [facility] Comment on above: Performed By: #### A 1C #### [facility] [address] [place] [address] Dr. Dianelys Brown AFP, Serum for Spina Bifida Report Normal [facility] Comment on above: Performed By: #### A 1C #### [facility] [address] [address] [address] Dianelys Brown Comment Comment Normal [facility] Comment on above: Result Comment: Gray Flores, Ph.D., [facility] Director . References: Available Upon Request. . Multiples Of Median Cutoffs For AFP Elevations Wick 2.5 Black 2.8 IDD 2.0 Twins 4.5 Abbreviation Definitions IDD - Insulin Dep Diabetes OSBR - Open Spina Bifida Risk . For further inquiries contact [employer] [facility] at [phone]. . This test was developed and its performance characteristics determined by [employer]. It has not been cleared or approved by the Food and Drug Administration. Performed By: #### A 1C #### [facility] [address] [place] [address] Dr. Dianelys Brown Gest Age Collection Date 20.0 weeks Normal [facility] Comment on above: Performed By: #### A 1C #### [facility] [address] [place] [address] Dr. Dianelys Brown Gestat, Age Based on As provided [facility] Comment on above: Result Comment: Reca lculations are not recommended when gestational dating by LMP and ultrasound are within 10 days. Performed By: #### A 1C #### [facility] [address] [place] [address] Dr. Dianelys Brown Insulin Dep Diabetes No Normal [facility] Comment on above: Performed By: #### A 1C #### [facility] [address] [place] [address] Dr. Dianelys Brown Interpretation Comment Normal [facility] Comment on above: Result Comment: Inte [...] Customer Services to discuss available options. The [employer] recommends amniocentesis be offered to women age 35 and older. Performed By: #### A 1C #### [facility] [address] [place] [address] Dr. Dianelys Brown [age] Normal [facility] Comment on above: Performed By: #### A 1C #### [facility] [address] [place] [address] Dr. Dianelys Brown Multiple Gestation No Normal [facility] Comment on above: Performed By: #### A 1C #### [facility] [address] [place] [address] Dr. Dianelys Brown OSBR Risk 1 [place] [address] [facility] Comment on above: Performed By: #### A 1C #### [facility] [address] [place] [address] Dr. Dianelys Brown PDF . Normal [facility] Comment on above: Performed By: #### A 1C #### [facility] [address] [place] [address] Dr. Dianelys Brown Race [facility] Comment on above: Performed By: #### A 1C #### [facility] [address] [place], [place] [address] Dr. Dianelys Brown Test Results: Negative Normal [facility] Comment on above: Performed By: #### A 1C #### [facility] [address] [place], [place] [address] Dr. Dianelys Brown US PREG ANATOMY SINGLEon [...] by: COMPA WILLIAM Date: 2022-06-19 16:50 Normal [facility] ECHOCARDIO M/2D COMPLETEon 0 04-21-2022 ECHOCARDIO M/2D COMPLETE Patient: STACEY ANG Exam Date: 04/21/2022 : 2000 Gender:F Ordering : DR PASTORA PARKS . Admission #: [id number] Family : Order #: [id number] CLICK HERE TO VIEW EXAM ECHOCARDIOGRAM REPORT [...] Area(A4C): 10.80 cm2 Left Atrium Systolic Volume(A2C): 03744 mm3 Left Atrium Systolic Volume(A4C): 46213 mm3 Mitral Valve MV E to A Ratio: 1.10 Deceleration Millard: 2650 mm/s2 Mitral Valve A-Wave Peak Velocity: [...] Henao M.D. on 04/22/2022 at 18:18 Normal [facility] HEP B SURFACE ANTIGEN SCREEN on 03-27-2022 HBsAg Screen Negative Normal Negative [facility] Comment on above: Performed By: #### H BSANS #### [facility] [address] [place] [address] Dr. Dianelys Brown HEPATITIS C VIRUS AB W/ REFL EX QUANTon 03-27-2022 HCV AB <0.1 Normal 0.0-0.9 [facility] Comment on above: Performed By: #### A 1C #### [facility] [address] [place] [address] Dr. Dianelys Brown Interpretation: Comment Normal [facility] Comment on above: Result Comment: Nega tive Not infected with HCV, unless recent infection is suspected or other evidence exists to indicate HCV infection. Performed By: #### A 1C #### [facility] [address] [place] [address] Dr. Dianelys Brown HIV 1 AND 2 WITH REFLEXon HIV Screen 4th Generation wRfx Non-Reactive Normal Non Reactive [facility] Comment on above: Result Comment: HIV Negative HIV-1/HIV-2 antibodies and HIV-1 p24 antigen were NOT detected. There is no laboratory evidence of HIV infection. Performed By: #### H BSANS #### [facility] [address] [place] [address] Dr. Dianelys Brown RPR QUANTon 03-27-2022 Rapid Plasma Reagin, Quant Non-Reactive Normal NonRea<1:1 [facility] Comment on above: Result Comment: Plea Note: This test does not meet current guidelines for screening and diagnosis of syphilis. This test is intended for following treatment response in patients being treated for syphilis infection. To screen for syphilis infection, a reflex cascade that includes both RPR and a treponema-specific assay should be utilized, such as Treponema pallidum (Syphilis) Screening [place] (738689) or Rapid Plasma Reagin (RPR) Test With Reflex to Quantitative RPR and Confirmatory Treponema pallidum Antibodies (363182). Performed By: #### R PRQ #### [facility] [address] [place] [address] Dr. Dianelys Brown RUBELLA AB IGGon 03-27-2022 Rubella Antibodies, IgG 1.47 index Normal Immune >0.99 [facility] Comment on above: Result Comment: Non- immune <0.90 Equivocal 0.90 - 0.99 Immune >0.99 Performed By: #### H BSANS #### [facility] [address] [place] [address] Dr. Dianelys Brown CBC AUTO DIFFon 03-26-2022 BASO # 0.1 103/ul Normal 0.0-0.1 [facility] Comment on above: Performed By: #### H BSANS #### [facility] [address] [place] [address] Dr. Dianelys Brown Basophils/100 WBC (Bld) 0.6 % Normal 0.2-2.0 [facility] Comment on above: Performed By: #### H BSANS #### [facility] [address] [place] [address] Dr. Dianelys Brown EO # 0.3 103/ul Normal 0.0-0.7 [facility] Comment on above: Performed By: #### H BSANS #### [facility] [address] [place] [address] Dr. Dianelys Brown Eosinophils/100 WBC (Bld) 2.8 % Normal 0.9-7.0 [facility] Comment on above: Performed By: #### H BSANS #### [facility] [address] [place] [address] Dr. Dianelys Brown Erythrocyte distribution width (RBC) [Ratio] 11.9 % Normal 11.0-15.0 [facility] Comment on above: Performed By: #### H BSANS #### [facility] [address] [place] [address] Dr. Dianelys Brown Hematocrit (Bld) [Volume fraction] 38.0 % Normal 36.0-48.0 [facility] Comment on above: Performed By: #### H BSANS #### [facility] [address] [place] [address] Dr. Dianelys Brown Hemoglobin (Bld) [Mass/Vol] 13.6 g/dL Normal 12.0-16.0 [facility] Comment on above: Performed By: #### H BSANS #### [facility] [address] [place] [address] Dr. Dianelys Brown IG # 0.03 10e3/ul Normal 0.00-0.03 [facility] Comment on above: Performed By: #### H BSANS #### [facility] [address] [place] [address] Dr. Dianelys Brown IG % 0.3 % Normal 0.0-0.5 [facility] Comment on above: Performed By: #### H BSANS #### [facility] [address] [place] [address] Dr. Dianelys Brown LYMPH # 2.4 103/ul Normal 1.2-3.8 [facility] Comment on above: Performed By: #### H BSANS #### [facility] [address] [place] [address] Dr. Dianelys Brown Lymphocytes/100 WBC (Bld) 22.1 % Normal 20.5-60.0 [facility] Comment on above: Performed By: #### H BSANS #### [facility] [address] [address] [address] Dianelys Brown MANUAL DIFF REQ NO Normal [facility] Comment on above: Performed By: #### H BSANS #### [facility] [address] [place] [address] Dr. Dianelys Brown MCH (RBC) [Entitic mass] 32.2 pg Normal 26.7-34.0 [facility] Comment on above: Performed By: #### H BSANS #### [facility] [address] [place] [address] Dr. Dianelys Brown MCHC (RBC) [Mass/Vol] 35.8 g/dL Critically high 29.9-35.2 [facility] Comment on above: Performed By: #### H BSANS #### [facility] [address] [place] [address] Dr. Dianelys Brown MCV (RBC) [Entitic vol] 90.0 fL Normal 81.0-99.0 [facility] Comment on above: Performed By: #### H BSANS #### [facility] [address] [place] [address] Dr. Dianelys Brown MONO # 1.0 103/ul Critically high 0.3-0.8 [facility] Comment on above: Performed By: #### H BSANS #### [facility] [address] [place] [address] Dr. Dianelys Brown Monocytes/100 WBC (Bld) 8.8 % Normal 1.7-12.0 [facility] Comment on above: Performed By: #### H BSANS #### [facility] [address] [place] [address] Dr. Dianelys Brown NEUT # 7.1 103/ul Critically high 1.4-6.5 [facility] Comment on above: Performed By: #### H BSANS #### [facility] [address] [place] [address] Dr. Dianelys Brown Neutrophils/100 WBC (Bld) 65.4 % Normal 43.0-75.0 [facility] Comment on above: Performed By: #### H BSANS #### [facility] [address] [address] [address] Dianelys Brown Platelet mean volume (Bld) [Entitic vol] 11.6 fL Normal 9.5-13.5 [facility] Comment on above: Performed By: #### H BSANS #### [facility] [address] [place] [address] Dr. Dianelys Brown PLT 171 103/ul Normal 150-450 [facility] Comment on above: Performed By: #### H BSANS #### [facility] [address] [place] [address] Dr. Dianelys Brown RBC 4.22 106/ul Normal 4.20-5.40 [facility] Comment on above: Performed By: #### H BSANS #### [facility] [address] [place] [address] Dr. Dianelys Brown WBC 10.9 103/ul Normal 4.0-11.0 [facility] Comment on above: Performed By: #### H BSANS #### [facility] [address] [place] [address] Dr. Dianelys Brown CULTURE URINEon 03-26-2022 CULTURE [...] F Trimethoprim/Sulfamet hoxazole <=20 S F Normal [facility] Comment on above: Performed By: #### A 1C #### [facility] [address] [place] [address] Dr. Dianelys Brown FREE T4on 03-26-2022 Free T4 [Mass/Vol] 1.95 ng/dL Critically high 0.78-1.34 [facility] Comment on above: Performed By: #### H BSANS #### [facility] [address] [address] [address] Dianelys Brown GLYCOHEMOGLOBIN A1Con 2021 ADA RECOMMENDATION SEE BELOW Normal [facility] Comment on above: Result Comment: ADA RECOMMENDED LIMIT 4.0 - 6.0 ADA THERAPEUTIC TARGET < 7.0 ACTION SUGGESTED > 7.0 Performed By: #### A 1C #### [facility] [address] [address] [address] Dianelys Brown Glucose [Mass/Vol] 103 mg/dL Normal [facility] Comment on above: Performed By: #### A 1C #### [facility] [address] [place] [address] Dr. Dianelys Brown HbA1c (Bld) [Mass fraction] 5.2 % Normal 4.5-6.2 [facility] Comment on above: Performed By: #### A 1C #### [facility] [address] [place] [address] Dr. Dianelys Brown TSHon 03-26-2022 TSH 1.474 uIU/mL Normal 0.516-4.130 [facility] Comment on above: Performed By: #### T SH #### [facility] [address] [place] [address] Dr. Dianelys Brown TSH RANGE SEE BELOW Normal [facility] Comment on above: Result Comment: <0.3 4 UIU/ml HYPERTHYROID 0.34-5.60 UIU/ml EUTHYROID >5.60 UIU/ml HYPOTHYROID Performed By: #### T SH #### [facility] [address] [place] [address] Dr. Dianelys Brown TYPE AND SCREENon 03-26-2022 TYPE AND SCREEN Negative Normal [facility] Comment on above: Performed By: #### T NS #### [facility] [address] [place] [address] Dr. Dianelys Brown US PREG TVon 03-24-2022 [...] by: RODOLFO REYNOSO Date: 2022-03-24 09:53 Normal [facility] Vital Signs Date Time Vital Sign Value Performing Clinician Facility 11-11-2023 08:13-0500 Body weight 65.41 kg Jad Woods MD Work Phone: [facility] 11-11-2023 08:13-0500 Diastolic blood pressure 62 mm[Hg] Jad Woods MD Work Phone: [facility] [facility] 11-11-2023 08:13-0500 Heart rate 90 /min Jad Woods MD Work Phone: [facility] 11-11-2023 08:13-0500 Systolic blood pressure 97 mm[Hg] Jad Woods MD Work Phone: [facility] 12-31-2022 11:19-0500 Blood Pressure Location [facility] 12-31-2022 11:19-0500 Diastolic blood pressure 62 mm[Hg] [facility] 12-31-2022 11:19-0500 Heart rate 66 /min [facility] 12-31-2022 11:19-0500 SaO2% (BldA) [Mass fraction] 96 % [facility] 12-31-2022 11:19-0500 Systolic blood pressure 96 mm[Hg] Gurpreet Higgins [facility] 06-21-2022 03:06-0400 Body weight 55.[address] PASTORA PARKS . [facility] Comment on above: Performed By: #### A1C #### [facility] [address] [place], [place] [address] Dr. Dianelys Brown 03-25-2022 10:58-0400 Body temperature 98.24 [degF] Jenelle GONZALEZ [facility] 03-25-2022 10:58-0400 Heart rate 72 /min Jenelleguanakito GONZALEZ [facility] 03-25-2022 10:58-0400 SaO2% (BldA) [Mass fraction] 99 % Jenelle CARLOS [facility] Encounters Encounter Date Encounter Type Care Provider Facility Start: 2023 End: 2023 ambulatory PASTORA CHARLY Not Available Start: 12-14-2023 End: 12-14-2023 ambulatory LORI HUYNH Not Available Start: 12-12-2023 Clinisync Result Encounter Pastora Charly DO Work Phone: [facility] External [facility] Unsolicited Start: 12-12-2023 Clinisync Result Encounter Pastora Charly DO Work Phone: [facility] External [facility] Unsolicited Start: 11-30-2023 End: 11-30-2023 ambulatory PASTORA CHARLY Not Available Start: 11-12-2023 End: 11-12-2023 ambulatory LORI HUYNH Not Available Start: 11-11-2023 End: 11-12-2023 ambulatory PASTORA PARKS [facility] Start: 11-11-2023 End: 11-11-2023 Office outpatient new 45 minutes Jad Woods MD Work Phone: [facility] Comment on above: Encounter for suspec niyah anomaly ruled out (Primary Dx) Start: 10-15-2023 End: 10-15-2023 ambulatory LORI HUYNH Not Available Start: 06-16-2023 End: 06-17-2023 ambulatory Gurpreet Higgins Facility:[facility] Start: 06-16-2023 End: 06-16-2023 Patient encounter procedure Gurpreet Higgins [facility] Start: 12-31-2022 End: 01-01-2023 ambulatory Gurpreet Higgins Facility:[facility] Start: 12-31-2022 End: 12-31-2022 Patient encounter procedure Gurpreet Higgins [facility] Start: 12-09-2022 End: 12-10-2022 ambulatory Wendie C Renetta Facility:[facility] Start: 12-09-2022 End: 12-09-2022 Patient encounter procedure Wendie C Renetta [facility] Start: 12-02-2022 End: 12-03-2022 ambulatory Wendie C Renetta Facility:[facility] Start: 12-02-2022 End: 12-02-2022 Patient encounter procedure Wendie C Renetta [facility] Start: 11-25-2022 End: 12-03-2022 Pre-admission assessment Wendie C Renetta [facility] Start: 11-24-2022 End: 11-25-2022 ambulatory Wendie C Renetta Facility:[facility] Start: 11-24-2022 End: 11-24-2022 Patient encounter procedure Wendie C Renetta [facility] Start: 11-11-2022 End: 11-11-[address] DOCTOR ENGLE Facility:[facility] Start: 11-11-2022 End: 11-11-[address] DOCTOR ENGLE Facility:[facility] Start: 11-06-2022 End: 11-08-2022 Evaluation and management of inpatient DR PASTORA PARKS . Facility:[facility] Start: 10-08-2022 End: 10-08-[address] PASTORA PARKS . Facility:[facility] Start: 09-25-2022 End: 09-26-[address] PASTORA PARKS . Facility:[facility] Start: 09-11-2022 End: 09-12-[address] PASTORA PARKS . Facility:[facility] Start: 08-30-2022 End: 08-30-2022 ambulatory ANA DIMPLE Facility:[facility] Start: 08-28-2022 End: 08-29-[address] PASTORA PARKS . Facility:[facility] Start: 07-31-2022 End: 08-01-[address] PASTORA PARKS . Facility:[facility] Start: 07-17-2022 End: 07-17-[address] PASTORA PARKS . Facility:[facility] Start: 06-19-2022 End: 06-20-[address] PASTORA PARKS . Facility:[facility] Start: 06-19-2022 End: 06-20-[address] PASTORA PARKS . Facility:[facility] Start: 05-23-[address] PASTORA PARKS . Facili ty:[facility] Start: 04-21-2022 End: 04-22-[address] PASTORA PARKS . Facility:[facility] Start: 03-26-2022 End: 03-27-[address] PASTORA PARKS . Facility:[facility] Start: 03-25-2022 End: 03-25-2022 Patient encounter procedure Jenelle GONZALEZ [facility] Start: 03-24-2022 End: 03-25-[address] PASTORA PARKS . Facility:[facility] Start: 03-24-2022 End: 03-25-[address] PASTORA PARKS . Facility: Procedures Date Procedure Procedure Detail Performing Clinician Start: 12-12-2023 ALL CBC WITH AUTO DIFF Pastora Parks DO Work Phone: Start: 11-06-2022 Delivery of Products of Conception, External Approach DR PASTORA PARKS . Start: 11-06-2022 Drainage of Amniotic Fluid, Therapeutic from Products of Conception, Via Natural or Artificial Opening DR PASTORA PARKS . Start: 11-06-2022 Introduction of Othe r Hormone into Peripheral Vein, Percutaneous Approach DR PASTORA PARKS . Start: 11-06-2022 Repair Perineum Musc le, Open Approach DR PASTORA PARKS . Start: 05-10-2020 Insertion of subcuta neous contraceptive done Jenelle GONZALEZ None (qualifier value) Jamila GONZALEZ Plan of Treatment Date Care Activity Detail Author Start: 11-08-2032 DTaP,Tdap and Td Vaccines (8 - Td or Tdap) DTaP,Tdap and Td Vaccines (8 - Td or Tdap) [facility] Start: 12-14-2023 End: 12-14-2023 Patient encounter procedure 12/14/2023 2:00 PM EST Routine [facility] [address] [place] [id number] Lori Huynh PA [address] [address] Third trimester [facility] Comment on above: Third trimester preg aaliyah Start: 07-10-2023 Influenza vaccination Influenza Vacc ine [facility] Start: 2020 Adult BMI Screening Adult BMI Screen ing [facility] Start: 2014 Depression Screening Depression Scre ening [facility] Start: 2014 Tobacco Screening Tobacco Screening [facility] Start: 2002 Screening for Chlamy dony trachomatis Chlamydia Screening [facility] Payers Date Payer Category Payer Medicaid [id number] 2019 Private Health Insurance 2002 Unknown [id number] 2.16.84 0.1.381622.3.579.2.593 2002 Unknown [id number] 2.16.84 0.1.023497.3.579.2.593 2002 Unknown [id number] 2.16.84 0.1.262111.3.579.2.593 2002 Unknown [id number] 2.16.84 0.1.350737.3.579.2.593 2002 Unknown [id number] 2.16.84 0.1.465250.3.579.2.593 2002 Unknown [id number] 2.16.84 0.1.553078.3.579.2.593 2002 Unknown [id number] 2.16.84 0.1.433900.3.579.2.593 2002 Unknown [id number] 2.16.84 0.1.601299.3.579.2.593 2002 Unknown [id number] 2.16.84 0.1.754260.3.579.2.593 2002 Unknown [id number] 2.16.84 0.1.288558.3.579.2.593 2002 Unknown [id number] 2.16.84 0.1.845576.3.579.2.593 2002 Unknown [id number] 2.16.84 0.1.180180.3.579.2.593 2002 Unknown [id number] 2.16.84 0.1.748624.3.579.2.593 2002 Unknown [id number] 2.16.84 0.1.659428.3.579.2.593 2002 Unknown [id number] 2.16.84 0.1.685303.3.579.2.593 2002 Unknown [id number] 2.16.84 0.1.146032.3.579.2.593 2002 Unknown [id number] 2.16.84 0.1.857896.3.579.2.593 2002 Unknown [id number] 2.16.8 40.1.101523.3.579.2.727 2002 Unknown [id number] 2.16.8 40.1.982298.3.579.2.727 2002 Unknown [id number] 2.16.8 40.1.844578.3.579.2.727 2002 Unknown [id number] 2.16.8 40.1.631620.3.579.2.727 2002 Unknown [id number] 2.16.8 40.1.253456.3.579.2.727 2002 Unknown [id number] 2.16.84 0.1.532589.3.579.2.1286 2002 Unknown [id number] 2.16.84 0.1.243529.3.579.2.1286 2002 Unknown [id number] 2.16.84 0.1.294500.3.579.2.1259 2002 Unknown [id number] 2.16.84 0.1.424791.3.579.2.1259 2002 Unknown [id number] 2.16.84 0.1.646355.3.579.2.1259 2002 Unknown [id number] 2.16.840 .1.385785.3.579.2.1259 2002 Unknown [id number] 2.16.840 .1.028880.3.579.2.1259 1959 Medicaid [id number] 1959 Private Health Insurance [id number] 1957 Self-pay Social History Date Type Detail Facility Start: 03-25-2022 End: 08-05-2023 Tobacco smoking status Never smoked tobacco (finding) [facility] Tobacco [facility] status [facility] Start: 08-05-2023 End: 11-11-2023 Sex Assigned At Female [facility] Start: 08-05-2023 End: 10-28-2023 Tobacco use and exposure Smokeless tobacco non-user [facility] Start: 11-11-2023 End: 11-30-2023 Alcohol intake Lifetime non-drinker (finding) [facility] Start: 08-05-2023 End: 11-11-2023 History of Social function [facility] Start: 06-02-2023 [facility] Start: 2002 Sex Assigned At Not on file P [facility] Functional Status Date Assessment Result Facility 12-31-2022 Functional Status No [facility] History of Present illness Narrative 11-11-2023 Gricelda Gaspar RN - 11/11/2023 9:00 AM uJlian Woods MD - 11/11/2023 9:00 AM EST [...] Yes Have you been seen here at [facility] in a previous ? No Recent ER visits or hospitalizations? Patient reports she presented to [facility] approx. two weeks ago for cramping Bring blood sugar log or meter with you today? (Please bring them with you for every visit at [facility]) N/A Traveled outside the country in [...] and the other consultants, we search on [employer] and all the available care everywhere [facility] I did review all the imaging studies of the patient available on EMR, ordered by the primary care physician and the other computing consultant HABITS: Patient activity no restrictions, diet [...] patient is in complete care of her office cashier. Patient does not have any future appointment scheduled with us Thank you for allowing me to participate in Stacey Sue Ang . If there any questions please do not hesitate to contact us. Sincerely, JAD WOODS MD documented in this encounter [facility] Hospital Discharge instructions 12-23-2022 Note Date & Type Note Facility 12-23-2022 Hospital Discharg e instructions Follow Up Care 12/23/2022 11:03:27 With:Ronaldo LEE, Gurpreet Levnie, PUL, MIGDALIA Address: [address] [place] [address] [place] [address]- When:3 months [facility] Hospital Discharge instructions 03-25-2022 Note Date [...] instructions at home: Medicines Take or apply [id number] and prescription medicines only as told by [...] and water are not available, use hand post doctoral fellow. Try to avoid contact with other people [...] 01/16/2004 Document Revised: 02/14/2020 Document Reviewed: 05/12/2017 [employer] Patient Education 2020 [employer]. Follow Up Care 03/25/2022 10:27:35 With:Lori Jarvis DO Address:Unknown When: Unknown [facility] Evaluation + Plan note Note Date & Type Note Facility Evaluation + Plan note No data available for this section [facility] Evaluation + Plan note Note Date & Type Note Facility Evaluation + Plan note Future Appointments Appointment Date:07/01/2023 11:15:00 AM Scheduled Provider:Ronaldo LEE, Gurpreet Levine Location:[facility] Appointment Type:Pulmonary Follow Up ([place]) [facility] Evaluation note Note Date & Type Note Facility Evaluation note Diagnosis Encounter for suspected anomaly ruled out- Primary documented in this encounter [facility] Hospital Discharge instructions Note Date & Type Note Facility Hospital Discharge instructions No data available for this section [facility] Instructions Note Date & Type Note Facility Instructions Not on filedocumented in this en counter [facility] Progress note Note Date & Type Note Facility Progress note No data available for this section [facility] Summary Purpose Family History No Family History Records FoundNo Family History Records FoundNo Family History Records FoundNo Family History Records Found Advance Directives No Advanced Directives Records FoundNo Advanced Directives Records FoundNo Advanced Directives Records FoundNo Advanced Directives Records Found Additional Source Comments Patient Care team informatio n (unrecognized section and content) [place] Senator Relationship Specialty Start Date End Date Wendie Jackson MD [address] [facility] [place] [address] PCP - General Family Medicine 07/17/23 INFORMATION SOURCE (unrecogn ized section and content) DATE CREATED AUTHOR 01/30/[address] [facility] DATE CREATED AUTHOR AUTHOR'S ORGANIZ ATION 06/26/2023 [facility] DATE CREATED AUTHOR AUTHOR'S ORGANIZ ATION 11/15/2023 [facility] DATE CREATED AUTHOR AUTHOR'S ORGANIZ ATION 12/30/2023 [facility] EPIC Reason for Visit (unrecogniz [...] BE BASED ON THE PRIMARY CLINICAL RECORDS. [facility] [employer] [facility]. provides no warranty or guarantee of the accuracy or completeness of information in this document.
== END 2024-01-26 20:57 | disposition home or self-care (01) ==
LOC: LAB 20:56
PROVIDERS: Visit Provider Obstetrics & Gynecology
DX: Z34.93 Encounter for supervision of normal pregnancy, unspecified, third trimester (principal)
CPT/HCPCS: 87081

== ENCOUNTER 2024-02-02 19:30 | Inpatient (IN) | payer OTHER, SELFPAY ==
--- OUTSIDE RECORDS SUMMARY | 2024-02-02 19:37 | XMS_ITS | CCD ---
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 Name Role Phone JarvisLori Primary Care Physician Wendie Jackson Primary Care Physician [phone] CHARLY ., DR GUILLORY Admitting Unavailable CHARLY [...] PEREZ Consulting Unavailable RODOLFO LÓPEZ Consulting Unavailable CHARLY ., DR GUILLORY [...] JAD Attending Unavailable PASTORA PARKS Referring Unavailable Renetta LEE [facility] Primary Care Provider LORI HUYNH Attending Unavailable PASTORA PARKS Attending Unavailable LORI HUYNH Attending Unavailable PASTORA PARKS Attending Unavailable LORI HUYNH Attending Unavailable PASTORA PARKS Attending Unavailable LORI HUYNH Attending Unavailable Allergies Allergy Classification Reported Allergen(s) Allergy Type Date of Onset Reaction(s) Facility (8 sources) Bee/Wasp/Ant venom; Translations: [Bee Stings] Allergy to substance Swelling - edema - symptom (finding) [facility] (8 sources) Seafood; Translations: [Seafood] Food allergy diarrhea [facility] (1 source) Shrimp product Drug allergy (disorder) 2 [facility] (2 sources) wasp venom Drug allergy (disorder) 2 Unknown [facility] (2 sources) Polyethylene Glycols; Translations: [POLYETHYLENE GLYCOL] Drug Allergy 3 Anaphylaxis [facility] (2 sources) Shellfish; Translations: [SHELLFISH DERIVED] Propensity to adverse reactions to drug 3 Anaphylaxis [facility] (2 sources) Venom-Wasp; Translations: [VENOM-WASP] Propensity to adverse reactions to drug 3 [facility] (1 source) polyethylene glycol 300 Drug Allergy 3 Anaphylaxis [facility] (1 source) Shellfish Propensity to adverse reactions 3 Anaphylaxis [facility] Work Phone: (1 source) wasp venom Propensity to adverse reactions 3 [facility] (1 source) Shellfish-Derive d Products Propensity to adverse reactions 3 Anaphylaxis [facility] Medications Current Medications Medication Drug Class(es) Dates Sig (Normalized) Sig (Original) [id number] 200 actuat albuterol 0.09 mg/actuat metered dose [...] bedtime. 0 Active 168 hr ethinyl estradiol 0.07107 mg/hr / norelgestromin 0.52430 mg/hr transdermal system (7 sources) Progestin, Estrogen Start: 08-16-2020 Xulane 150 mcg-35 mcg/24 hr transdermal film, extended release 1 patch(es), Topical, qWeek, 3 EA, Refill(s) 11, [facility] [address], 165, cm, 08/16/20 15:55:00 EDT, Height/Length Dosing, [...] mg tablet Take by mouth. 0 Active Ukautqnt-Jdb-Ai-FA (, w/Iron & FA,) 27-0.8 MG tablet [...] day(s), 1 EA, Refill(s) 5, [id number], 167, cm, 12/31/22 11:21:00 EST, Height/Length Dosing, [...] applicable or unspecified; Translations: [MAT CARE OTH IL FTL GRTH 3RD TM UNS] Onset: 09-25-2022 [...] WITH AUTO DIFFon BASOPHILS ABSOLUTE AUTO 0.0 [facility] Basophils/100 WBC (Bld) 0.5 % 0.2 - 2.0 % [facility] Eosinophils/100 WBC (Bld) 2.1 % 0.9 - 7.0 % [facility] Erythrocyte distribution width (RBC) [Ratio] 12.6 % 11.0 - 15.0 % [facility] Hematocrit (Bld) [Volume fraction] 34.8 % Low 36.0 - 48.0 % [facility] Hemoglobin (Bld) [Mass/Vol] 11.6 g/dL Low 12.0 - 16.0 g/dL [facility] IMMATURE GRANULOCYTES ABS AUTO 0.04 High [facility] Immature granulocytes/100 WBC (Bld) 0.5 % 0.0 - 0.5 % [facility] Interpretation and review of laboratory results Abnormal [facility] LYMPHOCYTES ABSOLUTE AUTO 1.3 [facility] Lymphocytes/100 WBC (Bld) 16.1 % Low 20.5 - 60.0 % [facility] MCH (RBC) [Entitic mass] 33.1 pg 26.7 - 34.0 pg [facility] MCHC (RBC) [Mass/Vol] 33.3 g/dL 29.9 - 35.2 g/dL [facility] MCV (RBC) [Entitic vol] 99.4 fL High 81.0 - 99.0 fL [facility] MONOCYTES ABSOLUTE AUTO 0.6 [facility] Monocytes/100 WBC (Bld) 7.4 % 1.7 - 12.0 % [facility] NEUTROPHILS ABSOLUTE AUTO 5.9 [facility] Neutrophils/100 WBC (Bld) 73.4 % 43.0 - 75.0 % [facility] Platelet mean volume (Bld) [Entitic vol] 11.3 fL 9.5 - 13.5 fL [facility] TBH EO # 0.2 [facility] TB PLT 151 [facility] RBC 3.50 Low [facility] TB WBC 8.0 [facility] Pulmonary Function Studieson 06-24-2023 Pulmonary Function Studies [...] READ BY: Portillo Correa M.D. Dictated: 06/23/2023 [id number] Transcribed: 06/23/2023 cc:Wendie Jackson D.O. cc:Gurpreet Higgins M.D. [facility] Comment on above: Result Comment: Elec tronically Signed By: Madeline LEE, Portillo X\.br\Date and Time Signed: 06/24/23 13:19 EDT Consent for Treatmenton Consent for Treatment [id number] .00CD:127 Normal [facility] Pulmonary Function Testson 0 06-16-2023 Pulmonary Function Tests [id number]#1 .00CD:127 [facility] Reminderson 06-02-2023 Reminders - From: Tess Guaman To: [facility] - Clinical; Sent: 12/31/2022 14:08:49 EST Show up: 02/28/2023 15:08:00 EDT Subject: 3 month f/u Due Date/Time: 03/30/2023 15:08:00 EDT Reminder/Recall 3 month f/u w/ Dr. Higgins From: Gumaro Currie ([facility] - Clinical) To: - Clinical; Sent: 06/02/2023 13:48:27 EDT Show up: 06/02/2023 13:48:00 EDT Subject: RE: 3 month f/u Scheduled follow up for 07/01, transferred her to central scheduling for PFT that was never done. Normal [facility] Coding Summary.on 01-13-2023 Coding Summary. CD:[id number] G h0bWw+PGhlYWQ+BM1YBRS eO84oyDEwxP0FN9vOPG9I WSDDKPVUPC4WOT4bfBV5K SfjE3RhghCx LbuapPYyQU23RDr9TAI3n TrbEXeneF1puUBmA7u3Ua OdNZ89rL42GKodTYMwBgD 3LjZpbjsgbWFy H1dhHoBtmBEwNpw+PHRhY mxlIHdpZHRoPScxMDAlJy SfvKuoQB5aXo0cCPQyEFA vbGxhcHNlOiBj p9cdFHKtOSpqLL6xdNwfM 5HvwGN3NITxp4c7Qu20hX I+XNDvBVK3yEviXIzwb00 2LoSqh2wxNYL4 lYBnTGrrMHX9W56so7E5V QZzPXZqOCP0oBM6mY9yqW dqgwjiT2KhuMHrLoF6MRD 6sWXjoQ5paEsr nxrjxS6vVjn+G55ZQE1EM XEESE2XFfl9P5JhEfkeoO I+PE20KEPaCY30aSEtgIQ ly4rmtIn0UmOl AYUtORV9oXvjYXtpk4ZyI XBbJ18nzEPkr5C9QPCvoD dieGEzScBdpBT8dJ1hBYc dllnxz4jitlsz Dhwqn7auwf04fH81E59mH MnfISWnKCJ0CJCuBPMvqE pxkz8xbO3wWa5+NScmc1c xe4vwgRi5KhWw MLVmxhGvzZnxOKZ2b9MvT d44N5VrzEmwm3AaTjv0hx 38gLHch3B4aAA3IIobBBH stO7rBCabXjA0 MQAyWtCqzM16tGDdJZpfE f3pnFtplYueZY9wLJRgik awEOKoaR7gGLVeeNRqnGc qXQ8jLTTzamcx q027GcUfOOD7COLkfWRzA 0SdtT7sDcGbHQKbDLBgG0 DeeQFlFXtpZ325JGsxDfK 9YSObidLuV3Uw EZZijObjOsF6k1E5Df6Kj 5IleagzZBL0OPowHPHfMd Y5RyMfJcB6S8ViQeb4XXI ifQhzXJ2jJ3Ts AFRmmplftibilJH6BKJmB MMamD79dDGxSYtyJk4bp0 K8q261PVNsUXNzxZ24Pz0 udDogMTBwdCBU zU3esqfja2vceophBhYkA XMkGKd7WGq1QNCwsVmsOs JlLTD8NbM9TSW4rWQhuK7 ccFshfhwxaA5y Oyc+E30abG2dLPU6YFD0q uixDKLudhHtBP68BJ72P0 RyPjwvdGFibGU+PGRpdiB anUyuID4sQfCu l0uzg2CuTPtlY5FeVZIwX PfvZla5RWFtEOW2uKV2nN 4xUIDvXMipl6M0iUT6R7Z tfyLbzo7cs2io MXTyWMnlX04cqKYtl6E6W ONoqLB2AVAreIovFqDggV 93Oyc+LVVkpJjio8QuGdu dx6bww9ddrHp4 VoWiZGKmemVzsYvyVAH4e 7CxJr62F45dLOvhGOXhVG SnFFTpYTZzoPfzjt1uuU1 wIi8+PGNvbCB3 fOG0vJ4jKJQxRiF4UNanX 602ReEpbHTlSjpqy8wnh1 hiuQr3MwBtEFBszpUmuPy eSID9k8ZuGs81 P23mSZazIGQlSQXuQVVsD BNnzAonqg0qbW5vXs0+PC 7ov1eiup76bR31iKW+PHR tQNZ4xWabYOtd BAMdgO7lJUpjScF1REQnE hYsrE60yTLkREsmAx7poE cwbLdtVV7zXEEmrqwfr08 4DbMoi9htPROt tOItSItzICR9T74vt4T7V AFbAJNqNUP6sGJ7rN6vwE lnbjogbGVmdDsgdmVydGl jEZlwDYqxG371 IHRvcDsnPlBhdGllbnQgT zFqGDl8Z0RcPvn7LBOiuI gqKJ7bkNAsRBvuRl0qhHd mvVjaYW2kTPFj xghoq177IlLsh7pyYONuu CTcUArcIZA4B12tr8N5DI FeQFDiDIX0xZO2vG0fbYq nbjogbGVmdDsg xdSigLaqHTcxXCjoC711T HRvcDsnPkJpcnRoIERhdG I6LC80JO05aVNmd4Z4cOQ 2Y6VdDIYhcwjt yfaomWE0CPIuRLLleV02Z i1psQffQm4zRAIuUYI2CG PtzCGkS9VrkI5hGbObGZJ zNNYdB0VanPRt DUvtT314XZtdBaM6NDSla iHjW8IdSZXkrKccGnL2c6 A9Ig6QU8L4RB72EI36uUN bd2X4nOC2C1Gt JRIyrtmudguaiQZ8VQStW ZLaxX26Yv2kyTtpNn8rXO CsWZZ1AHYklCJhM3BytL1 yOiAjMDAwMDAw R3SvmDJqCCorL789JMruP oH4XRZezrQuW7GrRIUtgF glUgF5q9R3Lr9MHVx3BK9 9PK06mMJwd3Y4 bLX0E6LdDCBfjaqpgbvrq QK9BTGiCAFccK46Wn1frF pwPf6fDFXnSBU8XFOlgHF vO4ReqA6qDqDi NCUwNDKzF3QwhCArLYuuG 889CLkuLvG2SPYopfUvH1 DlBBJvaOcyBvP1a4A4Mp6 CMZDnIB55ACX1 jAO4KB69MT19H8McVcdsu GFibGU+PHRhYmxlIHdpZH RoPScxMDAlJyBzdHlsZT0 vYo7yELMmLYTx bNnngVFpWuRao0osKSJeW QkvSI0zeMvxJ9ObyEP7GV Ikv2s8Py90Y57nU0NkxFZ +PUQpoXY9eDS5 bP8iToMlTlQ4HDplV737X yZasQFmHjoyl5pno0dkoU f8CkR9GJWbsmTjpVomGII 0i3LwLw41L31j IHdpZHRoPSIxNSUiIHZhb Nsgue8qbM6tMp4+PGNvbC I4jQK3hO0hWsPpRrJ2IPy oO601OyNovYSs Hjpsu2rrq8aifLw9JaEyG XSuxuYcnLzcCMC8q2KvVs 42U0ZwqLreg4NdFhu2ik9 2pQMju7Q6sQX5 M5WgCDXxrxlmqBQakRyyF E0dEWSlaulbNFMmyG5pCM OhX4b4BwAvPbX2ODwnQ1N btrF7ERPlzQDg HJblHPE7M84ef4S7ABXlO NCfQMI2xAV0eP0ejQlvyu ogbGVmdDsgdmVydGljYWw gATcpD387IBEw xYxlQHDqrC7qGBGvyAZlh MitPK4fKMVgixxqVbtHJF 3QYs9JQqfxEmKQAJWQHLD GTZTWTJj9A2Uw Ekq8ZTWovCtuBM2otDTjA TtcOd8luEyzyBkfAV6yJV GudwrxCZFtuH5sXRJpwWI jbEvhHS0bFQRk mrcvx549NmOaVVU2EIXxl TXnF7CfeZ6bWiFvHNSmYH ViB6UplWZoDNtsH208WPq jOkA3OZSyceSj C2WoAKEmnFcqOtU4j3L3J e1pVs3zDW1sXINuLU77FY 23mLDut8Y3zLZ1Z9GmOKD pbmctcmlnaHQ6 TIOhGCExrE81aJOhEVzcF w9oy2I8l947SROzVBSgjA 02Fm0csDwkZXDkmENSjT9 xtogsa7egtmcr XtJcGXZeVIz4OSt6IEXac AroYeJzQLO2StJ2PIG2oV EheV4glHpqlzyrhE4qIjh +MjAgWWVhcnM8 A3ImErv6RTYfbPudLY6mt WAfQVszFe7trLvtgIiwTP 4jGOOcxkhpZSHbwH1rPTN yzGYvfLoxGY2p LTWdhsmhy387NqIpECI5V OFumQRfG9HyfO4lHhEhZE XiMNPmV9LmcORkDKghW59 5SFpmSbR1ELUu kfUaS7ZvVLQezPlbMeQ0q 0A7Mh4ZKN9pyTJ3T9DfWx q1EFUlbLncKS9egPWzTFi yXh3jrXztvXrd QC9gXYRquyuxVUEzeW5eY KSeiVGrqQggCE6bPSDgfe drn727BpTjDKK1MLIbfSF oQ5YohB5qMvWi DPKgLHYpF8RifWDpTRhhS 799CMkiFrC7YKZqcmBaM5 JxFMHedYwoYsL5y7L4Na2 VyTKiBJIlYK72 FP32GC35Y3OoMyehmSIow +PHRhYmxlIHdpZHRoPS jtHPQiYdYfhIpaCW9uMh9 yZGVyLWNvbGxh zGTlAvVkr2znTYNlSQniA U2otEheO1QptXG9JWYys5 q0Us27Z75nN3AevHI+PGN akGX8lPZ9hE4j FiQkCfA3XAliS396WyYyo CVlHssty7epu0cfpJb8Mo JqORVbwgLaeNhxOON1k5U uMt29T43mZUtu ZHRoPSIyMCUiIHZhbGlnb n7ckP2aNg7+ZAKkfPM6rS I8yK8gUfPhAxU6MSjzW24 9InRvcCIvPjwv V13pC9VsaLW+MUNfPtp5X BNlwKwbQZ1gvWHbGEjjZa 3nRMB7QjWnFzQuOSesX7I hZGRpbmctcmln kTJ2CRAkAFNtyU32Ev4il AmgNc2gCPDmIHD7LMMcuI HnE8QjhZ9xBdIfWXNvRSJ sA6ByzNKxYKzu R687VYccUaX3BNZzzqPeW 0DkNOKvwLtbMjH8q6E2Tm 6CqApxaCLsEF1eMrEwDKf 5W3EiCll8JMNr hKiwFL1syEFnFOzzGw5cz KlorUkpDR3pGZWxdobqg4 76AkNyc1ozBBVhhRFoHIu wDZK2W65xy2T0 BZKtGSJuISG6wXJ4tD5sh GlnbjogbGVmdDsgdmVydG csAEcfNFbkF215UQAsbKw zEjWSEyi1B3Hb Jdz4QZBnwUhrJJ1gcFXmR YowVo0dvGoyoWzeXI6sRB Ixznorc581IrRfl1fwWBV wcHQgVGltZXM7 D01ej5G3ODFmDWNkZHD4v VK4mP1hlWwmnmmjzFEtcZ fnlpYokCzpANcgZStsB16 8KSSqrIiuGn3X Xao3P0TwDse3LEIwmEbsL T1saGMuWIpjRl1pgInliP isNA5uLBGgcgoid521ShU lm7foFFHbzETz JQvpINU4A66rw7P0DHGxW CNpWAB5vMZ9sG1lpXpwxl ogbGVmdDsgdmVydGljYWw xIUgsG249PRJt cDsnPlBheWVyOjwvdGQ+P L87hs58I5BgAtdwGln1OV XrDVC9aIQ1lK5jICQbNDb de1Q0eBX4U8Uy cmRl (more content not included)... Normal [facility] Consent for Treatmenton 12-11 Consent for Treatment [id number]#1 .00CD:127 Normal [facility] Heart and Vascular Office/Cl inic Noteon [...] with poor quality flow volume loops. Per survey field technician the patient was carrying her baby [...] day(s), 1 EA, Refill(s) 5, [id number], 167, cm, 12/31/22 11:21:00 EST, Height/Length Dosing, 59.1, kg, 12/31/22 11:21:00 EST, Weight Dosing Pulmonary Function Testing Follow-up With When Contact Information Ronaldo LEE, Gurpreet Levine, PUL, MIGDALIA Within [address] [place] [address]- Additional Instructions: Problem List/Past Medical [...] (more content not included)... Normal [facility] Comment on above: Result Comment: Elec tronically Signed By: Gurpreet Higgins MD\.br\Date and Time Signed: 12/31/22 12:07 EST Physician Orderon 12-31-2022 Physician Order [id number]#1 .00CD:127 Normal [facility] Referrals Officeon 3 Referrals Office [id number] 1.00CD:127 Normal [facility] Pulmonary Function Studieson 12-19-2022 Pulmonary Function [...] READ BY: Gurpreet Higgins M.D. Dictated: 12/14/2022 [id number] Transcribed: 12/15/2022 cc:Wendie Jackson D.O. Normal [facility] Comment on above: Result Comment: Elec tronically Signed By: Ronaldo LEE, Gurpreet Levine\.br\Date and Time Signed: 12/19/22 09:37 EST Coding Summary.on 12-11-2022 Coding Summary. CD:[id number] G h0bWw+PGhlYWQ+GO7UKZD jV26qiQYvhD5HU7yYAB3Z SEANBPPIUG1AIS4aqAO5A YtdF5OdmsCw VxcldNIkRK73QTq1KLJ2m HraTLsieI5jrAGyF5r5Mx EnOB15gE29OFqbPGVaXtZ 3LjZpbjsgbWFy F3diGoJzsHZoLvq+PHRhY mxlIHdpZHRoPScxMDAlJy JfoGngST8lYa1sQLYmKGR vbGxhcHNlOiBj z2msHSUgLGfzLE4ttOxvF 4HyyHN5IHEvq2w6Wm58lR I+GRVcXUQ7bIdqJYhmu08 0ZgEgy8viQRB1 sFQoXEecWOH2M65zn5L0D TVhZGQeEYK0jHS8fZ4trI wowizzB1NqeVFdTlK6LPP 9bMAluY4zxMwl xndgyM0pWvb+Q93OKD4MW CXPGB1DIsg8J9HeJhvswM I+EW84YBVxMB79cXGzwMG mf0rvyTb4RqPw CBYiCJI1oKfcFKsxi5RsU IWtP43wnJYag4W6WFAtzT xptPOoXgZqcBQ7iH4dEQw kjqaom3cqyiqs Qowqi5unsy31oG36K19aK DhvEAJfQEB7PSPrAONsjR dneu1abA1cPo0+NCbxz8o vc3ytaPw1OzPe DONgsrPezLjqXZV1t9CxT e06X1HvqHdyf9LgVix2la 76gOMzx2X7hQC3PQcjFMV ovT8tACkbDlL2 QCEnQfFfeA00nQLwNYxnZ u8mfOmpfRccHI2cUVHvyp fcGRHtbL4bITBcpOBkwKw vIV8gXKXbusfy a033OlTiFUU5AXCyhEUhT 6NvvT1yQaSpIHEtEBKxL3 BksQGjUXdbN823ZEdiEaJ 2KBStqxHnA6Eh NNCygGelUjZ6g1R5Qy5Nu 2JpdjstNZP8VFagXSPyZk HiGoBtUvI9D4SnIbg1NGF exPjzNU2fW0Xs QSAjyyxypzbnwFC7SIJpX NHuqH57sRLaZAycWb8hd2 X5g458IFHaZHQdeU65Yq9 udDogMTBwdCBU fD3alrkei7azxoawEuHtO VOuYNy2VWe2NJSkkRobQx KuQLO0KdS6FEA7qMBjcL6 icFaabdkafR8m Oyc+D65diG7dDEC6YBB6e fhrQWZwwrNwAZ24ZB62L5 RyPjwvdGFibGU+PGRpdiB mzCiqPN6fOpCh v4bxh7VvVCvkD4JkKRPeH XeyFmm1YWBzCPZ4nYG7hG 1oEUOuFGgod1Z1bXN5Q9H qisXgmb9ja4vh UDJcCAtwC96moODuy2R5A GGfgLW9YGMhtGycWmSrhV 93Oyc+ZNTwdKkrn6NyWhz cv4klx0hxrQd8 GcVyZSFccrYmlGvgZGO7a 5UvWf31Y77pIRdqZMBrLG JfMJEoRYSztFkviq5opM1 wIi8+PGNvbCB3 vII9nQ5wRNEdRpG8AYirV 369SyLlyWSqHmwbr4gyc1 kaqVk7BkLlRWDzxwIskYi vJJJ0v6PfNx78 A55mEResFECuCECvSYBnM KOijGojij5xqR1oYw9+PC 6sr1oykz57iB45pYZ+PHR dMUU3mFzmLUhi LBGxaJ2nELzdOwY7OTZnN bIcqH23xIJiECqiHp9zfS myrVwxTS7eNXEocwvix08 8CxAfk4luOKBx pYNcTHqlXZD8K78kz3E8M XNkJLThSUX8sWA7cZ3afA lnbjogbGVmdDsgdmVydGl jLJksTCmyA469 IHRvcDsnPlBhdGllbnQgT fIlSRz5S0UuBbk0QRXqaJ nrWQ3wkXOcHCtwJs9ikNb rhGguQD9hFPHp zjuvn830UtDrk5dpGZGgk HRiINyhQCU7M33ln9U9IL DsIKDdJCM0eGS3aX7kdGn nbjogbGVmdDsg ztHmuWrcNFchVHrgO101K HRvcDsnPkJpcnRoIERhdG S8HY05VH55gGUvi2J4pKH 5N3DsERMobhbf srrttOS8PCDyZQTouU57B x3hlAwjTu2oFSSkGVY0IZ LtpTMiK5MfzM4aFvIbOJT gEWSgO5NjxZKa BPopO678IFykUiI5DMRdg tReQ0DhGKMagUipIgZ7w3 K7Fq8OD0F8LJ23MF43pRU mp4N3kTQ2M9Ft TRDjsyltddvjyGI3SWJkY DWcyX45Rw1liWupZq9zQX IjRXP5LSSrdMRmR6SjqO6 yOiAjMDAwMDAw N2FvjWRgIAnjN574VKpfS pU4BGDiaiYiW7HxNXGmdO ksWpS3e8B2Vq6DKTn3AF5 3FU26hCWtx2Y7 dBI0L0ExCWUdqhbuumjdn UC6GJYpNTAymP46Xl7avR feSh8cXHEjSNF9AIBwsRF dV0OgsR6uTvEa UDHcLAHlP9UynFNzNGdhQ 749NAbnVnD6ITQgruTwN5 OqOQCwiUatQsD9d3M7Za2 VNXKpOL47CID7 cDR4JH82PM94W8ByMipro GFibGU+PHRhYmxlIHdpZH RoPScxMDAlJyBzdHlsZT0 sDd0dUPZuSFZf fRagmIDwSgIje8nbAUXnQ AzmMM1ojHbkJ6BgzHP7OP Dsc8g2Tu82G65mU6PslIJ +VHEapOQ3dLD3 pR7sPzQqQhJ1SSwgK780U nUomEPbJjuom1ucb4krbK a8DyO0YIYyenCbaYbqOSD 8s0WjIp13D53q IHdpZHRoPSIxNSUiIHZhb Vfzfc7mmF3kUi8+PGNvbC R3tDZ3iH6hLxUsJaA2GKh gV155BbAclOBx Lngxm3zwj8fkuBh2SjTpR HMdpuZocZboHFT2a2NxFe 77S4EqkLybu2NtPbx6ax8 9bYGrt6U0gAV8 I3NaGTDyzuesnQEklXhrG X2rCMVyrhbnBKUoxI5lJZ FwP2d9GoDuXpJ2KDtlA5Z jyeM0DCZxhBYe YIuwLRC2I71ze2Z9OBPaA HWnVBM2yGJ4mK3hiQluoj ogbGVmdDsgdmVydGljYWw rZUbtD513XZSp sJbaYLLqhR6vVVUhyMLhc XbhGM6hTZBmjaxgQehXHW 1RMm1RTztvUyJMDYURSWC VFQAQSJp4B0Et Nax7EYVrhIjwOZ7dvCVlN GqcKm5viKurkKvbCR5zIE IpitsjEHHyoL9vYNRpiUT qoUlzRX7nJSIf ipyrn933XxXiEBZ2AGHcs WZkO0ZanO9jAfEoISEsEY DlJ0NypHNsVAdgD684MVe eRdK0MENozzSh B5JuCZCusLjzHyS3e5J0P m4fDu1yUO2kMNZtUC44UG 80jPQgv8U6tRN6T4DqLGM pbmctcmlnaHQ6 SDJeARQfoS95tSRtLAntV d5id9N9l886IKSbZWWvgB 61Ye7sdWbkTYQyfKTKhV4 pcwghv3swtycp BoQeLLYvWGc8GOb7RNEie JtxWlBeDIG9HdS2UWN0fG OzyX9jaFbmfvgczN7wFos +MTkgWWVhcnM8 L7ZjThw8GDKztZnvXG6mu LIbAStgLl4uaTnzmJxwZS 6oRSLudhbaPDKxoW2fXAT peCKpiGjhXN2l ETOqkgmly571VxSsYSV1X ORliWSdU8DyfX5wVwZqNY FqKECgD2OubMIpIKsvI87 9LYtxXsZ1QXUd dvAcB3XaYIUogOxzRmT0e 3A9Xw4JCB8vhMZ9R3XuIo o0DBEpwWptME2ixAUpTKk iCf3qyOgixMbz QB7kUKSnarsgHBYmgS1pR MZhrGSkmNrhZQ7zMHZczq xof887YsTmYIF1FLAlvFE qN6DbeK4hWaSl ROMcLEYkT1PcqNQuRBljL 738ATspPcS4GWMiwzBvN8 ZeRHCaiIlcYmO9t2C8Af9 EnLOpRZPhJF19 LH32VX61C4GzAxfroXBmb +PHRhYmxlIHdpZHRoPS pfHIItNvKwrHsaEF5xHk2 yZGVyLWNvbGxh jTIhTsLzh5utESZnYZpdJ Q7mlKejP6EjpFM1HDMob5 g9Hx76C16iL1BfaVB+PGN seCE0cHT7iU1u LuFfEiT3MPbkJ863OxTjd IAdCpuug8xdi9rfgZt2Tk TtZAMvtnWbaKscYMA5t0K jPg11R60xUDku ZHRoPSIyMCUiIHZhbGlnb k8zmB7wFy1+LHIdxRP5cD B4dY5uJhTjRpE4ZIviU11 9InRvcCIvPjwv C63uS2FquDS+EEEtKmf1N SJtiEgaLG5bpMYiJTuvVn 0fVSY9MeDcRqZzDSocD7Y hZGRpbmctcmln eRG7ZVTpZQRwmA59Kk9qk MjjOe4hMHHdDMC5UVXbhI RoT9QyjE5jYkJgERGeXRB rK9VpdQMsSUao N880EAggAyC6PBSugnWxD 0DlNPWqkRxoTlN8e8K0Jw 0GlIprdYLrCU5pKsHiBDi 9O3OaTks0YPSf wFdoBB2cxCEsWYewJg8tp UagyEgoRM6iBGFdznghu6 22CmCqd7jaTOZiwQSnRKq bLST4H23mg2Z1 UTLbYTElQVF5uHP2bG8ec GlnbjogbGVmdDsgdmVydG iuYGlcHQjiO470OMIsuOo lWvHANug2E4Gx Usu8IBZcbInyZI0lzRFbT PdvJw7qrNigaNemQZ1bGP Zhflspe774LrXqk1lpZXD wcHQgVGltZXM7 W38ek9X8PRGzYAJjMGC0o LW3nE9gqYnyyafcdKYxwY idpdOjvOwxPRozXJyjJ49 4YJGhgUzhTt7P Bmk1F3DqHxn9CRFcqHhtH P7yxLWbVFrwVn5xyLdwpJ jfXK7oVQFfshbgd498RvM zx4pzQZUyaKIh AFrnKAY7Y89tb6E7ATNwN QEzEFO6jKN9zW4neGjmdw ogbGVmdDsgdmVydGljYWw tKWmhJ728MCZj cDsnPlBheWVyOjwvdGQ+P I65ez24T7EhSdsuDgx1ND AuOIQ2dNI6aU4lEVCmXYp bq6C0gIH6G6Yy cmRl (more content not included)... Normal [facility] Consent for Treatmenton 11-11 Consent for Treatment [id number]#1 .00CD:127 Normal [facility] Pulmonary Function Testson 0 12-09-2022 Pulmonary Function Tests [id number]# 1.00CD:127 Normal [facility] Physician Orderon 12-08-2022 Physician Order [id number]# 1.00CD:127 Normal [facility] Physician Order [id number]#1 .00CD:127 Normal [facility] Physician Order [id number] 0 [id number]#1 .00CD:127 Normal [facility] Coding Summary.on 12-05-2022 Coding Summary. CD:[id number]:[id number] G h0bWw+PGhlYWQ+SY4QGCC zB53zeNKqfA7XV1zEUT6S XTYZAPEZCS8TQE2ekHA7O IypZ9OwofKq CxjuhILtDL87JWq6RGL8t UqmXZxetX7ntTVhQ9r3Ud BvWT02dP74GEyqPTOuWlL 3LjZpbjsgbWFy Q1izKwWsqXIlMcz+PHRhY mxlIHdpZHRoPScxMDAlJy DjzSlnMA5lHi2pBHBgUFZ vbGxhcHNlOiBj w2pwSJDeKRxaPK7orYweY 6TgbTH0UEEtr0w4Nj98pE I+TYSzAHB1hIscOSreo04 4VhKum8bdWAO0 iRMxRNvgPST6T39ei2L2R BJuGZZeDWQ5lPF4xU5juK uvhfpoE0CpqGLzDtY2BIT 0eEQxjR2ztWxo pceevU4xZfn+Z45NMO7HG FVMDG9LAmv2L3LdWaftcR I+RJ12CGOdXA32rRFkmZI cn3nmuGp0GpWy NNTwNAZ2gQhdOGovy9PaR HLgP30adRIia4Q6EBMoeN mesTBaGoZrsBY5dF3uDIu lbdmga0frbqel Foari9tecd16pO55J15bW RsbYLMoCAE3VTOsYFKfwR lgdv2gnN5dNd9+THkwi1i cn5nhmXg4XyKk YMXlrcZnkTyeGPW8q3LgL h85W0OhfLqmo6LlHio1vu 34qVUpk1I7pEG0KPhaTUR vkS4hAUhcRaT1 ETJiEmGswW39rVXxJKfaC u8pkAxhsSugLK6bJYLuet ekPZAjhX9bDKFpySTgoJw uAV3wVFHmzibv o086AfLwTSS2YYNbbHAwJ 3TghG8jDmCqQWFnXGVxO3 IreATcCGtvU261ZQgrUcN 8PNOobyLeD1Re ZMGtkZsbXiR8r5S3Gu3Ce 7NwoiwjFIX8BRqdHQUzHf L2ZvAgXvS6N7PsKiy4WDA teHgcIU0oT8Ki TMLtrzveysluiHL1LERfL CDmsA46eYKqBWdkXr2hy3 V6i848WHByPPNubT77Xy5 udDogMTBwdCBU vU2cmnshe6lxyukoGdZnA DSaZVt1FAc6OMCreGynWp RnMBA8LfT5XFM0fDHotX8 opCvfjsnsoB0d Oyc+G91llJ4wWJX5KRV3e lxkXZQyrsKaAJ85BW00C5 RyPjwvdGFibGU+PGRpdiB xeKciEM3tNwDu q2dba1VlCAslH0ThHLShJ InmRpe0ZYCwMND4lIT4vX 8hMZYyZDxnp8D8vYS5T9E qwjZncy4ti7jn JXErAZlnP61waZPes3I7K FIonKS3NJScqPvkUoCxzN 93Oyc+SFWvnNdjg1QsFtg zg3dok2wriCp4 TbQwAESfxiXoyOocAJR2f 3AaFr04C23eBTqtNAFkGT FeKELkNEYouQxqot4xsV8 wIi8+PGNvbCB3 fTI5wM2cOJLtDxY2RTofL 691MjWziJFwPbxny5pjp2 jdwJu0NaKdDMCzfaCxcZv oQIR5t7JkWl63 P10bDDduJSCcCBMiVGGyM XSdwQhmgb9zqI9pGd2+PC 3jo6npkh69kB45tMB+PHR rSTX2uZclMGtt GHLctS5vILfuEkN6NLSwG jZpwR62nMYqJHycQc6veS qzkCbiOP5kSTYckqnjl61 5CzWuo7msUUBm lCJvKPstZAF8K90qy9T0T JUpGDKgVYA2fJI0bS2ozX lnbjogbGVmdDsgdmVydGl uBXknJFtiZ472 IHRvcDsnPlBhdGllbnQgT qOxSHx8D6AwPsq3CKRgkW feGQ2abACkVZqzJx9unGx btJrzPK4pBCOh fvzst651DbBsv9bkBGStk KYyUClxNTF4M45ns6W1HP MmNMPkTEB8oTA6rC2hjAv nbjogbGVmdDsg gfTnsMfqNHonXVjsX131J HRvcDsnPkJpcnRoIERhdG R8LD93TQ72fEMtt8A9cVU 6V4LvRZOtryeo ziktvYO3FPXhBWWhmW28O o8jqZmtLj5jJOFqFVT5MS LdyLGgL4JojC1nNgEhGGB oQKHfO1FueLLv UDutF164YIgwJnQ3GZEyy mIaJ2JzTJSxbFlbXvY0o9 C2Ee8QX6B4SK07FL65jOS ag9N9sNK7R8Dp RDFuqjmmazycbUS5VVXzR YWluE92Sx9ksYopLm6hVA ZgNMW5AAYecTYxP1AuuC8 yOiAjMDAwMDAw L7PtrNZjOAtkA565CEinK xQ3LUYkrhRlC8XpTQLrsJ itYeF8f8N2Nn9HXPx6HK4 4SR27yHMhh7K3 qPG6X0QrBMGznzejtuxsq RF2CRCkEFIzpV79Gt2atP mnHw2nRZGwTES4TJTbeWE dR1YnmY1jUlDy IOOlJRBjM7ZjyJHcPHjvI 367NYsmVfF6CZCongJiC7 CzSICscXhxQkV6t8C0Qs4 THJJhFU01UJU0 rCA9GA75AI36M6RiQqtjm GFibGU+PHRhYmxlIHdpZH RoPScxMDAlJyBzdHlsZT0 eMu2nZXQvXGXf yYoqxIEpMjKpk6mvQTFuF YugVP6wmAozE6PbyNW5MT Qcf1p1Cy49P84lY4IpzXH +JYMyzWF4bNY9 mH2yOoUpQgO9FGwmC217D tKdbBAbVncbb0vzc0bwwV z6NhB5NFKuzbWjtSkwCST 8v9GpFn77F49h IHdpZHRoPSIxNSUiIHZhb Iwjks6nyG1vOy9+PGNvbC U4rGC9cJ2gZkKoQoZ9DOb lA679AfWatXBm Vuxyb2vzx5cgeOi1WlKyU PVrfrFtiGepPJU0g4FkCc 08Y6UgwHniv1IwMxw1yp7 8jXMnx3L2hYT8 Y0FrGVQyrmonkPVsdBtmY Y1tEZLuknekRQTstW7yDT DeU3f5CbFgEuB1UQfjR0X pmaO1JCQubUCa ZEvfUPR8X66cp5A1ABYlC ALaDLB8fAU5yS1cuCvlqe ogbGVmdDsgdmVydGljYWw dVWatS659EHOl dOjsBTUkpU7cIYMbfOUed RidOE5oXJIozjxmMsnEHA 7KMb1YZpzxKzVTQLGJWHG LILJHZNw6Z8Cz Zqk7PDUdjOakFX5bsIWjP MihFk3nfFepuJayPB6iME TtiqfhSWHblI7tFZHujKE ucVnpJE7oOOYk cfzmu020PyJxAKM9VTKcl LRtD6XgwY4iQlJlXOFnUS XqD8HidLHxZFgiG091FBh qTnP6HAMnivOp Q4WpAIRoaXhbVnB0z7X4W z2gJo7eKE1yRWHwIB94WB 35eIMkf5S9nST8I5VrCUK pbmctcmlnaHQ6 SDXyKNJfiH69jOVjODynS j4vn7X0p928AXIvYYYueM 88Rw9oqCrxQLIdiYNCxV2 ngaweg5idqblh HfJkJBDhYHp8IMv6JHZbm PlbTsYwDKO3IzV9CTA4gM KgpA8xuLhfvcxirZ6wMsg +MTkgWWVhcnM8 K4XfXee4GMPguMjiCG4qk CJvHPwzAf1nfSenwVapZY 7kJUQsrhpzQKIecS4mJXB itLCpjTywPK7s XOBesfsjx526IaZvTCT3O JIscEDsW3JezS6jTePyLB WzFMPzO6DxcXJmDNctC21 7MLfzMqO7DRAd miCrK2McHIXrtIahLwN2t 8V9Wk9GOL6vzRN3Y0DhUe p9UPQlcDcoGM9enAArSYw iSf4moPjtkGid HQ1mFRVhfgmbHIYdoC9mH SGoxQKfuFngFT5nSQVcnt bel505DdKrOCB5OYItsFH tI8JabN4zJeUe WXPdDKBnU0VqcJCkNPakC 875RIhaPnA6XLEqusDpV7 VgPVLvxEqqAzX0f5L6Gp3 CjZYjDKNyRD71 LL01KW45J2EcEuaniKDpk +PHRhYmxlIHdpZHRoPS aaQKNzJhFwzVxnDA4xGe9 yZGVyLWNvbGxh wTDmXjQfa9oaZQXvJIifA C1mxNmhI9DkvPV3OAXbj7 x1Gj96U50lZ9UtoNH+PGN dzPM9gNI2kB6x QoEeXvM0BBzaE309WtBda DIbPjkcm7rtz9cbyNn5Iw JiEHSwfsUptKokELW1n0H mLs89R37sHDfm ZHRoPSIyMCUiIHZhbGlnb e4ioW1mQi3+LCKhiOM6wQ J4wR1hGvNyErA8ZKtdN79 9InRvcCIvPjwv K05pH1ThvFF+CYLjXqy3R TSaeKvpSK0rpREmXPyfWw 3oGFH6OhUvZuWyGSfmS0T hZGRpbmctcmln lOJ0BVLdMQGwvS33Zn0hm OjsZp1cTJHuHFI8FHEblW EiJ7FphG8yIcHaHNWkNMU yF4BbcUNpSFzc L487QSiwTwR1QIRojlVwQ 4VoINTohGwyQqV1x8K1Ni 8PhQgqaCSkPV7hMqMgJSm 6Y9ZlMif8RIDb kEqgOJ0doATwWEopSh1bv FfgbIuvCU0uMEJmtzlfj7 85CzKgj0qmCNSimCPgTAq qTLE7D39va6K2 HHKlCELcMOT4kTG0hR3jt GlnbjogbGVmdDsgdmVydG rxHAdaGFmqE154ZMDzxPz yAfCWAyf8P3Va Pmi4KOQlrZxfMW6duITfZ ZewVg7xeKwrsMdrFW2uXG Ymjcrzp091McPiv0lzTHG wcHQgVGltZXM7 I21mm8B2SXTaIMPwSLE6a FQ1tU4qjNbvzxrglVMwxG ztzmMslAueCRjvYGxsO35 9LMNrrZtmIi6V Eas7R8JrIyb3VREezYozD P2udGMwECkdWq4swOmbpS vnJI3cZEJrbptln878GaU hk4osCFLtpCFw SAwfENO5Q89ae2B3REQbN GJoFVB0iFE2bN9qoIorjl ogbGVmdDsgdmVydGljYWw zQDukA425VMAj cDsnPlBheWVyOjwvdGQ+P W81by08M1RsQkjvAar1VI JbNAY1tXM8nZ8uWJBzVOt zk7V1rAS0H9Uj cmRl (more content not included)... Normal [facility] CTA Cheston 12-02-2022 CTA Chest Exam [...] amount in ml's: 75 Normal [facility] Consent for Treatmenton 11-10 Consent for Treatment [id number] .00CD:127 Normal [facility] Coding Summary.on 11-29-2022 Coding Summary. CD:[id number]:[id number] G h0bWw+PGhlYWQ+EL8YHGI yB73htRZpcD4TT2bSXP2M BTKJLZUQKP3WQA3tlDF7V YjpU5UelsFm QgtviKTfWI71APp7MJN3m OpdVWccaI0qlTKuP5m9Kc AmKV11vG91TTdnANTpCzB 3LjZpbjsgbWFy J1moKnAslFNaJiq+PHRhY mxlIHdpZHRoPScxMDAlJy OryOiqBN9bWo4iFQOaPMT vbGxhcHNlOiBj x6isQCGcUAstYF5jyWhfJ 3CluXL3JJGol9y8Ph58jY I+HTPsCRD2bDswQTimc50 6QiZhp3fcRRK2 rSOaQWxyIJF2O12yb2N2N YMfWAPjQRF6rYJ7lJ7ffP trntuyR6DjkEJsFiH3OOH 6eSUvsC1scPwu liuypQ8oVvv+E24TSH8KP PBFVJ6KAjt5R3JnIfmyqM I+UX57CSLiFH55yAWuyHP zy1dxnOq2TfVe CVTjVMT6nWsvUVwfk3KaB TXvP24kcHKzv7F6DFRpiB hzzDMwEnFyzJU8jG1mUYa uyyaim1dpdlsa Qqwey5dcfz72pS99B19iI PdvMHDbZZB8YACoCSApaO cwlu4rpJ2zTi4+HDdlz2u hp5juzSv7NxJh CORoauJecYaqNZF8j4LqA p87E9DeiZsmj7TvMnu3ly 97gUGwm7G9pMO4URkrBEQ qxP4rNPvnUhS7 NEPiPoTriO13mULaINliU l5nnEqcoGqlCY2tSCDvri iuCZTgpU1eAURujMTapMy oLY9fDJZpjjcd g773UdAuICD2MAJhmEOpF 3FenI7rImWdKQNeWENgG3 IrcFKoAYlfH040QOmoUzP 0JDBxrbDjJ4Sd SSTykMeqBfX6c0C2Qc9In 9CpjltnPSG6UDptMSZeRf WrEwBmNjV2H3SrZso2COZ xjQniTX0iP7Gk PTMoiuzsfusenHG3ARFjZ FRrzM91vNSmTEpyWr0tu3 Y9b371EQJiAPJsgY20Sg1 udDogMTBwdCBU mG6gmzkvc6grxekfNsCgE IPrGZn5JYm7IEOwlHohRv FqYWG2MfC1VBG9hWRxpD1 bjErvexmffR0k Oyc+A51rvP4gLJA3JAG2n aowAXSqtpHhUC21AR88R6 RyPjwvdGFibGU+PGRpdiB gnFpeUA4yTyYa a9jcg8BsKCruT3HlKDJpL GwoHrf1IHQlVHS0nBV3lN 5bYSFrVKlsi6H4nKW9A1J lpaMesh4nb5qi RUDgVXbtU43ezWGuo7S8U LJkkTO0UNVwgZevFuTotA 93Oyc+NVDamTwnz1NnMsr pd3qrq4jvlGa9 VhZqMAGxlnUumHhoYPW9f 2LxGp81H00zYHkiMKPtKP KtRDCyLFZepRoooy2xvB1 wIi8+PGNvbCB3 oIL6rN5xWTKwTmF8MMyyL 494HfNzyBNnAwzqy3ixz6 robZe7NyGuTLSlzqXbwQp yYWK5r4UiYt26 E44yBXfsGKLbEPRrYPXxP VGwdOvxzg4cbG4iOy1+PC 5qk1pbar58iM66mIK+PHR zDAF1bHmnHLnk HOWbbE3xMPsnXvX3PBAfE iUabK27vCRhZFukMe2iiL wfxAlpQK3oMYPqljesh56 5FsLkt0mnGNEt bACqOHfyIUN2T33xp1D8C UUhDPRaHVR5yOO1bU2oaB lnbjogbGVmdDsgdmVydGl pQBjyMRnsB512 IHRvcDsnPlBhdGllbnQgT kIyTVl0Z1FiXnb8NKKbwS drJJ0mbGOaDBgyHd9emLs ziNqpTT3rYUJm gjpli480DxFaf4mcEKWqk DVyXYvzSXR7E91ei1Q8RZ XhCOKyLTW2zIL9aT2ryBy nbjogbGVmdDsg oeSvvNmzBJmyCMnqI501I HRvcDsnPkJpcnRoIERhdG U7FW62AU54cPBvy9Z1nSA 0U7IeTQHgmvip ckhawIT3QEErAZTiqM98W n3sdIozYm8mPUJyBZD4GG YynRJaU0CwcY4uDhPlHCD iMWPvM9EogVEu BEfaE140YVxgFkD7PGAls oGgN3DsSESswGzhRyQ8v3 R0Jr4ZF6R3XY73MU82eEW fp2Z7qYF9L2Ta WOCajewbcjsrkYA2WLAtB ZIzyM44Uw7erGrlIr4eJJ QoOFR2AFMgrBTtH8WgsB6 yOiAjMDAwMDAw T1GebUArTGgkG303VUxvT fU3TQSdoeAaD9XwSBMoyF irEfT6h4M7Kw1BPYo8AV1 3BR74mICek9H2 pQQ7J5XjKMAvasslxzgsr AP3PHWeCUXtiH77Aq9rdL qbDc9iHGEbKWV2YLAawZH zU3XqqN7fTdXf CBAcOCQmX7TnjYRzMZlgA 167PUkzZfP8VJNgewXqD1 QrXXYljGbwYuX0z2E7Hb3 SYZTiGT87MVO2 zCG0SB52QF99M1AfEnqfh GFibGU+PHRhYmxlIHdpZH RoPScxMDAlJyBzdHlsZT0 hXn0iOIYnJGKk wYzeaKIsNkCot3oqKQWvT OjwDR1plKpjM7GhcPN6EP Iwg9p8Vz36G13iI5DuwWD +HOKhuVA8pFS7 pE0tPiVfWzU9BXrgL894Z wGrcQJjBtquq9zak1vqrH b3KlG9HTIspdEqaGyqLXN 6p4KuNs36M17g IHdpZHRoPSIxNSUiIHZhb Tdomx2vfH0gKm9+PGNvbC L2jVV8tV3yPqIiBsJ2VXi wK685IiQvoHGn Nujlz8zaw6uqkId8LfWiT XKhikYavQrvMTT2w2WcFh 02N2JdbSpgv6EmUop3cl5 3sNAqm8F1eET2 B1OsQVHzlulvpLCtlGebE Y7gSTByshilMAOhwN7gBI WeR5f9YvEmCbI5ARkzZ0S pugW3UWPrsCFg YAawQVI6E03be6P9CFEmA RTbKNU5eYP9hH5juExozu ogbGVmdDsgdmVydGljYWw iDZhsZ371TBFr hOghYWPncH1tYKXnlMZzg JfuLH3rQTCbpsivXmjCNA 6YXk5YAtieMaWPPKHWGRR HAZFOHCz6W3Mp Egs2QMNogDzfNH8yfAMhX QqhBj9ayKfdhBssNL8rPM YfiwskLBSrcO1yYBRxeDV osDqoHV1hTDFs nlyom610LqWmLPR3TTWdb NRfU8FrtQ8tLqObUKPlVY EkC0AceSQtRXioC546YJr ePdX9QUKbfjCf U5ZpKBHujVtnWsB8n7O7F d4eTs4yLD7iBABtYU16WZ 56rTLad4R6nYB7W9CfBOZ pbmctcmlnaHQ6 NWNhMTFvkO34jLPbHNvrD j6yo2A4r577DWNdFJRowP 80Vi4yeBpxHHHihSKYyL6 zrhxtu5clmnzl JiTuTYBzIKj9UIt7UOXhj LuzJyQsCOV9TzI1CRJ0dQ IazS4eqJqzmrhgbC0cZmi +MTkgWWVhcnM8 D5DuHoq8NKLpfAksTZ9hv TJoPNzmRd5jtAfstRjiHL 7yTPPdbrahXGDbyI9xEWO vbUYeaFllGJ6w PCHzxibwc346WxQgEFX3I YVboWXhO5RhzX3dOwEmZF BmOEDtZ9VnyDPjJQkhN35 5CGpmXlB3UCCc glTxK0DjARLzwSapFvV1z 0F8Xa4BKK9dkCL8P6NqUp m1WCLhsHmtTW6uhGVfVKu pPr1hcPdngTka SI0nWJLczmizTOAzhH9yX TQpwKNjrUbnYB8lBNMdwp ujp547VfNpRKG4HEMsiKU nB5KtwJ5cEcFp UKAgVEOcW1SmqLCxXGxgV 615QCzaQlN1AWOlbgXrV4 WxXQKgvEajKhH1p8P8Fh2 VqZSrEPOtOI10 SF32OE11P9HjQvcosCOwl +PHRhYmxlIHdpZHRoPS piTWCaWhDklKimES2bIk7 yZGVyLWNvbGxh dUTvLmVur3exCKKdOFkwR R6fgFkwS6BypNN1NCBwg6 b3Iy02F36jC3LjiVN+PGN neXH5qYI1xO8o CgHvGuC8WRuhT978TuUqu IUkHwqop3bge9ibtPc0Lc HsPGRgazUiuFbvRRO7k3P xUd33V59gMTps ZHRoPSIyMCUiIHZhbGlnb l0siB9zYi9+LTEawMF9rA R5zG4zOqOiZyY8EJsdM55 9InRvcCIvPjwv Q29zO6KebJN+LVAvFii8X JIsiWphZA3nbBHiGOvnPn 6dUVZ4NwWiZoWtEVijQ3K hZGRpbmctcmln jDM9YAPsJUMczA08Sv0hf SdcGs6oLVXvDFH3AAJjzV JtW1JnpI4dDfBwBMIiLZT qA4FdpVOsMQzy F920JXhnRiC5IAShidIiB 8RyICKycDtiNsM9n7T4Zq 5JvZrhfBNzFW0gJyYfLQr 4Q4NvEps8RIEo aRnwKL3enEDvOZdmNj4xe NeqnHykEA0gHOAxulkbv6 31XqVck9bcXYUzuVNcXTf iWME9U19sw7P8 FNAsGJSaPDP5xQG6xX2gx GlnbjogbGVmdDsgdmVydG gpUDveWQhhS836LSSxoPy hPqLFAly8L1Iw Zea8HRTqeBwvDY6htZClL WqoRb5lvAangFgxUV1lRJ Ypxfvyt514AuMel9iuBST wcHQgVGltZXM7 H33bk9S0EVCrPRHvECG9q SB1pG2bqOplzgkqxXSgrW gnjhTlkIskLZjnXYejQ49 8TFUnqJvlWl9U Pqa8X8CeCgp9LXKmfQqpA K6mcZNoOYlgOv9rqKbftP woZE5jBMOzyedhe483HdW zi8clDVXdiSYe GJjkYWS6Q80ye1R6XUTsX TZqFBM5tOV6hE5wgHpgfk ogbGVmdDsgdmVydGljYWw cEJvnS773LELg cDsnPlBheWVyOjwvdGQ+P H18eq72Q5CbKgliIwp8GK XtWUL6oOP0zP0eRFJbXVc um7O0vSH7Y1Qd cmRl (more content not included)... Normal [facility] Physician Orderon 11-25-2022 Physician Order [id number]#1 .00CD:127 Normal [facility] CBC w/Indiceson 11-24-2022 Erythrocyte distribution width (RBC) [Ratio] 12.8 % Normal 10.9-14.2 [facility] Comment on above: Performed By: #### 2 312773, 5378293, 38433857, 26674186, 5370867 ####[address] [place] [address] Hematocrit (Bld) [Volume fraction] 40.6 % Normal 34.0-46.0 [facility] Comment on above: Performed By: #### 2 104005, 3929303, 68638011, 94391220, 4342841 ####[address] [place] [address] Hemoglobin (Bld) [Mass/Vol] 13.3 g/dL Normal 12.0-16.0 [facility] Comment on above: Performed By: #### 2 725099, 0186771, 77845027, 24057590, 7220843 ####[address] [place] [address] MCH (RBC) [Entitic mass] 31.1 pg Normal 27.0-34.0 [facility] Comment on above: Performed By: #### 2 394704, 0251041, 15331661, 90441460, 5397699 ####[address] [address] MCHC (RBC) [Mass/Vol] 32.7 g/dL Normal 31.4-36.0 [facility] Comment on above: Performed By: #### 2 135981, 8783816, 14867750, 98361518, 5112651 ####[address] [address] MCV (RBC) [Entitic vol] 94.9 fL Normal 80.0-100.0 [facility] Comment on above: Performed By: #### 2 295782, 9989680, 07987575, 82891080, 3486944 ####[address] [address] Platelet mean volume (Bld) [Entitic vol] 9.4 fL Normal 6.4-10.8 [facility] Comment on above: Performed By: #### 2 949068, 9034333, 04586117, 40647313, 0791484 ####[address] [address] Platelets (Bld) [#/Vol] 255.0 E9/L Normal 150.0-500.0 [facility] Comment on above: Performed By: #### 2 213166, 3869382, 75120667, 69703066, 1662718 ####[address] [address] RBC (Bld) [#/Vol] 4.3 E12/L Normal 4.3-5.9 [facility] Comment on above: Performed By: #### 2 853919, 9471630, 97622798, 08230341, 2757038 ####[address] [place] [address] WBC corrected for nucl RBC Auto (Bld) [#/Vol] 5.6 E9/L Normal 4.0-11.0 [facility] Comment on above: Performed By: #### 2 682740, 8422341, 64994533, 12356587, 7396012 ####[facility] [address] [place] [address] CHEMISTRYOrdered By: SYSTEM SYSTEM on 11-24-2022 Albumin [...] 139 mmol/L Normal 135 - 145 mmol/L [facility] TSH Qn 0.70 m[IU]/L Normal 0.34 - 5.60 mcIU/mL [facility] Urea nitrogen [Mass/Vol] 12 mg/dL Normal 5 - 21 mg/dL [facility] Urea nitrogen/Creatinine [Mass ratio] 15 mg/mg Normal 10 - 20 [facility] CMPon 11-24-2022 Albumin [Mass/Vol] 3.9 g/dL Normal 3.3-5.0 [facility] Comment on above: Performed By: #### 2 274284, 1039421, 79353713, 10149279, 1445298 ####[facility] [address] [place] [address] Albumin/Globulin (S) [Mass conc ratio] 1.1 Normal 1.1-2.2 [facility] Comment on above: Performed By: #### 2 273762, 6193186, 00096957, 78422421, 0704898 ####[facility] [address] [place] [address] ALP [Catalytic activity/Vol] 94 Int._Unit/L Normal 21-98 [facility] Comment on above: Performed By: #### 2 163148, 8527787, 54871887, 24888286, 0193427 ####[facility] [address] [place] [address] ALT No additional P-5'-P [Catalytic activity/Vol] 15 Int._Unit/L Normal 6-46 [facility] Comment on above: Performed By: #### 2 167104, 9487786, 45986669, 31566566, 9612811 ####[facility] [address] [place] [address] Anion gap [Moles/Vol] 12 mmol/L Normal 6-16 [facility] Comment on above: Performed By: #### 2 510282, 7867838, 97416910, 73172294, 5021013 ####[facility] [address] [place] [address] AST [Catalytic activity/Vol] 19 Int._Unit/L Normal 5-43 [facility] Comment on above: Performed By: #### 2 994701, 0908847, 17366522, 53048629, 1815939 ####[facility] [address] [place] [address] Bilirubin [Mass/Vol] 0.4 mg/dL Normal 0.0-1.1 [facility] Comment on above: Performed By: #### 2 354102, 6630409, 21249430, 06847831, 6960110 ####[facility] [address] [place] [address] Calcium [Mass/Vol] 8.9 mg/dL Normal 8.9-11.1 [facility] Comment on above: Performed By: #### 2 515429, 9692767, 27178726, 53754979, 2200102 ####[facility] [address] [place] [address] Chloride [Moles/Vol] 104 mmol/L Normal 101-111 [facility] Comment on above: Performed By: #### 2 185364, 6159618, 89123535, 56533578, 4165889 ####[facility] [address] [place] [address] CO2 [Moles/Vol] 27 mmol/L Normal 21-31 [facility] Comment on above: Performed By: #### 2 940482, 7155664, 10197067, 92949842, 9331442 ####[facility] [address] [place] [address] Creatinine [Mass/Vol] 0.8 mg/dL Normal 0.5-1.3 [facility] Comment on above: Performed By: #### 2 487980, 6555107, 53959081, 81578568, 5391052 ####[facility] [address] [place] [address] Globulin (S) [Mass/Vol] 3.6 g/dL Normal 1.4-4.0 [facility] Comment on above: Performed By: #### 2 604457, 5257721, 07607034, 32294754, 0008038 ####[facility] [address] [place] [address] Glucose [Mass/Vol] 77 mg/dL Normal 55-199 [facility] Comment on above: Result Comment: If t his glucose result represents a fasting glucose, interpretation should refer to the following reference range: 55-99 mg/dL Performed By: #### 2 647576, 9419974, 58883713, 49814575, 6638663 ####[facility] [address] [place] [address] Potassium [Moles/Vol] 3.7 mmol/L Normal 3.5-5.3 [facility] Comment on above: Performed By: #### 2 789099, 8318390, 57540087, 89064905, 5100268 ####[facility] [address] [place] [address] Protein [Mass/Vol] 7.5 g/dL Normal 6.0-7.8 [facility] Comment on above: Performed By: #### 2 660858, 3554223, 45870430, 29454983, 6158849 ####[facility] [address] [place] [address] Sodium [Moles/Vol] 139 mmol/L Normal 135-145 [facility] Comment on above: Performed By: #### 2 814357, 3533988, 69230912, 26511420, 1759500 ####[facility] [address] [place] [address] Urea nitrogen [Mass/Vol] 12 mg/dL Normal 5-21 [facility] Comment on above: Performed By: #### 2 012847, 6274101, 12363766, 49913093, 3546492 ####[facility] [address] [place] [address] Urea nitrogen/Creatinine [Mass ratio] 15 No Units Normal 10-20 [facility] Comment on above: Performed By: #### 2 284137, 4359898, 60269654, 69689664, 4001751 ####[facility] [address] [place] [address] COAGULATIONOrdered By: Giuseppe Robb on 11-24-2022 Fibrin D-dimer FEU (PPP) [Mass/Vol] 3906 ng/mL FEU Invalid Interpretation Code 215 - 500 ng/mL [facility] Comment on above: Result Comment: Resu lts Called To DR JACKSON By GIUSEPPE ROBB And Read Back For Confirmation On 11/24/2022 16:26:28 EST Results Verified By Repeat Analysis Consent for Treatmenton 11-09 Consent for Treatment [id number]#1 .00CD:127 Normal [facility] D-Dimeron 11-24-2022 Fibrin D-dimer FEU (PPP) [Mass/Vol] 3906 [id number] Abnormal 215-500 [facility] Comment on above: Result Comment: Resu [...] infections Liver cirrhosis Performed By: #### 2 381522, 1185193, 80932727, 34489967, 4241798 ####[facility] [address] [place] [address] HEMATOLOGYOrdered By: Chris Grant on 11-24-2022 Erythrocyte [...] [facility] HemeAutoSS Physician Orderon 11-24-2022 Physician Order [id number]# 1.00CD:127 Normal [facility] TSH With T4fr Reflexon 11-24 TSH Qn 0.70 m[IU]/L Normal 0.34-5.60 [facility] Comment on above: Performed By: #### 2 464821, 0851487, 71885240, 61861068, 4974967 ####[facility] [address] [place] [address] eGFRon 11-24-2022 GFR/1.73 sq M.predicted among blacks MDRD (S/P/Bld) [Vol rate/Area] mL/min/{1.73_m2} Normal >=59 [facility] Comment on above: Order Comment: Order added by Discern Expert. Result Comment: eGFR is race adjusted. AA=. Performed By: #### 2 948466, 7282549, 95574034, 91977647, 2353830 ####[facility] [address] [place] [address] GFR/1.73 sq M.predicted among non-blacks MDRD (S/P/Bld) [Vol rate/Area] mL/min/{1.73_m2} Normal >=59 [facility] Comment on above: Order Comment: Order added by Discern Expert. Result Comment: Design Cell Engineer maribel kidney disease could be indicated at eGFR's of less than 60 mL/min/1.73m2. Kidney failure is indicated at less than 15 mL/min/1.73m2. Performed By: #### 2 659485, 6418018, 78093597, 81012380, 1608919 ####[facility] [address] [place] [address] XR CHEST 1 Von 11-11-2022 XR CHEST [...] by: RODOLFO LÓPEZ Date: 2022-11-11 15:20 Normal [facility] CBC AUTO DIFFon 11-07-2022 BASO # 0.0 103/ul Normal 0.0-0.1 [facility] Comment on above: Performed By: #### C BC #### [facility] [address] [place] [address] Dr. Dianelys Brwon Basophils/100 WBC (Bld) 0.4 % Normal 0.2-2.0 [facility] Comment on above: Performed By: #### C BC #### [facility] [address] [place] [address] Dr. Dianelys Brown EO # 0.1 103/ul Normal 0.0-0.7 [facility] Comment on above: Performed By: #### C BC #### [facility] [address] [place] [address] Dr. Dianelys Brown Eosinophils/100 WBC (Bld) 1.3 % Normal 0.9-7.0 [facility] Comment on above: Performed By: #### C BC #### [facility] [address] [place] [address] Dr. Dianelys Brown Erythrocyte distribution width (RBC) [Ratio] 13.2 % Normal 11.0-15.0 [facility] Comment on above: Performed By: #### C BC #### [facility] [address] [place] [address] Dr. Dianelys Brown Hematocrit (Bld) [Volume fraction] 27.1 % Critically low 36.0-48.0 [facility] Comment on above: Performed By: #### C BC #### [facility] [address] [place] [address] Dr. Dianelys Brown Hemoglobin (Bld) [Mass/Vol] 9.0 g/dL Critically low 12.0-16.0 [facility] Comment on above: Performed By: #### C BC #### [facility] [address] [place] [address] Dr. Dianelys Brown IG # 0.05 10e3/ul Critically high 0.00-0.03 [facility] Comment on above: Performed By: #### C BC #### [facility] [address] [place] [address] Dr. Dianelys Brown IG % 0.5 % Normal 0.0-0.5 [facility] Comment on above: Performed By: #### C BC #### [facility] [address] [place] [address] Dr. Dianelys Brown LYMPH # 2.0 103/ul Normal 1.2-3.8 [facility] Comment on above: Performed By: #### C BC #### [facility] [address] [place] [address] Dr. Dianelys Brown Lymphocytes/100 WBC (Bld) 18.1 % Critically low 20.5-60.0 [facility] Comment on above: Performed By: #### C BC #### [facility] [address] [place] [address] Dr. Dianelys Brown MANUAL DIFF REQ NO Normal [facility] Comment on above: Performed By: #### C BC #### [facility] [address] [place] [address] Dr. Dianelys Brown MCH (RBC) [Entitic mass] 31.5 pg Normal 26.7-34.0 [facility] Comment on above: Performed By: #### C BC #### [facility] [address] [place] [address] Dr. Dianelys Brown MCHC (RBC) [Mass/Vol] 33.2 g/dL Normal 29.9-35.2 [facility] Comment on above: Performed By: #### C BC #### [facility] [address] [place] [address] Dr. Dianelys Brown MCV (RBC) [Entitic vol] 94.8 fL Normal 81.0-99.0 [facility] Comment on above: Performed By: #### C BC #### [facility] [address] [place] [address] Dr. Dianelys Brown MONO # 1.0 103/ul Critically high 0.3-0.8 [facility] Comment on above: Performed By: #### C BC #### [facility] [address] [place] [address] Dr. Dianelys Brown Monocytes/100 WBC (Bld) 9.1 % Normal 1.7-12.0 [facility] Comment on above: Performed By: #### C BC #### [facility] [address] [place] [address] Dr. Dianelys Brown NEUT # 7.6 103/ul Critically high 1.4-6.5 [facility] Comment on above: Performed By: #### C BC #### [facility] [address] [address] [address] Dianelys Brown Neutrophils/100 WBC (Bld) 70.6 % Normal 43.0-75.0 [facility] Comment on above: Performed By: #### C BC #### [facility] [address] [place] [address] Dr. Dianelys Brown Platelet mean volume (Bld) [Entitic vol] 11.8 fL Normal 9.5-13.5 [facility] Comment on above: Performed By: #### C BC #### [facility] [address] [place] [address] Dr. Dianelys Brown PLT 133 103/ul Critically low 150-[address] [facility] Comment on above: Performed By: #### C BC #### [facility] [address] [place] [address] Dr. Dianelys Brown RBC 2.86 106/ul Critically low 4.20-5.40 [facility] Comment on above: Performed By: #### C BC #### [facility] [address] [place] [address] Dr. Dianelys Brown WBC 10.8 103/ul Normal 4.0-11.0 [facility] Comment on above: Performed By: #### C BC #### [facility] [address] [place] [address] Dr. Dianelys Brown CBC AUTO DIFFon 11-06-2022 BASO # 0.0 103/ul Normal 0.0-0.1 [facility] Comment on above: Performed By: #### H BSANS #### [facility] [address] [place] [address] Dr. Dianelys Brown Basophils/100 WBC (Bld) 0.4 % Normal 0.2-2.0 [facility] Comment on above: Performed By: #### H BSANS #### [facility] [address] [address] [address] Dianelys Brown EO # 0.2 103/ul Normal 0.0-0.7 [facility] Comment on above: Performed By: #### H BSANS #### [facility] [address] [place] [address] Dr. Dianelys Brown Eosinophils/100 WBC (Bld) 1.6 % Normal 0.9-7.0 [facility] Comment on above: Performed By: #### H BSANS #### [facility] [address] [place] [address] Dr. Dianelys Brown Erythrocyte distribution width (RBC) [Ratio] 13.1 % Normal 11.0-15.0 [facility] Comment on above: Performed By: #### H BSANS #### [facility] [address] [place] [address] Dr. Dianelys Brown Hematocrit (Bld) [Volume fraction] 33.5 % Critically low 36.0-48.0 [facility] Comment on above: Performed By: #### H BSANS #### [facility] [address] [place] [address] Dr. Dianelys Brown Hemoglobin (Bld) [Mass/Vol] 11.5 g/dL Critically low 12.0-16.0 [facility] Comment on above: Performed By: #### H BSANS #### [facility] [address] [place] [address] Dr. Dianelys Brown IG # 0.05 10e3/ul Critically high 0.00-0.03 [facility] Comment on above: Performed By: #### H BSANS #### [facility] [address] [place] [address] Dr. Dianelys Brown IG % 0.5 % Normal 0.0-0.5 [facility] Comment on above: Performed By: #### H BSANS #### [facility] [address] [place] [address] Dr. Dianelys Brown LYMPH # 2.6 103/ul Normal 1.2-3.8 [facility] Comment on above: Performed By: #### H BSANS #### [facility] [address] [address] [address] Dianelys Brown Lymphocytes/100 WBC (Bld) 24.0 % Normal 20.5-60.0 [facility] Comment on above: Performed By: #### H BSANS #### [facility] [address] [address] [address] Dianelys Brown MANUAL DIFF REQ NO Normal [facility] Comment on above: Performed By: #### H BSANS #### [facility] [address] [place] [address] Dr. Dianelys Brown MCH (RBC) [Entitic mass] 32.0 pg Normal 26.7-34.0 [facility] Comment on above: Performed By: #### H BSANS #### [facility] [address] [place] [address] Dr. Dianelys Brown MCHC (RBC) [Mass/Vol] 34.3 g/dL Normal 29.9-35.2 [facility] Comment on above: Performed By: #### H BSANS #### [facility] [address] [place] [address] Dr. Dianelys Brown MCV (RBC) [Entitic vol] 93.3 fL Normal 81.0-99.0 [facility] Comment on above: Performed By: #### H BSANS #### [facility] [address] [place] [address] Dr. Dianelys Brown MONO # 0.9 103/ul Critically high 0.3-0.8 [facility] Comment on above: Performed By: #### H BSANS #### [facility] [address] [place] [address] Dr. Dianelys Brown Monocytes/100 WBC (Bld) 8.6 % Normal 1.7-12.0 [facility] Comment on above: Performed By: #### H BSANS #### [facility] [address] [place] [address] Dr. Dianelys Brown NEUT # 6.9 103/ul Critically high 1.4-6.5 [facility] Comment on above: Performed By: #### H BSANS #### [facility] [address] [address] [address] Dianelys Brown Neutrophils/100 WBC (Bld) 64.9 % Normal 43.0-75.0 [facility] Comment on above: Performed By: #### H BSANS #### [facility] [address] [place] [address] Dr[address] Dianelys Brown Platelet mean volume (Bld) [Entitic vol] 12.5 fL Normal 9.5-13.5 [facility] Comment on above: Performed By: #### H BSANS #### [facility] [address] [address] [address] Dianelys Brown PLT 187 103/ul Normal 150-450 [facility] Comment on above: Performed By: #### H BSANS #### [facility] [address] [place] [address] Dr. Dianelys Brown RBC 3.59 106/ul Critically low 4.20-5.40 [facility] Comment on above: Performed By: #### H BSANS #### [facility] [address] [address] [address] Dianelys Brown WBC 10.7 103/ul Normal 4.0-11.0 [facility] Comment on above: Performed By: #### H BSANS #### [facility] [address] [place] [address] Dr. Dianelys Brown Covid-19 PCR ([facility])on 10-10 SARS-CoV-2 (COVID-19) RNA NAIF+probe Ql (Unsp spec) Not detected Normal NOT DETECTED [facility] Comment on above: Result Comment: When diagnostic [...] for this test is supported by the [employer] of Health and Human Service's declaration that [...] used). Performed By: #### C VDTBH #### [facility] [address] [place] [address] Dr. Dianelys Brown DRUG SCREEN RAPID (URINE)on 11-06-2022 AMP Negative Normal NEGATIVE [facility] Comment on above: Performed By: #### D RUGRPD #### [facility] [address] [place] [address] Dr. Dianelys Brown BAR Negative Normal NEGATIVE [facility] Comment on above: Performed By: #### D RUGRPD #### [facility] [address] [place] [address] Dr. Dianelys Brown BUP Negative Normal NEGATIVE [facility] Comment on above: Performed By: #### D RUGRPD #### [facility] [address] [place] [address] Dr. Dianelys Brown BZO Negative Normal NEGATIVE [facility] Comment on above: Performed By: #### D RUGRPD #### [facility] [address] [place] [address] Dr. Dianelys Brown GOGO Negative Normal NEGATIVE [facility] Comment on above: Performed By: #### D RUGRPD #### [facility] [address] [place] [address] Dr. Dianelys Brown CUT-OFFS SEE BELOW Normal [facility] Comment on above: Result Comment: AMP (Amphetamine): 500ng/mL, BAR (Barbituates): 200 ng/mL, BZO (Benzodiazepines): 150 ng/mL, BUP (Buprenorphine): 10 ng/mL, GOGO (Cocaine): 150 ng/mL, mAMP (Methamphetamine): 500 ng/mL, MTD (Methadone): 200 ng/mL, OPI (Opiates): 100 ng/mL, OXY (Oxycodone): 100 ng/mL, PCP (Phencyclidine): 25 ng/mL, PPX (Propoxyphene): 300 ng/mL, THC (Cannabinoids): 50 ng/mL, TCA (Trycyclic Antidepressants): 300 ng/mL Performed By: #### D RUGRPD #### [facility] [address] [place] [address] Dr. Dianelys Brown DRUG CUT HEADER DRUG CLASS TEST SYSTEM CUT-OFF CONCENTRATIONS ARE FOLLOWS: Normal [facility] Comment on above: Performed By: #### D RUGRPD #### [facility] [address] [place] [address] Dr. Dianelys Brown mAMP Negative Normal NEGATIVE [facility] Comment on above: Performed By: #### D RUGRPD #### [facility] [address] [place] [address] Dr. Dianelys Brown MTD Negative Normal NEGATIVE [facility] Comment on above: Performed By: #### D RUGRPD #### [facility] [address] [place] [address] Dr. Dianelys Brown OPI Negative Normal NEGATIVE [facility] Comment on above: Performed By: #### D RUGRPD #### [facility] [address] [place] [address] Dr. Dianelys Brown OXY Negative Normal NEGATIVE [facility] Comment on above: Performed By: #### D RUGRPD #### [facility] [address] [place] [address] Dr. Dianelys Brown PCP Negative Normal NEGATIVE [facility] Comment on above: Performed By: #### D RUGRPD #### [facility] [address] [place] [address] Dr. Dianelys Brown PPX Negative Normal NEGATIVE [facility] Comment on above: Performed By: #### D RUGRPD #### [facility] [address] [place] [address] Dr. Dianelys Brown TCA Negative Normal NEGATIVE [facility] Comment on above: Performed By: #### D RUGRPD #### [facility] [address] [place] [address] Dr. Dianelys Brown THC Negative Normal NEGATIVE [facility] Comment on above: Performed By: #### D RUGRPD #### [facility] [address] [address] [address] Dianelys Brown TYPE AND SCREENon 11-06-2022 TYPE AND SCREEN Negative Normal [facility] Comment on above: Performed By: #### A 1C #### [facility] [address] [address] [address] Dianelys Brown GROUP B STREP CULTUREon 09-11 S. agalactiae Ag Ql (Unsp spec) Culture Observations: NEGATIVE FOR GROUP B STREPTOCOCCUS. Normal [facility] Comment on above: Performed By: #### G BSCX #### [facility] [address] [address] [address] Dianelys Brown US PREG GROWTHon 09-26-2022 [...] by: RODOLFO REYNOSO Date: 2022-09-26 06:11 Normal [facility] US PREG GROWTHon 09-11-2022 US PREG [...] by: COMPA WILLIAM Date: 2022-09-11 17:50 Normal [facility] TYPE AND SCREENon 08-28-2022 TYPE AND SCREEN Negative Normal [facility] Comment on above: Performed By: #### T NS #### [facility] [address] [place] [address] Dr. Dianelys Brown GLUCOSE - 1HRon 07-31-2022 Glucose [Mass/Vol] 124 mg/dL Critically high 74-106 [facility] Comment on above: Performed By: #### H BSANS #### [facility] [address] [place] [address] Dr. Dianelys Brown HEMOGRAM AND PLATELon 2021 Hematocrit (Bld) [Volume fraction] 32.4 % Critically low 36.0-48.0 [facility] Comment on above: Performed By: #### H BSANS #### [facility] [address] [place] [address] Dr. Dianelys Brown Hemoglobin (Bld) [Mass/Vol] 10.7 g/dL Critically low 12.0-16.0 [facility] Comment on above: Performed By: #### H BSANS #### [facility] [address] [place] [address] Dr. Dianelys Brown MCH (RBC) [Entitic mass] 33.5 pg Normal 26.7-34.0 [facility] Comment on above: Performed By: #### H BSANS #### [facility] [address] [place] [address] Dr. Dianelys Brown MCHC (RBC) [Mass/Vol] 33.0 g/dL Normal 29.9-35.2 [facility] Comment on above: Performed By: #### H BSANS #### [facility] [address] [place] [address] Dr. Dianelys Brown MCV (RBC) [Entitic vol] 101.6 fL Critically high 81.0-99.0 [facility] Comment on above: Performed By: #### H BSANS #### [facility] [address] [place] [address] Dr. Dianelys Brown PLT 164 103/ul Normal 150-450 [facility] Comment on above: Performed By: #### H BSANS #### [facility] [address] [place] [address] Dr. Dianelys Brown RBC 3.19 106/ul Critically low 4.20-5.40 [facility] Comment on above: Performed By: #### H BSANS #### [facility] [address] [place] [address] Dr. Dianelys Brown WBC 7.5 103/ul Normal 4.0-11.0 [facility] Comment on above: Performed By: #### H BSANS #### [facility] [address] [place] [address] Dr. Dianelys Brown CHLAMYDIA/GONOCOCCUS NAIF ( AB/URINE/PAPon 07-22-2022 Chlamydia trachomatis, NAIF Negative Normal Negative [facility] Comment on above: Performed By: #### H BSANS #### [facility] [address] [place] [address] Dr. Dianelys Brown Neisseria gonorrhoeae, NAIF Negative Normal Negative [facility] Comment on above: Performed By: #### H BSANS #### [facility] [address] [place] [address] Dr. Dianelys Brown VAGINITIS/VAGINOSIS DNA PROB Bertrand 07-20-2022 Isabel species Negative Normal Negative [facility] Comment on above: Performed By: #### H BSANS #### [facility] [address] [address] [address] Dianelys Brown Gardnerella vaginalis Negative Normal Negative [facility] Comment on above: Performed By: #### H BSANS #### [facility] [address] [address] [address] Dianelys Brown Trichomonas vaginalis Negative Normal Negative [facility] Comment on above: Performed By: #### H BSANS #### [facility] [address] [address] [address] Dianelys Brown AFP MATERNAL FOR SPINA BIFID Aon 06-21-2022 AFP MoM 1.29 Normal [facility] Comment on above: Performed By: #### A 1C #### [facility] [address] [place] [address] Dr. Dianelys Brown AFP Value 88.7 ng/mL Normal [facility] Comment on above: Performed By: #### A 1C #### [facility] [address] [address] [address] Dianelys Brown AFP, Serum for Spina Bifida Report Normal [facility] Comment on above: Performed By: #### A 1C #### [facility] [address] [place] [address] Dr. Dianelys Brown Comment Comment Normal [facility] Comment on above: Result Comment: Gray Flores, Ph.D., [facility] Director . References: Available Upon Request. . Multiples Of Median Cutoffs For AFP Elevations Wick 2.5 Black 2.8 IDD 2.0 Twins 4.5 Abbreviation Definitions IDD - Insulin Dep Diabetes OSBR - Open Spina Bifida Risk . For further inquiries contact [facility] at [phone]. . This test was developed and its performance characteristics determined by [employer]. It has not been cleared or approved by the Food and Drug Administration. Performed By: #### A 1C #### [facility] [address] [place] [address] Dr. Dianelys Brown Gest Age Collection Date 20.0 weeks Normal [facility] Comment on above: Performed By: #### A 1C #### [facility] [address] [place] [address] Dr. Dianelys Brown Gestat, Age Based on As provided [facility] Comment on above: Result Comment: Reca lculations are not recommended when gestational dating by LMP and ultrasound are within 10 days. Performed By: #### A 1C #### [facility] [address] [place] [address] Dr. Dianelys Brown Insulin Dep Diabetes No Normal [facility] Comment on above: Performed By: #### A 1C #### [facility] [address] [place] [address] Dr. Dianelys Brwon Interpretation Comment Normal [facility] Comment on above: Result Comment: Inte [...] Customer Services to discuss available options. The [employer] recommends amniocentesis be offered to women age 35 and older. Performed By: #### A 1C #### [facility] [address] [place] [address] Dr. Dianelys Brown [age] Normal [facility] Comment on above: Performed By: #### A 1C #### [facility] [address] [place] [address] Dr. Dianelys Brown Multiple Gestation No Normal [facility] Comment on above: Performed By: #### A 1C #### [facility] [address] [place] [address] Dr. Dianelys Brown OSBR Risk 1 [place] [address] [facility] Comment on above: Performed By: #### A 1C #### [facility] [address] [place] [address] Dr. Dianelys Brown PDF . Normal [facility] Comment on above: Performed By: #### A 1C #### [facility] [address] [place] [address] Dr. Dianelys Brown Race Normal [facility] Comment on above: Performed By: #### A 1C #### [facility] [address] [address] [address] Dianelys Brown Test Results: Negative Normal [facility] Comment on above: Performed By: #### A 1C #### [facility] [address] [address] [address] Dianelys Brown US PREG ANATOMY SINGLEon [...] by: COMPA WILLIAM Date: 2022-06-19 16:50 Normal [facility] ECHOCARDIO M/2D COMPLETEon 0 04-21-2022 ECHOCARDIO M/2D COMPLETE Patient: STACEY ANG Exam Date: 04/21/2022 : 2000 Gender:F Ordering : DR PASTORA PARKS . Admission #: [id number] Family : Order #: [id number] CLICK HERE TO VIEW EXAM ECHOCARDIOGRAM REPORT [...] Area(A4C): 10.80 cm2 Left Atrium Systolic Volume(A2C): 03369 mm3 Left Atrium Systolic Volume(A4C): 01212 mm3 Mitral Valve MV E to A Ratio: 1.10 Deceleration [facility]: 2650 mm/s2 Mitral Valve A-Wave Peak Velocity: [...] M.D. on 04/22/2022 at 18:18 Normal [facility] HEP B SURFACE ANTIGEN SCREEN on 03-27-2022 HBsAg Screen Negative Normal Negative [facility] Comment on above: Performed By: #### H BSANS #### [facility] [address] [place] [address] Dr. Dianelys Brown HEPATITIS C VIRUS AB W/ REFL EX QUANTon 03-27-2022 HCV AB <0.1 Normal 0.0-0.9 [facility] Comment on above: Performed By: #### A 1C #### [facility] [address] [address] [address] Dianelys Brown Interpretation: Comment Normal [facility] Comment on above: Result Comment: Nega tive Not infected with HCV, unless recent infection is suspected or other evidence exists to indicate HCV infection. Performed By: #### A 1C #### [facility] [address] [address] [address] Dianelys Brown HIV 1 AND 2 WITH REFLEXon HIV Screen 4th Generation wRfx Non-Reactive Normal Non Reactive [facility] Comment on above: Result Comment: HIV Negative HIV-1/HIV-2 antibodies and HIV-1 p24 antigen were NOT detected. There is no laboratory evidence of HIV infection. Performed By: #### H BSANS #### [facility] [address] [place] [address] Dr. Dianelys Brown RPR QUANTon 03-27-2022 Rapid Plasma Reagin, Quant Non-Reactive Normal NonRea<1:1 [facility] Comment on above: Result Comment: Plea se Note: This test does not meet current guidelines for screening and diagnosis of syphilis. This test is intended for following treatment response in patients being treated for syphilis infection. To screen for syphilis infection, a reflex cascade that includes both RPR and a treponema-specific assay should be utilized, such as Treponema pallidum (Syphilis) Screening [place] (309021) or Rapid Plasma Reagin (RPR) Test With Reflex to Quantitative RPR and Confirmatory Treponema pallidum Antibodies (019080). Performed By: #### R PRQ #### [facility] [address] [place] [address] Dr. Dianelys Brown RUBELLA AB IGGon 03-27-2022 Rubella Antibodies, IgG 1.47 index Normal Immune >0.99 [facility] Comment on above: Result Comment: Non- immune <0.90 Equivocal 0.90 - 0.99 Immune >0.99 Performed By: #### H BSANS #### [facility] [address] [place] [address] Dr. Dianelys Brown CBC AUTO DIFFon 03-26-2022 BASO # 0.1 103/ul Normal 0.0-0.1 [facility] Comment on above: Performed By: #### H BSANS #### [facility] [address] [place] [address] Dr. Dianelys Brown Basophils/100 WBC (Bld) 0.6 % Normal 0.2-2.0 [facility] Comment on above: Performed By: #### H BSANS #### [facility] [address] [place] [address] Dr. Dianelys Brown EO # 0.3 103/ul Normal 0.0-0.7 [facility] Comment on above: Performed By: #### H BSANS #### [facility] [address] [place] [address] Dr. Dianelys Brown Eosinophils/100 WBC (Bld) 2.8 % Normal 0.9-7.0 [facility] Comment on above: Performed By: #### H BSANS #### [facility] [address] [place] [address] Dr. Dianelys Brown Erythrocyte distribution width (RBC) [Ratio] 11.9 % Normal 11.0-15.0 [facility] Comment on above: Performed By: #### H BSANS #### [facility] [address] [place] [address] Dr. Dianelys Brown Hematocrit (Bld) [Volume fraction] 38.0 % Normal 36.0-48.0 [facility] Comment on above: Performed By: #### H BSANS #### [facility] [address] [place] [address] Dr. Dianelys Brown Hemoglobin (Bld) [Mass/Vol] 13.6 g/dL Normal 12.0-16.0 [facility] Comment on above: Performed By: #### H BSANS #### [facility] [address] [place] [address] Dr. Dianelys Brown IG # 0.03 10e3/ul Normal 0.00-0.03 [facility] Comment on above: Performed By: #### H BSANS #### [facility] [address] [place] [address] Dr. Dianelys Brown IG % 0.3 % Normal 0.0-0.5 [facility] Comment on above: Performed By: #### H BSANS #### [facility] [address] [place] [address] Dr. Dianelys Brown LYMPH # 2.4 103/ul Normal 1.2-3.8 [facility] Comment on above: Performed By: #### H BSANS #### [facility] [address] [place] [address] Dr. Dianelys Brown Lymphocytes/100 WBC (Bld) 22.1 % Normal 20.5-60.0 [facility] Comment on above: Performed By: #### H BSANS #### [facility] [address] [place] [address] Dr. Dianelys Brown MANUAL DIFF REQ NO Normal [facility] Comment on above: Performed By: #### H BSANS #### [facility] [address] [place] [address] Dr. Dianelys Brown MCH (RBC) [Entitic mass] 32.2 pg Normal 26.7-34.0 [facility] Comment on above: Performed By: #### H BSANS #### [facility] [address] [place] [address] Dr. Dianelys Brown MCHC (RBC) [Mass/Vol] 35.8 g/dL Critically high 29.9-35.2 [facility] Comment on above: Performed By: #### H BSANS #### [facility] [address] [place] [address] Dr. Dianelys Brown MCV (RBC) [Entitic vol] 90.0 fL Normal 81.0-99.0 [facility] Comment on above: Performed By: #### H BSANS #### [facility] [address] [place] [address] Dr. Dianelys Brown MONO # 1.0 103/ul Critically high 0.3-0.8 [facility] Comment on above: Performed By: #### H BSANS #### [facility] [address] [place] [address] Dr. Dianelys Brown Monocytes/100 WBC (Bld) 8.8 % Normal 1.7-12.0 [facility] Comment on above: Performed By: #### H BSANS #### [facility] [address] [place] [address] Dr. Dianelys Brown NEUT # 7.1 103/ul Critically high 1.4-6.5 [facility] Comment on above: Performed By: #### H BSANS #### [facility] [address] [place] [address] Dr. Dianelys Brown Neutrophils/100 WBC (Bld) 65.4 % Normal 43.0-75.0 [facility] Comment on above: Performed By: #### H BSANS #### [facility] [address] [place] [address] Dr. Dianelys Brown Platelet mean volume (Bld) [Entitic vol] 11.6 fL Normal 9.5-13.5 [facility] Comment on above: Performed By: #### H BSANS #### [facility] [address] [place] [address] Dr. Dianelys Brown PLT 171 103/ul Normal 150-450 [facility] Comment on above: Performed By: #### H BSANS #### [facility] [address] [place] [address] Dr. Dianelys Brown RBC 4.22 106/ul Normal 4.20-5.40 [facility] Comment on above: Performed By: #### H BSANS #### [facility] [address] [place] [address] Dr. Dianelys Brown WBC 10.9 103/ul Normal 4.0-11.0 [facility] Comment on above: Performed By: #### H BSANS #### [facility] [address] [place] [address] Dr. Dianelys Brown CULTURE URINEon 03-26-2022 CULTURE [...] Trimethoprim/Sulfamet hoxazole <=20 S F Normal [facility] Comment on above: Performed By: #### A 1C #### [facility] [address] [place] [address] Dr. Dianelys Brown FREE T4on 03-26-2022 Free T4 [Mass/Vol] 1.95 ng/dL Critically high 0.78-1.34 [facility] Comment on above: Performed By: #### H BSANS #### [facility] [address] [address] [address] Dianelys Brown GLYCOHEMOGLOBIN A1Con 2021 ADA RECOMMENDATION SEE BELOW Normal [facility] Comment on above: Result Comment: ADA RECOMMENDED LIMIT 4.0 - 6.0 ADA THERAPEUTIC TARGET < 7.0 ACTION SUGGESTED > 7.0 Performed By: #### A 1C #### [facility] [address] [address] [address] Dianelys Brown Glucose [Mass/Vol] 103 mg/dL Normal [facility] Comment on above: Performed By: #### A 1C #### [facility] [address] [place] [address] Dr. Dianelys Brown HbA1c (Bld) [Mass fraction] 5.2 % Normal 4.5-6.2 [facility] Comment on above: Performed By: #### A 1C #### [facility] [address] [address] [address] Dianelys Brown TSHon 03-26-2022 TSH 1.474 uIU/mL Normal 0.516-4.130 [facility] Comment on above: Performed By: #### T SH #### [facility] [address] [place] [address] Dr. Dianelys Brown TSH RANGE SEE BELOW Normal [facility] Comment on above: Result Comment: <0.3 4 UIU/ml HYPERTHYROID 0.34-5.60 UIU/ml EUTHYROID >5.60 UIU/ml HYPOTHYROID Performed By: #### T SH #### [facility] [address] [address] [address] Dianelys Brown TYPE AND SCREENon 03-26-2022 TYPE AND SCREEN Negative Normal [facility] Comment on above: Performed By: #### T NS #### [facility] [address] [place] [address] Dr. Dianelys Brown US PREG TVon 03-24-2022 [...] by: RODOLFO REYNOSO Date: 2022-03-24 09:53 Normal [facility] Vital Signs Date Time Vital Sign Value Performing Clinician Facility 11-11-2023 08:13-0500 Body weight 65.41 kg Jad Woods MD Work Phone: [facility] 11-11-2023 08:13-0500 Diastolic blood pressure 62 mm[Hg] Jad Woods MD Work Phone: [facility] 11-11-2023 08:13-0500 Heart rate 90 /min Jad Woods MD Work Phone: [facility] 11-11-2023 08:13-0500 Systolic blood pressure 97 mm[Hg] Jad Woods MD Work Phone: [facility] 12-31-2022 11:19-0500 [facility] 12-31-2022 11:19-0500 Diastolic blood pressure 62 mm[Hg] [facility] 12-31-2022 11:19-0500 Heart rate 66 /min [facility] 12-31-2022 11:19-0500 SaO2% (BldA) [Mass fraction] 96 % [facility] 12-31-2022 11:19-0500 Systolic blood pressure 96 mm[Hg] [facility]argaret Higgins [facility] 06-21-2022 03:06-0400 Body weight 55.[address] PASTORA PARKS . [facility] Comment on above: Performed By: #### A1C #### [facility] [address] [place] [address] Dr. Dianelys Brown 03-25-2022 10:58-0400 Body temperature 98.24 [degF] Jenelle GONZALEZ [facility] 03-25-2022 10:58-0400 Heart rate 72 /min Jenelle GONZALEZ [facility] 03-25-2022 10:58-0400 SaO2% (BldA) [Mass fraction] 99 % Jenelle GONZALEZ [facility] Encounters Encounter Date Encounter Type Care Provider Facility Start: 01-26-2024 End: 01-26-2024 ambulatory PASTORA CHARLY Not Available Start: 01-12-2024 End: 01-12-2024 ambulatory LORI AMINA Not Available Start: 2023 End: 2023 ambulatory PASTORA CHARLY Not Available Start: 12-14-2023 End: 12-14-2023 ambulatory LORI AMINA Not Available Start: 12-12-2023 Clinisync Result Encounter Pastora Charly DO Work Phone: [facility] External [facility] Unsolicited Start: 12-12-2023 Clinisync Result Encounter Pastora Charly DO Work Phone: [facility] External Department Unsolicited Start: 11-30-2023 End: 11-30-2023 ambulatory PASTORA CHARLY Not Available Start: 11-12-2023 End: 11-12-2023 ambulatory LORI AMINA Not Available Start: 11-11-2023 End: 11-12-2023 ambulatory PASTORA PARKS [facility] Start: 11-11-2023 End: 11-11-2023 Office outpatient new 45 minutes Jad Woods MD Work Phone: [facility]- [facility] at [facility] Comment on above: Encounter for suspec niyah anomaly ruled out (Primary Dx) Start: 10-15-2023 End: 10-15-2023 ambulatory LORI HUYNH Not Available Start: 06-16-2023 End: 06-17-2023 ambulatory Gurpreet Higgins [place]: 06-16-2023 End: 06-16-2023 Patient encounter procedure Gurpreet Castillod [facility] Start: 12-31-2022 End: 01-01-2023 ambulatory Gurpreet Higgins [place] [place]: 12-31-2022 End: 12-31-2022 Patient encounter procedure Gurpreet Higgins [facility] Start: 12-09-2022 End: 12-10-2022 ambulatory Wendie C Renetta [place] [place]: 12-09-2022 End: 12-09-2022 Patient encounter procedure Wendie C Renetta [facility] Start: 12-02-2022 End: 12-03-2022 ambulatory Wendie C Renetta [place] [place]: 12-02-2022 End: 12-02-2022 Patient encounter procedure Wendie C Renetta [facility] Start: 11-25-2022 End: 12-03-2022 Pre-admission assessment Wendie C Renetta [facility] Start: 11-24-2022 End: 11-25-2022 ambulatory Wendie Fernandezker [place] [place]: 11-24-2022 End: 11-24-2022 Patient encounter procedure Wendie Jackson [facility] Start: 11-11-2022 End: 11-11-[address] DOCTOR [...] End: 03-25-2022 Patient encounter procedure Jenelle GONZALEZ [facility] Start: 03-24-2022 End: 03-25-[address] PASTORA PARKS . Facility: Start: 03-24-2022 End: 03-25-2022 ambulatory [...] Td Vaccines (8 - Td or Tdap) [facility] Start: 12-14-2023 End: 12-14-2023 Patient encounter procedure 12/14/2023 2:00 PM EST Routine [facility] [address] [place] [address] Lori Huynh PA [address] [place], [place] [id number] Third trimester [facility] Comment on above: Third trimester preg aaliyah Start: 07-10-2023 Influenza vaccination Influenza Vacc ine [facility] Start: 2020 Adult BMI Screening Adult BMI Screen ing [facility] Start: 2014 Depression Screening Depression Scre ening [facility] Start: 2014 Tobacco Screening Tobacco Screening [facility] Start: 2002 Screening for Chlamy dony trachomatis Chlamydia Screening [facility] Payers Date Payer Category Payer Medicaid [id number] 2019 Private Health Insurance 2002 Unknown [id number] 2.16.84 0.1.884235.3.579.2.593 2002 Unknown [id number] 2.16.84 0.1.047788.3.579.2.593 2002 Unknown [id number] 2.16.84 0.1.709872.3.579.2.593 2002 Unknown [id number] 2.16.84 0.1.501655.3.579.2.593 2002 Unknown [id number] 2.16.84 0.1.316257.3.579.2.593 2002 Unknown [id number] 2.16.84 0.1.926593.3.579.2.593 2002 Unknown [id number] 2.16.84 0.1.073360.3.579.2.593 2002 Unknown [id number] 2.16.84 0.1.683507.3.579.2.593 2002 Unknown [id number] 2.16.84 0.1.184074.3.579.2.593 2002 Unknown [id number] 2.16.84 0.1.763418.3.579.2.593 2002 Unknown [id number] 2.16.84 0.1.467879.3.579.2.593 2002 Unknown [id number] 2.16.84 0.1.659240.3.579.2.593 2002 Unknown [id number] 2.16.84 0.1.118968.3.579.2.593 2002 Unknown [id number] 2.16.84 0.1.275264.3.579.2.593 2002 Unknown [id number] 2.16.84 0.1.700457.3.579.2.593 2002 Unknown [id number] 2.16.84 0.1.298262.3.579.2.593 2002 Unknown [id number] 2.16.84 0.1.152610.3.579.2.593 2002 Unknown [id number] 2.16.8 40.1.471403.3.579.2.727 2002 Unknown [id number] 2.16.8 40.1.218859.3.579.2.727 2002 Unknown [id number] 2.16.8 40.1.246452.3.579.2.727 2002 Unknown [id number] 2.16.8 40.1.502074.3.579.2.727 2002 Unknown [id number] 2.16.8 40.1.352509.3.579.2.727 2002 Unknown [id number] 2.16.84 0.1.270257.3.579.2.1286 2002 Unknown [id number] 2.16.84 0.1.309848.3.579.2.1286 2002 Unknown [id number] 2.16.84 0.1.553742.3.579.2.1259 2002 Unknown [id number] 2.16.84 0.1.155538.3.579.2.1259 2002 Unknown [id number] 2.16.84 0.1.446044.3.579.2.1259 2002 Unknown [id number] 2.16.84 0.1.265202.3.579.2.1259 2002 Unknown [id number] 2.16.84 0.1.871057.3.579.2.1259 2002 Unknown [id number] 2.16.840 .1.230228.3.579.2.1259 2002 Unknown [id number] 2.16.840 .1.275174.3.579.2.1259 1959 Medicaid [id number] 1959 Private Health Insurance [id number] 1959 Self-pay Social History Date Type Detail Facility Start: 03-25-2022 End: 08-05-2023 Tobacco smoking status Never smoked tobacco (finding) [facility] Tobacco smoking status Never [facility] Start: 08-05-2023 End: 11-11-2023 Sex Assigned At Female [facility] Start: 08-05-2023 End: 10-28-2023 Tobacco use and exposure Smokeless tobacco non-user [facility] Start: 11-11-2023 End: 11-30-2023 Alcohol intake Lifetime non-drinker (finding) [facility] Start: 08-05-2023 End: 11-11-2023 History of Social function [facility] Start: 06-02-2023 [facility] Start: 2002 Sex Assigned At Not on file P [facility] Functional Status Date Assessment Result Facility 12-31-2022 Functional Status No [facility] History of Present illness Narrative [...] Yes Have you been seen here at [facility] in a previous ? No Recent ER visits or hospitalizations? Patient reports she presented to [facility] approx. two weeks ago for cramping Bring blood sugar log or meter with you today? (Please bring them with you for every visit at [facility]) N/A Traveled outside the country in [...] and the other consultants, we search on [place] and all the available care everywhere epic I did review all the imaging studies of the patient available on EMR, ordered by the primary care physician and the other professional services consultant HABITS: Patient activity no restrictions, diet [...] patient is in complete care of her german teacher. Patient does not have any future appointment scheduled with us Thank you for allowing me to participate in Stacey Ang . If there any questions please do not hesitate to contact us. Sincerely, JAD WOODS MD documented in this encounter [facility] Hospital Discharge instructions 12-23-2022 Note Date & Type Note Facility 12-23-2022 Hospital Discharg e instructions Follow Up Care 12/23/2022 11:03:27 With:Ronaldo LEE, Basem G., PUL, MIGDALIA Address: [address] [place] [address]- When:3 months [facility] Hospital Discharge instructions 03-25-2022 Note Date & [...] instructions at home: Medicines Take or apply geyz-aud-jpirilw and prescription medicines only as told by [...] and water are not available, use hand core baker. Try to avoid contact with other people [...] 01/16/2004 Document Revised: 02/14/2020 Document Reviewed: 05/12/2017 [employer] Number Patient Education 2020 [employer] Follow Up Care 03/25/2022 10:27:35 With:Lori Jarvis DO Address:Unknown When: Unknown [facility] Evaluation + Plan note Note Date & Type Note Facility Evaluation + Plan note No data available for this section [facility] Evaluation + Plan note Note Date & Type Note Facility Evaluation + Plan note Future Appointments Appointment Date:07/01/2023 11:15:00 AM Scheduled Provider:Gurpreet Higgins MD Location:[facility] Appointment Type:Pulmonary Follow Up ([place]) [facility] Evaluation note Note Date & Type Note Facility Evaluation note Diagnosis Encounter for suspected anomaly ruled out- Primary documented in this encounter [facility] Hospital Discharge instructions Note Date & Type Note Facility Hospital Discharge instructions No data available for this section [facility] Instructions Note Date & Type Note Facility Instructions Not on filedocumented in this en counter [facility] Progress note Note Date & Type Note Facility Progress note No data available for this section [facility] Summary Purpose Family History No Family History Records FoundNo Family History Records FoundNo Family History Records FoundNo Family History Records Found Advance Directives No Advanced Directives Records FoundNo Advanced Directives Records FoundNo Advanced Directives Records FoundNo Advanced Directives Records Found Additional Source Comments Patient Care team informatio n (unrecognized section and content) 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[employer] Relationship Specialty Start Date End Date Wendie Jackson MD [address] [place] [address] [phone] PCP - General Family Medicine 07/17/23 INFORMATION SOURCE (unrecogn ized section and content) DATE CREATED AUTHOR 01/30/2023 [facility] DATE CREATED AUTHOR AUTHOR'S ORGANIZ ATION 06/26/2023 [facility] DATE CREATED AUTHOR AUTHOR'S ORGANIZ ATION 11/15/2023 [facility] DATE CREATED AUTHOR AUTHOR'S ORGANIZ ATION 01/27/2024 [facility] EPIC Reason for Visit [...] BE BASED ON THE PRIMARY CLINICAL RECORDS. [facility]. provides no warranty or guarantee of the accuracy or completeness of information in this document.
[2024-02-02 19:59] LABS: Bilirubin Urine NEGATIVE (NEGATIVE); Blood Urine NEGATIVE (NEGATIVE); Clarity Urine CLEAR (CLEAR); Color Urine LT. YELLOW (YELLOW); Glucose Urine UA NEGATIVE (NEGATIVE); Ketones Urine NEGATIVE (NEGATIVE); Leukocyte Esterase Urine SMALL (NEGATIVE); Nitrite Urine NEGATIVE (NEGATIVE); Protein Urine NEGATIVE (NEG/TRACE); Urine Microscopic Indicated YES
[2024-02-02 20:07] LABS: Amorphous Sediment Urine MODERATE; Bacteria Urine NONE SEEN #/HPF (NONE SEEN); Cast Seen? NONE SEEN #/LPF (NONE SEEN); Crystals Seen? Seen #/HPF (None Seen); Mucus Urine SMALL (NONE SEEN); RBC Urine 0-2 #/HPF (0-2); Squamous Epithelial Cell Urine MANY #/LPF (NONE/RARE)
[2024-02-02 20:08] LABS: Sperm Urine SEEN; Urine Culture Indicated YES
[2024-02-02 21:29] VITALS: BMI 27.0
[2024-02-02 22:21] VITALS: BP 106/65; PULSE 85
[2024-02-02 22:43] LABS: Hematocrit 38.5 % (36.0-48.0); Hemoglobin 12.8 g/dL (12.0-16.0); Mean Corpuscular HGB Conc 33.2 g/dL (29.9-35.2); Mean Corpuscular Hemoglobin 31.9 pg (26.7-34.0); Platelet Count 192 10^3/uL (150-450); Red Blood Count 4.01 10^6/uL (4.20-5.40); Red Cell Distribution Width 13.5 % (11.0-15.0); White Blood Count 11.2 10^3/uL (4.0-11.0)
[2024-02-02 22:53] LABS: Amphetamine Screen Urine NEGATIVE (NEGATIVE); Barbiturates Screen Urine NEGATIVE (NEGATIVE); Benzodiazepines Screen Urine NEGATIVE (NEGATIVE); Buprenorphine Screen Urine NEGATIVE (NEGATIVE); Cannabinoid Screen Urine NEGATIVE (NEGATIVE); Cocaine Screen Urine NEGATIVE (NEGATIVE); Methadone Screen Urine NEGATIVE (NEGATIVE); Methamphetamines Screen Urine NEGATIVE (NEGATIVE); Opiate Screen Urine NEGATIVE (NEGATIVE); Oxycodone Screen Urine NEGATIVE (NEGATIVE); Phencyclidine Screen Urine NEGATIVE (NEGATIVE); Tricyclic Antidepressant Urine NEGATIVE (NEGATIVE)
[2024-02-03] VITALS (18 sets, daily range): BP systolic 87–121; BP diastolic 50–74; PULSE 77–107; RESP 16; TEMP 36.6–36.9; O2SAT 97
[2024-02-03] MEDS: 0.9 % SODIUM CHLORIDE 1,000 ML 125 ML IV (07:30)
[2024-02-03] MEDS: OXYTOCIN/0.9 % SODIUM CHLORIDE 20 UNITS/1,000 ML PLAST..BAG 125 UNIT IV (10:38)
--- NOTE | 2024-02-03 10:46 | PM.OBPRCVD ---
Procedure Intrapartal events: None Induction method: none Delivery augmentation: rupture of membranes Delivery monitor: external FHT and external uterine Route of delivery: Episiotomy Description: none L&D Laceration Description: perineal - 1st degree Delivery repair: Vicryl Estimated blood loss (mL): 300 Anesthesia type: None Disposition: floor Infant Delivery date: 02/03/24 Gender: male presentation: vertex Placental delivery description: Spontaneous cord description: 3 Vessels
[2024-02-03] MEDS: KETOROLAC TROMETHAMINE 30 MG/ML VIAL IVP (10:50)
[2024-02-03] MEDS: BENZOCAINE/MENTHOL 85 GRAM SPRAY BOTTLE 1 APPLIC TOPICAL (14:06)
[2024-02-03] MEDS: IBUPROFEN 600 MG TABLET PO (19:42)
[2024-02-04] MEDS: IBUPROFEN 600 MG TABLET PO (04:04)
[2024-02-04 06:20] LABS: Basophils Absolute Auto 0.1 10^3/uL (0.0-0.1); Basophils Percent Auto 0.6 % (0.2-2.0); Eosinophils Absolute Auto 0.3 10^3/uL (0.0-0.7); Eosinophils Percent Auto 2.2 % (0.9-7.0); Hematocrit 32.4 % (36.0-48.0); Hemoglobin 10.6 g/dL (12.0-16.0); Immature Granulocytes Abs Auto 0.05 10^3/uL (0.00-0.03); Immature Granulocytes Pct Auto 0.4 % (0.0-0.5); Lymphocytes Absolute Auto 2.4 10^3/uL (1.2-3.8); Lymphocytes Percent Auto 21.3 % (20.5-60.0); Mean Corpuscular HGB Conc 32.7 g/dL (29.9-35.2); Mean Corpuscular Hemoglobin 31.6 pg (26.7-34.0); Mean Corpuscular Volume 96.7 fL (81.0-99.0); Monocytes Absolute Auto 1.1 10^3/uL (0.3-0.8); Monocytes Percent Auto 9.4 % (1.7-12.0); Neutrophils Absolute Auto 7.4 10^3/uL (1.4-6.5); Neutrophils Percent Auto 66.1 % (43.0-75.0); Platelet Count 148 10^3/uL (150-450); Red Blood Count 3.35 10^6/uL (4.20-5.40); Red Cell Distribution Width 13.7 % (11.0-15.0); White Blood Count 11.2 10^3/uL (4.0-11.0)
[2024-02-04 08:15] VITALS: BP 100/56; PULSE 73; RESP 16; TEMP 36.7
[2024-02-04 08:18] VITALS: BP 100/56; PULSE 73
[2024-02-04] MEDS: DOCUSATE SODIUM 100 MG CAPSULE PO (08:21)
--- NOTE | 2024-02-04 08:34 | P.OBPN_ITS ---
OB - PN: Subj Subjective Patient comments: no complaints [place] status: doing well feeding status: exclusively Exam Constitutional Vital Signs, click to edit/add: Last Vital Signs Temp 98.5 F 02/03/24 23:41 Pulse 73 02/04/24 08:18 Resp 16 02/03/24 23:41 BP 100/56 02/04/24 08:18 Pulse Ox 97 02/03/24 19:28 O2 Del Method Room Air 02/03/24 23:41 Documenting provider has reviewed patient's vital signs: yes Common normals: no apparent distress and oriented x3 HENMT Common normals: normocephalic Eye Common normals: EOMs intact bilaterally General eye: normal appearance of both eyes Neck & C-Spine Common normals: full ROM and no lymphadenopathy Lymph Lymphatic: no lymphadenopathy noted Chest Common normals: inspection of chest normal Respiratory Common normals: normal respiratory effort Cardio Common normals: regular rate, regular rhythm and no murmurs Rate: regular rate Rhythm: regular rhythm GI Common normals: Normal to inspection, nondistended, normoactive bowel sounds present Palpation: soft Common normals: no CVA tenderness Back & Pelvis Common normals: no CVA tenderness Extremity Common normals: normal to inspection Neuro Common normals: oriented x3 Sensorium/orientation: awake, alert, oriented to person, oriented to place and oriented to time Psych Common normals: mental status grossly normal Attitude: calm Results Labs Labs: Short CBC 02/04/24 Range/Units 05:50 WBC 11.2 H (4.0-11.0) 10^3/uL Hgb 10.6 L (12.0-16.0) g/dL Hct 32.4 L (36.0-48.0) % Plt Count 148 L (150-450) 10^3/uL OB - PN: A/P Assessment and Plan (1) Term : Plan - Vaginal Delivery day: 1 Plan: discharge home Time Spent with Patient Time: Total time spent is greater than 50% in coordination of care (as documented) at patient's floor/unit and/or counseling patient: Total time spent with greater than 50% in coordination of care (as documented) at patient's floor/unit and/or counseling patient: less than 15 minutes
== END 2024-02-04 14:40 | disposition home or self-care (01) | DRG 807 ==
PROVIDERS: Admitting Provider Obstetrics & Gynecology; Visit Provider Obstetrics & Gynecology
DX: O26.893 Other specified pregnancy related conditions, third trimester (principal); Z37.0 Single live birth; O70.0 First degree perineal laceration during delivery; Z3A.37 37 weeks gestation of pregnancy; Z67.11 Type A blood, Rh negative
CPT/HCPCS: 36415; 59050; 59410; 80307; 81001; 85025; 85027; 86850; 86900; 86901; 87086; 96374; 96375

== ENCOUNTER 2024-06-14 19:57 | Outpatient (REF) | payer OTHER, SELFPAY ==
--- OUTSIDE RECORDS SUMMARY | 2024-06-14 20:02 | XMS_ITS | CCD ---
Author Organization [facility] Care Team Providers Care Clinical Services Assistant Name Role Phone Lori Jarvis Primary Care Physician Wendie Jackson Primary Care Physician CHARLY ., DR GUILLORY Admitting Unavailable CHARLY [...] Care Unavaila ble COMPA WILLIAM Consulting Unavailable CHARLY ., DR GUILLORY Consulting Unavailable CHARLY ., DR GUILLORY Consulting Unavailable CHARLY ., DR GUILLORY Attending Unavailable CHARLY ., DR GUILLORY Admitting Unavailable REQUEST, DR NONE LISTED Primary Care Unavaila ble ZIEBER, RODOLFO R Consulting Unavailable CHARLY ., DR GUILLORY Attending Unavailable CHARLY ., DR GUILLORY Admitting Unavailable REQUEST, DR NONE LISTED Primary Care Unavaila ble CHARLY ., DR GUILLORY Consulting Unavailable Unavailable Primary Care Provider Unavailabl e PASTORA PARKS R Referring Unavailable JAD WOODS Attending Unavailable CHARLYPASTORA R Referring Unavailable Renetta LEE, [facility] Primary Care Provider [phone] AMINA, LORI Attending Unavailable CHARLY, PASTORA Attending Unavailable AMINA, LORI Attending Unavailable CHARLY, PASTORA Attending Unavailable AMINA, LORI Attending Unavailable CHARLY, PASTORA Attending Unavailable AMINA, LORI Attending Unavailable CHARLY, PASTORA Attending Unavailable CHARLY, PASTORA Attending Unavailable Higgins, Basem G. Admitting Unavailable Higgins, Basem G. Attending Unavailable Higgins, Basem G. Referring Unavailable Hajdari, Astrit H Attending Unavailable Allergies Allergy Classification Reported Allergen(s) Allergy Type Date of Onset Reaction(s) Facility Bee/Wasp/Ant Venom (1 source) Bee/Wasp/Ant venom Substance Allergy Swelling - edema - symptom (finding) [facility] (8 sources) Bee/Wasp/Ant venom; Translations: [Bee Stings] Allergy to substance Swelling - edema - symptom (finding) [facility] (9 sources) Seafood; Translations: [Seafood] Food allergy diarrhea [facility] (1 source) Shrimp product Drug allergy (disorder) 2 [facility] (2 sources) wasp venom Drug allergy (disorder) 2 Unknown [facility] (2 sources) Polyethylene Glycols; Translations: [POLYETHYLENE GLYCOL] Drug Allergy 3 Anaphylaxis [facility] (2 sources) Shellfish; Translations: [SHELLFISH DERIVED] Propensity to adverse reactions to drug 3 Anaphylaxis [facility] (2 sources) Venom-Wasp; Translations: [VENOM-WASP] Propensity to adverse reactions to drug 3 [facility] (1 source) polyethylene glycol 300 Drug Allergy 3 Anaphylaxis [facility] (1 source) Shellfish Propensity to adverse reactions 3 Anaphylaxis [facility] Work Phone: (1 source) wasp venom Propensity to adverse reactions 3 [facility] (1 source) Shellfish-Derive d Products Propensity to adverse reactions 3 Anaphylaxis [facility] Medications Current Medications Medication Drug Class(es) Dates Sig (Normalized) Sig (Original) [id number] 200 actuat albuterol 0.09 mg/actuat metered dose [...] bedtime. 0 Active 168 hr ethinyl estradiol 0.06252 mg/hr / norelgestromin 0.09037 mg/hr transdermal system (8 sources) Progestin, Estrogen Start: 08-16-2020 Xulane 150 mcg-35 mcg/24 hr transdermal film, extended release 1 patch(es), Topical, qWeek, 3 EA, Refill(s) 11, [facility] SIN SAMUEL, 165, cm, 08/16/20 15:55:00 EDT, Height/Length Dosing, 66.3, kg, 08/16/20 15:55:00 EDT, Weight Dosing Start Date: 08/16/20 Status: Ordered hydrocortisone 25 mg/ml topical cream (8 sources) Corticosteroid Start: 09-19-2020 hydrocortisone Top 2.5% Crm 1 tahmina, Topical, TID, 20 gram, Refill(s) 0, [facility] ZAKSEY LIZAE, 165, cm, 09/19/20 16:02:00 EST, Height/Length Dosing, [...] mg tablet Take by mouth. 0 Active Caoiasmo-Xnv-Pk-FA (, w/Iron & FA,) 27-0.8 MG tablet [...] day(s), 1 EA, Refill(s) 5, [facility], 167, cm, 12/31/22 11:21:00 EST, Height/Length Dosing, 59.1, kg, 12/31/22 11:21:00 EST, Weight Dosing Start Date: 12/31/22 Stop Date: 06/29/23 Status: Ordered Problems Active Problems Problem Classification Problem Date Documented Date Episodic/Chronic Headache; including migraine (8 sources) Migraine 09-29-2019 Chronic Hemorrhage during ; [...] UNSPECIFIED] Onset: 03-24-2022 Chronic Nonspecific chest pain (16 sources) Anterior chest wall pain; Translations: [Chest [...] OF ] Onset: 11-17-2022 Episodic Substance-related disorders (8 sources) Smoker 11-19-2019 Chronic Comment on above: Added secondary to d ocumentation in Social History. Superficial injury; contusion (1 source) Right wrist contusion; Translations: [Contusion of right wrist, initial encounter] Onset: 05-04-2024 Episodic Unclassified (1 source) CONTACT W/AND (SUSP) EXPOS [...] applicable or unspecified; Translations: [MAT CARE OTH VA FTL GRTH 3RD TM UNS] Onset: 09-25-2022 [...] GESTATION OF ] Onset: 06-20-2022 Episodic Unclassified (8 sources) None (qualifier value) 05-14-2011 Results Test Name Value Interpretation Reference Range Facility Consent for Treatmenton 04-10 Consent for Treatment [id number] .[id number] Normal [facility] Discharge Instructionson Discharge Instructions [id number]. 00TIFF Normal [facility] ED Clinical Summaryon 2023 ED Clinical Summary [address] [address] ED Clinical Summary Person Information Name: STACEY ANG Enedina/[facility] Age: 23 Years : 2000 Sex: Female Language: Welsh PCP: Wendie Jackson DO Marital Status: Single Phone: [phone] Visit Id: Visit Reason: Arm pain-swelling; RT ARM/WRIST PAIN Speciality: Acuity: 4 Enc Type: Emergency Med Service: Emergency Arrival: 05/04/2024 10:42:03 Discharge: 05/04/2024 12:58:56 LOS: 000 02:16 Checkin: 05/04/2024 10:42:03 Checkout: 05/04/2024 12:58:56 Dispo Type: Home (Routine DC) EVENTS: Event Name Event Status Request Date/Time Start Date/Time Complete Date/Time Arrive Complete 05/04/2024 10:42:03 05/04/2024 10:42:03 05/04/2024 10:42:03 Document Home Meds Request 05/04/2024 10:42:03 Triage Complete 05/04/2024 10:42:03 05/04/2024 11:06:00 05/04/2024 11:06:00 Registration Complete 05/04/2024 10:46:03 05/04/2024 10:46:03 05/04/2024 10:46:03 Reg Complete Request 05/04/2024 10:46:03 Reg Bed Request Complete 05/04/2024 10:46:03 05/04/2024 10:46:03 05/04/2024 10:46:03 Bed Assign Complete 05/04/2024 11:04:05 05/04/2024 11:04:05 05/04/2024 11:04:05 Dr Exam Complete 05/04/2024 11:04:05 05/04/2024 11:10:10 05/04/2024 11:10:10 RN Exam Complete 05/04/2024 11:04:05 05/04/2024 12:59:22 05/04/2024 12:59:22 Registration Request 05/04/2024 11:10:10 X-Ray Complete 05/04/2024 11:16:10 05/04/2024 11:32:12 05/04/2024 11:51:42 Meds Admin Complete 05/04/2024 11:16:10 05/04/2024 12:56:39 Wet Read Request 05/04/2024 11:51:42 Patient Care Complete 05/04/2024 12:45:12 05/04/2024 13:00:21 Discharge Complete 05/04/2024 12:46:04 05/04/2024 13:01:08 05/04/2024 13:01:08 Transfer Complete 05/04/2024 13:01:08 05/04/2024 13:01:08 05/04/2024 13:01:08 ADDRESS: [address] [facility] [id number] PHYS DOC NOTES: MEDICAL INFORMATION: Prescriptions Given: Medications to Continue with No Changes Other Medications ethinyl estradiol-norelgestro min (Xulane 150 mcg-35 mcg/24 hr transdermal film, extended release) 1 Patches Topical every week. Refills: 11. hydrocortisone topical (hydrocortisone Top 2.5% Crm) 1 Application Topical 3 times a day. Refills: 0. PATIENT EDUCATION INFORMATION: Instructions: Contusion Follow up: With: Address: When: Wendie [address], [address], [facility] [address] [place] [address] [facility] (1) In 3 days 05/07/2024 Comments: Return to the emergency room if your pain gets worse or any new symptoms. DIAGNOSIS: 1:Contusion of right wrist Normal [facility] ED Note-Physicianon 05-04-20 ED Note-Physician Basic Information Time Seen: Kellee LeeMarlinSharifa 05/04/2024 11:10 Chief Complaint R arm pain since last night, states she was mad and hit it on something. History of Present Illness The patient is a 23-year-old female who presented to the emergency room with right wrist pain. The patient states the pain has been present since last night. She states she got upset last night and she does not remember what she had with her wrist. The patient is complaining of pain on the distal aspect of the forearm/proximal wrist. The patient denies taking anything for pain. She denies any other associated symptoms or any other injuries. Review of Systems Additional ROS info: Except as noted in the above Review of Systems and in the History of Present Illness all other systems have been reviewed and are negative or noncontributory. Physical Exam Vitals & Measurements T: 36.9 ?C(Oral) HR: 79(Peripheral) RR: 16 BP: 95/72 SpO2: 96% HT: 165 cm WT: 66 kg BMI: 24.24 General: alert, no acute distress Skin: warm, dry, Head: no trauma, normocephalic Neck: Trachea midline Eye: normal conjunctiva, sclera clear, Cardiovascular: regular rate and rhythm, Respiratory: Lungs CTA, respirations non labored, breath sounds equal, Extremities: no deformity, there is ecchymosis on the medial aspect of the right wrist. There is tenderness on the medial aspect of the distal fibula/fibular condyle Neurological: Alert and oriented, speech normal, no focal neuro deficits Psychiatric: cooperative, affect appropriate for age, Medical Decision Making MEDICAL DECISION MAKING Number and Complexity of Problems Differential Diagnosis: [] [facility] Data External documents reviewed: [] My EKG interpretation: [] My CT interpretation: [] My X-ray interpretation: [] My Ultrasound interpretation: [] Decision rules/scores evaluated: [] Discussed with: [] Treatment and Disposition ED Course: The patient presented with right wrist injury. The x-ray shows no fracture or dislocation. Calvin wrap was applied. Ibuprofen was given. Will discharge patient home follow-up with primary care. She is instructed to take ibuprofen jsug-jhm-pfbuild and return to the emergency room if her pain gets worse or any new symptoms. Shared decision making: [] Code status: [] Assessment/Plan 1. Contusion of right wrist (S60.211A: Contusion of right wrist, initial encounter) Orders: ibuprofen, 600 mg = 1 tab(s), Tab, Oral, Once, Stop date 05/04/24 11:15:00 EDT, STAT, Start date 05/04/24 11:15:00 EDT, 05/04/24 11:15:00 EDT Calvin Wrap XR Wrist 3+ Views Right Disposition Plan Patient Discharge Condition Stable Discharge Disposition Discharge home Discharge Prescription List Prescriptions No active prescription medications Follow-up With When Contact Information Wendie Jackson In 3 days 05/07/[address], [facility] [address], [address] [place] [address] [employer] (1) Additional Instructions: Return to the emergency room if your pain gets worse or any new symptoms. Patient Education Contusion Problem List/Past Medical History Ongoing Costochondral chest pain Left-sided chest wall pain Migraines Smoker Historical None Procedure/Surgical History Implantable subdermal contraceptive insertion done (05/10/2020), None. Medications Inpatient ibuprofen 600 mg Tab, 600 mg= 1 tab(s), Oral, Once Home hydrocortisone Top 2.5% Crm, 1 tahmina, Topical, TID, Not taking Xulane 150 mcg-35 mcg/24 hr transdermal film, extended release, 1 patch(es), Topical, qWeek, 11 refills, Not taking Allergies Bee Stings (Swelling - edema - symptom) Seafood (diarrhea) Social History Alcohol - Denies Alcohol Use, 09/19/2020 Current, 04/21/2020 Substance Abuse - Denies Substance Abuse, 09/19/2020 Past, Marijuana, 09/19/2020 Tobacco - Denies Tobacco Use, 04/26/2020 Never (less than 100 in lifetime) Tobacco Use:. Never Smokeless Tobacco Use:., 03/25/2022 Never (less than 100 in lifetime) Tobacco Use:. Never Smokeless Tobacco Use:., 09/25/2021 Never (less than 100 in lifetime) Tobacco Use:. Never Smokeless Tobacco Use:., 09/19/2020 Never (less than 100 in lifetime) Tobacco Use:. Never Smokeless Tobacco Use:., 08/13/2020 Family History Hypertension: Father. Lab Results No qualifying data available. Diagnostic Results XR Wrist 3+ Views Right 05/04/24 12:11:54 IMPRESSION: NEGATIVE RIGHT WRIST. CLINICAL HISTORY: Pain, Traumatic. COMPARISON: 04/21/2020. COMMENT: 4 views included bones of the right wrist and mid and distal radius and ulna were obtained. The visualized bones appear normal without evidence of fracture or dislocation. Ordering Provider: Sharifa Goodson Signed By: Junito Cain M.D. 05/04/24 11:51:41 Radiation Dose: Ka,r in mGy = na DAP = na Signed By: Junito Cain M.D. [facility] Comment on above: Result Comment: Elec tronically Signed By: Sharifa Goodson M.D. H\.br\Date and Time Signed: 05/04/24 17:23 EDT ED Patient Education Noteon 05-04-2024 ED Patient Education Note Orthopedics Contusion A contusion is a deep bruise. Contusions are the result of a blunt injury to tissues and muscle fibers under the skin. The injury causes bleeding under the skin. The skin overlying the contusion may turn blue, purple, or yellow. Minor injuries will give you a painless contusion, but more severe injuries cause contusions that may stay painful and swollen for a few weeks. Follow these instructions at home: Pay attention to any changes in your symptoms. Let your health care provider know about them. Take these actions to relieve your pain. Managing pain, stiffness, and swelling ? Use resting, icing, applying pressure (compression), and raising (elevating) the injured area. This is often called the RICE strategy. ? Rest the injured area. Return to your normal activities as told by your health care provider. Ask your health care provider what activities are safe for you. ? If directed, put ice on the injured area: ? Put ice in a plastic bag. ? Place a towel between your skin and the bag. ? Leave the ice on for 20 minutes, 2?3 times per day. ? If directed, apply light compression to the injured area using an elastic bandage. Make sure the bandage is not wrapped too tightly. Remove and reapply the bandage as directed by your health care provider. ? If possible, raise (elevate) the injured area above the level of your heart while you are sitting or lying down. General instructions ? Take xoug-kxl-mxeysuu and prescription medicines only as told by your health care provider. ? Keep all follow-up visits as told by your health care provider. This is important. Contact a health care provider if: ? Your symptoms do not improve after several days of treatment. ? Your symptoms get worse. ? You have difficulty moving the injured area. Get help right away if: ? You have severe pain. ? You have numbness in a hand or foot. ? Your hand or foot turns pale or cold. Summary ? A contusion is a deep bruise. ? Contusions are the result of a blunt injury to tissues and muscle fibers under the skin. ? It is treated with rest, ice, compression, and elevation. You may be given rlbx-sna-yyteliu medicines for pain. ? Contact a health care provider if your symptoms do not improve, or get worse. ? Get help right away if you have severe pain, have numbness, or the area turns pale or cold. This information is not intended to replace advice given to you by your health care provider. Make sure you discuss any questions you have with your health care provider. Document Revised: 09/09/2022 Document Reviewed: 08/21/2022 [employer] Patient Education ? 2022 [employer] Normal [facility] ED Patient Summaryon 024 ED Patient Summary [place] [id number] Patient Discharge Instructions Person Information Name: STACEY ANG Age: 23 Years Arrival Date: 05/04/2024 10:42:03 Discharge Diagnosis: 1:Contusion of right wrist Primary Care Physician: Wendie Jackson DO Provider Information Primary Provider: Kellee Foy, Shar[facility] Attendant:None The exam and treatment you received in the Emergency Department were for an urgent problem and are not intended as complete care. It is important that you follow up with a doctor, nurse practitioner, or physician?s assistant clinical nurse manager for ongoing care. If your symptoms become worse or you do not improve as expected and you are unable to reach your usual health care provider, you should return to the Emergency Department. We are available 24 hours a day. STACEY ANG PRICILLA has been given the following list of patient education materials, prescriptions and follow-up instructions: Follow-up Instructions: With: Address: When: Wendie Jackson [address], [address], [facility] [address] [place] [address] [employer] (1) In 3 days 05/07/2024 Comments: Return to the emergency room if your pain gets worse or any new symptoms. In the event that this physician does not participate in your insurance network, please consult with your insurance company to find a nearby participating provider. Patient Education Materials: Contusion A MESSAGE TO ALL PATIENTS REGARDING OPIOIDS PRESCRIPTION OPIOIDS: WHAT YOU NEED TO KNOW Prescription opioids can be used to help relieve qetervrv-ks-keutwp pain and are often prescribed following a surgery or injury, or for certain health conditions. These medications can be an important part of the treatment but also come with serious risks. It is important to work with your healthcare provider to make sure you are getting the safest, most effective care. WHAT ARE THE RISKS AND SIDE EFFECTS OF OPIOID USE? Prescription opioids carry serious risks of addiction and overdose, especially with prolonged use. An opioid overdose, often marked by slowed breathing, can cause sudden . The use of prescription opioids can have a number of side effects as well, even when taken as directed: ? Tolerance?meaning you might need to take more of the medication for the same pain relief ? Physical dependence?meaning you have symptoms of withdrawal when a medication is stopped ? Increased sensitivity to pain ? Constipation ? Nausea, vomiting, and dry mouth ? Sleepiness and dizziness ? Confusion ? Depression ? Low levels of testosterone that can result in lower sex drive, energy, and strength ? Itching and sweating RISKS ARE GREATER WITH: ? History of drug misuse, substance use disorder, or overdose ? Mental health conditions (such as depression or anxiety) ? Sleep apnea ? Older age (65 years and older) ? Avoid alcohol while taking prescription opioids. Also, unless specifically advised by your health care provider, medications to avoid include: ? Benzodiazepines (such as Xanax or Valium) ? Muscle relaxants (such as Soma or Flexeril) ? Hypnotics (such as Ambien or Lunesta) ? Other prescription opioids KNOW YOUR OPTIONS Talk to your health care provider about ways to manage your pain that don?t involve prescription opioids. Some of these options may actually work better and have fewer risks and side effects. Options may include: ? Pain relievers such as acetaminophen, ibuprofen, and naproxen ? Some medication that are also used for depression or seizures ? Physical therapy and exercise ? Cognitive behavioral therapy, a psychological, goal-directed approach, in which patients learn how to modify physical, behavioral, and emotional triggers of pain and stress. IF YOU ARE PRESCRIBED OPIOIDS FOR PAIN: ? Never take opioids in greater amounts or more often than prescribed. ? Follow up with your primary health care provider. o Work together to create a plan on how to manage your pain. o Talk about ways to help manage your pain that don?t involve prescription opioids. o Talk about any and all concerns and side effects. ? Help prevent misuse and abuse o Never sell or share prescription opioids. o Never use another person?s prescription opioids. ? Store prescription opioids in a secure place and out of reach of others (this may include visitors, children, friends, and family). ? Safely dispose of unused prescription opioids: Find your community drug take-back program or your pharmacy mail-back program, or flush them down the toilet, following guidance from the Food and Drug Administration (www.fda.gov/Drugs/Re sourcesForYou). ? Visit www.cdc.gov/drugoverd ose to learn about the risks of opioids abuse and overdose. ? If you believe you may be struggling with addiction, tell your health ocular care technologist (more content not included)... Normal [facility] XR Wrist 3+ Views Righton XR Wrist 3+ Views Right Exam Date/Time: 05/04/2024 11:51 EDT Reason for Exam: Pain, Traumatic Report IMPRESSION: NEGATIVE RIGHT WRIST. CLINICAL HISTORY: Pain, Traumatic. COMPARISON: 04/21/2020. COMMENT: 4 views included bones of the right wrist and mid and distal radius and ulna were obtained. The visualized bones appear normal without evidence of fracture or dislocation. Ordering Provider: Sharifa Goodson FINAL REPORT Dictated: 05/04/2024 12:08 pm Junito Cain M.D. Signed (Electronic Signature): 05/04/2024 12:08 pm Signed by: Junito Cain M.D. Transcribed by: WOODROW Technologist: ORIANA Technical Comments Radiation Dose: Ka,r in mGy = na DAP = na Normal [facility] ALL CBC WITH AUTO DIFFon BASOPHILS ABSOLUTE AUTO 0.0 [facility] Basophils/100 WBC (Bld) 0.5 % 0.2 - 2.0 % [facility] Eosinophils/100 WBC (Bld) 2.1 % 0.9 - 7.0 % [facility] Erythrocyte distribution width (RBC) [Ratio] 12.6 % 11.0 - 15.0 % [facility] Hematocrit (Bld) [Volume fraction] 34.8 % Low 36.0 - 48.0 % [facility] Hemoglobin (Bld) [Mass/Vol] 11.6 g/dL Low 12.0 - 16.0 g/dL [facility] IMMATURE GRANULOCYTES ABS AUTO 0.04 High [facility] Immature granulocytes/100 WBC (Bld) 0.5 % 0.0 - 0.5 % [facility] Interpretation and review of laboratory results Abnormal [facility] LYMPHOCYTES ABSOLUTE AUTO 1.3 [facility] Lymphocytes/100 WBC (Bld) 16.1 % Low 20.5 - 60.0 % [facility] MCH (RBC) [Entitic mass] 33.1 pg 26.7 - 34.0 pg [facility] MCHC (RBC) [Mass/Vol] 33.3 g/dL 29.9 - 35.2 g/dL [facility] MCV (RBC) [Entitic vol] 99.4 fL High 81.0 - 99.0 fL [facility] MONOCYTES ABSOLUTE AUTO 0.6 [facility] Monocytes/100 WBC (Bld) 7.4 % 1.7 - 12.0 % [facility] NEUTROPHILS ABSOLUTE AUTO 5.9 [facility] Neutrophils/100 WBC (Bld) 73.4 % 43.0 - 75.0 % [facility] Platelet mean volume (Bld) [Entitic vol] 11.3 fL 9.5 - 13.5 fL [facility] EO # 0.2 [facility] PLT 151 [facility] RBC 3.50 Low [facility] WBC 8.0 [facility] Pulmonary Function Studieson 06-24-2023 Pulmonary Function [...] READ BY: Portillo Correa M.D. Dictated: 06/23/2023 [id number] Transcribed: 06/23/2023 cc:Wendie Jackson D.O. cc:Gurpreet Higgins M.D. [facility] Comment on above: Result Comment: Elec tronically Signed By: Madeline LEE, Portillo X\.br\Date and Time Signed: 06/24/23 13:19 EDT Consent for Treatmenton Consent for Treatment [id number] .[id number]:127 Normal [facility] Pulmonary Function Testson 0 06-16-2023 Pulmonary Function Tests [id number] .00CD:127 Normal [facility] CHEMISTRYOrdered By: SYSTEM SYSTEM on 11-24-2022 Albumin [...] rate/Area] mL/min/1.73 m2 Normal >=59mL/min/1 .73 m2 [facility] Chem S GFR/1.73 sq M.predicted among non-blacks MDRD (S/P/Bld) [Vol rate/Area] mL/min/1.73 m2 Normal >=59mL/min/1 .73 m2 [facility] Chem S Globulin (S) [Mass/Vol] 3.6 g/dL [...] mg/mg Normal 10 - 20 [facility] Remisol COAGULATIONOrdered By: Giuseppe Robb on 11-24-2022 Fibrin D-dimer FEU (PPP) [Mass/Vol] 3906 ng/mL FEU Invalid Interpretation Code 215 - 500 ng/mL FEU [facility] Auto Coag Comment on above: Result Comment: Resu lts Called To DR JACKSON By GIUSEPPE ROBB And Read Back For Confirmation On 11/24/2022 16:26:28 EST Results Verified By Repeat Analysis HEMATOLOGYOrdered By: Chris Grant on 11-24-2022 Erythrocyte [...] Normal 4.0 - 11.0 E9/L [facility] HemeAutoSS XR CHEST 1 Von 11-11-2022 XR CHEST [...] RODOLFO LÓPEZ Date: 2022-11-11 15:20 Normal [facility] CBC AUTO DIFFon 11-07-2022 BASO # 0.0 103/ul Normal 0.0-0.1 [facility] Comment on above: Performed By: #### C BC #### [facility] [address] [address] [address] Dianelys Brown Basophils/100 WBC (Bld) 0.4 % Normal 0.2-2.0 [facility] Comment on above: Performed By: #### C BC #### [facility] [address] [address] [address] Dianelys Brown EO # 0.1 103/ul Normal 0.0-0.7 [facility] Comment on above: Performed By: #### C BC #### [facility] [address] [address] [address] Dianelys Brown Eosinophils/100 WBC (Bld) 1.3 % Normal 0.9-7.0 [facility] Comment on above: Performed By: #### C BC #### [facility] [address] [address] [address] Dianelys Brown Erythrocyte distribution width (RBC) [Ratio] 13.2 % Normal 11.0-15.0 [facility] Comment on above: Performed By: #### C BC #### [facility] [address] [address] [address] Dianelys Brown Hematocrit (Bld) [Volume fraction] 27.1 % Critically low 36.0-48.0 [facility] Comment on above: Performed By: #### C BC #### [facility] [address] [address] [address] Dianelys Brown Hemoglobin (Bld) [Mass/Vol] 9.0 g/dL Critically low 12.0-16.0 [facility] Comment on above: Performed By: #### C BC #### [facility] [address] [address] [address] Dianelys Brown IG # 0.05 10e3/ul Critically high 0.00-0.03 [facility] Comment on above: Performed By: #### C BC #### [facility] [address] [address] [address] Dianelys Brown IG % 0.5 % Normal 0.0-0.5 [facility] Comment on above: Performed By: #### C BC #### [facility] [address] [address] [address] Dianelys Brown LYMPH # 2.0 103/ul Normal 1.2-3.8 [facility] Comment on above: Performed By: #### C BC #### [facility] [address] [place] [address] Dr. Dianelys Brown Lymphocytes/100 WBC (Bld) 18.1 % Critically low 20.5-60.0 [facility] Comment on above: Performed By: #### C BC #### [facility] [address] [place] [address] Dr. Dianelys Brown MANUAL DIFF REQ NO Normal [facility] Comment on above: Performed By: #### C BC #### [facility] [address] [place] [address] Dr. Dianelys Brown MCH (RBC) [Entitic mass] 31.5 pg Normal 26.7-34.0 [facility] Comment on above: Performed By: #### C BC #### [facility] [address] [place] [address] Dr. Dianelys Brown MCHC (RBC) [Mass/Vol] 33.2 g/dL Normal 29.9-35.2 [facility] Comment on above: Performed By: #### C BC #### [facility] [address] [place] [address] Dr. Dianelys Brown MCV (RBC) [Entitic vol] 94.8 fL Normal 81.0-99.0 [facility] Comment on above: Performed By: #### C BC #### [facility] [address] [address] [address] Dianelys Brown MONO # 1.0 103/ul Critically high 0.3-0.8 [facility] Comment on above: Performed By: #### C BC #### [facility] [address] [address] [address] Dianelys Brown Monocytes/100 WBC (Bld) 9.1 % Normal 1.7-12.0 [facility] Comment on above: Performed By: #### C BC #### [facility] [address] [address] [address] Dianelys Brown NEUT # 7.6 103/ul Critically high 1.4-6.5 [facility] Comment on above: Performed By: #### C BC #### [facility] [address] [address] [address] Dianelys Brown Neutrophils/100 WBC (Bld) 70.6 % Normal 43.0-75.0 [facility] Comment on above: Performed By: #### C BC #### [facility] [address] [address] [address] Dianelys Brown Platelet mean volume (Bld) [Entitic vol] 11.8 fL Normal 9.5-13.5 [facility] Comment on above: Performed By: #### C BC #### [facility] [address] [address] [address] Dianelys Brown PLT 133 103/ul Critically low 150-450 [facility] Comment on above: Performed By: #### C BC #### [facility] [address] [address] [address] Dianelys Brown RBC 2.86 106/ul Critically low 4.20-5.40 [facility] Comment on above: Performed By: #### C BC #### [facility] [address] [address] [address] Dianelys Brown WBC 10.8 103/ul Normal 4.0-11.0 [facility] Comment on above: Performed By: #### C BC #### [facility] [address] [address] [address] Dianelys Brown CBC AUTO DIFFon 11-06-2022 BASO # 0.0 103/ul Normal 0.0-0.1 [facility] Comment on above: Performed By: #### H BSANS #### [facility] [address] [address] [address] Dianelys Brown Basophils/100 WBC (Bld) 0.4 % Normal 0.2-2.0 [facility] Comment on above: Performed By: #### H BSANS #### [facility] [address] [address] [address] Dianelys Brown EO # 0.2 103/ul Normal 0.0-0.7 [facility] Comment on above: Performed By: #### H BSANS #### [facility] [address] [place] [address] Dr. Dianelys Brown Eosinophils/100 WBC (Bld) 1.6 % Normal 0.9-7.0 [facility] Comment on above: Performed By: #### H BSANS #### [facility] [address] [address] [address] Dianelys Brown Erythrocyte distribution width (RBC) [Ratio] 13.1 % Normal 11.0-15.0 [facility] Comment on above: Performed By: #### H BSANS #### [facility] [address] [address] [address] Dianelys Brown Hematocrit (Bld) [Volume fraction] 33.5 % Critically low 36.0-48.0 [facility] Comment on above: Performed By: #### H BSANS #### [facility] [address] [address] [address] Dianelys Brown Hemoglobin (Bld) [Mass/Vol] 11.5 g/dL Critically low 12.0-16.0 [facility] Comment on above: Performed By: #### H BSANS #### [facility] [address] [address] [address] Dianelys Brown IG # 0.05 10e3/ul Critically high 0.00-0.03 [facility] Comment on above: Performed By: #### H BSANS #### [facility] [address] [address] [address] Dianelys Brown IG % 0.5 % Normal 0.0-0.5 [facility] Comment on above: Performed By: #### H BSANS #### [facility] [address] [address] [address] Dianelys Brown LYMPH # 2.6 103/ul Normal 1.2-3.8 [facility] Comment on above: Performed By: #### H BSANS #### [facility] [address] [place] [address] Dr. Dianelys Brown Lymphocytes/100 WBC (Bld) 24.0 % Normal 20.5-60.0 [facility] Comment on above: Performed By: #### H BSANS #### [facility] [address] [place] [address] Dr. Dianelys Brown MANUAL DIFF REQ NO Normal [facility] Comment on above: Performed By: #### H BSANS #### [facility] [address] [place] [address] Dr. Dianelys Brown MCH (RBC) [Entitic mass] 32.0 pg Normal 26.7-34.0 [facility] Comment on above: Performed By: #### H BSANS #### [facility] [address] [place] [address] Dr. Dianelys Brown MCHC (RBC) [Mass/Vol] 34.3 g/dL Normal 29.9-35.2 [facility] Comment on above: Performed By: #### H BSANS #### [facility] [address] [place] [address] Dr. Dianelys Brown MCV (RBC) [Entitic vol] 93.3 fL Normal 81.0-99.0 [facility] Comment on above: Performed By: #### H BSANS #### [facility] [address] [place] [address] Dr. Dianelys Brown MONO # 0.9 103/ul Critically high 0.3-0.8 [facility] Comment on above: Performed By: #### H BSANS #### [facility] [address] [address] [address] Dianelys Brown Monocytes/100 WBC (Bld) 8.6 % Normal 1.7-12.0 [facility] Comment on above: Performed By: #### H BSANS #### [facility] [address] [address] [address] Dianelys Brown NEUT # 6.9 103/ul Critically high 1.4-6.5 [facility] Comment on above: Performed By: #### H BSANS #### [facility] [address] [address] [address] Dianelys Brown Neutrophils/100 WBC (Bld) 64.9 % Normal 43.0-75.0 [facility] Comment on above: Performed By: #### H BSANS #### [facility] [address] [place] [address] Dr. Dianelys Brown Platelet mean volume (Bld) [Entitic vol] 12.5 fL Normal 9.5-13.5 [facility] Comment on above: Performed By: #### H BSANS #### [facility] [address] [address] [address] Dianelys Brown PLT 187 103/ul Normal 150-450 [facility] Comment on above: Performed By: #### H BSANS #### [facility] [address] [place] [address] Dr. Dianelys Brown RBC 3.59 106/ul Critically low 4.20-5.40 [facility] Comment on above: Performed By: #### H BSANS #### [facility] [address] [place] [address] Dr. Dianelys Brown WBC 10.7 103/ul Normal 4.0-11.0 [facility] Comment on above: Performed By: #### H BSANS #### [facility] [address] [place] [address] Dr. Dianelys Brown Covid-19 PCR ([facility]on 10-10 SARS-CoV-2 (COVID-19) RNA NAIF+probe Ql (Unsp spec) Not detected Normal NOT DETECTED [facility] Comment on above: Result Comment: When [...] for this test is supported by the [employer] of Health and Human Service's declaration that [...] used). Performed By: #### C VDTBH #### [facility] [address] [place] [address] Dr. Dianelys Brown DRUG SCREEN RAPID (URINE)on 11-06-2022 AMP Negative Normal NEGATIVE [facility] Comment on above: Performed By: #### D RUGRPD #### [facility] [address] [place] [address] Dr. Dianelys Brown BAR Negative Normal NEGATIVE [facility] Comment on above: Performed By: #### D RUGRPD #### [facility] [address] [place] [address] Dr. Dianelys Brown BUP Negative Normal NEGATIVE [facility] Comment on above: Performed By: #### D RUGRPD #### [facility] [address] [place] [address] Dr. Dianelys Brown BZO Negative Normal NEGATIVE [facility] Comment on above: Performed By: #### D RUGRPD #### [facility] [address] [place] [address] Dr. Dianelys Brown GOGO Negative Normal NEGATIVE [facility] Comment on above: Performed By: #### D RUGRPD #### [facility] [address] [place] [address] Dr. Dianelys Brown CUT-OFFS SEE BELOW Normal [facility] Comment on above: Result Comment: AMP [...] ng/mL Performed By: #### D RUGRPD #### [facility] [address] [place] [address] Dr. Dianelys Brown DRUG CUT HEADER DRUG CLASS TEST SYSTEM CUT-OFF CONCENTRATIONS ARE FOLLOWS: Normal [facility] Comment on above: Performed By: #### D RUGRPD #### [facility] [address] [place] [address] Dr. Dianelys Brown mAMP Negative Normal NEGATIVE [facility] Comment on above: Performed By: #### D RUGRPD #### [facility] [address] [place] [address] Dr. Dianelys Brown MTD Negative Normal NEGATIVE [facility] Comment on above: Performed By: #### D RUGRPD #### [facility] [address] [place] [address] Dr. Dianelys Brown OPI Negative Normal NEGATIVE [facility] Comment on above: Performed By: #### D RUGRPD #### [facility] [address] [place] [address] Dr. Dianelys Brown OXY Negative Normal NEGATIVE [facility] Comment on above: Performed By: #### D RUGRPD #### [facility] [address] [place] [address] Dr. Dianelys Brown PCP Negative Normal NEGATIVE [facility] Comment on above: Performed By: #### D RUGRPD #### [facility] [address] [place] [address] Dr. Dianelys Brown PPX Negative Normal NEGATIVE [facility] Comment on above: Performed By: #### D RUGRPD #### [facility] [address] [place] [address] Dr. Dianelys Brown TCA Negative Normal NEGATIVE [facility] Comment on above: Performed By: #### D RUGRPD #### [facility] [address] [place] [address] Dr. Dianelys Brown THC Negative Normal NEGATIVE [facility] Comment on above: Performed By: #### D RUGRPD #### [facility] [address] [place] [address] Dr. Dianelys Brown TYPE AND SCREENon 11-06-2022 TYPE AND SCREEN Negative Normal [facility] Comment on above: Performed By: #### A 1C #### [facility] [address] [place] [address] Dr. Dianelys Brown GROUP B STREP CULTUREon 09-11 S. agalactiae Ag Ql (Unsp spec) Culture Observations: NEGATIVE FOR GROUP B STREPTOCOCCUS. Normal [facility] Comment on above: Performed By: #### G BSCX #### [facility] [address] [place] [address] Dr. Dianelys Brown US PREG GROWTHon 09-26-2022 [...] RODOLFO REYNOSO Date: 2022-09-26 06:11 Normal [facility] US PREG GROWTHon 09-11-2022 US PREG [...] COMPA WILLIAM Date: 2022-09-11 17:50 Normal [facility] TYPE AND SCREENon 08-28-2022 TYPE AND SCREEN Negative Normal [facility] Comment on above: Performed By: #### T NS #### [facility] [address] [address] [address] Dianelys Brown GLUCOSE - 1HRon 07-31-2022 Glucose [Mass/Vol] 124 mg/dL Critically high 74-106 [facility] Comment on above: Performed By: #### H BSANS #### [facility] [address] [address] [address] Dianelys Brown HEMOGRAM AND PLATELon 2021 Hematocrit (Bld) [Volume fraction] 32.4 % Critically low 36.0-48.0 [facility] Comment on above: Performed By: #### H BSANS #### [facility] [address] [address] [address] Dianelys Brown Hemoglobin (Bld) [Mass/Vol] 10.7 g/dL Critically low 12.0-16.0 [facility] Comment on above: Performed By: #### H BSANS #### [facility] [address] [place] [address] Dr. Dianelys Brown MCH (RBC) [Entitic mass] 33.5 pg Normal 26.7-34.0 [facility] Comment on above: Performed By: #### H BSANS #### [facility] [address] [place] [address] Dr. Dianelys Brown MCHC (RBC) [Mass/Vol] 33.0 g/dL Normal 29.9-35.2 [facility] Comment on above: Performed By: #### H BSANS #### [facility] [address] [place] [address] Dr. Dianelys Brown MCV (RBC) [Entitic vol] 101.6 fL Critically high 81.0-99.0 [facility] Comment on above: Performed By: #### H BSANS #### [facility] [address] [place] [address] Dr. Dianelys Brown PLT 164 103/ul Normal 150-450 [facility] Comment on above: Performed By: #### H BSANS #### [facility] [address] [place] [address] Dr. Dianelys Brown RBC 3.19 106/ul Critically low 4.20-5.40 [facility] Comment on above: Performed By: #### H BSANS #### [facility] [address] [place] [address] Dr. Dianelys Brown WBC 7.5 103/ul Normal 4.0-11.0 [facility] Comment on above: Performed By: #### H BSANS #### [facility] [address] [place] [address] Dr. Dianelys Brown CHLAMYDIA/GONOCOCCUS NAIF (SW AB/URINE/PAPon 07-22-2022 Chlamydia trachomatis, NAIF Negative Normal Negative [facility] Comment on above: Performed By: #### H BSANS #### [facility] [address] [address] [address] Dianelys Brown Neisseria gonorrhoeae, NAIF Negative Normal Negative [facility] Comment on above: Performed By: #### H BSANS #### [facility] [address] [address] [address] Dianelys Brown VAGINITIS/VAGINOSIS DNA PROB Bertrand 07-20-2022 Isabel species Negative Normal Negative [facility] Comment on above: Performed By: #### H BSANS #### [facility] [address] [address] [address] Dianelys Brown Gardnerella vaginalis Negative Normal Negative [facility] Comment on above: Performed By: #### H BSANS #### [facility] [address] [address] [address] Dianelys Brown Trichomonas vaginalis Negative Normal Negative [facility] Comment on above: Performed By: #### H BSANS #### [facility] [address] [address] [address] Dianelys Brown AFP MATERNAL FOR SPINA BIFID Aon 06-21-2022 AFP MoM 1.29 Normal [facility] Comment on above: Performed By: #### A 1C #### [facility] [address] [address] [address] Dianelys Brown AFP Value 88.7 ng/mL Normal [facility] Comment on above: Performed By: #### A 1C #### [facility] [address] [address] [address] Dianelys Brown AFP, Serum for Spina Bifida Report Normal [facility] Comment on above: Performed By: #### A 1C #### [facility] [address] [address] [address] Dianelys Brown Comment Comment Normal [facility] Comment on above: Result Comment: Gray Flores, Ph.D., [facility] Director . References: Available Upon Request. . Multiples Of Median Cutoffs For AFP Elevations Wick 2.5 Black 2.8 IDD 2.0 Twins 4.5 Abbreviation Definitions IDD - Insulin Dep Diabetes OSBR - Open Spina Bifida Risk . For further inquiries contact [email or web address] [facility] at [phone]. . This test was developed and its performance characteristics determined by [employer]. It has not been cleared or approved by the Food and Drug Administration. Performed By: #### A 1C #### [facility] [address] [place] [address] Dr. Dianelys Gallo Age Collection Date 20.0 weeks Normal [facility] Comment on above: Performed By: #### A 1C #### [facility] [address] [place] [address] Dr. Dianelys Brown Gestat, Age Based on As provided Normal [facility] Comment on above: Result Comment: Reca lculations are not recommended when gestational dating by LMP and ultrasound are within 10 days. Performed By: #### A 1C #### [facility] [address] [place] [address] Dr. Dianelys Brown Insulin Dep Diabetes No Normal [facility] Comment on above: Performed By: #### A 1C #### [facility] [address] [place] [address] Dr. Dianelys Brown Interpretation Comment Normal [facility] Comment on above: Result Comment: Inte [...] Customer Services to discuss available options. The [employer] recommends amniocentesis be offered to women age 35 and older. Performed By: #### A 1C #### [facility] [address] [place] [address] Dr. Dianelys Brown [age] Normal [facility] Comment on above: Performed By: #### A 1C #### [facility] [address] [place] [address] Dr. Dianelys Brown Multiple Gestation No Normal [facility] Comment on above: Performed By: #### A 1C #### [facility] [address] [address] [address] Dianelys Brown OSBR Risk 1 IN 4947 Normal [facility] Comment on above: Performed By: #### A 1C #### [facility] [address] [address] [address] Dianelys Brown PDF . Normal [facility] Comment on above: Performed By: #### A 1C #### [facility] [address] [address] [address] Dianelys Brown Race Normal [facility] Comment on above: Performed By: #### A 1C #### [facility] [address] [place] [address] Dr. Dianelys Brown Test Results: Negative [facility] Comment on above: Performed By: #### A 1C #### [facility] [address] [place] [address] Dr. Dianelys Brown US PREG ANATOMY SINGLEon [...] Examinations, August 09, 2007. Electronically authenticated by: CMOPA WILLIAM Date: 2022-06-19 16:50 Normal [facility] ECHOCARDIO M/2D COMPLETEon 0 04-21-2022 ECHOCARDIO M/2D COMPLETE Patient: STACEY ANG Exam Date: 04/21/2022 : 2000 Gender:F Ordering : DR PASTORA PARKS . Admission #: [id number] Family : Order #: [id number] CLICK HERE TO VIEW EXAM ECHOCARDIOGRAM REPORT [...] Area(A4C): 10.80 cm2 Left Atrium Systolic Volume(A2C): 28256 mm3 Left Atrium Systolic Volume(A4C): 90060 mm3 Mitral Valve MV E to A Ratio: 1.[address]: 2650 mm/s2 Mitral Valve A-Wave Peak Velocity: [...] M.D. on 04/22/2022 at 18:18 Normal [facility] HEP B SURFACE ANTIGEN SCREEN on 03-27-2022 HBsAg Screen Negative Normal Negative [facility] Comment on above: Performed By: #### H BSA #### [facility] [address] [place] [address] Dr. Dianelys Brown HEPATITIS C VIRUS AB W/ REFL EX QUANTon 03-27-2022 HCV AB <0.1 Normal 0.0-0.9 [facility] Comment on above: Performed By: #### A 1C #### [facility] [address] [place] [address] Dr. Dianelys Borwn Interpretation: Comment Normal [facility] Comment on above: Result Comment: Nega tive Not infected with HCV, unless recent infection is suspected or other evidence exists to indicate HCV infection. Performed By: #### A 1C #### [facility] [address] [place] [address] Dr. Dianelys Brown HIV 1 AND 2 WITH REFLEXon HIV Screen 4th Generation wRfx Non-Reactive Normal Non Reactive [facility] Comment on above: Result Comment: HIV Negative HIV-1/HIV-2 antibodies and HIV-1 p24 antigen were NOT detected. There is no laboratory evidence of HIV infection. Performed By: #### H BSANS #### [facility] [address] [place] [address] Dr. Dianelys Brown RPR QUANTon 03-27-2022 Rapid Plasma Reagin, Quant Non-Reactive Normal NonRea<1:1 [facility] Comment on above: Result Comment: Plea se Note: This test does not meet current guidelines for screening and diagnosis of syphilis. This test is intended for following treatment response in patients being treated for syphilis infection. To screen for syphilis infection, a reflex cascade that includes both RPR and a treponema-specific assay should be utilized, such as Treponema pallidum (Syphilis) Screening Tensas (920801) or Rapid Plasma Reagin (RPR) Test With Reflex to Quantitative RPR and Confirmatory Treponema pallidum Antibodies (858119). Performed By: #### R PRQ #### [facility] [address] [place] [address] Dr. Dianelys Brown RUBELLA AB IGGon 03-27-2022 Rubella Antibodies, IgG 1.47 index Normal Immune >0.99 [facility] Comment on above: Result Comment: Non- immune <0.90 Equivocal 0.90 - 0.99 Immune >0.99 Performed By: #### H BSANS #### [facility] [address] [place] [address] Dr. Dianelys Brown CBC AUTO DIFFon 03-26-2022 BASO # 0.1 103/ul Normal 0.0-0.1 [facility] Comment on above: Performed By: #### H BSANS #### [facility] [address] [place] [address] Dr. Dianelys Brown Basophils/100 WBC (Bld) 0.6 % Normal 0.2-2.0 [facility] Comment on above: Performed By: #### H BSANS #### [facility] [address] [place] [address] Dr. Dianelys Brown EO # 0.3 103/ul Normal 0.0-0.7 [facility] Comment on above: Performed By: #### H BSANS #### [facility] [address] [place] [address] Dr. Dianelys Brown Eosinophils/100 WBC (Bld) 2.8 % Normal 0.9-7.0 [facility] Comment on above: Performed By: #### H BSANS #### [facility] [address] [place] [address] Dr. Dianelys Brown Erythrocyte distribution width (RBC) [Ratio] 11.9 % Normal 11.0-15.0 [facility] Comment on above: Performed By: #### H BSANS #### [facility] [address] [place] [address] Dr. Dianelys Brown Hematocrit (Bld) [Volume fraction] 38.0 % Normal 36.0-48.0 [facility] Comment on above: Performed By: #### H BSANS #### [facility] [address] [place] [address] Dr. Dianelys Brown Hemoglobin (Bld) [Mass/Vol] 13.6 g/dL Normal 12.0-16.0 [facility] Comment on above: Performed By: #### H BSANS #### [facility] [address] [place] [address] Dr. Dianelys Brown IG # 0.03 10e3/ul Normal 0.00-0.03 [facility] Comment on above: Performed By: #### H BSANS #### [facility] [address] [place] [address] Dr. Dianelys Brown IG % 0.3 % Normal 0.0-0.5 [facility] Comment on above: Performed By: #### H BSANS #### [facility] [address] [place] [address] Dr. Dianelys Brown LYMPH # 2.4 103/ul Normal 1.2-3.8 [facility] Comment on above: Performed By: #### H BSANS #### [facility] [address] [place] [address] Dr. Dianelys Brown Lymphocytes/100 WBC (Bld) 22.1 % Normal 20.5-60.0 [facility] Comment on above: Performed By: #### H BSANS #### [facility] [address] [place] [address] Dr. Dianelys Brown MANUAL DIFF REQ NO Normal [facility] Comment on above: Performed By: #### H BSANS #### [facility] [address] [place] [address] Dr. Dianelys Brown MCH (RBC) [Entitic mass] 32.2 pg Normal 26.7-34.0 [facility] Comment on above: Performed By: #### H BSANS #### [facility] [address] [place] [address] Dr. Dianelys Brown MCHC (RBC) [Mass/Vol] 35.8 g/dL Critically high 29.9-35.2 [facility] Comment on above: Performed By: #### H BSANS #### [facility] [address] [place] [address] Dr. Dianelys Brown MCV (RBC) [Entitic vol] 90.0 fL Normal 81.0-99.0 [facility] Comment on above: Performed By: #### H BSANS #### [facility] [address] [place] [address] Dr. Dianelys Brown MONO # 1.0 103/ul Critically high 0.3-0.8 [facility] Comment on above: Performed By: #### H BSANS #### [facility] [address] [place] [address] Dr. Dianelys Brown Monocytes/100 WBC (Bld) 8.8 % Normal 1.7-12.0 [facility] Comment on above: Performed By: #### H BSANS #### [facility] [address] [place] [address] Dr. Dianelys Brown NEUT # 7.1 103/ul Critically high 1.4-6.5 [facility] Comment on above: Performed By: #### H BSANS #### [facility] [address] [address] [address] Dianelys Brown Neutrophils/100 WBC (Bld) 65.4 % Normal 43.0-75.0 [facility] Comment on above: Performed By: #### H BSANS #### [facility] [address] [place] [address] Dr. Dianelys Brown Platelet mean volume (Bld) [Entitic vol] 11.6 fL Normal 9.5-13.5 [facility] Comment on above: Performed By: #### H BSANS #### [facility] [address] [place] [address] Dr. Dianelys Brown PLT 171 103/ul Normal 150-450 [facility] Comment on above: Performed By: #### H BSANS #### [facility] [address] [place] [address] Dr. Dianelys Brown RBC 4.22 106/ul Normal 4.20-5.40 [facility] Comment on above: Performed By: #### H BSANS #### [facility] [address] [place] [address] Dr. Dianelys Brown WBC 10.9 103/ul Normal 4.0-11.0 [facility] Comment on above: Performed By: #### H BSANS #### [facility] [address] [place] [address] Dr. Dianelys Brown CULTURE URINEon 03-26-2022 CULTURE [...] F Trimethoprim/Sulfamet hoxazole <=20 S F Normal [facility] Comment on above: Performed By: #### A 1C #### [facility] [address] [place] [address] Dr. Dianelys Brown FREE T4on 03-26-2022 Free T4 [Mass/Vol] 1.95 ng/dL Critically high 0.78-1.34 [facility] Comment on above: Performed By: #### H BSANS #### [facility] [address] [place] [address] Dr. Dianelys Brown GLYCOHEMOGLOBIN A1Con 2021 ADA RECOMMENDATION SEE BELOW Normal [facility] Comment on above: Result Comment: ADA RECOMMENDED LIMIT 4.0 - 6.0 ADA THERAPEUTIC TARGET < 7.0 ACTION SUGGESTED > 7.0 Performed By: #### A 1C #### [facility] [address] [place] [address] Dr. Dianelys Brown Glucose [Mass/Vol] 103 mg/dL Normal [facility] Comment on above: Performed By: #### A 1C #### [facility] [address] [place] [address] Dr. Dianelys Brown HbA1c (Bld) [Mass fraction] 5.2 % Normal 4.5-6.2 [facility] Comment on above: Performed By: #### A 1C #### [facility] [address] [place] [address] Dr. Dianelys Brown TSHon 03-26-2022 TSH 1.474 uIU/mL Normal 0.516-4.130 [facility] Comment on above: Performed By: #### T SH #### [facility] [address] [place] [address] Dr. Dianelys Brown TSH RANGE SEE BELOW Normal [facility] Comment on above: Result Comment: <0.3 4 UIU/ml HYPERTHYROID 0.34-5.60 UIU/ml EUTHYROID >5.60 UIU/ml HYPOTHYROID Performed By: #### T SH #### [facility] [address] [address] [address] Dianelys Brown TYPE AND SCREENon 03-26-2022 TYPE AND SCREEN Negative Normal [facility] Comment on above: Performed By: #### T NS #### [facility] [id number] Dianelys Brown US PREG TVon 03-24-2022 [...] by: RODOLFO REYNOSO Date: 2022-03-24 09:53 Normal [facility] Vital Signs Date Time Vital Sign Value Performing Clinician Facility 05-04-2024 11:04-0400 Body temperature 98.42 [degF] [facility] 05-04-2024 11:04-0400 Diastolic blood pressure 72 mm[Hg] [facility] 05-04-2024 11:04-0400 Heart rate 79 /min [facility] 05-04-2024 11:04-0400 Respiratory rate 16 /min [facility] 05-04-2024 11:04-0400 SaO2% (BldA) [Mass fraction] 96 % [facility] 05-04-2024 11:04-0400 Systolic blood pressure 95 mm[Hg] [facility] 11-11-2023 08:13-0500 Body weight 65.41 kg Jad Woods MD Work Phone: [facility] 11-11-2023 08:13-0500 Diastolic blood pressure 62 mm[Hg] Jad Woods MD Work Phone: [facility] 11-11-2023 08:13-0500 Heart rate 90 /min Jad Woods MD Work Phone: [facility] 11-11-2023 08:13-0500 Systolic blood pressure 97 mm[Hg] Jad Woods MD Work Phone: [facility] 12-31-2022 11:19-0500 Blood Pressure Location Basem Higgins [facility] 12-31-2022 11:19-0500 Diastolic blood pressure 62 mm[Hg] Basem Higgins [facility] 12-31-2022 11:19-0500 [facility] 66 [facility] 12-31-2022 11:19-0500 SaO2% (BldA) [Mass fraction] 96 % [facility] 12-31-2022 11:19-0500 Systolic blood pressure 96 mm[Hg[facility] 06-21-2022 03:06-0400 Body weight 55.[address] PASTORA PARKS . [facility] Comment on above: Performed By: #### A1C #### [facility] [address] [place] [address] Dr. Dianelys Brown 03-25-2022 10:58-0400 Body temperature 98.24 [degF] Jenelle GONZALEZ [facility] 03-25-2022 10:58-0400 Heart rate 72 /min Jenelle GONZALEZ [facility] 03-25-2022 10:58-0400 SaO2% (BldA) [Mass fraction] 99 % Jenelle GOZNALEZ [facility] Encounters Encounter Date Encounter Type Care Provider Facility Start: 05-04-2024 End: 05-04-2024 Emergency department patient visit Sharifa Goodson [facility] Start: 03-16-2024 End: 03-16-2024 ambulatory PASTORA CHARLY Not Available Start: 02-02-2024 End: 02-02-2024 ambulatory PASTORA CHARLY Not Available Start: 01-26-2024 End: 01-26-2024 ambulatory PASTORA CHARLY [...] Available Start: 11-11-2023 End: [facility]: [facility]-11-[facility]23 End: 11-11-2023 Office outpatient new 45 minutes Jad Woods MD Work Phone: [facility] Comment on above: Encounter for suspec niyah anomaly ruled out (Primary Dx) Start: 10-15-2023 End: 10-15-2023 ambulatory LORI HUYNH Not Available Start: 06-16-2023 End: 06-16-2023 ambulatory Gurpreet Higgins Facility:[facility] Start: 06-16-2023 End: 06-16-2023 Patient encounter procedure Gurpreet Higgins [facility] Start: 12-31-2022 End: 12-31-2022 Patient encounter procedure Gurpreet Higgins [facility] Start: 12-09-2022 End: 12-09-2022 Patient encounter procedure Wendie Jackson [facility] Start: 12-02-2022 End: 12-02-2022 Patient encounter procedure Wendie Akash Jackson [facility] Start: 11-25-2022 End: 12-03-2022 Pre-admission assessment Wendiedru Jackson [facility] Start: 11-24-2022 End: 11-24-2022 Patient encounter procedure Wendie Jackson [facility] Start: 11-11-2022 End: 11-11-[address] DOCTOR [...] End: 03-25-2022 Patient encounter procedure Jenelle GONZALEZ [facility] Start: 03-24-2022 End: 03-25-2022 ambulatory [...] done Jenelle GONZALEZ None (qualifier value) Jamila n CARLOS Plan of Treatment Date Care Activity Detail Author Start: 11-08-2032 DTaP,Tdap and Td Vaccines (8 - Td or Tdap) DTaP,Tdap and Td Vaccines (8 - Td or Tdap) [facility] Start: 12-14-2023 End: 12-14-2023 Patient encounter procedure 12/14/2023 2:00 PM EST Routine [facility] [address] [place] [address] Lori Huynh PA [address] [place], [place] [id number] Third trimester [facility] Comment on above: Third trimester preg aaliyah Start: 07-10-2023 Influenza vaccination Influenza Vacc ine [facility] Start: 2020 Adult BMI Screening Adult BMI Screen ing [facility] Start: 2014 Depression Screening Depression Scre ening [facility] Start: 2014 Tobacco Screening Tobacco Screening [facility] Start: 2002 Screening for Chlamy dony trachomatis Chlamydia Screening [facility] Payers Date Payer Category Payer Medicaid [id number] 2019 Private Health Insurance [id number] 2002 Unknown [id number] 2.16.84 0.1.495341.3.579.2.593 2002 Unknown [id number] 2.16.84 0.1.222452.3.579.2.593 2002 Unknown [id number] 2.16.84 0.1.070026.3.579.2.593 2002 Unknown [id number] 2.16.84 0.1.632999.3.579.2.593 2002 Unknown [id number] 2.16.84 0.1.846178.3.579.2.593 2002 Unknown [id number] 2.16.84 0.1.714262.3.579.2.593 2002 Unknown [id number] 2.16.84 0.1.359417.3.579.2.593 2002 Unknown [id number] 2.16.84 0.1.789023.3.579.2.593 2002 Unknown [id number] 2.16.84 0.1.734842.3.579.2.593 2002 Unknown [id number] 2.16.84 0.1.631606.3.579.2.593 2002 Unknown [id number] 2.16.84 0.1.944958.3.579.2.593 2002 Unknown [id number] 2.16.84 0.1.405091.3.579.2.593 2002 Unknown [id number] 2.16.84 0.1.253464.3.579.2.593 2002 Unknown [id number] 2.16.84 0.1.456170.3.579.2.593 2002 Unknown [id number] 2.16.84 0.1.268728.3.579.2.593 2002 Unknown [id number] 2.16.84 0.1.385627.3.579.2.593 2002 Unknown [id number] 2.16.84 0.1.763194.3.579.2.593 2002 Unknown [id number] 2.16.84 0.1.411989.3.579.2.1286 2002 Unknown [id number] 2.16.84 0.1.370298.3.579.2.1286 2002 Unknown [id number] 2.16.84 0.1.603938.3.579.2.1259 2002 Unknown [id number] 2.16.84 0.1.609299.3.579.2.1259 2002 Unknown [id number] 2.16.84 0.1.259934.3.579.2.1259 2002 Unknown [id number] 2.16.84 0.1.387935.3.579.2.1259 2002 Unknown [id number] 2.16.84 0.1.925475.3.579.2.1259 2002 Unknown [id number] 2.16.84 0.1.648210.3.579.2.1259 2002 Unknown [id number] 2.16.84 0.1.754454.3.579.2.1259 2002 Unknown [id number] 2.16.840 .1.348543.3.579.2.1259 2002 Unknown [id number] 2.16.840 .1.214297.3.579.2.1259 2002 Unknown [id number] 2.16.8 40.1.365725.3.579.2.727 2002 Unknown [id number] 2.16.8 40.1.452406.3.579.2.727 1959 Medicaid [id number] 1959 Private Health Insurance [id number] 1959 Self-pay Social History Date Type Detail Facility Start: 03-25-2022 End: 08-05-2023 Tobacco smoking status Never smoked tobacco (finding) [facility] Start: 08-05-2023 End: 11-11-2023 Sex Assigned At Female [facility] Start: 08-05-2023 End: 10-28-2023 Tobacco use and exposure Smokeless tobacco non-user [facility] Start: 11-11-2023 End: 11-30-2023 Alcohol intake Lifetime non-drinker (finding) [facility] Start: 08-05-2023 End: 11-11-2023 History of Social function [facility] Start: 06-02-2023 [facility] Start: 2002 Sex Assigned At Not on file [facility] Functional Status Date Assessment Result Facility 05-04-2024 Functional Status N/A [facility] 12-31-2022 Functional Status No [facility] Clinical Notes 03-25-2022 to 05-04-2024 Note Date & Type Note Facility 05-04-2024 Hospital Discharg e instructions Patient Education 05/04/2024 13:01:09 Contusion Contusion A contusion is a deep bruise. Contusions are the result of a blunt injury to tissues and muscle fibers under the skin. The injury causes bleeding under the skin. The skin overlying the contusion may turn blue, purple, or yellow. Minor injuries will give you a painless contusion, but more severe injuries cause contusions that may stay painful and swollen for a few weeks. Follow these instructions at home: Pay attention to any changes in your symptoms. Let your health care provider know about them. Take these actions to relieve your pain. Managing pain, stiffness, and swelling Use resting, icing, applying pressure (compression), and raising (elevating) the injured area. This is often called the RICE strategy. ?Rest the injured area. Return to your normal activities as told by your health care provider. Ask your health care provider what activities are safe for you. ?If directed, put ice on the injured area: ?Put ice in a plastic bag. ?Place a towel between your skin and the bag. ?Leave the ice on for 20 minutes, 2 3 times per day. ?If directed, apply light compression to the injured area using an elastic bandage. Make sure the bandage is not wrapped too tightly. Remove and reapply the bandage as directed by your health care provider. ?If possible, raise (elevate) the injured area above the level of your heart while you are sitting or lying down. General instructions Take wqbw-lpj-cumnjtx and prescription medicines only as told by your health care provider. Keep all follow-up visits as told by your health care provider. This is important. Contact a health care provider if: Your symptoms do not improve after several days of treatment. Your symptoms get worse. You have difficulty moving the injured area. Get help right away if: You have severe pain. You have numbness in a hand or foot. Your hand or foot turns pale or cold. Summary A contusion is a deep bruise. Contusions are the result of a blunt injury to tissues and muscle fibers under the skin. It is treated with rest, ice, compression, and elevation. You may be given fvkj-mzy-atktqbc medicines for pain. Contact a health care provider if your symptoms do not improve, or get worse. Get help right away if you have severe pain, have numbness, or the area turns pale or cold. This information is not intended to replace advice given to you by your health care provider. Make sure you discuss any questions you have with your health care provider. Document Revised: 09/09/2022 Document Reviewed: 08/21/2022 [employer] Patient Education 2022 [employer]. Follow Up Care 05/04/2024 10:43:52 With:Wendie Jackson [facility] , [address] [address] Business (1) When:05/07/2024 12:45:53 Comments:Return to the emergency room if your pain gets worse or any new symptoms. [facility] 05-04-2024 Evaluation + Plan note Extrac niyah from: Title:ED Note Author:Kellee Foy, Sharifa Nunez te:05/04/24 1. Contusion of right wrist (S60.211A: Contusion of right wrist, initial encounter) Orders: ibuprofen, 600 mg = 1 tab(s), Tab, Oral, Once, Stop date 05/04/24 11:15:00 EDT, STAT, Start date 05/04/24 11:15:00 EDT, 05/04/24 11:15:00 EDT Calvin Wrap XR Wrist 3+ Views Right [facility]01-03-2024 History of Present illness Narrative* Gricelda Gaspar RN - 11/11/2023 9:00 AM EST Headache/epigastric pain/blurry vision/swelling? No Cramping/contractions? No Abnormal vaginal discharge? No Spotting/vaginal bleeding? No Loss of fluid like your water may have broken? No Cats in the home? No Do you change the litter box? No Flu vaccine? No Genetic testing done this here or other office? Yes Have you been seen here at [facility] in a previous ? No Recent ER visits or hospitalizations? Patient reports she presented to [facility] approx. two weeks ago for cramping Bring blood sugar log or meter with you today? (Please bring them with you for every visit at [facility]) N/A Traveled outside the country in the past 6 month No Any concerns that you would like me to mention to the provider today? No * Jad Woods MD - 11/11/2023 9:00 AM EST REASON FOR CONSULTATION: Low-lying placenta resolved. HISTORY [...] inhaler, Inhale 2 puffs every 6 (six) hoursas needed for wheezing. (Patient not taking: Reported on 11/11/2023), Disp: , Rfl: budesonide-formoteroL (SYMBICORT) 80-4.5 mcg/actuation inhaler, Inhale 2 puffs in the morning and 2puffs before bedtime. (Patient not taking: Reported on [...] and the other consultants, we search on [employer] and all the available care everywhere epic I did review all the imaging studies of the patient available on EMR, ordered by the primary care physician and the other net developer consultant HABITS: Patient activity no restrictions, diet [...] lb 3.2 oz) LMP (LMP Unknown) . Gravidabdomen, Respirations not labored. 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 Patient does not have any future appointment scheduled with us Thank you for allowing me to participate in [facility] . If there any questions please donot hesitate to contact us. Sincerely, JAD WOODS MD documented [facility]Code[facility] Hospital Discharge instructions Follow Up Care 12/23/2022 11:03:27 With:Ronaldo LEE, Gurpreet Levine, [facility], [place] Address: [address] [place] [address] [place] [address]- When:3 months [facility]05-17-2022 Hospital Discharge instructions Patient Education 03/25/2022 11:42:31 Viral Conjunctivitis, [...] as doorknobs or towels. It can also bepassed through droplets, such as from coughing or [...] Rarely, steroid eye drops or antiviral medicines maybe prescribed. Follow these instructions at home: Medicines Take or apply voph-ccx-lfziuyh and prescription medicines only as told by your health care provider. Be very careful to avoid touching the edge of the eyelid with the eye drop bottle or ointment tube when applying medicines to the affected eye. Being careful this way will stop you from spreading theinfection to the other eye or to other [...] health care provider how to sterilize or replaceyour contact lenses before using them again. Wear [...] and water are not available, use hand pulp grinder feeder. Try to avoid contact with other people [...] 01/16/2004 Document Revised: 02/14/2020 Document Reviewed: 05/12/2017 [employer] Patient Education 2020 [employer] Follow Up Care 03/25/2022 10:27:35 With:Lori Jarvis DO Address:Unknown When: Unknown [facility] Evaluation + Plan note No data available for this section [facility] Evaluation + Plan note Future Appointments Appointment Date:07/01/2023 11:15:00 AM Scheduled Provider:Gurpreet Higgins MD Location:.Pulmonary Clinic App[facility]ment Type:[facility] Encounter for suspected anomaly ruled out- [facility] No data available for this section [facility] CompanyInstructionsNot on filedocumented in this encounter [facility] HospitalProgress note No data available for this section [facility] Summary Purpose Family History No Family History Records FoundNo Family History Records FoundNo Family History Records Found No data available for this section No Family History Records Found Advance Directives No Advanced Directives Records FoundNo Advanced Directives Records FoundNo Advanced Directives Records FoundNo Advanced Directives Records Found Additional Source Comments Patient Care team informatio n (unrecognized section and content) Clinical Services Assistant Relationship Specialty Start Date End Date Wendie Jackson MD [address] [place] [id number] [phone] PCP - General Family Medicine 07/17/23 INFORMATION SOURCE (unrecogn ized section and content) DATE CREATED AUTHOR 01/30/2023 [facility] DATE CREATED AUTHOR AUTHOR'S ORGANIZ ATION 11/15/2023 [facility] DATE CREATED AUTHOR AUTHOR'S ORGANIZ ATION 03/18/2024 [facility] DATE CREATED AUTHOR AUTHOR'S ORGANIZ ATION 05/08/2024 [facility] Reason for Visit (unrecogniz ed section and [...] BE BASED ON THE PRIMARY CLINICAL RECORDS. [employer] [facility]. provides no warranty or guarantee of the accuracy or completeness of information in this document.
== END 2024-06-14 19:58 | disposition home or self-care (01) ==
LOC: LAB 19:57
PROVIDERS: Visit Provider Obstetrics & Gynecology
DX: Z01.419 Encounter for gynecological examination (general) (routine) without abnormal findings (principal)
CPT/HCPCS: 88175